=== PATIENT | female | born 1935 | race Caucasian/White ===

== ENCOUNTER → 2016-12-05 | Outpatient (CLI) | payer BC ==
[~2016-12-05] MED LIST: ASPI81TA28 PO; ATOR-26 PO; B-COTAB18 PO; CHOL1CAP57 PO; CHRO500T5 PO; CLOP1TAB15 PO; CLOT1CRE3; COEN10CA4 PO; CTP/1 PO; CYAN100020 PO; CZR50 PO; DILT-113 PO; FERR1TAB23 PO; ISOS60TA25 PO; LBT/100 PO; LEVOPOW36 PO; LSX20 PO; MAGN65TA PO; MULT-223 PO; NRN/100 PO; NTRGSL/4 UT; [UNRECOGNIZED DRUG - CODE] PO
[2016-12-05 12:30] LABS: HEMATOCRIT 34.4 % (37-47); MEAN CELL VOLUME 94.5 fL (80-100); MEAN CORPUSCULAR HEMOGLOBIN 31.3 pg (25-34); MEAN CORPUSCULAR HGB CONC 33.1 g/dl (32-36); MEAN PLATELET VOLUME 9.7 fL (7.4-10.4); PLATELET COUNT 251 K/uL (130-400); RED BLOOD COUNT 3.64 M/uL (4.2-5.4); WHITE BLOOD COUNT 6.06 K/uL (4.8-10.8)
[2016-12-05 12:49] LABS: URINE APPEARANCE CLEAR (CLEAR); URINE BILIRUBIN NEG (NEG); URINE COLOR DK YELLOW; URINE NITRITE NEG (NEG); URINE SPECIFIC GRAVITY 1.012 (1.000-1.030); UROBILINOGEN NEG (NEG)
[2016-12-05 12:59] LABS: MANUAL MICROSCOPIC REQUIRED? NO; REVIEW REQ? NO
[2016-12-05 13:10] LABS: URINE PROTIEN/CREAT RATIO 0.4 (0-0.2); URINE TOTAL PROTEIN 15.7 mg/dl (0-11.9)
[2016-12-05 13:19] LABS: BLOOD UREA NITROGEN 20 mg/dl (7-18); BUN/CREATININE RATIO 19.6 (10-20); CALCIUM 9.2 mg/dl (8.5-10.1); CARBON DIOXIDE 27 mmol/L (21-32); CHLORIDE 102 mmol/L (98-107); GLUCOSE 95 mg/dl (70-99); POTASSIUM 4.4 mmol/L (3.5-5.1); SODIUM 138 mmol/L (136-145)
[2016-12-05 13:20] LABS: PHOSPHORUS 3.2 mg/dl (2.5-4.9)
[2016-12-05 14:43] LABS: THYROID STIMULATING HORMONE 1.19 uIu/ml (0.300-4.500)
== END | disposition home or self-care (01) ==
LOC: C.LABBFT 10:01
PROVIDERS: ATTEND Nurse Practitioner
DX: E03.9 Hypothyroidism, unspecified (principal); D64.9 Anemia, unspecified; I12.9 Hypertensive chronic kidney disease with stage 1 through stage 4 chronic kidney disease, or unspecified chronic kidney disease; N18.3 Chronic kidney disease, stage 3 (moderate); R80.9 Proteinuria, unspecified; I48.92 Unspecified atrial flutter

== ENCOUNTER → 2017-03-01 | Outpatient (CLI) | payer BC ==
[~2017-03-01] MED LIST changes: +ATOR-24 PO; +CALC-20 PO; +CMD6 PO; +LEVO200T6 PO; +LOSA100T65 PO; +VLTG EXT; +WARF5TAB90 PO
== END | disposition home or self-care (01) ==
LOC: C.LABSPEC 12:24
PROVIDERS: ATTEND Physician Assistant Medical
DX: S31.109A Unspecified open wound of abdominal wall, unspecified quadrant without penetration into peritoneal cavity, initial encounter (principal); X58.XXXA Exposure to other specified factors, initial encounter

== ENCOUNTER → 2017-03-01 | Outpatient (CLI) | payer BC ==
[2017-03-01 12:21] LABS: BASO % 0.5 %; BASO ABS # 0.04 K/uL (0-0.2); COMPLETE YES; EOS % 1.6 %; HEMATOCRIT 32.4 % (37-47); IG% 0.2 %; LYMPH % 11.1 %; LYMPH ABS # 0.97 K/uL (1.2-3.4); MEAN CELL VOLUME 92.8 fL (80-100); MEAN CORPUSCULAR HEMOGLOBIN 30.7 pg (25-34); MEAN PLATELET VOLUME 9.5 fL (7.4-10.4); MONO % 14.8 %; NEUT % 71.8 %; PLATELET COUNT 250 K/uL (130-400); RED BLOOD COUNT 3.49 M/uL (4.2-5.4); WHITE BLOOD COUNT 8.73 K/uL (4.8-10.8)
[2017-03-01 12:55] LABS: CALCIUM 9.1 mg/dl (8.5-10.1)
[2017-03-01 13:15] LABS: ESTIMATED AVERAGE GLUCOSE 117 mg/dl; HA1C FLAG Normal (Normal)
[2017-03-01 13:17] LABS: ALT/SGPT 31 U/L (12-78); AST/SGOT 23 U/L (15-37); BLOOD UREA NITROGEN 18 mg/dl (7-18); BUN/CREATININE RATIO 16.5 (10-20); CARBON DIOXIDE 23 mmol/L (21-32); CHLORIDE 99 mmol/L (98-107); CHOLESTEROL 121 mg/dl (0-200); GLUCOSE 106 mg/dl (70-99); POTASSIUM 4.3 mmol/L (3.5-5.1); SODIUM 134 mmol/L (136-145); TRIGLYCERIDES 36 mg/dl (0-150); VERY LOW DENSITY LIPOPROT CALC 7 mg/dl
[2017-03-01 13:27] LABS: ALB/GLOB RATIO 0.8 (0.9-2); ALKALINE PHOSPHATASE 47 U/L (45-117); CHOLESTEROL/HDL RATIO 1.2; HDL CHOLESTEROL 101 mg/dl; LDL CHOLESTEROL CALCULATED 13 mg/dl
== END | disposition home or self-care (01) ==
LOC: C.LABBFT 09:57
PROVIDERS: ATTEND Nurse Practitioner
DX: E78.00 Pure hypercholesterolemia, unspecified (principal); D64.9 Anemia, unspecified; N18.3 Chronic kidney disease, stage 3 (moderate); E03.9 Hypothyroidism, unspecified; R73.01 Impaired fasting glucose; E55.9 Vitamin D deficiency, unspecified; S31.109A Unspecified open wound of abdominal wall, unspecified quadrant without penetration into peritoneal cavity, initial encounter; X58.XXXA Exposure to other specified factors, initial encounter; I48.92 Unspecified atrial flutter

== ENCOUNTER → 2017-04-05 | Outpatient (CLI) | payer BC ==
[~2017-04-05] MED LIST changes: -ATOR-24 PO; -CALC-20 PO; -CMD6 PO; -LEVO200T6 PO; -LOSA100T65 PO; -VLTG EXT; -WARF5TAB90 PO
== END | disposition home or self-care (01) ==
LOC: C.MAMM 09:10
PROVIDERS: ATTEND Internal Medicine
DX: M81.0 Age-related osteoporosis without current pathological fracture (principal); M85.832 Other specified disorders of bone density and structure, left forearm

== ENCOUNTER → 2017-04-05 | Outpatient (CLI) | payer BC ==
[2017-04-05 10:16] LABS: PROTHROMBIN TIME (PATIENT) 22.6 SECONDS (9.0-12.0)
--- NOTE | 2017-04-23 14:22 | CODING QUERY MEDICAL NECESSITY ---
SUPPORTING DIAGNOSIS NEEDED A supporting diagnosis is required for the test/procedure performed on this patient in order for us to be reimbursed by the patient's insurance. Please provide a supporting diagnosis for the following test/procedure listed below next to the test name along with your signature. *If there is no additional diagnosis for this patient that would support the following test/procedure please document that below next to the test/procedure. Test(s)/Procedure(s) that require a supporting diagnosis: * VITAMIN B12 DIAGNOSIS: Provider Signature: Date: Thank you Sondra [facility] [employer] Payment Information Management Once completed, please kindly fax back to [phone] For questions please call [phone]
== END | disposition home or self-care (01) ==
LOC: C.LAB1850 08:58
PROVIDERS: ATTEND Nurse Practitioner
DX: D64.9 Anemia, unspecified (principal); I48.92 Unspecified atrial flutter; M81.0 Age-related osteoporosis without current pathological fracture; M85.832 Other specified disorders of bone density and structure, left forearm

== ENCOUNTER → 2017-05-24 | Outpatient (CLI) | payer BC ==
[2017-05-24 13:15] LABS: ALT/SGPT 30 U/L (12-78); AST/SGOT 26 U/L (15-37); BLOOD UREA NITROGEN 17 mg/dl (7-18); BUN/CREATININE RATIO 17.1 (10-20); CALCIUM 9.5 mg/dl (8.5-10.1); CARBON DIOXIDE 28 mmol/L (21-32); CHLORIDE 103 mmol/L (98-107); GLUCOSE 99 mg/dl (70-99); POTASSIUM 3.9 mmol/L (3.5-5.1); SODIUM 136 mmol/L (136-145)
[2017-05-24 13:18] LABS: ALB/GLOB RATIO 0.9 (0.9-2); ALKALINE PHOSPHATASE 50 U/L (45-117); CHOLESTEROL 128 mg/dl (0-200); CHOLESTEROL/HDL RATIO 1.3; HDL CHOLESTEROL 99 mg/dl; LDL CHOLESTEROL CALCULATED 20 mg/dl; TRIGLYCERIDES 43 mg/dl (0-150); VERY LOW DENSITY LIPOPROT CALC 9 mg/dl
== END | disposition home or self-care (01) ==
LOC: C.LABBFT 10:33
PROVIDERS: ATTEND Internal Medicine Cardiovascular Disease
DX: E78.00 Pure hypercholesterolemia, unspecified (principal); I48.92 Unspecified atrial flutter

== ENCOUNTER → 2017-06-07 | Outpatient (CLI) | payer BC ==
[2017-06-07 17:33] LABS: MEAN CELL VOLUME 97.1 fL (80-100); MEAN CORPUSCULAR HEMOGLOBIN 31.2 pg (25-34); MEAN CORPUSCULAR HGB CONC 32.1 g/dl (32-36); MEAN PLATELET VOLUME 9.7 fL (7.4-10.4); PLATELET COUNT 253 K/uL (130-400); WHITE BLOOD COUNT 6.35 K/uL (4.8-10.8)
[2017-06-07 17:44] LABS: URINE APPEARANCE CLEAR (CLEAR); URINE BILIRUBIN NEG (NEG); URINE COLOR YELLOW; URINE EPITHELIAL CELL AUTO 0-5 /lpf (0-5); URINE NITRITE NEG (NEG); URINE PH 7.5 (4.5-7.5); URINE SPECIFIC GRAVITY 1.013 (1.000-1.030); UROBILINOGEN NEG (NEG)
[2017-06-07 17:46] LABS: BLOOD UREA NITROGEN 15 mg/dl (7-18); BUN/CREATININE RATIO 16.3 (10-20); CALCIUM 9.9 mg/dl (8.5-10.1); CARBON DIOXIDE 26 mmol/L (21-32); CHLORIDE 101 mmol/L (98-107); CREATININE 0.89 mg/dl (0.60-1.20); GLUCOSE 94 mg/dl (70-99); PHOSPHORUS 2.7 mg/dl (2.5-4.9); POTASSIUM 3.9 mmol/L (3.5-5.1); SODIUM 134 mmol/L (136-145)
[2017-06-07 17:47] LABS: MANUAL MICROSCOPIC REQUIRED? NO; REVIEW REQ? NO
[2017-06-07 18:02] LABS: CREATININE, URINE < 13.0 mg/dl; URINE TOTAL PROTEIN 10.2 mg/dl (0-11.9)
== END | disposition home or self-care (01) ==
LOC: C.LABBFT 12:26
PROVIDERS: ATTEND Internal Medicine Nephrology
DX: D64.9 Anemia, unspecified (principal); I12.9 Hypertensive chronic kidney disease with stage 1 through stage 4 chronic kidney disease, or unspecified chronic kidney disease; N18.3 Chronic kidney disease, stage 3 (moderate); R80.9 Proteinuria, unspecified; E55.9 Vitamin D deficiency, unspecified

== ENCOUNTER 2017-07-12 12:12 | Inpatient (IN) | payer BC, OTHER ==
[~2017-07-12] VITALS: Ht 152.4 cm; Wt 95.0 kg
[2017-07-12] MEDS ORDERED: ATOR-24 PO (13:29)
[2017-07-12] MEDS ORDERED: WARF5TAB90 PO (13:29)
[2017-07-12] MEDS ORDERED: CALC-20 PO (13:29)
[2017-07-12] MEDS ORDERED: LOSA100T65 PO (13:29)
[2017-07-12] MEDS ORDERED: LEVO200T6 PO (13:31)
--- NOTE | 2017-07-12 13:40 | EMERGENCY ROOM VISIT NOTE ---
History Report prepared by Albert: Dave Hanson Under the Supervision of: Dr. Maury Aguiar M.D. First contact with patient: 12:57 Chief Complaint: LEG PAIN,LEG INJURY Stated Complaint: LEG PAIN History of Present Illness The patient is an 81 year old female who presents to the Emergency Room with complaints of constant left leg pain starting this morning. The patient states that she was sitting in her chair with a heating pad on, and then she was not able to get up, and she was not able to put weight on her leg. She denies any trauma. The patient states that she has a history of cellulitis and A-fib, and she takes Coumadin and Plavix. She states that she took Advil this morning for her arthritis. The patient denies any fever, chest pain, shortness of breath, abdominal pain, nausea, vomiting, and hip pain. She notes that the pain is worse in the back, and she has a lump in the back of her knee as well. She denies any history of blood clots and gout. The daughter states that the patient was recently in rehab for her mobility, and she was doing a lot of leg exercises. Source of History: patient Onset: this morning Position: leg (left) Timing: constant Associated Symptoms: No fevers, No chest pain, No SOB, No nausea, No vomiting, No abdominal pain Review of Systems See HPI for pertinent positives & negatives. A total of 10 systems reviewed and were otherwise negative. Past Medical & Surgical Medical Problems: (1) Abscess (2) Acute coronary syndrome (3) CAD (coronary artery disease) (4) CAD (coronary artery disease) (5) Diab Adamaris Wo Compl, Type Ii Or Unspec Type, Not Uncntrld (6) Hyperparathyroidism, Unspecified (7) Hypertension (8) Hypertension Nos (9) Kidney disease (10) Leukocytosis (11) Morbid Obesity (12) Osteoporosis Nos Old medical records were reviewed. Nurse's notes were reviewed and I agree with. Family History Diabetes mellitus Heart disease Hypertension Kidney disease Social History Smoking Status: Never Smoker Alcohol Use: none Drug Use: none Marital Status: Housing Status: lives alone Occupation Status: retired Current/Historical Medications Scheduled Aspirin (Aspirin Ec), 81 MG PO DAILY Atorvastatin (Lipitor), 40 MG PO HS Calcium Carbonate-Vitamin D (Calcium 600 + D), 1 TAB PO TIDM Diltiazem Hcl Ext Rel (Tiazac), 180 MG PO NOON Ferrous Sulfate (Iron), 325 MG PO QAM Furosemide (Furosemide), 20 MG PO QAM Gabapentin (Neurontin), 100 MG PO HS Isosorbide Mononitrate Ext Rel (Imdur Ext Rel), 60 MG PO QAM Labetalol Hcl (Normodyne), 100 MG PO BID Levothyroxine Sodium (Levothyroxine Sodium), 1 TAB PO DAILYBB Losartan Potassium (Cozaar), 100 MG PO QAM Warfarin Sodium (Coumadin), 1.5 TAB PO HS Scheduled PRN Clonidine Hcl (Catapres), 0.1 MG PO DAILY PRN for Hypertension Nitroglycerin (Nitrostat), 0.4 MG UT PRN PRN for Chest Pain Allergies Coded Allergies: Doxycycline (Verified Allergy, Intermediate, RASH, 07/12/17) ANA LUISA Inhibitors (Verified Adverse Reaction, Unknown, INTOLERANT, 07/12/17) Lisinopril (Verified Adverse Reaction, Unknown, INTOLERANT, 07/12/17) Physical Exam Vital Signs Date Time Temp Pulse Resp B/P (MAP) Pulse Ox O2 Delivery O2 Flow Rate FiO2 07/12/17 18:26 70 20 176/70 95 Room Air 07/12/17 16:43 85 20 199/98 84 Room Air 07/12/17 15:27 93 20 211/115 97 Room Air 07/12/17 13:20 77 07/12/17 12:34 37.0 98 20 228/107 96 Room Air 07/12/17 12:30 92 Physical Exam General: Non-ill appearing older female in no acute distress. HEENT: Normal cephalic atraumatic. Pupils are equal round and reactive to light. Extraocular movements are intact. Oropharynx is pink with moist mucous membranes. No swelling of the mouth lips or tongue. Neck: Supple with a midline trachea. No meningeal signs or stiffness, no JVD or bruits. No Stridor. Chest: Clear to auscultation bilaterally. No wheezes or rhonchi. No increased work of breathing. Heart: regular rate and rhythm. Abdomen: Soft nontender, nondistended without rebound guarding or rigidity. Extremities: Left knee is not red or swollen. Mild pain with movement. Normal perfusion of the left foot. Normal motor and sensation in the left leg. No cyanosis clubbing or edema. No calf tenderness or assymetry Spine/Back. Non tender to palpation. No CVA tenderness Skin: Good turgor without rashes. Neurologic exam: Cranial nerves two through 12 are intact. Motor and sensation are intact and symmetrical throughout. Medical Decision & Procedures ER Provider Diagnostic Interpretation: Radiology results as stated below per my review and radiologist interpretation: ULTRASOUND LEFT LOWER EXTREMITY VENOUS CLINICAL HISTORY: Left leg pain. COMPARISON STUDY: Left lower extremity venous ultrasound dated 12/15/2015. TECHNIQUE: Real-time, grayscale, and color Doppler sonography of the deep veins of the left lower extremity was performed from the inguinal crease to the calf. Compression and augmentation were utilized. FINDINGS: There is no sonographic evidence of deep venous thrombosis identified in the left lower extremity. The common femoral, superficial femoral, and popliteal veins are patent and normally compressible. The greater saphenous vein and the profunda femoris vein at the junction with the common femoral vein are clear. The visualized calf veins are patent. A complex popliteal cyst measures 7.5 x 2.9 x 4.4 cm. IMPRESSION: 1. There is no sonographic evidence of deep venous thrombosis identified in the left lower extremity. 2. A large complex collection in the popliteal fossa likely represents a popliteal cyst. This has increased in complexity from the 12/15/2015 examination. Electronically signed by: Rai Adam M.D. 07/12/2017 3:06 PM Dictated Date/Time: 07/12/2017 3:05 PM SINGLE VIEW PELVIS; 2 VIEWS LEFT HIP CLINICAL HISTORY: Left leg pain. No reported history of trauma. No history of trauma. FINDINGS: An AP view of the pelvis with AP and frog-leg views of the left hip are compared to study dated 11/06/2015. The skeletal structures are osteopenic. There is no radiographic evidence of fracture identified in the hips or bony pelvis. There is mild to moderate arthritic change present in both hips with associated joint space narrowing, left greater than right. Sclerotic change is seen in the sacroiliac joints and pubic symphysis. Moderate lumbosacral spondylosis is partially imaged. The overlying soft tissues are normal in appearance. There is a nonobstructed abdominal bowel gas pattern. IMPRESSION: 1. There is no radiographic evidence of fracture in the hips or bony pelvis. 2. Osteopenia and degenerative change as above. Electronically signed by: Rai Adam M.D. 07/12/2017 2:45 PM Dictated Date/Time: 07/12/2017 2:44 PM L KNEE 3 VIEWS HISTORY: 81 years-old Female LT KNEE PAIN acute left hip pain status post trauma COMPARISON: None available TECHNIQUE: 3 views of the left knee FINDINGS: Severe medial and patellofemoral compartment with at least moderate lateral compartment osteoarthritis. The bones appear moderately demineralized. Large joint effusion with moderate soft tissue swelling about the knee. No acute fracture or dislocation identified. Chondrocalcinosis without discrete intra-articular foreign body. IMPRESSION: 1. Large joint effusion and moderate soft tissue swelling without acute fracture or dislocation. 2. Moderate bone demineralization with tricompartmental osteoarthritis as above, severe within the medial and patellofemoral compartments. The above report was generated using voice recognition software. It may contain grammatical, syntax or spelling errors. Electronically signed by: Braulio Hernandez M.D. 07/12/2017 2:46 PM Dictated Date/Time: 07/12/2017 2:44 PM Laboratory Results 07/12/17 13:30 Red Blood Count 3.35, Mean Corpuscular Volume 96.1, Mean Corpuscular Hemoglobin 31.9, Mean Corpuscular Hemoglobin Concent 33.2, Mean Platelet Volume 9.5, Neutrophils (%) (Auto) 69.6, Lymphocytes (%) (Auto) 16.4, Monocytes (%) (Auto) 10.2, Eosinophils (%) (Auto) 3.1, Basophils (%) (Auto) 0.5, Neutrophils # (Auto ) 4.43, Lymphocytes # (Auto) 1.04, Monocytes # (Auto) 0.65, Eosinophils # (Auto ) 0.20, Basophils # (Auto) 0.03 07/12/17 13:30 Test 07/12/17 13:30 White Blood Count 6.36 K/uL (4.8-10.8) Red Blood Count 3.35 M/uL (4.2-5.4) Hemoglobin 10.7 g/dL (12.0-16.0) Hematocrit 32.2 % (37-47) Mean Corpuscular Volume 96.1 fL (80-100) Mean Corpuscular Hemoglobin 31.9 pg (25-34) Mean Corpuscular Hemoglobin Concent 33.2 g/dl (32-36) Platelet Count 208 K/uL (130-400) Mean Platelet Volume 9.5 fL (7.4-10.4) Neutrophils (%) (Auto) 69.6 % Lymphocytes (%) (Auto) 16.4 % Monocytes (%) (Auto) 10.2 % Eosinophils (%) (Auto) 3.1 % Basophils (%) (Auto) 0.5 % Neutrophils # (Auto) 4.43 K/uL (1.4-6.5) Lymphocytes # (Auto) 1.04 K/uL (1.2-3.4) Monocytes # (Auto) 0.65 K/uL (0.11-0.59) Eosinophils # (Auto) 0.20 K/uL (0-0.5) Basophils # (Auto) 0.03 K/uL (0-0.2) RDW Standard Deviation 50.7 fL (36.4-46.3) RDW Coefficient of Variation 14.4 % (11.5-14.5) Immature Granulocyte % (Auto) 0.2 % Immature Granulocyte # (Auto) 0.01 K/uL (0.00-0.02) Prothrombin Time 27.1 SECONDS (9.0-12.0) Prothromb Time International Ratio 2.4 (0.9-1.1) Activated Partial Thromboplast Time 38.0 SECONDS (21.0-31.0) Partial Thromboplastin Ratio 1.5 Anion Gap 7.0 mmol/L (3-11) Est Creatinine Clear Calc Drug Dose 52.3 ml/min Estimated GFR () 72.4 Estimated GFR (Non- 62.5 BUN/Creatinine Ratio 20.3 (10-20) Uric Acid 4.8 mg/dl (2.6-7.2) Calcium Level 9.1 mg/dl (8.5-10.1) Total Bilirubin 0.5 mg/dl (0.2-1) Direct Bilirubin 0.2 mg/dl (0-0.2) Aspartate Amino Transf (AST/SGOT) 24 U/L (15-37) Alanine Aminotransferase (ALT/SGPT) 30 U/L (12-78) Alkaline Phosphatase 47 U/L (45-117) Total Protein 7.0 gm/dl (6.4-8.2) Albumin 3.3 gm/dl (3.4-5.0) Lipase 182 U/L (73-393) Laboratory studies as stated above per my review. ECG Indication: other (leg pain) Rate (beats per minute): 87 Rhythm: atrial flutter (with variable blockage) Findings: nonspecific-ST abn, no acute ischemic change Comparison ECG Date: 10/29/15 Change: no significant change ED Course 1257: Past medical records reviewed. The patient was evaluated in room B3, and a complete history and physical examination were performed. 1415: I reevaluated the patient, and she is about to go to ultrasound 1547: I reassessed the patient, and she is doing well. I discussed the treatment plan with her, and she was agreeable. 1720: Discussed the patient's case Dr. [place], [facility] [place] The patient will be evaluated for further management. Medical Decision Differentials include, but are not limited to; DVT, arthritis, infection, cellulitis, arterial compromise, popliteal cyst. This patient comes in as described above. She is placed in room B3. She is here for treatment and evaluation of left leg pain. It seems to be in the knee . she also later complains that the hip hurts a little bit . There is no fall or trauma. She's had no fever or systemic complaints. On exam, she is neurologically and neurovascularly intact. There is no redness or warmth she is on both Coumadin and Plavix. Blood work was obtained x-rays are obtained of the knee and hip as well as an ultrasound of her leg. EKG was obtained. She was reassessed frequently. She has no significant electrolyte or metabolic abnormalities which would explain her symptoms. Her INR is therapeutic in the mid 2 range. Ultrasound shows no evidence of DVT , she does have a complex popliteal cyst. Knee x-ray was unremarkable for fracture. She does has a large joint effusion. She is on 2 blood thinners and is unable ambulate secondary to pain. I do think she needs to have a rehabilitation and is a fall risk at home. I discussed this with her case management team they cannot get her in to rehabilitation tonight and recommended we observe her hospital for further inpatient treatment and evaluation and rehabilitation. Medication Reconcilliation Current Medication List: was personally reviewed by me Blood Pressure Screening Patient's blood pressure: Elevated blood pressure Monitored by the hospitalist Consults Time Called: 1547 Consulting Physician: GRUPO Thompson Returned Call: 1720 Discussed the patient's case GRUPO Thompson. The patient will be evaluated for further management. Impression Primary Impression: Knee effusion Additional Impressions: Popliteal cyst Ambulatory dysfunction Scribe Attestation The scribe's documentation has been prepared under my direction and personally reviewed by me in its entirety. I confirm that the note above accurately reflects all work, treatment, procedures, and medical decision making performed by me. Departure Information Dispostion Being Evaluated By Hospitalist Referrals Nai Sparrow, C.R.N.P. (PCP) Patient Instructions My [facility] Problem Qualifiers
[2017-07-12 13:51] LABS: BASO % 0.5 %; BASO ABS # 0.03 K/uL (0-0.2); COMPLETE YES; EOS % 3.1 %; HEMATOCRIT 32.2 % (37-47); IG% 0.2 %; LYMPH % 16.4 %; LYMPH ABS # 1.04 K/uL (1.2-3.4); MEAN CELL VOLUME 96.1 fL (80-100); MEAN CORPUSCULAR HEMOGLOBIN 31.9 pg (25-34); MEAN CORPUSCULAR HGB CONC 33.2 g/dl (32-36); MEAN PLATELET VOLUME 9.5 fL (7.4-10.4); MONO % 10.2 %; NEUT % 69.6 %; PLATELET COUNT 208 K/uL (130-400); RED BLOOD COUNT 3.35 M/uL (4.2-5.4); WHITE BLOOD COUNT 6.36 K/uL (4.8-10.8)
[2017-07-12 14:02] LABS: INR 2.4 (0.9-1.1); PARTIAL THROMBOPLASTIN RATIO 1.5; PROTHROMBIN TIME (PATIENT) 27.1 SECONDS (9.0-12.0)
[2017-07-12 14:09] LABS: BUN/CREATININE RATIO 20.3 (10-20); CALCIUM 9.1 mg/dl (8.5-10.1); CREATININE 0.86 mg/dl (0.60-1.20); POTASSIUM 3.9 mmol/L (3.5-5.1); URIC ACID 4.8 mg/dl (2.6-7.2)
--- NOTE | 2017-07-12 14:47 | DIAGNOSTIC IMAGING REPORT ---
SINGLE VIEW PELVIS; 2 VIEWS LEFT HIP CLINICAL HISTORY: Left leg pain. No reported history of trauma. No history of trauma. FINDINGS: An AP view of the pelvis with AP and frog-leg views of the left hip are compared to study dated 11/06/2015. The skeletal structures are osteopenic. There is no radiographic evidence of fracture identified in the hips or bony pelvis. There is mild to moderate arthritic change present in both hips with associated joint space narrowing, left greater than right. Sclerotic change is seen in the sacroiliac joints and pubic symphysis. Moderate lumbosacral spondylosis is partially imaged. The overlying soft tissues are normal in appearance. There is a nonobstructed abdominal bowel gas pattern. IMPRESSION: 1. There is no radiographic evidence of fracture in the hips or bony pelvis. 2. Osteopenia and degenerative change as above. Electronically signed by: Rai Adam M.D. 07/12/2017 2:45 PM Dictated Date/Time: 07/12/2017 2:44 PM
--- NOTE | 2017-07-12 14:47 | DIAGNOSTIC IMAGING REPORT ---
L KNEE 3 VIEWS HISTORY: 81 years-old Female LT KNEE PAIN acute left hip pain status post trauma COMPARISON: None available TECHNIQUE: 3 views of the left knee FINDINGS: Severe medial and patellofemoral compartment with at least moderate lateral compartment osteoarthritis. The bones appear moderately demineralized. Large joint effusion with moderate soft tissue swelling about the knee. No acute fracture or dislocation identified. Chondrocalcinosis without discrete intra-articular foreign body. IMPRESSION: 1. Large joint effusion and moderate soft tissue swelling without acute fracture or dislocation. 2. Moderate bone demineralization with tricompartmental osteoarthritis as above, severe within the medial and patellofemoral compartments. The above report was generated using voice recognition software. It may contain grammatical, syntax or spelling errors. Electronically signed by: Braulio Hernandez M.D. 07/12/2017 2:46 PM Dictated Date/Time: 07/12/2017 2:44 PM
--- NOTE | 2017-07-12 15:07 | DIAGNOSTIC IMAGING REPORT ---
ULTRASOUND LEFT LOWER EXTREMITY VENOUS CLINICAL HISTORY: Left leg pain. COMPARISON STUDY: Left lower extremity venous ultrasound dated 12/15/2015. TECHNIQUE: Real-time, grayscale, and color Doppler sonography of the deep veins of the left lower extremity was performed from the inguinal crease to the calf. Compression and augmentation were utilized. FINDINGS: There is no sonographic evidence of deep venous thrombosis identified in the left lower extremity. The common femoral, superficial femoral, and popliteal veins are patent and normally compressible. The greater saphenous vein and the profunda femoris vein at the junction with the common femoral vein are clear. The visualized calf veins are patent. A complex popliteal cyst measures 7.5 x 2.9 x 4.4 cm. IMPRESSION: 1. There is no sonographic evidence of deep venous thrombosis identified in the left lower extremity. 2. A large complex collection in the popliteal fossa likely represents a popliteal cyst. This has increased in complexity from the 12/15/2015 examination. Electronically signed by: Rai Adam M.D. 07/12/2017 3:06 PM Dictated Date/Time: 07/12/2017 3:05 PM
[2017-07-12] MEDS ORDERED: ALUMINUM/MAGNESIUM/SIMETH (MAALOX MAX) 30 ML UDC PO PRN (18:30)
[2017-07-12] MEDS ORDERED: NITROGLYCERIN 0.4 MG SL PER TAB CHARGE UT PRN (18:30)
[2017-07-12] MEDS ORDERED: POLYETHYLENE (MIRALAX) 17 GM PACK PO PRN (18:30)
[2017-07-12] MEDS ORDERED: MAGNESIUM HYDROXIDE SUSP 30 ML UDC PO PRN (18:30)
[2017-07-12] MEDS ORDERED: ONDANSETRON INJ 2 MG/ML 2 ML VIAL IV PRN (18:30)
[2017-07-12] MEDS ORDERED: ACETAMINOPHEN 325 MG TAB PO PRN (18:30)
--- NOTE | 2017-07-12 19:12 | History and Physical ---
History & Physical Date & Time of Service: Jul 12, 2017 at 18:56 Chief Complaint: Leg Pain Primary Care Physician: Nai Sparrow C.R.NGudeliaPGudelia History of Present Illness Source: patient, family (son) Ms. Parkinson is an 81 y/o female with PMHx of CAD S/P Stents, Persistent Atrial Fibrillation, Hypothyroidism, CKD Stage III, Anemia, and Abdominal Wall Abscess S/P I&D (summer 2016), and CECIL who presents for ambulatory dysfunction and L knee pain starting earlier today. Patient has had long standing arthritis but normally is ambulatory with a cane. She had a 10-12 day inpatient stay at [facility] and then did outpatient twice a week throughout May. She just finished their program this past . She states she felt to be improving and participating in the leg exercises that they gave her. This AM, she got up around 0630 and did not have any worsening of her chronic arthritis. She reports a sudden onset of L knee pain and decided to sit down with a heating pad. When she tried to get up she could not put weight on her leg. She attempted to stand about four times and felt like the knee kept giving out on her. She denies any falls or trauma to this knee. She is on Coumadin and ASA. She reports feeling well otherwise. Does not dry eyes and dry pruritic area around R eye but no purulent drainage or visual issues. Past Medical/Surgical History 1. CAD S/P Stents 2. Persistent Atrial Fibrillation 3. Hypothyroidism 4. CKD Stage III 5. Anemia 6. Abdominal Wall Abscess S/P I&D (summer 2016) Family History Diabetes mellitus Heart disease Hypertension Kidney disease Social History Smoking Status: Never Smoker Smokeless Tobacco Use: No Drug Use: none Marital Status: Occupational Status: retired Immunizations History of Influenza Vaccine: No History of Tetanus Vaccine?: No Tetanus Immunization Date: Apr 10, 2006 History of Pneumococcal: No History of Hepatitis B Vaccine: No Allergies Coded Allergies: Doxycycline (Verified Allergy, Intermediate, RASH, 07/12/17) ANA LUISA Inhibitors (Verified Adverse Reaction, Unknown, INTOLERANT, 07/12/17) Lisinopril (Verified Adverse Reaction, Unknown, INTOLERANT, 07/12/17) Home Medications Scheduled Aspirin (Aspirin Ec), 81 MG PO DAILY Atorvastatin (Lipitor), 40 MG PO HS Calcium Carbonate-Vitamin D (Calcium 600 + D), 1 TAB PO TIDM Diltiazem Hcl Ext Rel (Tiazac), 180 MG PO NOON Ferrous Sulfate (Iron), 325 MG PO QAM Furosemide (Furosemide), 20 MG PO QAM Gabapentin (Neurontin), 200 MG PO HS Isosorbide Mononitrate Ext Rel (Imdur Ext Rel), 60 MG PO QAM Labetalol Hcl (Normodyne), 100 MG PO BID Levothyroxine Sodium (Levothyroxine Sodium), 1 TAB PO DAILYBB Losartan Potassium (Cozaar), 100 MG PO QAM Warfarin Sodium (Coumadin), 1.5 TAB PO HS Scheduled PRN Clonidine Hcl (Catapres), 0.1 MG PO DAILY PRN for Hypertension Nitroglycerin (Nitrostat), 0.4 MG UT PRN PRN for Chest Pain Review of Systems Constitutional: No fever, No chills ENT: No nasal symptoms, No sore throat, No trouble swallowing Respiratory: No cough, No shortness of breath Cardiovascular: No chest pain, No palpitations Abdomen: No pain, No nausea, No vomiting, No diarrhea, No constipation Musculoskeletal: + joint pain (L knee), + swelling (chronic lower extremity edema), No calf pain Genitourinary - Female: No dysuria Hematologic / Lymphatic: No abnormal bleeding/bruising, No clotting problems Integumentary: + problem reported (dry, pruritic, erythematous R eye) Physical Exam Vital Signs Date Time Temp Pulse Resp B/P (MAP) Pulse Ox O2 Delivery O2 Flow Rate FiO2 07/12/17 18:26 70 20 176/70 95 Room Air 07/12/17 16:43 85 20 199/98 84 Room Air 07/12/17 15:27 93 20 211/115 97 Room Air 07/12/17 13:20 77 07/12/17 12:34 37.0 98 20 228/107 96 Room Air 07/12/17 12:30 92 General Appearance: WD/WN, no apparent distress, + obese Head: normocephalic, atraumatic Eyes: PERRL, EOMI, sclerae normal, + pertinent finding (dry and mildly erythematous periorbitally; no tenderness or fluctuance ) ENT: hearing grossly normal Neck: supple, no JVD, trachea midline Respiratory/Chest: lungs clear, normal breath sounds, no respiratory distress, no accessory muscle use Cardiovascular: no gallop, no murmur, + irregularly irregular Abdomen/GI: normal bowel sounds, non tender, soft Extremities/Musculoskelatal: no calf tenderness, normal capillary refill, + swelling (1+ to 2+ pitting edema bilateral ankles; mild edema of L knee without erythema, drainage, open wound) Neurologic/Psych: alert, oriented x 3 Skin: normal color, warm/dry Diagnostics Laboratory Results Results Past 24 Hours Test 07/12/17 13:30 Range/Units White Blood Count 6.36 4.8-10.8 K/uL Red Blood Count 3.35 4.2-5.4 M/uL Hemoglobin 10.7 12.0-16.0 g/dL Hematocrit 32.2 37-47 % Mean Corpuscular Volume 96.1 80-100 fL Mean Corpuscular Hemoglobin 31.9 25-34 pg Mean Corpuscular Hemoglobin Concent 33.2 32-36 g/dl Platelet Count 208 130-400 K/uL Mean Platelet Volume 9.5 7.4-10.4 fL Neutrophils (%) (Auto) 69.6 % Lymphocytes (%) (Auto) 16.4 % Monocytes (%) (Auto) 10.2 % Eosinophils (%) (Auto) 3.1 % Basophils (%) (Auto) 0.5 % Neutrophils # (Auto) 4.43 1.4-6.5 K/uL Lymphocytes # (Auto) 1.04 1.2-3.4 K/uL Monocytes # (Auto) 0.65 0.11-0.59 K/uL Eosinophils # (Auto) 0.20 0-0.5 K/uL Basophils # (Auto) 0.03 0-0.2 K/uL RDW Standard Deviation 50.7 36.4-46.3 fL RDW Coefficient of Variation 14.4 11.5-14.5 % Immature Granulocyte % (Auto) 0.2 % Immature Granulocyte # (Auto) 0.01 0.00-0.02 K/uL Prothrombin Time 27.1 9.0-12.0 SECONDS Prothromb Time International Ratio 2.4 0.9-1.1 Activated Partial Thromboplast Time 38.0 21.0-31.0 SECONDS Partial Thromboplastin Ratio 1.5 Sodium Level 137 136-145 mmol/L Potassium Level 3.9 3.5-5.1 mmol/L Chloride Level 104 98-107 mmol/L Carbon Dioxide Level 26 21-32 mmol/L Anion Gap 7.0 3-11 mmol/L Blood Urea Nitrogen 17 7-18 mg/dl Creatinine 0.86 0.60-1.20 mg/dl Est Creatinine Clear Calc Drug Dose 52.3 ml/min Estimated GFR () 72.4 Estimated GFR (Non- 62.5 BUN/Creatinine Ratio 20.3 10-20 Random Glucose 95 70-99 mg/dl Uric Acid 4.8 2.6-7.2 mg/dl Calcium Level 9.1 8.5-10.1 mg/dl Total Bilirubin 0.5 0.2-1 mg/dl Direct Bilirubin 0.2 0-0.2 mg/dl Aspartate Amino Transf (AST/SGOT) 24 15-37 U/L Alanine Aminotransferase (ALT/SGPT) 30 12-78 U/L Alkaline Phosphatase 47 45-117 U/L Total Protein 7.0 6.4-8.2 gm/dl Albumin 3.3 3.4-5.0 gm/dl Lipase 182 73-393 U/L Diagnostic Radiology L KNEE 3 VIEWS FINDINGS: Severe medial and patellofemoral compartment with at least moderate lateral compartment osteoarthritis. The bones appear moderately demineralized. Large joint effusion with moderate soft tissue swelling about the knee. No acute fracture or dislocation identified. Chondrocalcinosis without discrete intra-articular foreign body. IMPRESSION: 1. Large joint effusion and moderate soft tissue swelling without acute fracture or dislocation. 2. Moderate bone demineralization with tricompartmental osteoarthritis as above, severe within the medial and patellofemoral compartments. ULTRASOUND LEFT LOWER EXTREMITY VENOUS FINDINGS: There is no sonographic evidence of deep venous thrombosis identified in the left lower extremity. The common femoral, superficial femoral, and popliteal veins are patent and normally compressible. The greater saphenous vein and the profunda femoris vein at the junction with the common femoral vein are clear. The visualized calf veins are patent. A complex popliteal cyst measures 7.5 x 2.9 x 4.4 cm. IMPRESSION: 1. There is no sonographic evidence of deep venous thrombosis identified in the left lower extremity. 2. A large complex collection in the popliteal fossa likely represents a popliteal cyst. This has increased in complexity from the 12/15/2015 examination. SINGLE VIEW PELVIS; 2 VIEWS LEFT HIP FINDINGS: An AP view of the pelvis with AP and frog-leg views of the left hip are compared to study dated 11/06/2015. The skeletal structures are osteopenic. There is no radiographic evidence of fracture identified in the hips or bony pelvis. There is mild to moderate arthritic change present in both hips with associated joint space narrowing, left greater than right. Sclerotic change is seen in the sacroiliac joints and pubic symphysis. Moderate lumbosacral spondylosis is partially imaged. The overlying soft tissues are normal in appearance. There is a nonobstructed abdominal bowel gas pattern. IMPRESSION: 1. There is no radiographic evidence of fracture in the hips or bony pelvis. 2. Osteopenia and degenerative change as above. EKG Atrial flutter with variable A-V block Nonspecific ST abnormality Abnormal QRS-T angle, consider primary T wave abnormality Abnormal ECG When compared with ECG of 07-NOV-2015 08:46, ST now depressed in Inferior leads ST now depressed in Anterolateral leads Impression Assessment and Plan Ms. Parkinson is an 81 y/o female with PMHx of CAD S/P Stents, Persistent Atrial Fibrillation, Hypothyroidism, CKD Stage III, Anemia, and Abdominal Wall Abscess S/P I&D (summer 2016), and CECIL who presents for ambulatory dysfunction and L knee pain starting earlier today. Large L Knee Effusion: Hemarthrosis? - She is denying trauma but is on Coumadin and ASA therapy. U/S revealing complex Huggins's cyst - Tylenol and Percocet PRN - Compressive ANA LUISA wrap and ice - Consult orthopedics - discussed with Dr. Myers - continue conservative therapy with compression and ice and continue to monitor and can continue anticoagulation Ambulatory Dysfunction: - Recent stay at [facility] with outpatient x two days a week that she just completed last - PT/OT evaluations Persistent Atrial Fibrillation/Flutter: Rate Controlled - Diltiazem 180 mg daily and Labetalol 100 mg BID - Coumadin 7.5 mg daily - INR 2.4 and continue to trend CAD S/P Stents: - ASA 81 mg daily and Atorvastatin 40 mg daily - Imdur 60 mg daily Possible Chronic Diastolic Dysfunction vs Chronic Venous Stasis with Edema: - Furosemide 20 mg daily Anemia of Chronic Disease: - Ferrous Sulfate 325 mg daily 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 Y/N: Yes Risk Level: Moderate Given or contraindicated: Warfarin (Coumadin), SCD's Social Service Consult >80 yr.& Lives Alone Reviewed: Pt Seen/Exam by Me History Physician Radiological Technologist Supervision Note: I interviewed and examined the patient. Discussed with JANETH Drake and agree with findings and plan as documented in the note. Any exceptions or clarifications are listed here: Patient here with sudden onset of acute left knee pain causing ambulatory dysfunction. She has a large effusion and very limited range of motion on exam , as well as a large Huggins's cyst seen on ultrasound of the left lower extremity that is complex now in nature. She may have a hemarthrosis given that she is on chronic anticoagulation and the acute onset without trauma of her knee pain and effusion. I discussed the case with orthopedics over the phone. Vitals reviewed-significantly hypertensive on arrival, improved at the time of admission No acute distress, obese Irregularly irregular with normal rate, no murmurs, rubs rubs Lungs clear to auscultation bilaterally Trace pitting edema in the right lower extremity in the leg to the knee, left leg with 1+ pitting edema from the foot to the knee, left knee with very limited range of motion from 0-20 flexion limited by severe pain, positive large effusion palpable on exam, no ecchymosis or erythema or heat of the knee, positive tenderness to palpation with cystic mass palpable in left posterior knee 2+ dorsalis pedis pulses bilaterally ECG with inferolateral ST changes slightly more prominent than previous ECG 81-year-old female with a history of chronic atrial fibrillation and flutter on Coumadin and aspirin, CAD, arthritis, obesity, CECIL, here with acute onset of left knee pain and effusion without apparent injury -Suspect hemarthrosis-compression wrap to be applied, ice to the area, appreciate orthopedic consult to see about need for arthrocentesis, but okay to continue anticoagulation for now -Pain control -Given ST changes on EKG, she is asymptomatic, but did have significantly elevated blood pressure at the time the EKG was done--> repeat ECG and check troponin -Continue all other treatment as per the physician printer's assistant note -Discharge planning hopefully to acute rehabilitation when stable Documented By: Tasha Zamora
[2017-07-12] MEDS ORDERED: IV FLUIDS COMPLETED PRN (19:15)
[2017-07-12 19:51] VITALS: BP 196/88; PULSE 82; TEMP 36.8; O2SAT 94; Ht 152.4 cm; Wt 95.0 kg
[2017-07-12] MEDS: OXYCODONE/ACETAMINOPHEN 5-325 TAB PO PRN (20:50)
[2017-07-12] MEDS: HydrALAZINE HCL 20 MG/ML VIAL IV. PRN (20:50)
[2017-07-12] MEDS ORDERED: GABAPENTIN 100 MG CAP PO SCH (21:00)
[2017-07-12] MEDS ORDERED: WARFARIN SOD 5 MG TAB PO SCH (21:00)
[2017-07-12] MEDS: ATORVASTATIN 20 MG TAB PO SCH (21:40)
[2017-07-12] MEDS: LABETALOL HCL 100 MG TAB PO SCH (21:41)
[2017-07-12] MEDS: WARFARIN SOD 7.5 MG TAB PO SCH (21:42)
[2017-07-12] MEDS ORDERED: NRN/100 PO (22:34)
[2017-07-12 23:01] VITALS: BP 140/72; PULSE 61; TEMP 36.6; O2SAT 95
[2017-07-13] VITALS (7 sets, daily range): BP systolic 102–189; BP diastolic 66–87; PULSE 67–89; TEMP 36.6–36.7; O2SAT 93–95
[2017-07-13] MEDS: LEVOTHYROXINE 200 MCG TAB PO SCH (05:52)
[2017-07-13] MEDS: OXYCODONE/ACETAMINOPHEN 5-325 TAB PO PRN (06:50)
[2017-07-13] MEDS: HydrALAZINE HCL 20 MG/ML VIAL IV. PRN (07:48)
[2017-07-13 07:59] LABS: HEMATOCRIT 29.3 % (37-47); MEAN CELL VOLUME 95.4 fL (80-100); MEAN CORPUSCULAR HEMOGLOBIN 31.6 pg (25-34); MEAN CORPUSCULAR HGB CONC 33.1 g/dl (32-36); MEAN PLATELET VOLUME 9.4 fL (7.4-10.4); PLATELET COUNT 200 K/uL (130-400); RED BLOOD COUNT 3.07 M/uL (4.2-5.4); WHITE BLOOD COUNT 6.08 K/uL (4.8-10.8)
[2017-07-13 08:11] LABS: INR 2.2 (0.9-1.1); PROTHROMBIN TIME (PATIENT) 24.8 SECONDS (9.0-12.0)
[2017-07-13 08:26] LABS: BUN/CREATININE RATIO 22.2 (10-20); CALCIUM 8.7 mg/dl (8.5-10.1); CREATININE 0.78 mg/dl (0.60-1.20); POTASSIUM 3.7 mmol/L (3.5-5.1)
[2017-07-13] MEDS ORDERED: ASPIRIN 81 MG ECTAB PO SCH (09:00)
[2017-07-13] MEDS: ISOSORBIDE MONONITRATE 60 MG TABCR PO SCH (09:24)
[2017-07-13] MEDS: LABETALOL HCL 100 MG TAB PO SCH ×2 (09:24→20:44)
[2017-07-13] MEDS: LOSARTAN POTASSIUM 50 MG TAB PO SCH (09:24)
[2017-07-13] MEDS: FERROUS SULFATE 325 MG TAB PO SCH (09:25)
[2017-07-13] MEDS: FUROSEMIDE 20 MG TAB PO SCH (09:25)
[2017-07-13] MEDS: ASPIRIN 81 MG ECTAB PO SCH (09:25)
--- NOTE | 2017-07-13 10:09 | Orthopedic Consultation ---
Orthopedic Consultation Date of Consultation: Jul 13, 2017. Attending Physician: Jc Diaz M.D. Reason for Consultation: Left knee pain (effusion) (Manoj Lizarraga PA-C) History of Present Illness Pt states that she was watching her grandson yesterday and after he went home she decided to place a heating pad on her back because it felt "stiff." Pt state that when she went to stand up she was unable to bear wt on her Lt LE due to severe pain and noticed some swelling. Pt denies injury/trauma, CP, SOB, Nausea, vomiting, diarrhea, LOC, syncope but state that her BP was significantly elevated when EMS came to pick her up. Pt states that pain is decreased now but she still had significant discomfort with wt bearing. (Manoj Lizarraga PA-C) Past Medical/Surgical History Medical Problems: (1) Ambulatory dysfunction Status: Acute (2) Epistaxis Status: Acute (3) Knee effusion Status: Acute (4) New onset atrial fibrillation Status: Acute (5) New onset atrial flutter Status: Acute (6) Popliteal cyst Status: Acute (7) Syncope Status: Acute (Manoj Lizarraga PA-C) Family History Diabetes mellitus Heart disease Hypertension Kidney disease (Manoj Lizarraga PA-C) Diabetes mellitus Heart disease Hypertension Kidney disease (Mayo Myers MD) Social History Smoking Status: Never Smoker Smokeless Tobacco Use: No Alcohol Use: none Drug Use: none Marital Status: Housing Status: lives alone Occupation Status: retired (Manoj Lizarraga PA-C) Allergies Coded Allergies: Doxycycline (Verified Allergy, Intermediate, RASH, 07/12/17) ANA LUISA Inhibitors (Verified Adverse Reaction, Unknown, INTOLERANT, 07/12/17) Lisinopril (Verified Adverse Reaction, Unknown, INTOLERANT, 07/12/17) Home Medications Scheduled Aspirin (Aspirin Ec), 81 MG PO DAILY Atorvastatin (Lipitor), 40 MG PO HS Calcium Carbonate-Vitamin D (Calcium 600 + D), 1 TAB PO TIDM Diltiazem Hcl Ext Rel (Tiazac), 180 MG PO NOON Ferrous Sulfate (Iron), 325 MG PO QAM Furosemide (Furosemide), 20 MG PO QAM Gabapentin (Neurontin), 200 MG PO HS Isosorbide Mononitrate Ext Rel (Imdur Ext Rel), 60 MG PO QAM Labetalol Hcl (Normodyne), 100 MG PO BID Levothyroxine Sodium (Levothyroxine Sodium), 1 TAB PO DAILYBB Losartan Potassium (Cozaar), 100 MG PO QAM Warfarin Sodium (Coumadin), 1.5 TAB PO HS Scheduled PRN Clonidine Hcl (Catapres), 0.1 MG PO DAILY PRN for Hypertension Nitroglycerin (Nitrostat), 0.4 MG UT PRN PRN for Chest Pain Current Inpatient Medications Current Inpatient Medications Medications (Trade) Dose Ordered Sig/Marci Route Start Time Stop Time Status Last Admin Dose Admin Acetaminophen (Tylenol Tab) 650 mg Q4H PRN PO 07/12/17 18:30 08/11/17 18:29 Al Hydrox/Mg Hydrox/Simethicone (Maalox Max Susp) 15 ml Q4H PRN PO 07/12/17 18:30 08/11/17 18:29 Magnesium Hydroxide (Milk Of Magnesia Susp) 30 ml Q12H PRN PO 07/12/17 18:30 08/11/17 18:29 Ondansetron HCl (Zofran Inj) 4 mg Q6H PRN IV 07/12/17 18:30 08/11/17 18:29 Polyethylene (Miralax Powder Packet) 17 gm DAILY PRN PO 07/12/17 18:30 08/11/17 18:29 Atorvastatin Calcium (Lipitor Tab) 40 mg HS PO 07/12/17 21:00 08/11/17 20:59 07/12/17 21:40 40 MG Diltiazem HCl (TIAzac CAP) 180 mg QDL PO 07/13/17 12:30 08/12/17 12:29 Furosemide (Lasix Tab) 20 mg QAM PO 07/13/17 09:00 08/12/17 08:59 07/13/17 09:25 20 MG Isosorbide Mononitrate (Imdur Ext Rel Tab) 60 mg QAM PO 07/13/17 09:00 08/12/17 08:59 07/13/17 09:24 60 MG Labetalol HCl (Normodyne Tab) 100 mg BID PO 07/12/17 21:00 08/11/17 20:59 07/13/17 09:24 100 MG Levothyroxine Sodium (Synthroid Tab) 200 mcg DAILYBB PO 07/13/17 06:00 08/12/17 05:59 07/13/17 05:52 200 MCG Losartan Potassium (coZAAR TAB) 100 mg QAM PO 07/13/17 09:00 08/12/17 08:59 07/13/17 09:24 100 MG Nitroglycerin (Nitrostat Tab) 0.4 mg PRN PRN UT 07/12/17 18:30 08/11/17 18:29 Ferrous Sulfate (Feosol Tab) 325 mg QAM PO 07/13/17 09:00 08/12/17 08:59 07/13/17 09:25 325 MG Hydralazine HCl (HydrALAZINE INJ) 10 mg Q6 PRN IV. 07/12/17 18:45 08/11/17 18:44 07/13/17 07:48 10 MG Oxycodone/ Acetaminophen (Percocet 5-325mg Tab) 1 tab Q4H PRN PO 07/12/17 18:45 07/26/17 18:44 07/13/17 06:50 1 TAB Miscellaneous (Iv Fluids Completed) 1 ea PRN PRN N/A 07/12/17 19:15 07/12/18 19:14 Warfarin Sodium (Coumadin Tab) 7.5 mg DAILY@1600 PO 07/12/17 21:00 08/11/17 20:59 07/12/17 21:42 7.5 MG Aspirin (Ecotrin Tab) 81 mg QAM PO 07/13/17 09:00 08/12/17 08:59 07/13/17 09:25 81 MG Gabapentin (Neurontin Cap) 200 mg HS PO 07/13/17 21:00 08/12/17 20:59 (Manoj Lizarraga, PA-C) Review of Systems Constitutional: + weakness, No fever, No chills, No sweats, No weight loss, No fatigue, No problem reported Eyes: + redness (Right eyelid (chronic)) ENT: + hearing loss, No unusual epistaxis, No nasal symptoms, No sore throat, No tinnitus, No dental problems, No trouble swallowing, No problem reported Respiratory: No cough, No sputum, No wheezing, No shortness of breath, No dyspnea on exertion, No dyspnea at rest, No hemoptysis, No problem reported Cardiovascular: + problem reported (Atrial Fib), No chest pain, No orthopnea, No PND, No edema, No claudication, No palpitations Abdomen: No pain, No nausea, No vomiting, No diarrhea, No constipation, No GI bleeding, No problem reported Musculoskeletal: + joint pain, + muscle pain, + swelling Neurologic: + weakness, No memory loss, No paralysis, No numbness/tingling, No vertigo, No balance problems, No problem reported Psychiatric: No depression symptoms, No anhedonism, No anxiety, No insomnia, No substance abuse, No problem reported Integumentary: No rash, No itch, No new/changing skin lesions, No color change , No bleeding, No problem reported (Manoj Lizarraga, PAAlmasC) Physical Exam Date Time Temp Pulse Resp B/P (MAP) Pulse Ox O2 Delivery O2 Flow Rate FiO2 07/13/17 07:19 36.7 67 20 189/87 (121) 95 Room Air 07/12/17 23:30 Room Air 07/12/17 23:01 36.6 61 18 140/72 (94) 95 Room Air 07/12/17 20:00 Room Air 07/12/17 19:52 86 18 186/71 96 07/12/17 19:51 36.8 82 18 196/88 94 Room Air 07/12/17 18:26 70 20 176/70 95 Room Air 07/12/17 16:43 85 20 199/98 84 Room Air 07/12/17 15:27 93 20 211/115 97 Room Air 07/12/17 13:20 77 07/12/17 12:34 37.0 98 20 228/107 96 Room Air 07/12/17 12:30 92 General Appearance: WD/WN, no apparent distress Head: normocephalic, atraumatic Eyes: PERRL, EOMI, + pertinent finding (Right scleral erythema and mild eyelid edema/erythema (pt states is chronic issue)) ENT: pharynx normal Neck: no adenopathy, no JVD, trachea midline Respiratory/Chest: chest non-tender, lungs clear, normal breath sounds, no respiratory distress Cardiovascular: + irregularly irregular Abdomen/GI: normal bowel sounds, non tender, soft Extremities/Musculoskelatal: + pertinent finding (Left knee: mild edema and effusion. Able to extend to 20 degrees and flex to 90. Medial and lateral joint line tenderness when flexed. Popliteal cyst palpable and tender. No erythem, ecchymosis, warmth, open areas or drainage. Non mobile patella. Neg gisela. No varus/valgus laxity but mild varus deformity. 1-2+ pitting edema in both lower legs. Periph pulses faintly palpable. Cap refill slightly> 2 sec. N/V intact in Lt LE. Mod crepitation with ROM. ) Neurologic/Psych: no motor/sensory deficits, alert, oriented x 3 Skin: normal color (Manoj Lizarraga, PA-C) Focusing on the left lower extremity: 2+ PT pulse, sensation light touch intact distally, motor to the gastroc soleus, tibialis anterior, EHL 5/5. Small effusion. + Tenderness to palpation about the medial joint line. Range of motion 0-85 degrees. - Toña's. - erythema. (Mayo Myers MD) Laboratory Results Last 24 Hours Test 07/12/17 13:30 07/12/17 22:48 07/13/17 07:30 White Blood Count 6.36 K/uL 6.08 K/uL Red Blood Count 3.35 M/uL 3.07 M/uL Hemoglobin 10.7 g/dL 9.7 g/dL Hematocrit 32.2 % 29.3 % Mean Corpuscular Volume 96.1 fL 95.4 fL Mean Corpuscular Hemoglobin 31.9 pg 31.6 pg Mean Corpuscular Hemoglobin Concent 33.2 g/dl 33.1 g/dl Platelet Count 208 K/uL 200 K/uL Mean Platelet Volume 9.5 fL 9.4 fL Neutrophils (%) (Auto) 69.6 % Lymphocytes (%) (Auto) 16.4 % Monocytes (%) (Auto) 10.2 % Eosinophils (%) (Auto) 3.1 % Basophils (%) (Auto) 0.5 % Neutrophils # (Auto) 4.43 K/uL Lymphocytes # (Auto) 1.04 K/uL Monocytes # (Auto) 0.65 K/uL Eosinophils # (Auto) 0.20 K/uL Basophils # (Auto) 0.03 K/uL RDW Standard Deviation 50.7 fL 50.9 fL RDW Coefficient of Variation 14.4 % 14.6 % Immature Granulocyte % (Auto) 0.2 % Immature Granulocyte # (Auto) 0.01 K/uL Prothrombin Time 27.1 SECONDS 24.8 SECONDS Prothromb Time International Ratio 2.4 2.2 Activated Partial Thromboplast Time 38.0 SECONDS Partial Thromboplastin Ratio 1.5 Sodium Level 137 mmol/L 137 mmol/L Potassium Level 3.9 mmol/L 3.7 mmol/L Chloride Level 104 mmol/L 105 mmol/L Carbon Dioxide Level 26 mmol/L 25 mmol/L Anion Gap 7.0 mmol/L 7.0 mmol/L Blood Urea Nitrogen 17 mg/dl 17 mg/dl Creatinine 0.86 mg/dl 0.78 mg/dl Est Creatinine Clear Calc Drug Dose 52.3 ml/min 56.3 ml/min Estimated GFR () 72.4 81.5 Estimated GFR (Non- 62.5 70.3 BUN/Creatinine Ratio 20.3 22.2 Random Glucose 95 mg/dl 82 mg/dl Uric Acid 4.8 mg/dl Calcium Level 9.1 mg/dl 8.7 mg/dl Total Bilirubin 0.5 mg/dl Direct Bilirubin 0.2 mg/dl Aspartate Amino Transf (AST/SGOT) 24 U/L Alanine Aminotransferase (ALT/SGPT) 30 U/L Alkaline Phosphatase 47 U/L Total Protein 7.0 gm/dl Albumin 3.3 gm/dl Lipase 182 U/L Troponin I < 0.015 ng/ml (Manoj Lizarraga, PA-C) RADIOGRAPHS: Severe degenerative changes medial and patellofemoral compartment with [id number], sclerosis, osteophytes, subchondral cysts, and subluxation. DOPPLER: A complex popliteal cyst measures 7.5 x 2.9 x 4.4 cm. - DVT. (Mayo Myers MD) Assessment & Plan Assessment: Left knee osteoarthritis with effusion Plan: At this point aspiration is not necessary. Effusion is mild and feel that it can be managed with Ice and compression. Will discuss finding with Dr. Myers Cont to follow medically due to other preexisting health conditions. (Manoj Lizarraga PA-C) IMPRESSION: Left knee pain and effusion, secondarily to severe osteoarthritis with popliteal cyst versus hemarthrosis. PLAN: After a lengthy discussion with the patient today regarding my above clinical findings, as well as reviewing her radiographs, she will continue with conservative treatment compression, ice, PT/OT. She may be followed as an outpatient and would benefit from an panel machine tender brace, possibly assisted device either cane, crutch, walker. In addition, consideration could be made for cortisone injection. If all conservative measures fail, she may become a candidate for total knee replacement; however, she was not interested in any surgical intervention. We will check back with her later this afternoon to see if she would like a cortisone injection. She will follow-up as an outpatient. Please recall if there are any orthopedic issues. She should call [phone] for an appointment. I, Dr. Myers, saw and examined the patient and discussed the management with my PA. I reviewed my PAs note and agree with the documented findings and the plan of care I developed. Thank you for allowing me to participate in Lori's care. (Mayo Myers MD) Additional Copies To Mayo Myers MD
[2017-07-13] MEDS: DILTIAZEM HCL (TIAzac) 180 MG CAPCR PO SCH (11:57)
--- NOTE | 2017-07-13 12:35 | Consultant Recommendations ---
Boat Loader Helper Recommendations Date of Service Jul 13, 2017. Boat Loader Helper Recommendations After discussion with the patient and her family members by nursing staff on 3rd [facility], it was relayed to Sven Lizarraga PA-C that patient would like to receive a steroid injection into her Left Knee while she is inpatient at [facility]. An intraarticular injection consisting of 2 mL of 1% Lidocain, 2 mL of 0.5% Marcaine and 40 mg of Depomedrol solution will be given by orthopedic fellow Dr. Eliazar Stuart this afternoon. Ms. Parkinson will need a f/u in our office in 4-6 wks. She is to contact to set up this appointment with either Dr. Mayo Myers, Dr. Eliazar Stuart or Sven Lizarraga PA-C
--- NOTE | 2017-07-13 13:00 | Progress Note ---
Progress Note Date of Service Jul 13, 2017. Progress Note After reviewing the clinical and radiological findings, a intra-articular steroid injection was recommended for the patient's acute left knee pain. All the risks and benefits of the procedure were explained to the patient which include, infection, bleeding, damage to blood vessels and nerves, pain, and the need for further procedures. The patient agreed to proceed with the injection. The left knee was prepped in the normal sterile fashion with Betadine swabs and alcohol. Then utilizing a superior lateral portal, 2 cc of 1% lidocaine, 2 cc of .25% marcaine, and 1 cc of depromedrol was injected in the patient's left knee without any issue. The patient tolerated the procedure without any apparent complication. The knee was bandaged and wrapped. The patient was instructed to followup with Dr. Myers in 2 - 4 weeks in his office.
--- NOTE | 2017-07-13 15:50 | Hospitalist Progress Note ---
Hospitalist Progress Note Date of Service Jul 13, 2017. (Wilma Bustillo CRNP) Subjective Pt evaluation today including: conversation w/ patient, physical exam, chart review, lab review, review of inpatient medication list Voiding: no voiding problems Ms. Parkinson is having pain in her right knee. It is currently wrapped in ANA LUISA wrap. She has not been able to put weight on it. She has no other complaints. She has not had any chest pain or shortness of breath or palpitations. Constitutional: no chills, aches, sweats or fever Respiratory: no sob,cough, sputum, or wheezing Cardiac: no chest pain, palpitations, edema, orthopnea or lightheadedness GI: no abdominal pain, nausea, vomiting, diarrhea or constipation : See HPI Extremities: no joint pain or weakness Skin: no rash Constitutional: + fever All Other Systems: Reviewed and Negative (Wlima Bustillo .MARY) Medications Medications Administered Medications (Trade) Dose Ordered Sig/Marci Route Start Time Stop Time Status Last Admin Dose Admin Ondansetron HCl (Zofran Inj) 4 mg Q6H PRN IV 07/12/17 18:30 08/11/17 18:29 07/13/17 10:38 4 MG Atorvastatin Calcium (Lipitor Tab) 40 mg HS PO 07/12/17 21:00 08/11/17 20:59 07/12/17 21:40 40 MG Diltiazem HCl (TIAzac CAP) 180 mg QDL PO 07/13/17 12:30 08/12/17 12:29 07/13/17 11:57 180 MG Furosemide (Lasix Tab) 20 mg QAM PO 07/13/17 09:00 08/12/17 08:59 07/13/17 09:25 20 MG Gabapentin (Neurontin Cap) 100 mg HS PO 07/12/17 21:00 07/12/17 22:37 DC 07/12/17 21:41 100 MG Isosorbide Mononitrate (Imdur Ext Rel Tab) 60 mg QAM PO 07/13/17 09:00 08/12/17 08:59 07/13/17 09:24 60 MG Labetalol HCl (Normodyne Tab) 100 mg BID PO 07/12/17 21:00 08/11/17 20:59 07/13/17 09:24 100 MG Levothyroxine Sodium (Synthroid Tab) 200 mcg DAILYBB PO 07/13/17 06:00 08/12/17 05:59 07/13/17 05:52 200 MCG Losartan Potassium (coZAAR TAB) 100 mg QAM PO 07/13/17 09:00 08/12/17 08:59 07/13/17 09:24 100 MG Ferrous Sulfate (Feosol Tab) 325 mg QAM PO 07/13/17 09:00 08/12/17 08:59 07/13/17 09:25 325 MG Hydralazine HCl (HydrALAZINE INJ) 10 mg Q6 PRN IV. 07/12/17 18:45 08/11/17 18:44 07/13/17 07:48 10 MG Oxycodone/ Acetaminophen (Percocet 5-325mg Tab) 1 tab Q4H PRN PO 07/12/17 18:45 07/26/17 18:44 07/13/17 06:50 1 TAB Warfarin Sodium (Coumadin Tab) 7.5 mg DAILY@1600 PO 07/12/17 21:00 08/11/17 20:59 07/12/17 21:42 7.5 MG Aspirin (Ecotrin Tab) 81 mg QAM PO 07/13/17 09:00 08/12/17 08:59 07/13/17 09:25 81 MG (Wilma Bustillo, MARY) Objective Vital Signs Date Time Temp Pulse Resp B/P (MAP) Pulse Ox O2 Delivery O2 Flow Rate FiO2 07/13/17 15:18 36.6 85 18 133/71 (91) 93 Room Air 07/13/17 11:08 87 117/74 (88) 07/13/17 09:24 172/85 (114) 07/13/17 07:40 Room Air 07/13/17 07:19 36.7 67 20 189/87 (121) 95 Room Air 07/12/17 23:30 Room Air 07/12/17 23:01 36.6 61 18 140/72 (94) 95 Room Air 07/12/17 20:00 Room Air 07/12/17 19:52 86 18 186/71 96 07/12/17 19:51 36.8 82 18 196/88 94 Room Air 07/12/17 18:26 70 20 176/70 95 Room Air 07/12/17 16:43 85 20 199/98 84 Room Air (Wilma Bustillo CRNP) Physical Exam Notes: General: no distress Eyes: normal inspection, PERLL Respiratory: chest non tender, clear to auscultation, normal breath sounds, no respiratory distress, no accessory muscle use Cardiac: regular rate and rhythm, no rub or gallop, no murmur, no edema, no jvd GI/: active bowel sounds, no abd pain or tenderness, soft, non distended Extremities: ANA LUISA wrap intact Neuro/Psych: drowsy and oriented x 3, normal mood and affect Skin: normal color, dry (Wilma Bustillo CRNP) Laboratory Results Last 24 Hours Test 07/12/17 22:48 07/13/17 07:30 Troponin I < 0.015 ng/ml White Blood Count 6.08 K/uL Red Blood Count 3.07 M/uL Hemoglobin 9.7 g/dL Hematocrit 29.3 % Mean Corpuscular Volume 95.4 fL Mean Corpuscular Hemoglobin 31.6 pg Mean Corpuscular Hemoglobin Concent 33.1 g/dl RDW Standard Deviation 50.9 fL RDW Coefficient of Variation 14.6 % Platelet Count 200 K/uL Mean Platelet Volume 9.4 fL Prothrombin Time 24.8 SECONDS Prothromb Time International Ratio 2.2 Sodium Level 137 mmol/L Potassium Level 3.7 mmol/L Chloride Level 105 mmol/L Carbon Dioxide Level 25 mmol/L Anion Gap 7.0 mmol/L Blood Urea Nitrogen 17 mg/dl Creatinine 0.78 mg/dl Est Creatinine Clear Calc Drug Dose 56.3 ml/min Estimated GFR () 81.5 Estimated GFR (Non- 70.3 BUN/Creatinine Ratio 22.2 Random Glucose 82 mg/dl Calcium Level 8.7 mg/dl (Wilma Bustillo CRNP) Assessment and Plan Ms. Parkinson is an 81 y/o female with PMHx of CAD S/P Stents, Persistent Atrial Fibrillation, Hypothyroidism, CKD Stage III, Anemia, and Abdominal Wall Abscess S/P I&D (summer 2016), and CECIL who presents for ambulatory dysfunction and L knee pain starting earlier today. Large L Knee Effusion: Hemarthrosis? - She is denying trauma but is on Coumadin and ASA therapy. U/S revealing complex Uhggins's cyst - Tylenol and Percocet PRN - Compressive ANA LUISA wrap and ice - Consult orthopedics - discussed with Dr. Myers - continue conservative therapy with compression and ice and continue to monitor and can continue anticoagulation - I did not take own her wrap as Dr. Myers had just left the room after removing the wrap and replacing and I discussed his findings with him Ambulatory Dysfunction: - Recent stay at [facility] with outpatient x two days a week that she just completed last - PT/OT evaluations recommend further therapy - will check with case management on authorization Persistent Atrial Fibrillation/Flutter: Rate Controlled - Diltiazem 180 mg daily and Labetalol 100 mg BID - Coumadin 7.5 mg daily - INR 2.4 and continue to trend CAD S/P Stents: - ASA 81 mg daily and Atorvastatin 40 mg daily - Imdur 60 mg daily Possible Chronic Diastolic Dysfunction vs Chronic Venous Stasis with Edema: - Furosemide 20 mg daily Anemia of Chronic Disease: - Ferrous Sulfate 325 mg daily Hypothyroidism 2/ Graves S/P Ablation: - Levothyroxine 200 mcg daily DVT Prophylaxis: Coumadin Code Status: DO NOT RESUSCITATE (Wilma Bustillo, MARY) [employer] Physician Supervision Note: I interviewed and examined the patient. Discussed with Wilma Bustillo NP and agree with findings and plan as documented in the note. Any exceptions or clarifications are listed here: None Patient was found to have knee pain and knee effusion and a popliteal cyst orthopedic performed an injection to her knee however she still has marked pain and cannot ambulate she most recently graduated from [facility] outpatient rehabilitation program after completing inpatient rehabilitation there she currently however feels as she cannot return home with the degree of pain we will reevaluate her once the intra-articular injection is some time to work to see if this helps her pain enough to return home if not she'll need to be evaluated for considered rehabilitation Her medical problems are stable as well as her vital signs are heart is regular lungs are clear her knee is tender to touch with some minor lateral puffiness suggesting a joint effusion and posterior popliteal fullness suggesting her known popliteal cyst there is no DVT present next Supportive care for her pain control and reevaluation with PT OT oversight determine need for rehabilitation Documented By: Jc Diaz (Jc Diaz M.D.)
[2017-07-13] MEDS: WARFARIN SOD 7.5 MG TAB PO SCH (16:12)
[2017-07-13] MEDS: GABAPENTIN 100 MG CAP PO SCH (20:45)
[2017-07-13] MEDS: ATORVASTATIN 20 MG TAB PO SCH (20:45)
[2017-07-14] MEDS: LEVOTHYROXINE 200 MCG TAB PO SCH (05:59)
[2017-07-14 07:01] VITALS: BP 184/79; PULSE 91; TEMP 36.8; O2SAT 94
[2017-07-14] MEDS: HydrALAZINE HCL 20 MG/ML VIAL IV. PRN (07:08)
[2017-07-14 07:35] LABS: INR 2.8 (0.9-1.1); PROTHROMBIN TIME (PATIENT) 31.2 SECONDS (9.0-12.0)
[2017-07-14 09:14] VITALS: BP 135/70
[2017-07-14] MEDS: FUROSEMIDE 20 MG TAB PO SCH (09:18)
[2017-07-14] MEDS: ASPIRIN 81 MG ECTAB PO SCH (09:18)
[2017-07-14] MEDS: ISOSORBIDE MONONITRATE 60 MG TABCR PO SCH (09:18)
[2017-07-14] MEDS: LOSARTAN POTASSIUM 50 MG TAB PO SCH (09:19)
[2017-07-14] MEDS: LABETALOL HCL 100 MG TAB PO SCH ×2 (09:19→20:58)
[2017-07-14] MEDS: FERROUS SULFATE 325 MG TAB PO SCH (09:19)
[2017-07-14] MEDS: DILTIAZEM HCL (TIAzac) 180 MG CAPCR PO SCH (12:38)
--- NOTE | 2017-07-14 13:22 | Progress Note ---
Subjective Date of Service: Jul 14, 2017. Subjective pt is walking slightly better, did have self resolved chest pain today, is encouraged that knee feels a slight bit better Problem List Medical Problems: (1) Ambulatory dysfunction Status: Acute (2) Epistaxis Status: Acute (3) Knee effusion Status: Acute (4) New onset atrial fibrillation Status: Acute (5) New onset atrial flutter Status: Acute (6) Popliteal cyst Status: Acute (7) Syncope Status: Acute Review of Systems Constitutional: No fever, No chills Respiratory: No cough, No sputum Cardiac: No chest pain, No orthopnea Abdomen: No pain, No nausea Objective Vital Signs Date Time Temp Pulse Resp B/P (MAP) Pulse Ox O2 Delivery O2 Flow Rate FiO2 07/14/17 07:10 Room Air 07/14/17 07:01 36.8 91 22 184/79 (114) 94 Room Air 07/13/17 23:20 94 Room Air 07/13/17 22:54 36.6 89 18 102/66 (78) 94 Room Air 07/13/17 15:45 93 Room Air 07/13/17 15:18 36.6 85 18 133/71 (91) 93 Room Air Physical Exam General Appearance: WD/WN, + mild distress Eyes: PERRL, EOMI Respiratory/Chest: lungs clear, no respiratory distress Cardiovascular: + systolic murmur, + irregularly irregular Abdomen: normal bowel sounds, non tender, soft Extremities: no pedal edema, no calf tenderness Neurologic/Psychiatric: alert, oriented x 3 Laboratory Results Last 24 Hours Test 07/14/17 07:00 Prothrombin Time 31.2 SECONDS Prothromb Time International Ratio 2.8 Assessment and Plan Ms. Parkinson is an 81 y/o female who presents with knee pain and swelling after bending down at home with grandchildren, she has a PMHx of CAD S/P Stents, Persistent Atrial Fibrillation, Hypothyroidism, CKD Stage III, Anemia, and Abdominal Wall Abscess S/P I&D (summer 2016), and CECIL Large L Knee Effusion: Hemarthrosis, on Coumadin and ASA therapy. U/S revealing complex Huggins's cyst - Tylenol and Percocet PRN Compressive ANA LUISA wrap and ice orthopedics - Dr. Myers pt is s/p intra articular steroids Ambulatory Dysfunction:Recent stay at [facility] with outpatient x two days a week that she just completed the week prior to admission - PT/OT evaluations recommend further therapy - will check with case management on authorization Persistent Atrial Fibrillation/Flutter: Rate Controlled - Diltiazem 180 mg daily and Labetalol 100 mg BID - Coumadin 7.5 mg daily - INR continue to trend CAD S/P Stents:did have episode of chest pain at rest on 07/14, had ECG without acute changes and spontaneously resolved, did not recurr with ambulation - ASA 81 mg daily Atorvastatin 40 mg daily Imdur 60 mg daily Stable chronic diastolic heart failure treated with Furosemide 20 mg daily Hypothyroidism 10/19 Graves S/P Ablation:- Levothyroxine 200 mcg daily DVT Prophylaxis: Coumadin Code Status: DO NOT RESUSCITATE
[2017-07-14 14:53] VITALS: BP 135/52; PULSE 69; TEMP 36.5; O2SAT 97
[2017-07-14] MEDS: WARFARIN SOD 6 MG TAB PO SCH (16:51)
[2017-07-14 20:55] VITALS: BP 124/74; PULSE 61
[2017-07-14] MEDS: ATORVASTATIN 20 MG TAB PO SCH (20:58)
[2017-07-14] MEDS: GABAPENTIN 100 MG CAP PO SCH (20:58)
[2017-07-14 23:12] VITALS: BP 144/78; PULSE 75; TEMP 37; O2SAT 96
[2017-07-15] VITALS (7 sets, daily range): BP systolic 134–164; BP diastolic 54–81; PULSE 62–93; TEMP 36.5–36.8; O2SAT 95–99
[2017-07-15] MEDS: OXYCODONE/ACETAMINOPHEN 5-325 TAB PO PRN ×2 (03:02→18:12)
[2017-07-15] MEDS: LEVOTHYROXINE 200 MCG TAB PO SCH (05:38)
[2017-07-15 07:00] LABS: MEAN CELL VOLUME 94.9 fL (80-100); MEAN CORPUSCULAR HEMOGLOBIN 31.4 pg (25-34); MEAN CORPUSCULAR HGB CONC 33.1 g/dl (32-36); MEAN PLATELET VOLUME 9.5 fL (7.4-10.4); PLATELET COUNT 208 K/uL (130-400); RED BLOOD COUNT 2.74 M/uL (4.2-5.4); WHITE BLOOD COUNT 7.67 K/uL (4.8-10.8)
[2017-07-15 07:16] LABS: PROTHROMBIN TIME (PATIENT) 43.5 SECONDS (9.0-12.0)
[2017-07-15 07:19] LABS: INR 3.8 (0.9-1.1)
[2017-07-15 07:30] LABS: CALCIUM 8.2 mg/dl (8.5-10.1); CREATININE 1.25 mg/dl (0.60-1.20); POTASSIUM 4.5 mmol/L (3.5-5.1)
[2017-07-15] MEDS ORDERED: HydrALAZINE HCL 20 MG/ML VIAL IV PRN (08:30)
[2017-07-15] MEDS: SODIUM CHLORIDE 0.9% 1000ML 1,000 ML IV SCH ×2 (09:17→18:08)
[2017-07-15] MEDS: FERROUS SULFATE 325 MG TAB PO SCH (09:18)
[2017-07-15] MEDS: ASPIRIN 81 MG ECTAB PO SCH (09:18)
[2017-07-15] MEDS: ISOSORBIDE MONONITRATE 60 MG TABCR PO SCH (09:18)
[2017-07-15] MEDS: LABETALOL HCL 100 MG TAB PO SCH ×2 (09:21→20:48)
[2017-07-15] MEDS: PANTOprazole INJ 40 MG in SYRINGE 0 ML IV SCH ×3 (09:24→20:46)
[2017-07-15] MEDS: DILTIAZEM HCL (TIAzac) 180 MG CAPCR PO SCH (12:37)
--- NOTE | 2017-07-15 12:37 | Progress Note ---
Subjective Date of Service: Jul 15, 2017. Subjective pt has had improved ambulation and reduced knee pain, still not sure she can safely be at home, did have drop in hgb and supra therapeutic INR Problem List Medical Problems: (1) Ambulatory dysfunction Status: Acute (2) Epistaxis Status: Acute (3) Knee effusion Status: Acute (4) New onset atrial fibrillation Status: Acute (5) New onset atrial flutter Status: Acute (6) Popliteal cyst Status: Acute (7) Syncope Status: Acute Review of Systems Constitutional: + weakness, + fatigue, No fever, No chills Respiratory: No cough, No shortness of breath, No dyspnea on exertion Cardiac: No chest pain, No PND, No edema Abdomen: + constipation, No pain, No nausea, No vomiting, No diarrhea Musculoskeletal: + joint pain, + muscle pain Psychiatric: No depression symptoms, No anhedonism Objective Vital Signs Date Time Temp Pulse Resp B/P (MAP) Pulse Ox O2 Delivery O2 Flow Rate FiO2 07/15/17 06:41 36.8 65 16 156/74 (101) 96 Room Air 07/14/17 23:40 Room Air 07/14/17 23:12 37.0 75 18 144/78 (100) 96 Room Air 07/14/17 20:55 61 124/74 (91) 07/14/17 16:37 Room Air 07/14/17 14:53 36.5 69 16 135/52 (79) 97 Room Air 07/14/17 09:14 135/70 (91) Physical Exam General Appearance: WD/WN, + mild distress Eyes: PERRL, EOMI Respiratory/Chest: chest non-tender, lungs clear Cardiovascular: regular rate, rhythm, no murmur Abdomen: normal bowel sounds, non tender, soft Extremities: + pertinent finding (less tender, not red, still minor swelling) Neurologic/Psychiatric: alert, oriented x 3 Laboratory Results Last 24 Hours Test 07/15/17 06:20 White Blood Count 7.67 K/uL Red Blood Count 2.74 M/uL Hemoglobin 8.6 g/dL Hematocrit 26.0 % Mean Corpuscular Volume 94.9 fL Mean Corpuscular Hemoglobin 31.4 pg Mean Corpuscular Hemoglobin Concent 33.1 g/dl RDW Standard Deviation 50.6 fL RDW Coefficient of Variation 14.7 % Platelet Count 208 K/uL Mean Platelet Volume 9.5 fL Prothrombin Time 43.5 SECONDS Prothromb Time International Ratio 3.8 Sodium Level 135 mmol/L Potassium Level 4.5 mmol/L Chloride Level 103 mmol/L Carbon Dioxide Level 26 mmol/L Anion Gap 6.0 mmol/L Blood Urea Nitrogen 41 mg/dl Creatinine 1.25 mg/dl Est Creatinine Clear Calc Drug Dose 35.2 ml/min Estimated GFR () 46.1 Estimated GFR (Non- 39.7 BUN/Creatinine Ratio 33.0 Random Glucose 94 mg/dl Calcium Level 8.2 mg/dl Assessment and Plan Ms. Parkinson is an 81 y/o female who presents with knee pain and swelling after bending down at home with grandchildren, she has a PMHx of CAD S/P Stents, Persistent Atrial Fibrillation, Hypothyroidism, CKD Stage III, Anemia, and Abdominal Wall Abscess S/P I&D (summer 2016), and CECIL Large L Knee Effusion: Hemarthrosis, on Coumadin and ASA therapy. U/S revealing complex Huggins's cyst - Tylenol and Percocet PRN Compressive ANA LUISA wrap and ice orthopedics - Dr. Myers pt is s/p intra articular steroids, has improved each day but not yet to point where she feels she can safely be home Ambulatory Dysfunction:Recent stay at [facility] with outpatient x two days a week that she just completed the week prior to admission - PT/OT evaluations recommend further therapy case management working on authorization but may need subacute rehab Persistent Atrial Fibrillation/Flutter: Rate Controlled - Diltiazem 180 mg daily and Labetalol 100 mg BID - Coumadin 7.5 mg daily - INR has become supra therapeutic, will hold at this time anemia, unclear etiology, concern with elevated INR, no GI symptoms, but no stool, starting PPI, no vitamin K at this time will follow CAD S/P Stents:did have episode of chest pain at rest on 07/14, had ECG without acute changes and spontaneously resolved, did not recur with ambulation - ASA 81 mg daily Atorvastatin 40 mg daily Imdur 60 mg daily Stable chronic diastolic heart failure treated with Furosemide 20 mg daily 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
[2017-07-15 12:54] LABS: HEMATOCRIT 29.3 % (37-47)
[2017-07-15] MEDS: MINERAL OIL 473 ML BOTTLE PO SCH (13:15)
[2017-07-15] MEDS: PSYLLIUM 58.6% PWD PACK S\\F PO SCH (13:15)
[2017-07-15] MEDS ORDERED: NURSING VERBAL MED ORDER ONE (16:45)
[2017-07-15] MEDS ORDERED: SOD PHOSPHATE/SOD BIPHOSPHATE ENEMA 132 ML BTL PR ONE (17:00)
[2017-07-15] MEDS: ATORVASTATIN 20 MG TAB PO SCH (20:47)
[2017-07-15] MEDS: GABAPENTIN 100 MG CAP PO SCH (20:48)
[2017-07-16] MEDS: SODIUM CHLORIDE 0.9% 1000ML 1,000 ML IV SCH ×2 (04:05→14:28)
[2017-07-16] MEDS: LEVOTHYROXINE 200 MCG TAB PO SCH (05:42)
[2017-07-16 06:02] LABS: INR 3.2 (0.9-1.1); PROTHROMBIN TIME (PATIENT) 36.1 SECONDS (9.0-12.0)
[2017-07-16 07:11] VITALS: BP 120/70; PULSE 59; TEMP 36.7; O2SAT 98
[2017-07-16 07:12] VITALS: BP 124/59; PULSE 63; TEMP 36.6; O2SAT 96
[2017-07-16] MEDS: MINERAL OIL 473 ML BOTTLE PO SCH ×2 (09:09→21:18)
[2017-07-16] MEDS: FERROUS SULFATE 325 MG TAB PO SCH (09:09)
[2017-07-16] MEDS: ISOSORBIDE MONONITRATE 60 MG TABCR PO SCH (09:09)
[2017-07-16] MEDS: PANTOprazole INJ 40 MG in SYRINGE 0 ML IV SCH ×2 (09:09→21:20)
[2017-07-16] MEDS: LABETALOL HCL 100 MG TAB PO SCH ×2 (09:10→21:19)
[2017-07-16] MEDS: PSYLLIUM 58.6% PWD PACK S\\F PO SCH ×2 (09:10→21:18)
[2017-07-16] MEDS: ASPIRIN 81 MG ECTAB PO SCH (09:10)
[2017-07-16 09:15] LABS: HEMATOCRIT 24.3 % (37-47); MEAN CORPUSCULAR HEMOGLOBIN 32.8 pg (25-34); MEAN CORPUSCULAR HGB CONC 34.2 g/dl (32-36); MEAN PLATELET VOLUME 9.8 fL (7.4-10.4); PLATELET COUNT 226 K/uL (130-400); RED BLOOD COUNT 2.53 M/uL (4.2-5.4); WHITE BLOOD COUNT 6.16 K/uL (4.8-10.8)
[2017-07-16 09:18] LABS: BUN/CREATININE RATIO 29.1 (10-20); CALCIUM 8.2 mg/dl (8.5-10.1); CREATININE 1.16 mg/dl (0.60-1.20); POTASSIUM 4.4 mmol/L (3.5-5.1)
[2017-07-16] MEDS ORDERED: NURSING DECISION MEDICATION ORDER SCH (09:30)
--- NOTE | 2017-07-16 11:58 | Hospitalist Progress Note ---
Hospitalist Progress Note Date of Service Jul 16, 2017. (Wilma Bustillo ., MARY) Subjective Pt evaluation today including: conversation w/ patient, physical exam, chart review, lab review, review of inpatient medication list Voiding: no voiding problems Ms. Parkinson feels that she is improving but still has pain in her left knee. She is able to bare some weight on her left leg to walk with a walker. Constitutional: no chills, aches, sweats or fever Respiratory: no sob,cough, sputum, or wheezing Cardiac: no chest pain, palpitations, edema, orthopnea or lightheadedness GI: no abdominal pain, nausea, vomiting, diarrhea or constipation : no dysuria or hesitancy Extremities:see HPI Skin: no rash (Wilma Bustillo CRNP) Medications Medications Administered Medications (Trade) Dose Ordered Sig/Marci Route Start Time Stop Time Status Last Admin Dose Admin Ondansetron HCl (Zofran Inj) 4 mg Q6H PRN IV 07/12/17 18:30 08/11/17 18:29 07/13/17 10:38 4 MG Atorvastatin Calcium (Lipitor Tab) 40 mg HS PO 07/12/17 21:00 08/11/17 20:59 07/15/17 20:47 40 MG Diltiazem HCl (TIAzac CAP) 180 mg QDL PO 07/13/17 12:30 08/12/17 12:29 07/15/17 12:37 180 MG Furosemide (Lasix Tab) 20 mg QAM PO 07/13/17 09:00 08/12/17 08:59 Future Hold 07/14/17 09:18 20 MG Gabapentin (Neurontin Cap) 100 mg HS PO 07/12/17 21:00 07/12/17 22:37 DC 07/12/17 21:41 100 MG Isosorbide Mononitrate (Imdur Ext Rel Tab) 60 mg QAM PO 07/13/17 09:00 08/12/17 08:59 07/16/17 09:09 60 MG Labetalol HCl (Normodyne Tab) 100 mg BID PO 07/12/17 21:00 08/11/17 20:59 07/16/17 09:10 100 MG Levothyroxine Sodium (Synthroid Tab) 200 mcg DAILYBB PO 07/13/17 06:00 08/12/17 05:59 07/16/17 05:42 200 MCG Losartan Potassium (coZAAR TAB) 100 mg QAM PO 07/13/17 09:00 08/12/17 08:59 Future Hold 07/14/17 09:19 100 MG Ferrous Sulfate (Feosol Tab) 325 mg QAM PO 07/13/17 09:00 08/12/17 08:59 07/16/17 09:09 325 MG Hydralazine HCl (HydrALAZINE INJ) 10 mg Q6 PRN IV. 07/12/17 18:45 08/11/17 18:44 07/14/17 07:08 10 MG Oxycodone/ Acetaminophen (Percocet 5-325mg Tab) 1 tab Q4H PRN PO 07/12/17 18:45 07/26/17 18:44 07/15/17 18:12 1 TAB Warfarin Sodium (Coumadin Tab) 7.5 mg DAILY@1600 PO 07/12/17 21:00 07/14/17 09:15 DC 07/13/17 16:12 7.5 MG Aspirin (Ecotrin Tab) 81 mg QAM PO 07/13/17 09:00 08/12/17 08:59 07/16/17 09:10 81 MG Gabapentin (Neurontin Cap) 200 mg HS PO 07/13/17 21:00 08/12/17 20:59 07/15/17 20:48 200 MG Warfarin Sodium (Coumadin Tab) 6 mg DAILY@1600 PO 07/14/17 16:00 08/11/17 20:59 Future Hold 07/14/17 16:51 6 MG Sodium Chloride 1,000 ml @ 100 mls/hr Q10H IV 07/15/17 08:30 08/14/17 08:29 07/16/17 04:05 100 MLS/HR Pantoprazole Sodium 40 mg/ Syringe 10 ml @ 5 mls/min Q12@0900,2100 IV 07/15/17 09:00 08/14/17 08:59 07/16/17 09:09 5 MLS/MIN Mineral Oil (Mineral Oil) 5 ml DAILY PO 07/15/17 13:00 07/16/17 09:33 DC 07/15/17 13:15 5 ML Psyllium Hydrophilic Mucilloid (Metamucil Powder) 1 pkt QAM PO 07/15/17 13:00 07/16/17 09:33 DC 07/15/17 13:15 1 PKT Sodium Biphosphate/ Sodium Phosphate (Fleet Enema) 132 ml NOW ONCE HI 07/15/17 17:00 07/15/17 17:01 DC 07/15/17 17:04 132 ML (Wilma Bustillo CRNP) Objective Vital Signs Date Time Temp Pulse Resp B/P (MAP) Pulse Ox O2 Delivery O2 Flow Rate FiO2 07/16/17 08:00 Room Air 07/16/17 07:12 36.6 63 20 124/59 (80) 96 Room Air 07/16/17 07:11 36.7 59 16 120/70 (87) 98 Room Air 07/15/17 23:54 Room Air 07/15/17 22:54 36.7 62 16 139/67 (91) 95 Room Air 07/15/17 20:45 65 157/60 (92) 07/15/17 15:25 Room Air 07/15/17 15:03 36.5 65 18 134/81 (98) 99 Room Air 07/15/17 12:36 164/81 (108) (Wilma Bustillo CRNP) Physical Exam Notes: General: no distress Eyes: normal inspection, PERLL Respiratory: chest non tender, clear to auscultation, normal breath sounds, no respiratory distress, no accessory muscle use Cardiac: regular rate and rhythm, no rub or gallop, no murmur, no edema, no jvd GI/: active bowel sounds, no abd pain or tenderness, soft, non distended Extremities: normal range of motion, normal strength, non tender, no obvious knee effusion left leg Neuro/Psych: drowsy and oriented x 3, normal mood and affect Skin: normal color, dry (Wilma Bustillo CRNP) Laboratory Results Last 24 Hours Test 07/15/17 12:45 07/16/17 05:32 Hemoglobin 9.8 g/dL 8.3 g/dL Hematocrit 29.3 % 24.3 % White Blood Count 6.16 K/uL Red Blood Count 2.53 M/uL Mean Corpuscular Volume 96.0 fL Mean Corpuscular Hemoglobin 32.8 pg Mean Corpuscular Hemoglobin Concent 34.2 g/dl RDW Standard Deviation 51.2 fL RDW Coefficient of Variation 14.5 % Platelet Count 226 K/uL Mean Platelet Volume 9.8 fL Prothrombin Time 36.1 SECONDS Prothromb Time International Ratio 3.2 Sodium Level 136 mmol/L Potassium Level 4.4 mmol/L Chloride Level 105 mmol/L Carbon Dioxide Level 25 mmol/L Anion Gap 6.0 mmol/L Blood Urea Nitrogen 34 mg/dl Creatinine 1.16 mg/dl Est Creatinine Clear Calc Drug Dose 37.9 ml/min Estimated GFR () 50.4 Estimated GFR (Non- 43.5 BUN/Creatinine Ratio 29.1 Random Glucose 86 mg/dl Calcium Level 8.2 mg/dl (Wilma Bustillo CRNP) Assessment and Plan Ms. Parkinson is an 81 y/o female with PMHx of CAD S/P Stents, Persistent Atrial Fibrillation, Hypothyroidism, CKD Stage III, Anemia, and Abdominal Wall Abscess S/P I&D (summer 2016), and CECIL who presents for ambulatory dysfunction and L knee pain. Large L Knee Effusion secondary to osteoarthritis - No hx of trauma. U/S revealing complex Huggins's cyst - Tylenol and Percocet PRN - Compressive ANA LUISA wrap and ice - Consult orthopedics - conservative management - steroid injection 07/15 Ambulatory Dysfunction: - Recent stay at [facility] with outpatient x two days a week that she just completed 07/05 - PT/OT evaluations recommend further therapy - [facility] auth denied, considering SNF for rehab Persistent Atrial Fibrillation/Flutter: Rate Controlled - Diltiazem 180 mg daily and Labetalol 100 mg BID - Coumadin 7.5 mg daily - INR 3.8 07/15 - back in therapeutic range CAD S/P Stents: - ASA 81 mg daily and Atorvastatin 40 mg daily - Imdur 60 mg daily Possible Chronic Diastolic Dysfunction vs Chronic Venous Stasis with Edema: - Furosemide 20 mg daily Anemia of Chronic Disease: - Ferrous Sulfate 325 mg daily - Hgb trending down 8.3, no apparent sign of bleeding though INR was supratherapeutic 07/15 at 3.8 - cbc am 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 Discussed with Wilma Bustillo NP and agree with findings and plan as documented in the note. Any exceptions or clarifications are listed here: None Patient has improved ambulation every day however she has a supratherapeutic INR and a trending down hemoglobin no overt sign of blood loss although the supratherapeutic INR may bring a GI blood loss into question. The patient is not symptomatic with her anemia Afebrile stable vital signs blood pressure and pulse Cardiac exam distant regular with a murmur lungs are clear abdomen is normoactive bowel sounds soft she did have constipation on 07/15 which is resolved her knee is without erythema there are still some posterior popliteal fullness Ambulatory dysfunction due to left knee effusion from trauma status post in particular injection improving Coagulopathy from Coumadin holding and readjusting Anemia of undetermined origin we'll continue to follow concern for GI blood loss instituted proton pump inhibitor Documented By: Jc Diaz (Jc Diaz M.D.)
[2017-07-16] MEDS: DILTIAZEM HCL (TIAzac) 180 MG CAPCR PO SCH (13:08)
[2017-07-16] MEDS: OXYCODONE/ACETAMINOPHEN 5-325 TAB PO PRN (15:18)
[2017-07-16 15:58] VITALS: BP 124/69; PULSE 71; TEMP 36.5; O2SAT 95
[2017-07-16 21:00] VITALS: BP 153/66; PULSE 60
[2017-07-16] MEDS: GABAPENTIN 100 MG CAP PO SCH (21:19)
[2017-07-16] MEDS: ATORVASTATIN 20 MG TAB PO SCH (21:20)
[2017-07-16 22:55] VITALS: BP 135/72; PULSE 59; TEMP 36.5; O2SAT 97
[2017-07-17] VITALS (7 sets, daily range): BP systolic 138–155; BP diastolic 66–76; PULSE 58–76; TEMP 36.5–36.9; O2SAT 96–97
[2017-07-17] MEDS: SODIUM CHLORIDE 0.9% 1000ML 1,000 ML IV SCH ×2 (00:04→10:01)
[2017-07-17] MEDS: LEVOTHYROXINE 200 MCG TAB PO SCH (05:45)
[2017-07-17 06:03] LABS: HEMATOCRIT 24.6 % (37-47); MEAN CELL VOLUME 96.5 fL (80-100); MEAN CORPUSCULAR HGB CONC 32.1 g/dl (32-36); MEAN PLATELET VOLUME 9.2 fL (7.4-10.4); PLATELET COUNT 233 K/uL (130-400); RED BLOOD COUNT 2.55 M/uL (4.2-5.4); WHITE BLOOD COUNT 5.92 K/uL (4.8-10.8)
[2017-07-17 06:11] LABS: INR 2.3 (0.9-1.1); PROTHROMBIN TIME (PATIENT) 25.3 SECONDS (9.0-12.0)
[2017-07-17 06:40] LABS: CALCIUM 8.1 mg/dl (8.5-10.1); CREATININE 0.95 mg/dl (0.60-1.20); POTASSIUM 4.2 mmol/L (3.5-5.1)
[2017-07-17] MEDS ORDERED: BISACODYL 10 MG SUPP PR STA ×2 (08:28→08:46)
[2017-07-17] MEDS: FERROUS SULFATE 325 MG TAB PO SCH (09:55)
[2017-07-17] MEDS: LABETALOL HCL 100 MG TAB PO SCH ×2 (09:57→21:38)
[2017-07-17] MEDS: ISOSORBIDE MONONITRATE 60 MG TABCR PO SCH (09:57)
[2017-07-17] MEDS: ASPIRIN 81 MG ECTAB PO SCH (09:58)
[2017-07-17] MEDS: PANTOprazole INJ 40 MG in SYRINGE 0 ML IV SCH ×3 (10:01→22:13)
[2017-07-17] MEDS: DILTIAZEM HCL (TIAzac) 180 MG CAPCR PO SCH (11:30)
--- NOTE | 2017-07-17 12:06 | Hospitalist Progress Note ---
Hospitalist Progress Note Date of Service Jul 17, 2017. (Wilma Bustillo CRNP) Subjective Pt evaluation today including: conversation w/ patient, physical exam, chart review, lab review, review of inpatient medication list Voiding: no voiding problems Ms. Parkinson feels better this morning though she is concerned about her constipation. Able to ambulate with walker, knee still somewhat painful. ROS Constitutional: no chills, aches, sweats or fever Respiratory: no sob,cough, sputum, or wheezing Cardiac: no chest pain, palpitations, edema, orthopnea or lightheadedness GI: no abdominal pain, nausea, vomiting, diarrhea or constipation : no dysuria or hesitancy Extremities: no joint pain or weakness Skin: no rash (Wilma Bustillo CRNP) Objective Vital Signs Date Time Temp Pulse Resp B/P (MAP) Pulse Ox O2 Delivery O2 Flow Rate FiO2 07/17/17 11:24 36.5 76 18 97 Room Air 07/17/17 10:23 96 Room Air 07/17/17 10:13 61 07/17/17 08:25 Room Air 07/17/17 07:30 36.9 60 16 138/76 (96) 96 Room Air 07/17/17 00:00 Room Air 07/16/17 22:55 36.5 59 16 135/72 (93) 97 Room Air 07/16/17 21:00 60 153/66 (95) 07/16/17 15:58 36.5 71 18 124/69 (87) 95 Room Air 07/16/17 15:10 Room Air (Wilma Bustillo CRNP) Physical Exam Notes: General: no distress Eyes: normal inspection, PERLL Respiratory: chest non tender, clear to auscultation, normal breath sounds, no respiratory distress, no accessory muscle use Cardiac: regular rate and rhythm, no rub or gallop, no murmur, no edema, no jvd GI/: active bowel sounds, no abd pain or tenderness, soft, non distended Extremities: normal range of motion, normal strength, non tender - swelling in left knee is considerably better today, not hot or erythematous Neuro/Psych: alert and oriented x 3, normal mood and affect Skin: normal color, dry (Wilma Bustillo CRNP) Laboratory Results Last 24 Hours Test 07/17/17 05:22 07/17/17 10:50 White Blood Count 5.92 K/uL Red Blood Count 2.55 M/uL Hemoglobin 7.9 g/dL Hematocrit 24.6 % Mean Corpuscular Volume 96.5 fL Mean Corpuscular Hemoglobin 31.0 pg Mean Corpuscular Hemoglobin Concent 32.1 g/dl RDW Standard Deviation 51.6 fL RDW Coefficient of Variation 14.6 % Platelet Count 233 K/uL Mean Platelet Volume 9.2 fL Prothrombin Time 25.3 SECONDS Prothromb Time International Ratio 2.3 Sodium Level 137 mmol/L Potassium Level 4.2 mmol/L Chloride Level 109 mmol/L Carbon Dioxide Level 20 mmol/L Anion Gap 8.0 mmol/L Blood Urea Nitrogen 26 mg/dl Creatinine 0.95 mg/dl Est Creatinine Clear Calc Drug Dose 46.3 ml/min Estimated GFR () 64.2 Estimated GFR (Non- 55.4 BUN/Creatinine Ratio 27.0 Random Glucose 90 mg/dl Calcium Level 8.1 mg/dl Iron Level 47 mcg/dl Total Iron Binding Capacity 218 mcg/dl Transferrin 169 mg/dl Transferrin % Saturation 20 % Ferritin 79.0 ng/ml Stool Occult Blood NEGATIVE (Wilma Bustillo ., MARY) Assessment and Plan Ms. Parkinson is an 81 y/o female with PMHx of CAD S/P Stents, Persistent Atrial Fibrillation, Hypothyroidism, CKD Stage III, Anemia, and Abdominal Wall Abscess S/P I&D (summer 2016), and CECIL who presents for ambulatory dysfunction and L knee pain. Large L Knee Effusion secondary to osteoarthritis - No hx of trauma. U/S revealing complex Huggins's cyst - Tylenol and Percocet PRN - Compressive ANA LUISA wrap and ice - Consult orthopedics - conservative management - steroid injection 07/15 Ambulatory Dysfunction: - Recent stay at [facility] with outpatient x two days a week that she just completed 07/05 - PT/OT evaluations recommend further therapy - [facility] auth denied, considering SNF for rehab Persistent Atrial Fibrillation/Flutter: Rate Controlled - Diltiazem 180 mg daily and Labetalol 100 mg BID - Coumadin 7.5 mg daily - INR 3.8 07/15 - back in therapeutic range CAD S/P Stents: - ASA 81 mg daily and Atorvastatin 40 mg daily - Imdur 60 mg daily Possible Chronic Diastolic Dysfunction vs Chronic Venous Stasis with Edema: - Furosemide 20 mg daily Anemia of Chronic Disease: - Ferrous Sulfate 325 mg daily - Hgb trending down, no apparent sign of bleeding though INR was supratherapeutic 07/15 at 3.8 - cbc am - fecal occult negative Hypothyroidism 2/ Graves S/P Ablation: - Levothyroxine 200 mcg daily Constipation Bisacodyl suppository, miralax DVT Prophylaxis: Coumadin Code Status: DO NOT RESUSCITATE (Wilma Bustillo ., MARY) Attending Note & Attestation: Pt seen/examined, chart reviewed, care plan d/w [employer] Wilma Bustillo. I agree w/ the alarcon components of her documentation. Pt c/o left knee pain but states "it's better." Denies melena but had such "a few weeks ago." No dyspnea. VSS no fever gen - obese, NAD neck - no JVD heart - RRR, s1, s2 lungs - CTA b/l abd - soft ext - left knee effusion w/o warmth; +crepitus and pain with passive ROM Hb 7.9 repeat later in the day 8 baseline Hb about 10.7 per records A/P: 1. left knee pain 2nd to severe OA - add voltaren gel 4 gms qid 2. d/c fluids 3. anemia - iron studies wnl; most recent b12/folate wnl; H/H, however, have trended down this admission; will repeat CBC again in am note that her hemoccult today was negative 4. constipation - bowel regimen 5. ambulatory dysfunction - Pt, Ot - in need of rehab dispo - [facility] Ivana AMARAL MD (Tay Amaral MD)
[2017-07-17] MEDS: DICLOFENAC SOD 1% GEL 100 GM TUBE EXT SCH ×2 (18:00→21:37)
[2017-07-17] MEDS: MINERAL OIL 473 ML BOTTLE PO SCH (21:00)
[2017-07-17] MEDS: GABAPENTIN 100 MG CAP PO SCH (21:39)
[2017-07-17] MEDS: PSYLLIUM 58.6% PWD PACK S\\F PO SCH (21:39)
[2017-07-17] MEDS: ATORVASTATIN 20 MG TAB PO SCH (21:39)
[2017-07-18] MEDS: LEVOTHYROXINE 200 MCG TAB PO SCH (06:06)
[2017-07-18 07:00] VITALS: BP 185/73; PULSE 79; TEMP 36.7; O2SAT 97
[2017-07-18 07:16] LABS: HEMATOCRIT 24.3 % (37-47); MEAN CELL VOLUME 96.4 fL (80-100); MEAN CORPUSCULAR HEMOGLOBIN 31.3 pg (25-34); MEAN CORPUSCULAR HGB CONC 32.5 g/dl (32-36); MEAN PLATELET VOLUME 9.1 fL (7.4-10.4); PLATELET COUNT 248 K/uL (130-400); RED BLOOD COUNT 2.52 M/uL (4.2-5.4)
[2017-07-18 07:24] LABS: INR 1.6 (0.9-1.1); PROTHROMBIN TIME (PATIENT) 17.7 SECONDS (9.0-12.0)
[2017-07-18 07:51] LABS: BUN/CREATININE RATIO 25.4 (10-20); CALCIUM 8.3 mg/dl (8.5-10.1); CREATININE 0.77 mg/dl (0.60-1.20); POTASSIUM 4.2 mmol/L (3.5-5.1)
[2017-07-18] MEDS: FERROUS SULFATE 325 MG TAB PO SCH (08:09)
[2017-07-18] MEDS: ISOSORBIDE MONONITRATE 60 MG TABCR PO SCH (08:09)
[2017-07-18] MEDS: ASPIRIN 81 MG ECTAB PO SCH (08:10)
[2017-07-18] MEDS: LABETALOL HCL 100 MG TAB PO SCH (08:10)
[2017-07-18] MEDS: PANTOprazole INJ 40 MG in SYRINGE 0 ML IV SCH (08:11)
[2017-07-18] MEDS ORDERED: POLYETHYLENE (MIRALAX) 17 GM PACK PO SCH (09:00)
[2017-07-18] MEDS: DICLOFENAC SOD 1% GEL 100 GM TUBE EXT SCH ×2 (09:27→12:19)
[2017-07-18] MEDS: DILTIAZEM HCL (TIAzac) 180 MG CAPCR PO SCH (12:18)
[2017-07-18 13:11] VITALS: BP 184/94
[2017-07-18] MEDS: HydrALAZINE HCL 20 MG/ML VIAL IV. PRN (13:13)
[2017-07-18 14:00] VITALS: BP 147/68
[2017-07-18] MEDS ORDERED: CMD6 PO (15:06)
[2017-07-18] MEDS ORDERED: VLTG EXT (15:06)
--- NOTE | 2017-07-18 15:09 | Discharge Instructions ---
Discharge Instructions Date of Service Jul 18, 2017. Admission Reason for Admission: Ambulatory Dysfunction, Hypertension,Knee Effusion Discharge Discharge Diagnosis / Problem: Ambulatory dysfunction Discharge Goals Goal(s): Decrease discomfort Activity Recommendations Activity Limitations: resume your previous activity . Instructions / Follow-Up Instructions / Follow-Up Please have INR drawn 07/20 Current Hospital Diet Patient's current hospital diet: AHA Diet (Heart Healthy) Discharge Diet Recommended Diet: AHA Diet (Heart Healthy) Procedures Procedures Performed: Knee xray LE US Hip pelvis Xray Pending Studies Studies pending at discharge: no Laboratory Results Lipid Panel Test 05/24/17 10:51 Range/Units Triglycerides Level 43 0-150 mg/dl Cholesterol Level 128 0-200 mg/dl HDL Cholesterol 99 mg/dl Cholesterol/HDL Ratio 1.3 LDL Cholesterol, Calculated 20 mg/dl Medical Emergencies . Who to Call and When: Medical Emergencies: If at any time you feel your situation is an emergency, please call 911 immediately. . Non-Emergent Contact Non-Emergency issues call your: Primary Care Provider Call Non-Emergent contact if: you have any medication questions . Past History Medical & Surgical History: (1) Flutter-fibrillation (2) Popliteal cyst (3) Knee effusion . "Provider Documentation" section prepared by Wilma Bustillo. . Credit Analysis Manager Recommendations Credit Analysis Manager Recommendations: After discussion with the patient and her family members by nursing staff on [facility], it was relayed to Sven Lizarraga PA-C that patient would like to receive a steroid injection into her Left Knee while she is inpatient at [facility]. An intraarticular injection consisting of 2 mL of 1% Lidocain, 2 mL of 0.5% Marcaine and 40 mg of Depomedrol solution will be given by orthopedic fellow Dr. Eliazar Stuart this afternoon. Ms. Parkinson will need a f/u in our office in 4-6 wks. She is to contact to set up this appointment with either Dr. Mayo Myers, Dr. Eliazar Stuart or Sven Lizarraga PA-C VTE Core Measure Inpt VTE Proph given/why not?: Warfarin (Coumadin), SCD's
--- NOTE | 2017-07-18 15:35 | Discharge Summary ---
Discharge Summary Date of Service Jul 18, 2017. (Wilma Bustillo CRNP) Discharge Summary Admission Date: Jul 16, 2017 at 11:31 Discharge Date: Jul 18, 2017 Discharge Disposition: Home Principal Diagnosis: Knee effusion Problems/Secondary Diagnoses: A.fib CAD with stents Anemia CKD III Hypothyroid Immunizations: Have You Had Influenza Vaccine: No History of Tetanus Vaccine?: No Tetanus Immunization Date: Apr 10, 2006 History of Pneumococcal: No History of Hepatitis B Vaccine: No Procedures: Knee xray IMPRESSION: 1. Large joint effusion and moderate soft tissue swelling without acute fracture or dislocation. 2. Moderate bone demineralization with tricompartmental osteoarthritis as above, severe within the medial and patellofemoral compartments. Hip/pelvis Xray IMPRESSION: 1. There is no radiographic evidence of fracture in the hips or bony pelvis. 2. Osteopenia and degenerative change as above. LE US IMPRESSION: 1. There is no sonographic evidence of deep venous thrombosis identified in the left lower extremity. 2. A large complex collection in the popliteal fossa likely represents a popliteal cyst. This has increased in complexity from the 12/15/2015 examination. Consultations: Dr. Myers from orthopedics (Wilma Bustillo CRNP) Problems/Secondary Diagnoses: acute kidney injury - resolved severe OA of left knee huggins's cyst left leg ambulatory dysfunction 2nd to severe b/l OA of knees morbid obesity with BMI of 40.9 supratherapeutic INR - resolved; discharge INR of 1.6 (Tay Amaral MD) Medication Reconciliation New Medications: Diclofenac Sod (Voltaren) 100 Appln/100 Gm Gel 1 APPLN EXT QID for 30 Days, #1 TUBE Warfarin Sod (Coumadin) 6 Mg Tab 6 MG PO DAILY@1600 for 30 Days, #30 TAB Continued Medications: Aspirin (Aspirin Ec) 81 Mg Tab 81 MG PO DAILY Atorvastatin (Lipitor) 40 Mg Tab 40 MG PO HS, TAB Calcium Carbonate-Vitamin D (Calcium 600 + D) 1 Tab Tab 1 TAB PO TIDM Clonidine Hcl (Catapres) 0.1 Mg Tab 0.1 MG PO DAILY PRN for Hypertension, TAB IF BP IS ABOVE 180 Diltiazem Hcl Ext Rel (Tiazac) 180 Mg Capcr 180 MG PO NOON, CAP Ferrous Sulfate (Iron) 325 Mg Tab 325 MG PO QAM Furosemide (Furosemide) 20 Mg Tab 20 MG PO QAM Gabapentin (Neurontin) 100 Mg Cap 200 MG PO HS for 30 Days, CAP Isosorbide Mononitrate Ext Rel (Imdur Ext Rel) 60 Mg Ertab 60 MG PO QAM, TAB Labetalol Hcl (Normodyne) 100 Mg Tab 100 MG PO BID, TAB Levothyroxine Sodium (Levothyroxine Sodium) 200 Mcg Tab 1 TAB PO DAILYBB Losartan Potassium (Cozaar) 100 Mg Tab 100 MG PO QAM, TAB Nitroglycerin (Nitrostat) 0.4 Mg Tab 0.4 MG UT PRN PRN for Chest Pain, BTL Discontinued Medications: Warfarin Sodium (Coumadin) 5 Mg Tab 1.5 TAB PO HS, TAB Discharge Exam ROS Constitutional: no chills, aches, sweats or fever Respiratory: no sob,cough, sputum, or wheezing Cardiac: no chest pain, palpitations, edema, orthopnea or lightheadedness GI: no abdominal pain, nausea, vomiting, diarrhea or constipation : no dysuria or hesitancy Extremities: bilateral knee pain Skin: no rash Exam General: no distress Eyes: normal inspection, PERLL Respiratory: chest non tender, clear to auscultation, normal breath sounds, no respiratory distress, no accessory muscle use Cardiac: irregular rate and rhythm, no rub or gallop, no murmur, no edema, no jvd GI/: active bowel sounds, no abd pain or tenderness, soft, non distended Extremities: normal range of motion, normal strength, non tender, no effusion in right knee Neuro/Psych: alert and oriented x 3, normal mood and affect Skin: normal color, dry (Wilma Bustillo CRNP) Hospital Course Ms. Parkinson is an 81 y/o female with PMHx of CAD S/P Stents, Persistent Atrial Fibrillation, Hypothyroidism, CKD Stage III, Anemia, and Abdominal Wall Abscess S/P I&D (summer 2016), and CECIL who presented for ambulatory dysfunction and L knee pain. Large L Knee Effusion secondary to osteoarthritis - No hx of trauma. U/S revealed complex Huggins's cyst - Tylenol and Percocet to control pain - Compressive ANA LUISA wrap and ice x 6 days - off today as knee effusion appears resolved - Consulted orthopedics who administered steroid injection 07/15 Ambulatory Dysfunction: - Recent stay at [facility] with outpatient PT x two days a week that she just completed 07/05 - PT/OT evaluations recommend further therapy - [facility] auth denied, she is accepted at [facility] Persistent Atrial Fibrillation/Flutter: Rate Controlled - Diltiazem 180 mg daily and Labetalol 100 mg BID - Coumadin 7.5 mg daily - INR 3.8 07/15 - , CAD S/P Stents: - ASA 81 mg daily and Atorvastatin 40 mg daily - Imdur 60 mg daily Possible Chronic Diastolic Dysfunction vs Chronic Venous Stasis with Edema: - Furosemide 20 mg daily Anemia of Chronic Disease: - Ferrous Sulfate 325 mg daily - Hgb trending down, no apparent sign of bleeding though INR was supratherapeutic 07/15 at 3.8 - coumadin was held for three days while anemia was investigated. As there is no s/s of bleeding and INR is 1.6, coumadin was resumed 07/18 - fecal occult negative - will follow with heme onc outpatient to further evaluate anemia Hypothyroidism 2/2 Graves S/P Ablation: - Levothyroxine 200 mcg daily Constipation Bisacodyl suppository, miralax DVT Prophylaxis: Coumadin Code Status: DO NOT RESUSCITATE Total Time Spent: Less than 30 minutes This includes examination of the patient, discharge planning, medication reconciliation, and communication with other providers. (Wilma Bustillo ., MARY) Attending Discharge Note & Attestation: Pt seen/examined, chart reviewed, care plan d/w MARY Bustillo. I agree w/ the alarcon components of her discharge summary except - time spent on discharge > 30 minutes. 81yo female who presented with left knee pain and ambulatory dysfunction 2nd to such. Left knee pain was due to severe OA. Orthopedics evaluated and gave intra-articular steroid injection with relief of symptoms. Stay was complicated by supratherapeutic INR, acute/chronic anemia, and acute kidney injury. Hemoccult was negative. Exact cause of acute drop in H/H was uncertain - possibly related to hydration (ie dilutional), and possibly related to acute blood loss from phlebotomy. H/H remained stable for 48 hours prior to discharge with discharge hemoglobin of 7.9. We recommended hematological follow-up with [facility] at the [facility] - first available appointment. Exact cause of her chronic anemia (baseline Hb is about 10.5) is unknown. B12, folate, TSH, and iron studies are all wnl. Repeat CBC in 3-4 days is recommended post-discharge to ensure stability of H/ H. Discharge exam: gen - nad, obese neck - no JVD mouth - MMM skin - pallor heart - irregular, regular rate, s1, s2 lungs - CTA b/l abd - soft, NT, ND, BS+ musculo - left knee effusion - mild; crepitus with passive flexion/extension; not warm to touch, not red Tay Amaral MD Total Time Spent: Greater than 30 minutes (Tay Amaral MD) Discharge Instructions Please refer to the electronic Patient Visit Report (Discharge Instructions) for additional information. (Wilma Bustillo CRNP) Follow-Up [facility] Office hematology. The office nurse will call to schedule the appointment. [phone]. (Wilma Bustillo CRNP) Additional Copies To Yan Merchant D.O.; Ivana Whatley; Nai Sparrow, C.R.N.P.; [facility]
[2017-07-18 16:28] VITALS: BP 147/68; PULSE 79; TEMP 36.7; O2SAT 97
[2017-07-18] MEDS: WARFARIN SOD 6 MG TAB PO SCH (16:37)
== END 2017-07-18 16:50 | DRG 565 ==
LOC: EDBD 12:12 → C.EDB 12:13 → C.MSN 18:38 → EDBEDREQSVC 19:02 → ENRESERV 19:26 → OBSVTOIN 07-16 11:31
PROVIDERS: ADMIT Family Medicine; ATTEND Internal Medicine
PROC: 3E0U33Z Introduction of Anti-inflammatory into Joints, Percutaneous Approach (ICD-10-PCS; principal; 2017-07-13)
DX: M25.462 Effusion, left knee (principal); I48.1 Persistent atrial fibrillation; I48.92 Unspecified atrial flutter; M71.22 Synovial cyst of popliteal space [Baker], left knee; Z83.3 Family history of diabetes mellitus; Z82.49 Family history of ischemic heart disease and other diseases of the circulatory system; Z79.82 Long term (current) use of aspirin; Z79.01 Long term (current) use of anticoagulants; I25.10 Atherosclerotic heart disease of native coronary artery without angina pectoris; E03.9 Hypothyroidism, unspecified; N18.3 Chronic kidney disease, stage 3 (moderate); D64.9 Anemia, unspecified; R26.9 Unspecified abnormalities of gait and mobility; I87.8 Other specified disorders of veins; D63.8 Anemia in other chronic diseases classified elsewhere; E05.00 Thyrotoxicosis with diffuse goiter without thyrotoxic crisis or storm; Z66 Do not resuscitate; M17.12 Unilateral primary osteoarthritis, left knee

== ENCOUNTER → 2017-08-28 | Outpatient (CLI) | payer BC, OTHER ==
[~2017-08-28] MED LIST changes: +ATOR-24 PO; -ATOR-26 PO; -B-COTAB18 PO; +CALC-20 PO; -CHOL1CAP57 PO; -CHRO500T5 PO; -CLOP1TAB15 PO; -CLOT1CRE3; +CMD6 PO; -COEN10CA4 PO; -CYAN100020 PO; -CZR50 PO; +LEVO200T6 PO; -LEVOPOW36 PO; +LOSA100T65 PO; -MAGN65TA PO; -MULT-223 PO; +VLTG EXT; -[UNRECOGNIZED DRUG - CODE] PO
[2017-08-28 12:39] LABS: PROTHROMBIN TIME (PATIENT) 46.2 SECONDS (9.0-12.0)
[2017-08-28 12:40] LABS: INR 4.5 (0.9-1.1)
== END | disposition home or self-care (01) ==
LOC: C.LAB 10:04
PROVIDERS: ATTEND Nurse Practitioner
DX: I48.91 Unspecified atrial fibrillation (principal)

== ENCOUNTER → 2018-01-08 | Outpatient (CLI) | payer BC ==
[2018-01-08 12:12] LABS: HEMATOCRIT 34.4 % (37-47); HEMOGLOBIN 11.2 g/dL (12.0-16.0); MEAN CELL VOLUME 97.7 fL (80-100); MEAN CORPUSCULAR HEMOGLOBIN 31.8 pg (25-34); MEAN CORPUSCULAR HGB CONC 32.6 g/dl (32-36); MEAN PLATELET VOLUME 9.7 fL (7.4-10.4); PLATELET COUNT 245 K/uL (130-400); RED CELL DISTRIBUTION WIDTH CV 14.7 % (11.5-14.5); RED CELL DISTRIBUTION WIDTH SD 52.1 fL (36.4-46.3); WHITE BLOOD COUNT 5.22 K/uL (4.8-10.8)
[2018-01-08 13:06] LABS: ALBUMIN 3.7 gm/dl (3.4-5.0); BLOOD UREA NITROGEN 17 mg/dl (7-18); CALCIUM 9.4 mg/dl (8.5-10.1); CARBON DIOXIDE 26 mmol/L (21-32); GLUCOSE 97 mg/dl (70-99); SODIUM 136 mmol/L (136-145)
[2018-01-08 13:16] LABS: ALKALINE PHOSPHATASE 47 U/L (45-117); ALT/SGPT 28 U/L (12-78); AST/SGOT 24 U/L (15-37); CHOLESTEROL 143 mg/dl (0-200); LDL CHOLESTEROL CALCULATED 24 mg/dl; PHOSPHORUS 2.9 mg/dl (2.5-4.9); TOTAL PROTEIN 7.5 gm/dl (6.4-8.2)
== END | disposition home or self-care (01) ==
LOC: C.LAB1850 10:52
PROVIDERS: ATTEND Internal Medicine Nephrology
DX: D64.9 Anemia, unspecified (principal); I12.9 Hypertensive chronic kidney disease with stage 1 through stage 4 chronic kidney disease, or unspecified chronic kidney disease; N18.3 Chronic kidney disease, stage 3 (moderate); N25.81 Secondary hyperparathyroidism of renal origin; R80.9 Proteinuria, unspecified; E55.9 Vitamin D deficiency, unspecified; E03.9 Hypothyroidism, unspecified

== ENCOUNTER → 2018-04-09 | Outpatient (CLI) | payer BC ==
[~2018-04-09] MED LIST changes: -CMD6 PO; +CYAN100073 PO; +MAGN250T8 PO; +MULT-506 PO; +POTA75TA2 PEG; +VITACAP36 PO; +WARF-246 PO; +WARF7.5T PO
[2018-04-09 10:41] LABS: BLOOD UREA NITROGEN 17 mg/dl (7-18); CARBON DIOXIDE 24 mmol/L (21-32); CREATININE 0.99 mg/dl (0.60-1.20); GLUCOSE 98 mg/dl (70-99); POTASSIUM 4.2 mmol/L (3.5-5.1); SODIUM 135 mmol/L (136-145)
== END | disposition home or self-care (01) ==
LOC: C.LAB1850 09:07
PROVIDERS: ATTEND Internal Medicine Nephrology
DX: E55.9 Vitamin D deficiency, unspecified (principal)

== ENCOUNTER 2018-10-28 11:10 | Inpatient (IN) ==
[2018-10-28] MEDS ORDERED: fentaNYL citrate 100 MCG/2 ML VIAL IV PRN (11:46)
[2018-10-28 11:53] LABS: Basophils # (auto) 0.04 K/uL (0-0.2); Basophils % (auto) 0.6 %; Eosinophils # (auto) 0.17 K/uL (0-0.5); Eosinophils % (auto) 2.5 %; Hematocrit (blood only) 33.4 % (37-47); Hemoglobin 11.1 g/dL (12.0-16.0); Immature Granulocytes # (auto) 0.01 K/uL (0.00-0.02); Immature Granulocytes % (auto) 0.1 %; Lymphocytes # (auto) 1.16 K/uL (1.2-3.4); Lymphocytes % (auto) 17.3 %; Mean Corpuscular Hgb Conc 33.2 g/dL (32-36); Mean Corpuscular Volume 94.9 fL (80-100); Mean Platelet Volume 9.7 fL (7.4-10.4); Monocytes # (auto) 0.97 K/uL (0.11-0.59); Monocytes % (auto) 14.5 %; Neutrophils # (auto) 4.34 K/uL (1.4-6.5); Platelet Count 301 K/uL (130-400); RDW Coefficient of Variation 14.7 % (11.5-14.5); RDW Standard Deviation 51.2 fL (36.4-46.3); Red Blood Count 3.52 M/uL (4.2-5.4); White Blood Count 6.69 K/uL (4.8-10.8)
[2018-10-28 12:00] LABS: Alanine Aminotransferase 35 U/L (12-78); Albumin Level 3.3 gm/dl (3.4-5.0); Aspartate Aminotransferase 29 U/L (15-37); BUN Creatinine Ratio 16.1 (10-20); Blood Urea Nitrogen 17 mg/dl (7-18); Carbon Dioxide 27 mmol/L (21-32); Chloride 97 mmol/L (98-107); Creatinine Clr Calc Pharmacy 41.2 ml/min; Est GFR (African American) 56.7; Glucose 102 mg/dl (70-99); Magnesium 2.1 mg/dl (1.8-2.4); Potassium 4.3 mmol/L (3.5-5.1); Sodium 129 mmol/L (136-145)
[2018-10-28 12:02] LABS: INR 2.7 (0.9-1.1); Partial Thromboplastin Ratio 1.4; Partial Thromboplastin Time 36.5 Seconds (21.0-31.0); Prothrombin Time 25.6 Seconds (9.0-12.0)
[2018-10-28 12:11] LABS: Albumin Globulin Ratio 0.9 (0.9-2); Alkaline Phosphatase 49 U/L (45-117); Bilirubin,Total 0.6 mg/dl (0.2-1); Globulin 3.7 gm/dl (2.5-4.0); Troponin I < 0.015 ng/ml (0-0.045)
--- NOTE | 2018-10-28 12:19 | CT Scan Report ---
CT head/brain wo con CLINICAL HISTORY: Head pain status post trauma COMPARISON STUDY: 02/07/2014 TECHNIQUE: Axial CT of the brain is performed from the vertex to the skull base. IV contrast was not administered for this examination. A dose lowering technique was utilized adhering to the principles of ALARA. CT DOSE: 1678.85 mGy.cm FINDINGS: No intra or extra-axial mass lesions are visualized. There is no CT evidence of acute cortical infarc tion. There is no evidence of midline shift. There is no acute hemorrhage. No calvarial fractures ar e visualized. There are patchy white matter hypodensities likely on a small vessel basis. There is no evidence of pathologic ventricular dilatation. There is a small left maxilla sinus air-fluid level. There is calvarial hyperostosis. IMPRESSION: No acute intracranial findings Electronically signed by: Eliecer Juarez M.D. 10/28/2018 12:18 PM
--- NOTE | 2018-10-28 12:26 | CT Scan Report ---
CT lumbar spine wo con CT DOSE: HISTORY: Trauma. Pain. fall TECHNIQUE: Multiaxial CT images of the lumbar spine were performed and reformatted in the sagittal an d coronal plane without the use of contrast. A dose lowering technique was utilized adhering to the principles of ALARA. COMPARISON: None. FINDINGS: Severe degenerative disc change throughout the entire lumbar region. This is most prominent at T11-T12, L1-L2, and L2-L3. As a partially calcified posterior disc herniation at T11-T12 level. No evidence for an acute compression deformity. Erosive changes several vertebral endplates considere d to be degenerative. IMPRESSION: 1. 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 2. No evidence for an acute compression deformity. 3. Calcified posterior disc herniation T11-T12 creating considerable narrowing of the right neurofora . The transverse elements are intact throughout. This appears to be chronic. The above report was generated using voice recognition software. It may contain grammatical, syntax or spelling errors. Electronically signed by: Michael Cummings M.D. 10/28/2018 12:24 PM
--- NOTE | 2018-10-28 12:27 | CT Scan Report ---
CT OF THE CERVICAL SPINE CLINICAL HISTORY: Neck pain status post trauma COMPARISON STUDY: Commensurate radiographic study dated 02/07/2014 CT DOSE: TECHNIQUE: CT scan of the cervical spine was performed from the skull base to the thoracic inlet. Michaela ges are reviewed in the axial, sagittal, and coronal planes. IV contrast was not administered for thi s examination. A dose lowering technique was utilized adhering to the principles of ALARA. FINDINGS: The visualized portions of the lung apices reveal no evidence of pneumothorax. The prevertebral soft tissues are normal. No acute fractures or traumatic subluxations are visualize d. There are multilevel degenerative changes. 3 mm of retrolisthesis of C3 on C4 is felt to be degenerat mervat. IMPRESSION: No evidence of acute fracture or traumatic subluxation. Electronically signed by: Eliecer Juarez M.D. 10/28/2018 12:25 PM
--- NOTE | 2018-10-28 12:37 | XRay Report ---
AP PELVIS ONE VIEW HISTORY: Bilateral hip pain. fall COMPARISON: Pelvis 07/12/2017. FINDINGS: There is no fracture or dislocation. Soft tissues are unremarkable. No radiopaque foreign b odies. Osteopenia. Degenerative changes within the sacroiliac joints and lumbar spine. IMPRESSION: No fracture or dislocation within the pelvis or hips. Electronically signed by: Mark Lozada M.D. 10/28/2018 12:36 PM
--- NOTE | 2018-10-28 12:37 | XRay Report ---
XR chest 1V not portable CLINICAL HISTORY: weakness mental status change COMPARISON STUDY: 11/06/2015 FINDINGS: Mild stable cardiomegaly. Lungs are clear. Severe degenerative change right shoulder. Old h ealed fracture left shoulder with superimposed degenerative change. IMPRESSION: Chronic change as described. No acute process. The above report was generated using voice recognition software. It may contain grammatical, syntax or spelling errors. Electronically signed by: Michael Cummings M.D. 10/28/2018 12:36 PM
[2018-10-28 12:59] LABS: Appearance Urine Clear (Clear); Bilirubin Urine Negative (Negative); Color Urine Yellow; Glucose Urine UA Negative (Negative); Ketones Urine Negative (Negative); Leukocyte Esterase Urine Negative (Negative); Nitrite Urine Negative (Negative); Protein Urine Negative (Negative); Specific Gravity Urine 1.011 (1.000-1.030); Urobilinogen Urine Negative (Negative)
--- NOTE | 2018-10-28 13:14 | Emergency Department Note ---
Entered by Lloyd Wood acting as a scribe for Sundeep Valdes DO History of Present Illness General Chief complaint: Hip Pain Time Seen by Provider: 10/28/18 11:38 Source: patient Limitations: no limitations History of Present Illness Provider complaint: Hip Pain/Fall Onset (ago): hour(s) Location: hip, left and right Maximum Pain Intensity: 8 Quality: + other (hip pain from fall ) Exacerbated By: + other (walking) Associated symptoms: + weakness; no chest pain and no shortness of breath The patient is aN 83-year-old female who presented to the emergency department by ambulance with family members. The patient had a fall earlier today where she landed on her buttocks but then fell backward striking her head. The patient has a history of anticoagulation for atrial fibrillation. She denies having any chest pain or trouble breathing but does describe weakness in both legs which has been ongoing for quite some time. She states that her right knee buckled which is why she fell to the floor. She did not lose consciousness. She did strike her head. She denies having any neck pain but has severe hip and back pain. She has difficulty ambulating secondary to this pain but was able to ambulate with a walker prior to arrival. She denies having any recent illnesses. She denies having any diarrhea nausea or vomiting. The patient's pain is very severe at this time but she received IV pain medication by the prehospital personnel prior to arrival. Home Medications Home Medications Medication Instructions Recorded Confirmed Type aspirin [Aspirin Low Dose] 81 mg PO DAILY 10/28/18 10/28/18 History atorvastatin 80 mg PO DAILY 10/28/18 10/28/18 History calcium carbonate-vitamin D3 1 tab PO BID 10/28/18 10/28/18 History [Calcium 600 + D(3)] clonidine HCl 0.1 mg PO UD 10/28/18 10/28/18 History cyanocobalamin (vitamin B-12) 1,000 mcg PO DAILY 10/28/18 10/28/18 History diclofenac sodium 1 applic TOPICAL UD 10/28/18 10/28/18 History diltiazem HCl [DILT-XR] 180 mg PO DAILY 10/28/18 10/28/18 History ferrous sulfate 325 mg PO DAILY 10/28/18 10/28/18 History furosemide 20 mg PO DAILY 10/28/18 10/28/18 History gabapentin 100 mg PO TID 10/28/18 10/28/18 History isosorbide mononitrate 60 mg PO DAILY 10/28/18 10/28/18 History labetalol 100 mg PO BID 10/28/18 10/28/18 History levothyroxine 200 mcg PO DAILY 10/28/18 10/28/18 History losartan 100 mg PO DAILY 10/28/18 10/28/18 History magnesium oxide 400 mg PO DAILY 10/28/18 10/28/18 History multivitamin 1 tab PO DAILY 10/28/18 10/28/18 History nitroglycerin [Nitrostat] 0.4 mg SUBLINGUAL UD PRN 10/28/18 10/28/18 History potassium 0 mg PO DAILY 10/28/18 10/28/18 History vitamin E 200 unit PO DAILY 10/28/18 10/28/18 History warfarin 5 mg PO 3XWK 10/28/18 10/28/18 History warfarin 5 mg PO 4XWK 10/28/18 10/28/18 History Allergies Allergy/AdvReac Type Severity Reaction Status Date / Time doxycycline Allergy Intermediate RASH Verified 03/12/18 10:43 ANA LUISA Inhibitors AdvReac Unknown INTOLERANT Verified 03/12/18 10:43 lisinopril AdvReac Unknown INTOLERANT Verified 03/12/18 10:43 Past Med/Surg History Medical History Hypertension (Chronic) Kidney disease (Chronic) Acute coronary syndrome (Chronic) Atrial flutter (Acute) Leukocytosis Social History Feels Safe at Home: Yes Smoking Status: Never smoker Hx Alcohol Use: No Hx Substance Use: No Review of Systems See HPI for pertinent positives & negatives. and A total of 10 systems reviewed and were otherwise negative Physical Exam Vital Signs Vital Signs - 24 hr 10/28/18 11:18 10/28/18 11:20 10/28/18 11:22 Temperature Temperature Source Sepsis Recent Fever Within 48 Hours Sepsis New/Unexplained Change in Mental Status Sepsis Action Taken by Nursing Pulse Rate 75 76 75 Pulse Rate [Finger] Respiratory Rate 20 22 20 Blood Pressure - Lying Blood Pressure 219/88 H 187/82 H Blood Pressure [Right Arm] Blood Pressure Mean 131 117 Blood Pressure Mean [Right Arm] Pulse Oximetry 96 97 96 Oxygen Delivery Method 10/28/18 11:24 10/28/18 11:31 10/28/18 11:40 Temperature 36.6 C Temperature Source Oral Sepsis Recent Fever Within 48 Hours No Sepsis New/Unexplained Change in Mental Status No Sepsis Action Taken by Nursing No Action Required Pulse Rate 77 66 75 Pulse Rate [Finger] 77 Respiratory Rate 17 15 12 Blood Pressure - Lying Blood Pressure 187/82 H 175/84 H Blood Pressure [Right Arm] 187/82 H Blood Pressure Mean 117 114 Blood Pressure Mean [Right Arm] 117 Pulse Oximetry 97 97 95 Oxygen Delivery Method Room Air 10/28/18 11:50 10/28/18 12:48 10/28/18 12:50 Temperature Temperature Source Sepsis Recent Fever Within 48 Hours Sepsis New/Unexplained Change in Mental Status Sepsis Action Taken by Nursing Pulse Rate 74 78 78 Pulse Rate [Finger] Respiratory Rate 17 18 20 Blood Pressure - Lying Blood Pressure 205/105 H Blood Pressure [Right Arm] Blood Pressure Mean 138 Blood Pressure Mean [Right Arm] Pulse Oximetry 92 98 96 Oxygen Delivery Method 10/28/18 13:00 10/28/18 13:02 10/28/18 13:11 Temperature Temperature Source Sepsis Recent Fever Within 48 Hours Sepsis New/Unexplained Change in Mental Status Sepsis Action Taken by Nursing Pulse Rate 80 68 57 L Pulse Rate [Finger] Respiratory Rate 20 19 10 L Blood Pressure - Lying Blood Pressure 196/111 H Blood Pressure [Right Arm] Blood Pressure Mean 139 Blood Pressure Mean [Right Arm] Pulse Oximetry 95 95 97 Oxygen Delivery Method 10/28/18 13:20 10/28/18 13:30 10/28/18 13:31 Temperature Temperature Source Sepsis Recent Fever Within 48 Hours Sepsis New/Unexplained Change in Mental Status Sepsis Action Taken by Nursing Pulse Rate 57 L 57 L 56 L Pulse Rate [Finger] Respiratory Rate 22 17 17 Blood Pressure - Lying Blood Pressure 215/90 H Blood Pressure [Right Arm] Blood Pressure Mean 131 Blood Pressure Mean [Right Arm] Pulse Oximetry 99 95 96 Oxygen Delivery Method 10/28/18 13:41 10/28/18 13:50 10/28/18 14:00 Temperature Temperature Source Sepsis Recent Fever Within 48 Hours Sepsis New/Unexplained Change in Mental Status Sepsis Action Taken by Nursing Pulse Rate 57 L 57 L 57 L Pulse Rate [Finger] Respiratory Rate 15 13 15 Blood Pressure - Lying Blood Pressure Blood Pressure [Right Arm] Blood Pressure Mean Blood Pressure Mean [Right Arm] Pulse Oximetry 99 98 96 Oxygen Delivery Method 10/28/18 14:02 10/28/18 14:11 10/28/18 14:20 Temperature Temperature Source Sepsis Recent Fever Within 48 Hours Sepsis New/Unexplained Change in Mental Status Sepsis Action Taken by Nursing Pulse Rate 88 73 Pulse Rate [Finger] Respiratory Rate 13 16 Blood Pressure - Lying Blood Pressure 251/132 H Blood Pressure [Right Arm] Blood Pressure Mean 171 Blood Pressure Mean [Right Arm] Pulse Oximetry 96 95 97 Oxygen Delivery Method 10/28/18 14:30 10/28/18 14:31 10/28/18 14:41 Temperature Temperature Source Sepsis Recent Fever Within 48 Hours Sepsis New/Unexplained Change in Mental Status Sepsis Action Taken by Nursing Pulse Rate 57 L 57 L 56 L Pulse Rate [Finger] Respiratory Rate 17 14 20 Blood Pressure - Lying Blood Pressure 211/95 H Blood Pressure [Right Arm] Blood Pressure Mean 133 Blood Pressure Mean [Right Arm] Pulse Oximetry 96 98 98 Oxygen Delivery Method 10/28/18 14:44 10/28/18 15:00 10/28/18 15:01 Temperature Temperature Source Sepsis Recent Fever Within 48 Hours Sepsis New/Unexplained Change in Mental Status Sepsis Action Taken by Nursing Pulse Rate 57 L 75 82 Pulse Rate [Finger] Respiratory Rate 17 14 16 Blood Pressure - Lying Blood Pressure 200/90 H 198/95 H Blood Pressure [Right Arm] Blood Pressure Mean 126 129 Blood Pressure Mean [Right Arm] Pulse Oximetry 97 93 97 Oxygen Delivery Method 10/28/18 15:10 10/28/18 15:11 10/28/18 15:12 Temperature Temperature Source Sepsis Recent Fever Within 48 Hours Sepsis New/Unexplained Change in Mental Status Sepsis Action Taken by Nursing Pulse Rate 60 Pulse Rate [Finger] Respiratory Rate 12 Blood Pressure - Lying 200/90 H 200/90 H Blood Pressure Blood Pressure [Right Arm] Blood Pressure Mean Blood Pressure Mean [Right Arm] Pulse Oximetry 97 Oxygen Delivery Method 10/28/18 15:21 10/28/18 15:30 10/28/18 15:31 Temperature Temperature Source Sepsis Recent Fever Within 48 Hours Sepsis New/Unexplained Change in Mental Status Sepsis Action Taken by Nursing Pulse Rate 77 77 59 L Pulse Rate [Finger] Respiratory Rate 16 19 18 Blood Pressure - Lying Blood Pressure 202/81 H Blood Pressure [Right Arm] Blood Pressure Mean 121 Blood Pressure Mean [Right Arm] Pulse Oximetry 97 97 97 Oxygen Delivery Method 10/28/18 15:33 10/28/18 15:40 10/28/18 15:51 Temperature Temperature Source Sepsis Recent Fever Within 48 Hours Sepsis New/Unexplained Change in Mental Status Sepsis Action Taken by Nursing Pulse Rate 63 76 Pulse Rate [Finger] 60 Respiratory Rate 12 15 12 Blood Pressure - Lying Blood Pressure Blood Pressure [Right Arm] 202/81 H Blood Pressure Mean Blood Pressure Mean [Right Arm] 121 Pulse Oximetry 96 97 92 Oxygen Delivery Method Room Air 10/28/18 16:00 10/28/18 16:01 10/28/18 16:10 Temperature Temperature Source Sepsis Recent Fever Within 48 Hours Sepsis New/Unexplained Change in Mental Status Sepsis Action Taken by Nursing Pulse Rate 62 60 63 Pulse Rate [Finger] Respiratory Rate 14 14 17 Blood Pressure - Lying Blood Pressure 170/70 H Blood Pressure [Right Arm] Blood Pressure Mean 103 Blood Pressure Mean [Right Arm] Pulse Oximetry 90 93 92 Oxygen Delivery Method 10/28/18 16:21 10/28/18 16:30 10/28/18 16:31 Temperature Temperature Source Sepsis Recent Fever Within 48 Hours Sepsis New/Unexplained Change in Mental Status Sepsis Action Taken by Nursing Pulse Rate 71 68 72 Pulse Rate [Finger] Respiratory Rate 16 18 14 Blood Pressure - Lying Blood Pressure 186/83 H Blood Pressure [Right Arm] Blood Pressure Mean 117 Blood Pressure Mean [Right Arm] Pulse Oximetry 93 96 93 Oxygen Delivery Method 10/28/18 16:40 10/28/18 16:51 10/28/18 17:00 Temperature Temperature Source Sepsis Recent Fever Within 48 Hours Sepsis New/Unexplained Change in Mental Status Sepsis Action Taken by Nursing Pulse Rate 70 72 74 Pulse Rate [Finger] 78 Respiratory Rate 13 17 16 Blood Pressure - Lying Blood Pressure Blood Pressure [Right Arm] 201/99 H Blood Pressure Mean Blood Pressure Mean [Right Arm] 133 Pulse Oximetry 96 96 94 Oxygen Delivery Method Room Air 10/28/18 17:01 10/28/18 17:10 10/28/18 17:12 Temperature Temperature Source Sepsis Recent Fever Within 48 Hours Sepsis New/Unexplained Change in Mental Status Sepsis Action Taken by Nursing Pulse Rate 75 Pulse Rate [Finger] Respiratory Rate 18 8 L 25 H Blood Pressure - Lying Blood Pressure 201/99 H 198/147 H Blood Pressure [Right Arm] Blood Pressure Mean 133 164 Blood Pressure Mean [Right Arm] Pulse Oximetry 94 98 98 Oxygen Delivery Method 10/28/18 17:20 10/28/18 17:31 10/28/18 17:40 Temperature Temperature Source Sepsis Recent Fever Within 48 Hours Sepsis New/Unexplained Change in Mental Status Sepsis Action Taken by Nursing Pulse Rate 74 55 L 56 L Pulse Rate [Finger] Respiratory Rate 25 H 16 28 H Blood Pressure - Lying Blood Pressure 203/79 H Blood Pressure [Right Arm] Blood Pressure Mean 120 Blood Pressure Mean [Right Arm] Pulse Oximetry 95 94 95 Oxygen Delivery Method 10/28/18 18:16 Temperature Temperature Source Sepsis Recent Fever Within 48 Hours Sepsis New/Unexplained Change in Mental Status Sepsis Action Taken by Nursing Pulse Rate Pulse Rate [Finger] 80 Respiratory Rate 17 Blood Pressure - Lying Blood Pressure Blood Pressure [Right Arm] 204/98 H Blood Pressure Mean Blood Pressure Mean [Right Arm] 133 Pulse Oximetry 96 Oxygen Delivery Method Room Air GENERAL: Patient is awake alert in no acute distress patient is resting comfortably and showing no signs of anxiety EYES: The conjunctivae are clear. The pupils are round and reactive. EARS, NOSE, MOUTH AND THROAT: The nose is without any evidence of any deformity. Mucous membranes are moist tongue is midline NECK: The neck is nontender and supple. RESPIRATORY: Normal respiratory effort is noted there is no evidence of wheezing rhonchi or rales CARDIOVASCULAR: Regular rate and rhythm noted there no murmurs rubs or gallops normal S1 normal S2 GASTROINTESTINAL: The abdomen is soft. Bowel sounds are present in all quadrants. Abdomen is nontender BACK: There is low lumbar tenderness to palpation. Tenderness is in the midline. Range of motion testing elicits pain. Straight leg raising elicits pain as well. MUSCULOSKELETAL/EXTREMITIES: There is no evidence of gross deformity full range of motion is noted in the hips and shoulders SKIN: There is no obvious evidence of any rash. There are no petechiae, pallor or cyanosis noted. NEUROLOGIC: Patient is awake alert and oriented x3 strength is symmetric patellar reflexes are 2+ bilaterally Course Past medical records reviewed. The patient was evaluated in room C6, and a complete history and physical examination were performed. 1359: I updated the patient at this time. She is resting in bed. 1719: I reviewed the patient's case with Dr. Bernardo LOMBARDO Hospitalist. She will evaluate the patient for further management. Consultations Consultation #1: 1719: I reviewed the patient's case with Dr. Bernardo LOMBARDO Hospitalist. She will evaluate the patient for further management. Administered Medications Fentanyl Citrate (Fentanyl Citrate) 50 mcg IV Q15M PRN PRN Reason: Pain Stop: 11/11/18 11:45 Last Admin: 10/28/18 15:31 Dose: 50 mcg Discontinued Medications Diltiazem HCl (Tiazac) 180 mg PO NOW STA Stop: 10/28/18 17:50 Last Admin: 10/28/18 18:15 Dose: 180 mg Labetalol HCl (Normodyne) 100 mg PO NOW ONE Stop: 10/28/18 14:26 Last Admin: 10/28/18 15:31 Dose: 100 mg Medical Decision Making Differential Diagnosis Differential diagnosis: Etiologies such as fracture, cervical/vertebral injury, dislocation, intra- abdominal process, pneumothorax, intrathoracic trauma, intracranial injury, soft tissue injury, neurologic process, as well as other traumatic pathologies were entertained. Medical Records Attestation: I reviewed the patient's medical records. Home Medications Current Medication List: was personally reviewed by me Laboratory Data Attestation: I reviewed the patient's lab results. Result diagrams: 10/28/18 10:52 10/28/18 10:52 Lab Results 10/28/18 10/28/18 10/28/18 Range/Units 10:52 10:52 10:52 WBC 6.69 (4.8-10.8) K/uL RBC 3.52 L (4.2-5.4) M/uL Hgb 11.1 L (12.0-16.0) g/dL Hct 33.4 L (37-47) % MCV 94.9 (80-100) fL MCH 31.5 (25-34) pg MCHC 33.2 (32-36) g/dL RDW Std Deviation 51.2 H (36.4-46.3) fL RDW Coeff of Taylor 14.7 H (11.5-14.5) % Plt Count 301 (130-400) K/uL MPV 9.7 (7.4-10.4) fL Immature Gran % (Auto) 0.1 % Neut % (Auto) 65.0 % Lymph % (Auto) 17.3 % [place] % (Auto) 14.5 % Eos % (Auto) 2.5 % Baso % (Auto) 0.6 % Immature Gran # (Auto) 0.01 (0.00-0.02) K/uL Neut # (Auto) 4.34 (1.4-6.5) K/uL Lymph # (Auto) 1.16 L (1.2-3.4) K/uL [place] # (Auto) 0.97 H (0.11-0.59) K/uL Eos # (Auto) 0.17 (0-0.5) K/uL Baso # (Auto) 0.04 (0-0.2) K/uL PT 25.6 H (9.0-12.0) Seconds INR 2.7 H (0.9-1.1) APTT 36.5 H (21.0-31.0) Seconds PTT Ratio 1.4 Sodium 129 L (136-145) mmol/L Potassium 4.3 (3.5-5.1) mmol/L Chloride 97 L (98-107) mmol/L Carbon Dioxide 27 (21-32) mmol/L Anion Gap 5.0 (3-11) BUN 17 (7-18) mg/dl Creatinine 1.04 (0.6-1.2) mg/dl Est Cr Clr Drug Dosing 41.2 ml/min Est GFR ( Amer) 56.7 Est GFR (Non-Af Amer) 49.0 BUN/Creatinine Ratio 16.1 (10-20) Glucose 102 H (70-99) mg/dl Calcium 9.0 (8.5-10.1) mg/dl Magnesium 2.1 (1.8-2.4) mg/dl Total Bilirubin 0.6 (0.2-1) mg/dl AST 29 (15-37) U/L ALT 35 (12-78) U/L Alkaline Phosphatase 49 (45-117) U/L Troponin I < 0.015 (0-0.045) ng/ml Total Protein 7.0 (6.4-8.2) gm/dl Albumin 3.3 L (3.4-5.0) gm/dl Globulin 3.7 (2.5-4.0) gm/dl Albumin/Globulin Ratio 0.9 (0.9-2) TSH 3.100 (0.300-4.500) uIu/ml Urine Color Urine Appearance (Clear) Urine pH (4.5-7.5) Ur Specific [place] (1.000-1.030) Urine Protein (Negative) Urine Glucose (UA) (Negative) Urine Ketones (Negative) Urine Blood (Negative) Urine Nitrite (Negative) Urine Bilirubin (Negative) Urine Urobilinogen (Negative) Ur Leukocyte Esterase (Negative) 10/28/18 Range/Units 12:50 WBC (4.8-10.8) K/uL RBC (4.2-5.4) M/uL Hgb (12.0-16.0) g/dL Hct (37-47) % MCV (80-100) fL MCH (25-34) pg MCHC (32-36) g/dL RDW Std Deviation (36.4-46.3) fL RDW Coeff of Taylor (11.5-14.5) % Plt Count (130-400) K/uL MPV (7.4-10.4) fL Immature Gran % (Auto) % Neut % (Auto) % Lymph % (Auto) % [place] % (Auto) % Eos % (Auto) % Baso % (Auto) % Immature Gran # (Auto) (0.00-0.02) K/uL Neut # (Auto) (1.4-6.5) K/uL Lymph # (Auto) (1.2-3.4) K/uL [place] # (Auto) (0.11-0.59) K/uL Eos # (Auto) (0-0.5) K/uL Baso # (Auto) (0-0.2) K/uL PT (9.0-12.0) Seconds INR (0.9-1.1) APTT (21.0-31.0) Seconds PTT Ratio Sodium (136-145) mmol/L Potassium (3.5-5.1) mmol/L Chloride (98-107) mmol/L Carbon Dioxide (21-32) mmol/L Anion Gap (3-11) BUN (7-18) mg/dl Creatinine (0.6-1.2) mg/dl Est Cr Clr Drug Dosing ml/min Est GFR ( Amer) Est GFR (Non-Af Amer) BUN/Creatinine Ratio (10-20) Glucose (70-99) mg/dl Calcium (8.5-10.1) mg/dl Magnesium (1.8-2.4) mg/dl Total Bilirubin (0.2-1) mg/dl AST (15-37) U/L ALT (12-78) U/L Alkaline Phosphatase (45-117) U/L Troponin I (0-0.045) ng/ml Total Protein (6.4-8.2) gm/dl Albumin (3.4-5.0) gm/dl Globulin (2.5-4.0) gm/dl Albumin/Globulin Ratio (0.9-2) TSH (0.300-4.500) uIu/ml Urine Color Yellow Urine Appearance Clear (Clear) Urine pH 7.0 (4.5-7.5) Ur Specific [place] 1.011 (1.000-1.030) Urine Protein Negative (Negative) Urine Glucose (UA) Negative (Negative) Urine Ketones Negative (Negative) Urine Blood Negative (Negative) Urine Nitrite Negative (Negative) Urine Bilirubin Negative (Negative) Urine Urobilinogen Negative (Negative) Ur Leukocyte Esterase Negative (Negative) Imaging Data Attestation: I personally reviewed and interpreted this imaging study as follows : Radiologist's Impression: AP PELVIS ONE VIEW HISTORY: Bilateral hip pain. fall COMPARISON: Pelvis 07/12/2017. FINDINGS: There is no fracture or dislocation. Soft tissues are unremarkable. No radiopaque foreign bodies. Osteopenia. Degenerative changes within the sacroiliac joints and lumbar spine. IMPRESSION: No fracture or dislocation within the pelvis or hips. Electronically signed by: Mark Lozada M.D. 10/28/2018 12:[address] lumbar spine wo con CT DOSE: HISTORY: Trauma. Pain. fall TECHNIQUE: Multiaxial CT images of the lumbar spine were performed and reformatted in the sagittal and coronal plane without the use of contrast. A dose lowering technique was utilized adhering to the principles of ALARA. COMPARISON: None. FINDINGS: Severe degenerative disc change throughout the entire lumbar region. This is most prominent at T11-T12, L1-L2, and L2-L3. As a partially calcified posterior disc herniation at T11-T12 level. No evidence for an acute compression deformity. Erosive changes several vertebral endplates considered to be degenerative. IMPRESSION: 1. 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 2. No evidence for an acute compression deformity. 3. Calcified posterior disc herniation T11-T12 creating considerable narrowing of the right neuroforamina. The transverse elements are intact throughout. This appears to be chronic. The above report was generated using voice recognition software. It may contain grammatical, syntax or spelling errors. Electronically signed by: Michael Cummings M.D. 10/28/2018 12:[address] head/brain wo con CLINICAL HISTORY: Head pain status post trauma COMPARISON STUDY: 02/07/2014 TECHNIQUE: Axial CT of the brain is performed from the vertex to the skull base. IV contrast was not administered for this examination. A dose lowering technique was utilized adhering to the principles of ALARA. CT DOSE: 1678.85 mGy.cm FINDINGS: No intra or extra-axial mass lesions are visualized. There is no CT evidence of acute cortical infarction. There is no evidence of midline shift. There is no acute hemorrhage. No calvarial fractures are visualized. There are patchy white matter hypodensities likely on a small vessel basis. There is no evidence of pathologic ventricular dilatation. There is a small left maxilla sinus air-fluid level. There is calvarial hyperostosis. IMPRESSION: No acute intracranial findings Electronically signed by: Eliecer Juarez M.D. 10/28/2018 12:18 PM XR chest 1V not portable CLINICAL HISTORY: weakness mental status change COMPARISON STUDY: 11/06/2015 FINDINGS: Mild stable cardiomegaly. Lungs are clear. Severe degenerative change right shoulder. Old healed fracture left shoulder with superimposed degenerative change. IMPRESSION: Chronic change as described. No acute process. The above report was generated using voice recognition software. It may contain grammatical, syntax or spelling errors. Electronically signed by: Michael Cummings M.D. 10/28/2018 12:[address] OF THE CERVICAL SPINE CLINICAL HISTORY: Neck pain status post trauma COMPARISON STUDY: Commensurate radiographic study dated 02/07/2014 CT DOSE: TECHNIQUE: CT scan of the cervical spine was performed from the skull base to the thoracic inlet. Images are reviewed in the axial, sagittal, and coronal planes. IV contrast was not administered for this examination. A dose lowering technique was utilized adhering to the principles of ALARA. FINDINGS: The visualized portions of the lung apices reveal no evidence of pneumothorax. The prevertebral soft tissues are normal. No acute fractures or traumatic subluxations are visualized. There are multilevel degenerative changes. 3 mm of retrolisthesis of C3 on C4 is felt to be degenerative. IMPRESSION: No evidence of acute fracture or traumatic subluxation. Electronically signed by: Eliecer Juarez M.D. 10/28/2018 12:25 PM ECG Data Attestation: I personally reviewed and interpreted this ECG as follows: Indication: other (Trauma) Rate (beats per minute): 74 Rhythm: atrial fibrillation Findings: no PVC, no ST depression and no ST elevation Comparison ECG Date: from (07/14/2017) Blood Pressure Blood Pressure Findings: Elevated blood pressure Blood Pressure Disposition: further management by hospitalist MDM Narrative The patient is an 83-year-old female who presented to the emergency department after a fall. The patient fell backwards striking her buttocks as well as her low back. She also had very significant hip pain. The patient had very reproducible pain over the lumbar spine. She does take blood thinners. For this reason further radiographic studies including a CT the head and neck were obtained. The patient was found to have mostly chronic problems there were no acute fractures or dislocations noted. She did not appear to have any acute intracranial hemorrhage. I discussed the patient's laboratory and radiographic studies with her. She was reevaluated multiple times. Her pain was significantly improved. The patient's weakness in her legs may be secondary to this disc herniation noted on the CT but this does not appear to be acute. I would wonder if she would benefit from rehab. We tried to make a referral for inpatient rehab but we were unable to have the patient accepted at rehab today. For this reason I discussed her case with the on-call [facility] hospitalist. They have agreed to evaluate the patient in the emergency department for further management and disposition. Impression & Plan Fall, Lumbar contusion, Hyponatremia, Weakness, Head injury Discharge Plan Visit Data Chief Complaint: Hip Pain ED Provider: Sundeep Valdes Discharge Problem: Fall, Lumbar contusion, Hyponatremia, Weakness, Head injury Patient Disposition: Being Evaluated by Hospitalist Forms Stand Alone Forms: My [facility] [employer] Prescriptions Prescriptions: No Action multivitamin Tablet 1 tab PO DAILY RF: 0 atorvastatin 80 mg tablet 80 mg PO DAILY RF: 0 clonidine HCl 0.1 mg Tablet 0.1 mg PO UD RF: 0 vitamin E 200 unit Capsule 200 unit PO DAILY RF: 0 cyanocobalamin (vitamin B-12) 1,000 mcg Tablet 1,000 mcg PO DAILY RF: 0 calcium carbonate-vitamin D3 [Calcium 600 + D(3)] 600 mg(1,500mg) -200 unit Tablet 1 tab PO BID RF: 0 aspirin [Aspirin Low Dose] 81 mg Tablet,Delayed Release (Dr/Ec) 81 mg PO DAILY RF: 0 isosorbide mononitrate 60 mg tablet extended release 24 hr 60 mg PO DAILY RF: 0 potassium 99 mg Tablet PO DAILY RF: 0 ferrous sulfate 325 mg (65 mg iron) tablet 325 mg PO DAILY RF: 0 warfarin 5 mg Tablet 5 mg PO 4XWK RF: 0 warfarin 5 mg tablet 5 mg PO 3XWK RF: 0 nitroglycerin [Nitrostat] 0.4 mg Tablet, Sublingual 0.4 mg Sublingual UD PRN (Reason: Chest Pain) RF: 0 levothyroxine 200 mcg tablet 200 mcg PO DAILY RF: 0 furosemide 20 mg tablet 20 mg PO DAILY RF: 0 gabapentin 100 mg capsule 100 mg PO TID RF: 0 labetalol 100 mg tablet 100 mg PO BID RF: 0 losartan 100 mg tablet 100 mg PO DAILY RF: 0 diltiazem HCl [DILT-XR] 180 mg capsule,ext.rel 24h degradable 180 mg PO DAILY RF: 0 diclofenac sodium 1 % gel 1 applic topical UD RF: 0 magnesium oxide 400 mg magnesium Tablet 400 mg PO DAILY RF: 0 Referrals Referrals: Nai Sparrow CRNP [Primary Care Provider] - The scribe's documentation has been prepared under my direction and personally reviewed by me in its entirety. I confirm that the note above accurately reflects all work, treatment, procedures, and medical decision making performed by me.
[2018-10-28] MEDS ORDERED: LABETALOL HCL 100 MG TAB PO ONE (14:25)
[2018-10-28] MEDS ORDERED: dilTIAZem ER 180 MG CAPCR PO STA (17:49)
--- NOTE | 2018-10-28 18:21 | History & Physical Report ---
Date of Service October 28, 2018 Assessment & Plan (1) Fall: Mechanical PT/OT pending Small bruise on elbow, no major bruising, will not hold coumadin (2) Lumbar contusion: Pain is too intense for d/c to home Awaiting auth for [facility] PT/OT (3) Afib: Stable INR 2.7 States coumadin 7.5mg on // and 5mg other days (4) Hyponatremia: Monitor (5) Hypertension: continue home meds Elevated in the ED Pt did get AM meds PRN metoprolol Likely related to pain but will need to monitor States no recent elevated readings at home (6) Hypothyroid: continue home meds (7) Anxiety: Takes gabapentin for this Listed as TID, however pt and daughter who organizes meds feels this is only HS Will check bottles at home and report which frequency Advised that there can be withdrawal issues with missing doses and to alert physician tomorrow if this is HS or TID (8) Iron deficiency: continue home meds (9) DVT prophylaxis: SCDs History of Present Illness Primary Care Provider: MARY Carolina 83 y/o F who was brought to the ED s/p fall. Pt states she was having a usual day for herself and having no issues with ADLs. She suddenly became weak in her R knee and fell to the ground. She landed initially on her buttocks. She did tip backward after the initial strike to the buttocks and did hit her head "softly". She was feeling very weak after this and having trouble standing due to pain in her hips and back. Pt does have some hip and back pain at baseline, but it is much worse now s/p fall. Pt does not feel comfortable returning home at this time and is requesting rehab. Pt denies fever, SOB, chest pain, abd pain, n/v/c/d, LE swelling. She has had no issues with PO intake. She is hungry now. Pt did get her AM meds prior to this fall. She states she takes her BP frequently, although not daily. She states it is usually well controlled with a "bad" reading being 130s. She denies elevated BP to this level. Allergies Allergy/AdvReac Type Severity Reaction Status Date / Time doxycycline Allergy Intermediate RASH Verified 03/12/18 10:43 ANA LUISA Inhibitors AdvReac Unknown INTOLERANT Verified 03/12/18 10:43 lisinopril AdvReac Unknown INTOLERANT Verified 03/12/18 10:43 Home Medications Home Medications Medication Instructions Recorded Confirmed Type aspirin [Aspirin Low Dose] 81 mg PO DAILY 10/28/18 10/28/18 History atorvastatin 80 mg PO DAILY 10/28/18 10/28/18 History calcium carbonate-vitamin D3 1 tab PO BID 10/28/18 10/28/18 History [Calcium 600 + D(3)] clonidine HCl 0.1 mg PO UD 10/28/18 10/28/18 History cyanocobalamin (vitamin B-12) 1,000 mcg PO DAILY 10/28/18 10/28/18 History diclofenac sodium 1 applic TOPICAL UD 10/28/18 10/28/18 History diltiazem HCl [DILT-XR] 180 mg PO DAILY 10/28/18 10/28/18 History ferrous sulfate 325 mg PO DAILY 10/28/18 10/28/18 History furosemide 20 mg PO DAILY 10/28/18 10/28/18 History gabapentin 100 mg PO TID 10/28/18 10/28/18 History isosorbide mononitrate 60 mg PO DAILY 10/28/18 10/28/18 History labetalol 100 mg PO BID 10/28/18 10/28/18 History levothyroxine 200 mcg PO DAILY 10/28/18 10/28/18 History losartan 100 mg PO DAILY 10/28/18 10/28/18 History magnesium oxide 400 mg PO DAILY 10/28/18 10/28/18 History multivitamin 1 tab PO DAILY 10/28/18 10/28/18 History nitroglycerin [Nitrostat] 0.4 mg SUBLINGUAL UD PRN 10/28/18 10/28/18 History potassium 0 mg PO DAILY 10/28/18 10/28/18 History vitamin E 200 unit PO DAILY 10/28/18 10/28/18 History warfarin 5 mg PO 3XWK 10/28/18 10/28/18 History warfarin 5 mg PO 4XWK 10/28/18 10/28/18 History Past Med/Surg History Medical History Hypertension (Chronic) Kidney disease (Chronic) Acute coronary syndrome (Chronic) Atrial flutter (Acute) Leukocytosis Family History Father CVA (cerebral vascular accident) Social History Feels Safe at Home: Yes Smoking Status: Never smoker Hx Alcohol Use: No Hx Substance Use: No Review of Systems Pertinent positives and negatives reviewed in HPI--all others negative Physical Exam 2 Vital Signs (Past 24 Hours): Last Vital Signs Temp 36.6 C 10/28/18 11:24 Pulse 56 L 10/28/18 17:40 Resp 28 H 10/28/18 17:40 BP 203/79 H 10/28/18 17:31 Pulse Ox 95 10/28/18 17:40 Constitutional: WD/WN, vitals as above Eyes: normal visual perez by confrontation and + anicteric sclerae Neck: normal visual inspection and trachea midline Respiratory: normal respiratory effort, lungs clear to auscultation Cardiovascular: Rate/Rhythm: regular rate and regular rhythm Gastrointestinal (Abdomen): Inspection/Auscultation: abdomen not distended Percussion/Palpation: abdomen soft; abdomen nontender Musculoskeletal: Head/Neck/Chest: normocephalic and head atraumatic negative for edema, peripheral pulses intact Skin: no rashes, warm and dry Neurologic: awake; not confused Speech / Cognition: normal speech Psychiatric: A+Ox3, euthymic affect Results & Data Diagnostic Findings CXR: neg for acute Pelvic XR: neg for acute CT head: neg for acute CT c-spine, L-spine: neg for acute Code Status & VTE Plan Code Status DNR/DNI--family is present and agrees VTE Prophylaxis Plan VTE Prophylaxis will be ordered: Yes _ (1) Fall Encounter type: initial encounter Qualified Code(s): W19.XXXA - Unspecified fall, initial encounter (2) Lumbar contusion Encounter type: initial encounter Qualified Code(s): S30.0XXA - Contusion of lower back and pelvis, initial encounter
[2018-10-28] MEDS ORDERED: ONDANSETRON INJ 2 MG/ML 2 ML VIAL IV PRN (21:05)
[2018-10-28] MEDS ORDERED: MAGNESIUM HYDROXIDE SUSP 30 ML UDC PO PRN (21:05)
[2018-10-28] MEDS ORDERED: NITROGLYCERIN SL 0.4 MG/TAB TAB SL PRN (21:05)
[2018-10-28] MEDS ORDERED: METOPROLOL TARTRATE 1 MG/ML VIAL IV STA (21:29)
[2018-10-28] MEDS: ACETAMINOPHEN 325 MG TAB PO PRN (21:33)
[2018-10-28] MEDS ORDERED: WARFARIN SOD 5 MG TAB PO SCH (22:00)
[2018-10-28] MEDS: GABAPENTIN 100 MG CAP PO SCH (22:10)
[2018-10-28] MEDS: CALCIUM 600MG + VIT D 400 IU TAB PO SCH (22:11)
[2018-10-28] MEDS: LABETALOL HCL 100 MG TAB PO SCH (22:11)
[2018-10-28] MEDS: DICLOFENAC SOD 1% GEL 100 GM TUBE EXT SCH (22:19)
[2018-10-29] MEDS: LEVOTHYROXINE SODIUM 200 MCG TABLET PO SCH (05:58)
[2018-10-29 06:05] LABS: INR 2.6 (0.9-1.1)
[2018-10-29] MEDS: ACETAMINOPHEN 325 MG TAB PO PRN ×2 (06:05→16:58)
[2018-10-29 06:30] LABS: BUN Creatinine Ratio 15.9 (10-20); Calcium 8.8 mg/dl (8.5-10.1); Creatinine Clr Calc Pharmacy 44.5 ml/min
[2018-10-29] MEDS: LOSARTAN POTASSIUM 50 MG TAB PO SCH (08:33)
[2018-10-29] MEDS: LABETALOL HCL 100 MG TAB PO SCH (08:33)
[2018-10-29] MEDS: CALCIUM 600MG + VIT D 400 IU TAB PO SCH ×2 (08:33→20:35)
[2018-10-29] MEDS: ASPIRIN 81 MG ECTAB PO SCH (08:34)
[2018-10-29] MEDS: FUROSEMIDE 20 MG TAB PO SCH (08:34)
[2018-10-29] MEDS: MULTIVITAMIN TAB PO SCH (08:34)
[2018-10-29] MEDS: ISOSORBIDE MONO EXTENDED REL 60 MG TABCR PO SCH (08:34)
[2018-10-29] MEDS: TOCOPHERYL, DL-ALPHA 100 UNITS CAP PO SCH (08:34)
[2018-10-29] MEDS: MAGNESIUM OXIDE 400 MG TAB PO SCH (08:34)
[2018-10-29] MEDS: ATORVASTATIN 40 MG TAB PO SCH (08:34)
[2018-10-29] MEDS: FERROUS SULFATE 325 MG TAB PO SCH (08:34)
[2018-10-29] MEDS: DICLOFENAC SOD 1% GEL 100 GM TUBE EXT SCH ×4 (08:35→20:37)
[2018-10-29] MEDS: CYANOCOBALAMIN 500 MCG TABLET (VITAMIN B-12) PO SCH (08:35)
[2018-10-29] MEDS ORDERED: POTASSIUM PO SCH (09:00)
[2018-10-29] MEDS ORDERED: WARFARIN SOD 7.5 MG TAB PO SCH (16:00)
--- NOTE | 2018-10-29 20:27 | Hospitalist Progress Note ---
Date of Service October 29, 2018 Assessment & Plan (1) Fall: no syncope or presyncope by history. we have seen significant bradycardia on the monitor since admission but again she denies any cardiopulmonary symptoms, dizziness, etc. she attributes the fall to the right knee locking and buckling. this seems plausible. I cannot rule out that the bradycardia identified contributed in some fashion to the fall. cont PT, OT. needs rehab. Present on Admission?: Yes (2) Bradycardia: a. flutter with slow ventricular response. most recent 3 TSH levels all within range. she is on beta maria eugenia and calcium channel maria eugenia. with activity today her HR only went into the mid 40s. HOLD BB. HOLD CCB. follow HRs on telemetry. Present on Admission?: Yes (3) Hyponatremia: likely 2nd to chronic diuretic therapy. improved today. BMP in am. Present on Admission?: Yes (4) Atrial flutter: with slow ventricular response. see above. INR in am. cont coumadin. I spoke with her primary herb digger today, Dr. Cortez, about the bradycardia. Present on Admission?: Yes (5) Weakness: possibly due to bradycardia. holding AV julia agents. no evidence of any infectious process at this time. Present on Admission?: Yes (6) Hypothyroid: last 3 TSH levels wnl. cont synthroid previous dose. (7) Osteoarthritis of knees, bilateral: severe. voltaren gel qid prn. (8) CAD (coronary artery disease): cont asa, statin. resume beta maria eugenia if heart rate will allow. (9) Lumbar back pain: in setting of fall. she did not have significant complaints about back today. follow. imaging of lumbar spine noted. (10) Chronic kidney disease, stage 3a: creatinine stable, BMP in am. (11) Essential (primary) hypertension: acceptable control at this time. holding CCB and BB due to bradycardia. follow BPs carefully. (12) DVT prophylaxis: coumadin daily INR PT, OT evals appreciated Due to significant bradycardia and concern it played a role in her presentation will change to full admission status. I certify that the inpatient services were ordered in accordance with Medicare regulations governing the order. This includes certification that hospital inpatient services are reasonable and necessary and in the case of services not specified as inpatient-only under 42 CFR 419.22(n), that they are appropriately provided as inpatient services in accordance to with the 2-midnight benchmark under 43 CFR 412.3(e) Subjective patient again confirms that her fall at home was due to her right knee locking up and giving way she reports longstanding OA of her knees, shoulders, etc. uses voltaren gel prn for these locations denies any dizziness/lightheadedness but does admit to feeling sluggish at home at times she also mentions that her "thyroid was off" recently and that her dose of synthroid was changed but she hadn't gotten the new prescription filled tele with a flutter, slow ventricular response, with persistent rates in the 30s with activity she maxes at about 45 BPM Constitutional: no fever and no weakness Respiratory: no cough and no dyspnea Cardiovascular: no chest pain Gastrointestinal: no abdominal pain Physical Exam 2 Vital Signs (Past 24 Hours): Last Vital Signs Temp 36.7 C 10/29/18 19:19 Pulse 50 L 10/29/18 19:19 Resp 20 10/29/18 19:19 BP 143/54 H 10/29/18 19:19 Pulse Ox 94 10/29/18 19:19 Constitutional: well developed, well nourished and + obese; no acute distress and not ill appearing ENMT: external ear and nose normal, oropharynx normal Respiratory: normal respiratory effort, lungs clear to auscultation Cardiovascular: Rate/Rhythm: + bradycardic; + abnormal rhythm (irregular) Heart Sounds: normal S1 and normal S2; no murmur Vessels: posterior tibial pulses present and dorsalis pedis pulses present; no JVD Gastrointestinal (Abdomen): normal bowel sounds, soft, nontender, no hepatosplenomegaly Musculoskeletal: no cyanosis or clubbing, extremities motor strength 5/5 severe OA changes of b/l knees Neurologic: moves all extremities; no focal motor deficits Psychiatric: A+Ox3, euthymic affect Results & Data Laboratory Results Laboratory Results - last 24 hr 10/29/18 10/29/18 05:42 05:42 PT 25.0 H INR 2.6 H Sodium 133 L Potassium 4.0 Chloride 101 Carbon Dioxide 27 Anion Gap 5.0 BUN 15 Creatinine 0.93 Est Cr Clr Drug Dosing 44.5 Est GFR ( Amer) 65.0 Est GFR (Non-Af Amer) 56.0 BUN/Creatinine Ratio 15.9 Glucose 82 Calcium 8.8 _ (1) Fall Encounter type: initial encounter Qualified Code(s): W19.XXXA - Unspecified fall, initial encounter (2) Hypothyroid Hypothyroidism type: acquired Qualified Code(s): E03.9 - Hypothyroidism, unspecified (3) Atrial flutter Atrial flutter type: unspecified Qualified Code(s): I48.92 - Unspecified atrial flutter (4) CAD (coronary artery disease) Coronary Disease-Associated Artery/Lesion type: [place] artery [place] vs. transplanted heart: [place] heart Associated angina: without angina Qualified Code(s): I25.10 - Atherosclerotic heart disease of [place] coronary artery without angina pectoris (5) Osteoarthritis of knees, bilateral Osteoarthritis type: primary Qualified Code(s): M17.0 - Bilateral primary osteoarthritis of knee
[2018-10-29] MEDS: GABAPENTIN 100 MG CAP PO SCH (20:35)
[2018-10-30] MEDS: LEVOTHYROXINE SODIUM 200 MCG TABLET PO SCH (05:51)
[2018-10-30] MEDS: CALCIUM 600MG + VIT D 400 IU TAB PO SCH ×2 (07:39→21:08)
[2018-10-30] MEDS: ISOSORBIDE MONO EXTENDED REL 60 MG TABCR PO SCH (07:39)
[2018-10-30] MEDS: ASPIRIN 81 MG ECTAB PO SCH (07:39)
[2018-10-30] MEDS: CYANOCOBALAMIN 500 MCG TABLET (VITAMIN B-12) PO SCH (07:39)
[2018-10-30] MEDS: MAGNESIUM OXIDE 400 MG TAB PO SCH (07:40)
[2018-10-30] MEDS: LOSARTAN POTASSIUM 50 MG TAB PO SCH (07:40)
[2018-10-30] MEDS: FERROUS SULFATE 325 MG TAB PO SCH (07:40)
[2018-10-30] MEDS: DICLOFENAC SOD 1% GEL 100 GM TUBE EXT SCH ×4 (07:40→21:12)
[2018-10-30] MEDS: FUROSEMIDE 20 MG TAB PO SCH (07:40)
[2018-10-30] MEDS: MULTIVITAMIN TAB PO SCH (07:40)
[2018-10-30] MEDS: LIDOCAINE 5% 1 PATCH TD SCH (07:40)
[2018-10-30] MEDS: ATORVASTATIN 40 MG TAB PO SCH (07:40)
[2018-10-30] MEDS: TOCOPHERYL, DL-ALPHA 100 UNITS CAP PO SCH (07:40)
[2018-10-30 08:07] LABS: INR 3.4 (0.9-1.1); Prothrombin Time 31.7 Seconds (9.0-12.0)
[2018-10-30 08:33] LABS: BUN Creatinine Ratio 19.2 (10-20); Calcium 9.3 mg/dl (8.5-10.1); Creatinine Clr Calc Pharmacy 30.6 ml/min; Est GFR (African American) 41.4; Est GFR (Non-African American) 35.7; Potassium 4.2 mmol/L (3.5-5.1)
[2018-10-30] MEDS: cloNIDine HCl 0.1 MG TAB PO PRN (11:37)
[2018-10-30] MEDS ORDERED: ISOSORBIDE MONO EXTENDED REL 30 MG TABCR PO ONE (19:10)
--- NOTE | 2018-10-30 19:16 | Hospitalist Progress Note ---
Date of Service October 30, 2018 Assessment & Plan (1) Fall: no syncope or presyncope by history. She had significant bradycardia on the monitor after admission but again she denies any cardiopulmonary symptoms, dizziness, etc. HRs in the 20s-30s She attributes the fall to the right knee locking and buckling; this seems plausible. I cannot rule out that the bradycardia identified contributed in some fashion to the fall. cont PT, OT. needs rehab. (2) Bradycardia: Atrial flutter with slow ventricular response. her 3 most recent TSH levels all within range. She is on beta maria eugenia and calcium channel maria eugenia at same doses for a long time as an outpt, usual HRs as outpt are 59-60. Here with rates in the 20s and 30s Rates now improved to 50s-60s with holding her diltiazem and labetalol x 1 day -continue to hold AV julia blocking agents -continue telemetry monitoring -consider restarting labetalol tomorrow as she does have known CAD and beta maria eugenia would be best (3) Hyponatremia: Na+ 132 and improved from admission, likely 2nd to chronic diuretic therapy. BMP in am. -ok to continue lasix 20mg daily (4) Atrial flutter: with slow ventricular response. see above. On coumadin for AC--> INR high today at 3.4 -hold coumadin -follow INR in AM -holding dilt and labetalol but may restart labetalol tomorrow -follows with Dr. Pinon if needed for Cardio (5) Weakness: possibly due to bradycardia. Improved today with improved HR holding AV julia agents. no evidence of any infectious process at this time. (6) Hypothyroid: last 3 TSH levels wnl. cont synthroid previous dose. (7) Osteoarthritis of knees, bilateral: severe. voltaren gel qid prn. (8) CAD (coronary artery disease): With h/o 3 [place] placed in 2016 cont asa, statin. resume beta maria eugenia if heart rate will allow. (9) Lumbar back pain: in setting of fall. Improved pain with voltaren gell and lidocaine -imaging of lumbar spine with: 1. 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 2. No evidence for an acute compression deformity. 3. Calcified posterior disc herniation T11-T12 creating considerable narrowing of the right neuroforamina. The transverse elements are intact throughout. This appears to be chronic. (10) Chronic kidney disease, stage 3a: creatinine slightly increased from previous at 1.35 today, baseline around 1.0 -follow BMP in AM -ok to continue po lasix for now Follows with Nephrology as outpt (11) Essential (primary) hypertension: BPs elevated today with holding beta maria eugenia and dilt, had to take prn clonidine today -continue holding CCB and BB due to bradycardia. -increase isosorbide to 120mg daily as this was actually her home regomen after an increase by her Title Investigator one month ago anyway -may restart labetalol tomorrow -continue losartan and lasix also (12) DVT prophylaxis: coumadin-held today daily INR PT, OT evals appreciated Dispo-improved, continue tele monitoring and may be medically stable for discharge tomorrow Acute rehab denied by insurance after I did a peer to peer review on phone today Family appeal made and is pending If denied family appeal, plan for [facility] Subjective Pt feeling better than yesterdsay. No CP or SOB, pain in back and hips much improved with topical voltaren gel and lidocaine patches. No lightheadedness. Outpt Cardio notes reviewed and isosorbide was actually increased to 120mg 1 month ago. Daughter confirms this as she fillls the pill box each week. Tele with Aflutter with rates improved into the 50s-60s today Review of Systems All systems reviewed & are unremarkable except as noted in HPI & below Physical Exam 2 Vital Signs (Past 24 Hours): Last Vital Signs Temp 36.2 C L 10/30/18 15:14 Pulse 70 10/30/18 15:14 Resp 20 10/30/18 15:14 BP 137/75 10/30/18 15:14 Pulse Ox 96 10/30/18 15:14 Constitutional: WD/WN, vitals as above Eyes: PERRL, conjunctivae normal, anicteric sclerae Neck: trachea midline, no thyromegaly Respiratory: normal respiratory effort, lungs clear to auscultation Cardiovascular: Rate/Rhythm: regular rate and regular rhythm Heart Sounds: no murmur Extremities: + edema (1+ pitting edema legs to the knees bilat) Gastrointestinal (Abdomen): normal bowel sounds, soft, nontender, no hepatosplenomegaly Musculoskeletal: Extremities: extremities normal to inspection; no cyanosis and no clubbing Skin: no rashes, warm and dry Neurologic: moves all extremities and awake; no focal motor deficits Psychiatric: A+Ox3, euthymic affect Results & Data Laboratory Results 10/30/18 10/30/18 Range/Units 07:26 07:26 PT 31.7 H (9.0-12.0) Seconds INR 3.4 H (0.9-1.1) Sodium 132 L (136-145) mmol/L Potassium 4.2 (3.5-5.1) mmol/L Chloride 98 (98-107) mmol/L Carbon Dioxide 26 (21-32) mmol/L Anion Gap 8.0 (3-11) BUN 26 H D (7-18) mg/dl Creatinine 1.35 H D (0.6-1.2) mg/dl Est Cr Clr Drug Dosing 30.6 ml/min Est GFR ( Amer) 41.4 Est GFR (Non-Af Amer) 35.7 BUN/Creatinine Ratio 19.2 (10-20) Glucose 92 (70-99) mg/dl Calcium 9.3 (8.5-10.1) mg/dl _ (1) Fall Encounter type: initial encounter Qualified Code(s): W19.XXXA - Unspecified fall, initial encounter (2) Atrial flutter Atrial flutter type: unspecified Qualified Code(s): I48.92 - Unspecified atrial flutter (3) Hypothyroid Hypothyroidism type: acquired Qualified Code(s): E03.9 - Hypothyroidism, unspecified (4) Osteoarthritis of knees, bilateral Osteoarthritis type: primary Qualified Code(s): M17.0 - Bilateral primary osteoarthritis of knee (5) CAD (coronary artery disease) Coronary Disease-Associated Artery/Lesion type: [place] artery [place] vs. transplanted heart: [place] heart Associated angina: without angina Qualified Code(s): I25.10 - Atherosclerotic heart disease of [place] coronary artery without angina pectoris
[2018-10-30] MEDS ORDERED: ISOSORBIDE MONONITRATE 20 MG TAB PO SCH (21:00)
[2018-10-30] MEDS: ACETAMINOPHEN 325 MG TAB PO PRN (21:07)
[2018-10-30] MEDS ORDERED: ISOSORBIDE MONONITRATE 20 MG TAB PO ONE (21:30)
[2018-10-30] MEDS: GABAPENTIN 100 MG CAP PO SCH (22:06)
[2018-10-31] MEDS: LEVOTHYROXINE SODIUM 200 MCG TABLET PO SCH (05:50)
[2018-10-31 07:14] LABS: Prothrombin Time 36.7 Seconds (9.0-12.0)
[2018-10-31 07:21] LABS: INR 3.9 (0.9-1.1)
[2018-10-31 07:40] LABS: BUN Creatinine Ratio 23.5 (10-20); Creatinine Clr Calc Pharmacy 32.5 ml/min; Est GFR (African American) 43.7; Est GFR (Non-African American) 37.7; Potassium 4.4 mmol/L (3.5-5.1)
[2018-10-31] MEDS: CALCIUM 600MG + VIT D 400 IU TAB PO SCH ×2 (07:47→20:21)
[2018-10-31] MEDS: cloNIDine HCl 0.1 MG TAB PO PRN (07:47)
[2018-10-31] MEDS: FERROUS SULFATE 325 MG TAB PO SCH (07:47)
[2018-10-31] MEDS: ATORVASTATIN 40 MG TAB PO SCH (07:47)
[2018-10-31] MEDS: ASPIRIN 81 MG ECTAB PO SCH (07:47)
[2018-10-31] MEDS: FUROSEMIDE 20 MG TAB PO SCH (07:47)
[2018-10-31] MEDS: TOCOPHERYL, DL-ALPHA 100 UNITS CAP PO SCH (07:47)
[2018-10-31] MEDS: MULTIVITAMIN TAB PO SCH (07:48)
[2018-10-31] MEDS: CYANOCOBALAMIN 500 MCG TABLET (VITAMIN B-12) PO SCH (07:48)
[2018-10-31] MEDS: ISOSORBIDE MONO EXTENDED REL 60 MG TABCR PO SCH (07:48)
[2018-10-31] MEDS: LOSARTAN POTASSIUM 50 MG TAB PO SCH (07:48)
[2018-10-31] MEDS: MAGNESIUM OXIDE 400 MG TAB PO SCH (07:48)
[2018-10-31] MEDS: LIDOCAINE 5% 1 PATCH TD SCH (07:48)
[2018-10-31] MEDS: DICLOFENAC SOD 1% GEL 100 GM TUBE EXT SCH ×4 (07:49→20:27)
[2018-10-31] MEDS: ACETAMINOPHEN 325 MG TAB PO PRN (07:52)
[2018-10-31] MEDS: LABETALOL HCL 100 MG TAB PO SCH ×2 (10:09→20:22)
--- NOTE | 2018-10-31 19:31 | Hospitalist Progress Note ---
Date of Service October 31, 2018 Assessment & Plan (1) Fall: no syncope or presyncope by history. She had significant bradycardia on the monitor after admission but again she denies any cardiopulmonary symptoms, dizziness, etc. HRs in the 20s-30s She attributes the fall to the right knee locking and buckling; this seems plausible. I cannot rule out that the bradycardia identified contributed in some fashion to the fall. cont PT, OT. needs rehab-awaiting placement. (2) Bradycardia: Atrial flutter with slow ventricular response. her 3 most recent TSH levels all within range. She is on beta maria eugenia and calcium channel maria eugenia at same doses for a long time as an outpt, usual HRs as outpt are 59-60. Here with rates in the 20s and 30s Rates now improved to 80s with holding her diltiazem and labetalol x 1 day, restarted labetalol today and rates still ok -continue to hold diltiazem and may not need to restart -continue telemetry monitoring -restarted labetalol today for elevatd BP and she does have known CAD and beta maria eugenia would be best (3) Hyponatremia: Na+ [place] at 132 and improved from admission, likely 2nd to chronic diuretic therapy. BMP in am. -ok to continue lasix 20mg daily (4) Atrial flutter: with slow ventricular response. see above. On coumadin for AC--> INR again high today at 3.9 -continue to hold coumadin -follow INR in AM -holding dilt restarted labetalol as above -follows with Dr. Pinon if needed for Cardio (5) Weakness: possibly due to bradycardia. Improved today with improved HR no evidence of any infectious process at this time. (6) Hypothyroid: last 3 TSH levels wnl. cont synthroid previous dose. (7) Osteoarthritis of knees, bilateral: severe. voltaren gel qid prn. (8) CAD (coronary artery disease): With h/o 3 [place] placed in 2016 cont asa, statin, beta maria eugenia (9) Lumbar back pain: in setting of fall. Improved pain with voltaren gel and lidocaine -imaging of lumbar spine with: 1. 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 2. No evidence for an acute compression deformity. 3. Calcified posterior disc herniation T11-T12 creating considerable narrowing of the right neuroforamina. The transverse elements are intact throughout. This appears to be chronic. -continue tylenol prn (10) Chronic kidney disease, stage 3a: creatinine improved at 1.29 today, baseline around 1.0 -follow BMP in AM -ok to continue po lasix Follows with Nephrology as outpt (11) Essential (primary) hypertension: BPscontinue to be significantly elevated today with holding beta maria eugenia and dilt -continue holding CCB -restarted labetalol and now BP improved -increased isosorbide to 120mg daily as this was actually her home regimen after an increase by her Account Services Associate one month ago -continue losartan and lasix also -continue prn clonidine (12) DVT prophylaxis: coumadin-held today daily INR PT, OT evals appreciated Dispo-medically stable for discharge at this point, needs rehab Acute rehab denied by insurance after I did a peer to peer review on phone Family appeal made and is pending If denied family appeal, plan for [facility] Subjective Still having pain in the lower back, but overall feeling better, not lightheaded , no SOB, no CP. Tele with much improved Aflutter with rates in the 60s-80s. Review of Systems All systems reviewed & are unremarkable except as noted in HPI & below Physical Exam 2 Vital Signs (Past 24 Hours): Last Vital Signs Temp 36.6 C 10/31/18 15:31 Pulse 66 10/31/18 16:21 Resp 20 10/31/18 15:31 BP 115/60 10/31/18 15:31 Pulse Ox 95 10/31/18 15:31 Constitutional: WD/WN, vitals as above Eyes: PERRL, conjunctivae normal, anicteric sclerae Neck: trachea midline, no thyromegaly Respiratory: normal respiratory effort, lungs clear to auscultation Cardiovascular: Rate/Rhythm: regular rate; + abnormal rhythm (irreg irreg) Heart Sounds: no murmur Extremities: + edema (1+ pitting edema legs to the knees bilat) Gastrointestinal (Abdomen): normal bowel sounds, soft, nontender, no hepatosplenomegaly Musculoskeletal: Extremities: extremities normal to inspection; no cyanosis and no clubbing Skin: no rashes, warm and dry + ecchymosis (with large ecchymosis over right elbow and biceps) Neurologic: moves all extremities and awake; no focal motor deficits Psychiatric: A+Ox3, euthymic affect Results & Data Laboratory Results 10/31/18 10/31/18 Range/Units 06:34 06:34 PT 36.7 H (9.0-12.0) Seconds INR 3.9 H (0.9-1.1) Sodium 132 L (136-145) mmol/L Potassium 4.4 (3.5-5.1) mmol/L Chloride 102 (98-107) mmol/L Carbon Dioxide 26 (21-32) mmol/L Anion Gap 4.0 (3-11) BUN 30 H (7-18) mg/dl Creatinine 1.29 H (0.6-1.2) mg/dl Est Cr Clr Drug Dosing 32.5 ml/min Est GFR ( Amer) 43.7 Est GFR (Non-Af Amer) 37.7 BUN/Creatinine Ratio 23.5 H (10-20) Glucose 111 H (70-99) mg/dl Calcium 9.0 (8.5-10.1) mg/dl Specimen Hemolysis _ (1) Fall Encounter type: initial encounter Qualified Code(s): W19.XXXA - Unspecified fall, initial encounter (2) Atrial flutter Atrial flutter type: unspecified Qualified Code(s): I48.92 - Unspecified atrial flutter (3) Hypothyroid Hypothyroidism type: acquired Qualified Code(s): E03.9 - Hypothyroidism, unspecified (4) Osteoarthritis of knees, bilateral Osteoarthritis type: primary Qualified Code(s): M17.0 - Bilateral primary osteoarthritis of knee (5) CAD (coronary artery disease) Coronary Disease-Associated Artery/Lesion type: [place] artery [place] vs. transplanted heart: [place] heart Associated angina: without angina Qualified Code(s): I25.10 - Atherosclerotic heart disease of [place] coronary artery without angina pectoris
[2018-10-31] MEDS: GABAPENTIN 100 MG CAP PO SCH (20:21)
[2018-11-01] MEDS: LEVOTHYROXINE SODIUM 200 MCG TABLET PO SCH (05:41)
[2018-11-01 06:34] LABS: INR 3.1 (0.9-1.1); Prothrombin Time 29.1 Seconds (9.0-12.0)
[2018-11-01 06:57] LABS: Calcium 8.8 mg/dl (8.5-10.1); Creatinine Clr Calc Pharmacy 31.1 ml/min; Est GFR (African American) 41.4; Est GFR (Non-African American) 35.7; Magnesium 2.2 mg/dl (1.8-2.4); Potassium 4.4 mmol/L (3.5-5.1)
[2018-11-01] MEDS: cloNIDine HCl 0.1 MG TAB PO PRN (07:06)
[2018-11-01] MEDS: ATORVASTATIN 40 MG TAB PO SCH (08:20)
[2018-11-01] MEDS: FERROUS SULFATE 325 MG TAB PO SCH (08:21)
[2018-11-01] MEDS: ASPIRIN 81 MG ECTAB PO SCH (08:21)
[2018-11-01] MEDS: LOSARTAN POTASSIUM 50 MG TAB PO SCH (08:21)
[2018-11-01] MEDS: MAGNESIUM OXIDE 400 MG TAB PO SCH (08:21)
[2018-11-01] MEDS: CYANOCOBALAMIN 500 MCG TABLET (VITAMIN B-12) PO SCH (08:21)
[2018-11-01] MEDS: TOCOPHERYL, DL-ALPHA 100 UNITS CAP PO SCH (08:22)
[2018-11-01] MEDS: ISOSORBIDE MONO EXTENDED REL 60 MG TABCR PO SCH (08:22)
[2018-11-01] MEDS: FUROSEMIDE 20 MG TAB PO SCH (08:22)
[2018-11-01] MEDS: CALCIUM 600MG + VIT D 400 IU TAB PO SCH ×2 (08:23→20:37)
[2018-11-01] MEDS: MULTIVITAMIN TAB PO SCH (08:23)
[2018-11-01] MEDS: LIDOCAINE 5% 1 PATCH TD SCH (08:24)
[2018-11-01] MEDS: DICLOFENAC SOD 1% GEL 100 GM TUBE EXT SCH ×4 (08:24→20:41)
[2018-11-01] MEDS: LABETALOL HCL 100 MG TAB PO SCH ×2 (09:00→20:39)
[2018-11-01] MEDS: ACETAMINOPHEN 325 MG TAB PO PRN (20:36)
[2018-11-01] MEDS: GABAPENTIN 100 MG CAP PO SCH (20:37)
--- NOTE | 2018-11-01 22:18 | Hospitalist Progress Note ---
Date of Service November 01, 2018 Assessment & Plan (1) Fall: no syncope or presyncope by history. She had significant bradycardia on the monitor after admission but again she denies any cardiopulmonary symptoms, dizziness, etc. HRs in the 20s-30s She attributes the fall to the right knee locking and buckling; this seems plausible. I cannot rule out that the bradycardia identified contributed in some fashion to the fall. cont PT, OT. needs rehab-awaiting placement. (2) Bradycardia: Atrial flutter with slow ventricular response. her 3 most recent TSH levels all within range. She is on beta maria eugenia and calcium channel maria eugenia at same doses for a long time as an outpt, usual HRs as outpt are 59-60. Here with rates in the 20s and 30s Rates now improved to 80s-90s with holding her diltiazem and held the labetalol x 1 day, restarted labetalol on 10/31 and rates still ok -continue to hold diltiazem and may not need to restart -continue telemetry monitoring -Continue labetalol (3) Hyponatremia: Sodium finally improved to 136 and may have been secondary to SIADH from pain versus mild volume overload BMP in am. -ok to continue lasix 20mg daily (4) Atrial flutter: with slow ventricular response. see above. On coumadin for AC--> INR decreased today to 3.1 -continue to hold coumadin -follow INR in AM and will likely restart Coumadin tomorrow -holding dilt and restarted labetalol as above -follows with Dr. Pinon if needed for Cardio (5) Weakness: possibly due to bradycardia. Improved today with improved HR no evidence of any infectious process at this time. (6) Hypothyroid: last 3 TSH levels wnl. cont synthroid previous dose. (7) Osteoarthritis of knees, bilateral: severe. voltaren gel qid prn. (8) CAD (coronary artery disease): With h/o 3 [place] placed in 2016 cont asa, statin, beta maria eugenia (9) Lumbar back pain: in setting of fall. Improved pain with voltaren gel and lidocaine, but still having a lot of pain -imaging of lumbar spine with: 1. 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 2. No evidence for an acute compression deformity. 3. Calcified posterior disc herniation T11-T12 creating considerable narrowing of the right neuroforamina. The transverse elements are intact throughout. This appears to be chronic. -continue tylenol prn -Add tramadol as needed -Continue Voltaren gel and lidocaine patches (10) Chronic kidney disease, stage 3a: creatinine mild increase at 1.35 today, baseline around 1.0 -follow BMP in AM -ok to continue po lasix Follows with Nephrology as outpt (11) Essential (primary) hypertension: BPs were significantly elevated now mildly improved today with restarting labetalol -continue holding CCB -Continue labetalol -Continue isosorbide 120mg daily as this was recently increasedby her Table Lever Operator one month ago -continue losartan and lasix also -continue prn clonidine (12) DVT prophylaxis: coumadin-held today daily INR PT, OT evals appreciated Dispo-medically stable for discharge at this point, needs rehab Acute rehab denied by insurance after I did a peer to peer review on phone Family appeal made and is pending If denied family appeal, plan for [facility] Subjective Patient had a lot of back pain today in the lower back. Otherwise denies chest pain shortness of breath. Doing well otherwise. Telemetry with atrial fibrillation in the 80s-90s Review of Systems All systems reviewed & are unremarkable except as noted in HPI & below Physical Exam 2 Vital Signs (Past 24 Hours): Last Vital Signs Temp 36.3 C L 11/01/18 18:58 Pulse 60 11/01/18 18:58 Resp 18 11/01/18 18:58 BP 135/68 11/01/18 18:58 Pulse Ox 96 11/01/18 18:58 Constitutional: WD/WN, vitals as above Eyes: PERRL, conjunctivae normal, anicteric sclerae Neck: trachea midline, no thyromegaly Respiratory: normal respiratory effort, lungs clear to auscultation Cardiovascular: Rate/Rhythm: regular rate; + abnormal rhythm (irreg irreg) Heart Sounds: no murmur Extremities: + edema (1+ pitting edema legs to the knees bilat) Gastrointestinal (Abdomen): normal bowel sounds, soft, nontender, no hepatosplenomegaly Musculoskeletal: Extremities: extremities normal to inspection; no cyanosis and no clubbing Skin: no rashes, warm and dry + ecchymosis (with large ecchymosis over right elbow and biceps) Neurologic: moves all extremities and awake; no focal motor deficits Psychiatric: A+Ox3, euthymic affect Results & Data Laboratory Results 11/01/18 11/01/18 Range/Units 05:53 05:53 PT 29.1 H (9.0-12.0) Seconds INR 3.1 H (0.9-1.1) Sodium 136 (136-145) mmol/L Potassium 4.4 (3.5-5.1) mmol/L Chloride 103 (98-107) mmol/L Carbon Dioxide 27 (21-32) mmol/L Anion Gap 6.0 (3-11) BUN 39 H (7-18) mg/dl Creatinine 1.35 H (0.6-1.2) mg/dl Est Cr Clr Drug Dosing 31.1 ml/min Est GFR ( Amer) 41.4 Est GFR (Non-Af Amer) 35.7 BUN/Creatinine Ratio 29.0 H (10-20) Glucose 82 (70-99) mg/dl Calcium 8.8 (8.5-10.1) mg/dl Magnesium 2.2 (1.8-2.4) mg/dl _ (1) Osteoarthritis of knees, bilateral Osteoarthritis type: primary Qualified Code(s): M17.0 - Bilateral primary osteoarthritis of knee (2) CAD (coronary artery disease) Associated angina: without angina Coronary Disease-Associated Artery/Lesion type: [place] artery [place] vs. transplanted heart: [place] heart Qualified Code (s): I25.10 - Atherosclerotic heart disease of [place] coronary artery without angina pectoris (3) Atrial flutter Atrial flutter type: unspecified Qualified Code(s): I48.92 - Unspecified atrial flutter (4) Hypothyroid Hypothyroidism type: acquired Qualified Code(s): E03.9 - Hypothyroidism, unspecified (5) Fall Encounter type: initial encounter Qualified Code(s): W19.XXXA - Unspecified fall, initial encounter
[2018-11-01] MEDS: TRAMADOL HCL 50 MG TABLET PO PRN (23:51)
[2018-11-02] MEDS: TRAMADOL HCL 50 MG TABLET PO PRN ×3 (04:09→19:51)
[2018-11-02] MEDS: LEVOTHYROXINE SODIUM 200 MCG TABLET PO SCH (05:51)
[2018-11-02] MEDS ORDERED: cloNIDine HCl 0.1 MG TAB PO PRN (06:15)
[2018-11-02 06:25] LABS: Basophils # (auto) 0.08 K/uL (0-0.2); Basophils % (auto) 1.1 %; Eosinophils # (auto) 0.27 K/uL (0-0.5); Eosinophils % (auto) 3.8 %; Hematocrit (blood only) 31.7 % (37-47); Hemoglobin 10.4 g/dL (12.0-16.0); Immature Granulocytes # (auto) 0.01 K/uL (0.00-0.02); Immature Granulocytes % (auto) 0.1 %; Lymphocytes # (auto) 1.52 K/uL (1.2-3.4); Lymphocytes % (auto) 21.2 %; Mean Corpuscular Hgb Conc 32.8 g/dL (32-36); Mean Corpuscular Volume 95.5 fL (80-100); Mean Platelet Volume 8.9 fL (7.4-10.4); Monocytes # (auto) 0.88 K/uL (0.11-0.59); Monocytes % (auto) 12.3 %; Neutrophils % (auto) 61.5 %; Platelet Count 309 K/uL (130-400); RDW Coefficient of Variation 14.5 % (11.5-14.5); RDW Standard Deviation 50.4 fL (36.4-46.3); Red Blood Count 3.32 M/uL (4.2-5.4); White Blood Count 7.16 K/uL (4.8-10.8)
[2018-11-02 06:55] LABS: BUN Creatinine Ratio 31.9 (10-20); Calcium 8.7 mg/dl (8.5-10.1); Creatinine Clr Calc Pharmacy 36.5 ml/min; Est GFR (African American) 50.2; Est GFR (Non-African American) 43.4; Potassium 4.3 mmol/L (3.5-5.1)
[2018-11-02 06:57] LABS: INR 1.9 (0.9-1.1); Prothrombin Time 18.4 Seconds (9.0-12.0)
[2018-11-02] MEDS: LOSARTAN POTASSIUM 50 MG TAB PO SCH (08:23)
[2018-11-02] MEDS: MULTIVITAMIN TAB PO SCH (08:23)
[2018-11-02] MEDS: ISOSORBIDE MONO EXTENDED REL 60 MG TABCR PO SCH (08:23)
[2018-11-02] MEDS: TOCOPHERYL, DL-ALPHA 100 UNITS CAP PO SCH (08:24)
[2018-11-02] MEDS: FERROUS SULFATE 325 MG TAB PO SCH (08:24)
[2018-11-02] MEDS: LABETALOL HCL 100 MG TAB PO SCH ×2 (08:24→20:42)
[2018-11-02] MEDS: ASPIRIN 81 MG ECTAB PO SCH (08:24)
[2018-11-02] MEDS: DICLOFENAC SOD 1% GEL 100 GM TUBE EXT SCH ×4 (08:25→20:38)
[2018-11-02] MEDS: LIDOCAINE 5% 1 PATCH TD SCH (08:25)
[2018-11-02] MEDS: ATORVASTATIN 40 MG TAB PO SCH (08:25)
[2018-11-02] MEDS: FUROSEMIDE 20 MG TAB PO SCH (08:25)
[2018-11-02] MEDS: CALCIUM 600MG + VIT D 400 IU TAB PO SCH ×2 (08:26→20:48)
[2018-11-02] MEDS: CYANOCOBALAMIN 500 MCG TABLET (VITAMIN B-12) PO SCH (08:26)
[2018-11-02] MEDS ORDERED: ENOXAPARIN 1 MG/KG SQ SCH (08:30)
[2018-11-02] MEDS: ENOXAPARIN 100 MG/1ML SYR SQ SCH ×2 (09:41→20:38)
[2018-11-02] MEDS: MAGNESIUM OXIDE 400 MG TAB PO SCH (11:17)
[2018-11-02] MEDS ORDERED: HydrALAZINE HCL 20 MG/ML VIAL IV STA (12:04)
[2018-11-02] MEDS ORDERED: WARFARIN SOD 5 MG TAB PO SCH (16:00)
--- NOTE | 2018-11-02 17:25 | Hospitalist Progress Note ---
Date of Service November 02, 2018 Assessment & Plan (1) Fall: no syncope or presyncope by history. She had significant bradycardia on the monitor after admission but again she denies any cardiopulmonary symptoms, dizziness, etc. HRs in the 20s-30s She attributes the fall to the right knee locking and buckling; this seems plausible. I cannot rule out that the bradycardia identified contributed in some fashion to the fall. cont PT, OT. needs rehab-still awaiting placement. (2) Bradycardia: Atrial flutter with slow ventricular response. her 3 most recent TSH levels all within range. She is on beta maria eugenia and calcium channel maria eugenia at same doses for a long time as an outpt, usual HRs as outpt are 59-60. Here with rates in the 20s and 30s-held her labetalol and diltiazem for 2 days but then blood pressures became significantly elevated Rates now in the 60s-70s with holding her diltiazem -Continue labetalol 100 mg twice daily -Restart lower dose of diltiazem at diltiazem SR 60 mg p.o. twice daily for hypertension -continue telemetry monitoring (3) Hyponatremia: Sodium improved and stable at 133 and may have been secondary to SIADH from pain versus mild volume overload -ok to continue lasix 20mg daily (4) Atrial flutter: with slow ventricular response. see above. On coumadin for AC--> INR now subtherapeutic at 1.9 -Restarted Coumadin at 5 mg daily -follow INR in AM -Will bridge with Lovenox 1 mg/kg SQ every 12 given ongoing atrial fib/flutter -Continue labetalol and restarting diltiazem at a lower dose as above -follows with Dr. Pinon if needed for Cardio (5) Weakness: possibly due to bradycardia. Improved today with improved HR no evidence of any infectious process at this time. (6) Hypothyroid: last 3 TSH levels wnl. cont synthroid previous dose. (7) Osteoarthritis of knees, bilateral: severe. voltaren gel qid prn. (8) CAD (coronary artery disease): With h/o 3 [place] placed in 2016 cont asa, statin, beta maria eugenia (9) Lumbar back pain: in setting of fall. Improved pain with voltaren gel and lidocaine, but still having a lot of pain -imaging of lumbar spine with: 1. 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 2. No evidence for an acute compression deformity. 3. Calcified posterior disc herniation T11-T12 creating considerable narrowing of the right neuroforamina. The transverse elements are intact throughout. This appears to be chronic. -continue tylenol prn -Increase tramadol to 100 mg p.o. every 6 hours for improved pain control -Continue Voltaren gel and lidocaine patches (10) Chronic kidney disease, stage 3a: creatinine improved to 1.1 today, baseline around 1.0 -follow BMP in AM -ok to continue po lasix Follows with Nephrology as outpt (11) Essential (primary) hypertension: BPs continue to be labile and elevated today -Restarting diltiazem at lower dose as above 60 mg SR p.o. twice daily -Continue labetalol 100 mg p.o. twice daily -Continue isosorbide 120mg daily as this was recently increased by her Manager Trade Marketing one month ago -continue losartan and lasix also -continue prn clonidine (12) DVT prophylaxis: coumadin daily INR PT, OT evals appreciated Dispo-medically stable for discharge at this point, needs rehab Acute rehab denied by insurance after I did a peer to peer review on phone Family appeal made and is pending If denied family appeal, plan for [facility] Subjective Patient still having a lot of pain in the lower back which she feels is exacerbated by the hospital bed. She has been ambulating with a walker around the room. Denies chest pain or shortness of breath. Telemetry with atrial fibrillation and flutter with rates in the 60s-70s. Blood pressures have been severely elevated and she has required her as needed clonidine and a as needed IV hydralazine dose today. She denies headache Review of Systems All systems reviewed & are unremarkable except as noted in HPI & below Physical Exam 2 Vital Signs (Past 24 Hours): Last Vital Signs Temp 36.7 C 11/02/18 15:16 Pulse 61 11/02/18 15:16 Resp 16 11/02/18 15:16 BP 142/54 H 11/02/18 15:16 Pulse Ox 95 11/02/18 15:16 Constitutional: WD/WN, vitals as above Eyes: PERRL, conjunctivae normal, anicteric sclerae Neck: trachea midline, no thyromegaly Respiratory: normal respiratory effort, lungs clear to auscultation Cardiovascular: Rate/Rhythm: regular rate; + abnormal rhythm (irreg irreg) Heart Sounds: no murmur Extremities: + edema (1+ pitting edema legs to the knees bilat) Gastrointestinal (Abdomen): normal bowel sounds, soft, nontender, no hepatosplenomegaly Musculoskeletal: Extremities: extremities normal to inspection; no cyanosis and no clubbing Skin: no rashes, warm and dry + ecchymosis (with large ecchymosis over right elbow and biceps) Neurologic: moves all extremities and awake; no focal motor deficits Psychiatric: A+Ox3, euthymic affect Results & Data Laboratory Results 11/02/18 11/02/18 11/02/18 Range/Units 05:53 05:53 05:53 WBC 7.16 (4.8-10.8) K/uL RBC 3.32 L (4.2-5.4) M/uL Hgb 10.4 L (12.0-16.0) g/dL Hct 31.7 L (37-47) % MCV 95.5 (80-100) fL MCH 31.3 (25-34) pg MCHC 32.8 (32-36) g/dL RDW Std Deviation 50.4 H (36.4-46.3) fL RDW Coeff of Taylor 14.5 (11.5-14.5) % Plt Count 309 (130-400) K/uL MPV 8.9 (7.4-10.4) fL Immature Gran % (Auto) 0.1 % Neut % (Auto) 61.5 % Lymph % (Auto) 21.2 % [place] % (Auto) 12.3 % Eos % (Auto) 3.8 % Baso % (Auto) 1.1 % Immature Gran # (Auto) 0.01 (0.00-0.02) K/uL Neut # (Auto) 4.40 (1.4-6.5) K/uL Lymph # (Auto) 1.52 (1.2-3.4) K/uL [place] # (Auto) 0.88 H (0.11-0.59) K/uL Eos # (Auto) 0.27 (0-0.5) K/uL Baso # (Auto) 0.08 (0-0.2) K/uL PT 18.4 H (9.0-12.0) Seconds INR 1.9 H (0.9-1.1) Sodium 133 L (136-145) mmol/L Potassium 4.3 (3.5-5.1) mmol/L Chloride 102 (98-107) mmol/L Carbon Dioxide 25 (21-32) mmol/L Anion Gap 6.0 (3-11) BUN 37 H (7-18) mg/dl Creatinine 1.15 (0.6-1.2) mg/dl Est Cr Clr Drug Dosing 36.5 ml/min Est GFR ( Amer) 50.2 Est GFR (Non-Af Amer) 43.4 BUN/Creatinine Ratio 31.9 H (10-20) Glucose 83 (70-99) mg/dl Calcium 8.7 (8.5-10.1) mg/dl Magnesium 2.0 (1.8-2.4) mg/dl _ (1) Fall Encounter type: initial encounter Qualified Code(s): W19.XXXA - Unspecified fall, initial encounter (2) Atrial flutter Atrial flutter type: unspecified Qualified Code(s): I48.92 - Unspecified atrial flutter (3) Hypothyroid Hypothyroidism type: acquired Qualified Code(s): E03.9 - Hypothyroidism, unspecified (4) Osteoarthritis of knees, bilateral Osteoarthritis type: primary Qualified Code(s): M17.0 - Bilateral primary osteoarthritis of knee (5) CAD (coronary artery disease) Coronary Disease-Associated Artery/Lesion type: [place] artery [place] vs. transplanted heart: [place] heart Associated angina: without angina Qualified Code(s): I25.10 - Atherosclerotic heart disease of [place] coronary artery without angina pectoris
[2018-11-02] MEDS: GABAPENTIN 100 MG CAP PO SCH (20:42)
[2018-11-03] MEDS: TRAMADOL HCL 50 MG TABLET PO PRN (03:12)
[2018-11-03] MEDS: LEVOTHYROXINE SODIUM 200 MCG TABLET PO SCH (05:58)
[2018-11-03 06:33] LABS: INR 1.5 (0.9-1.1); Prothrombin Time 14.9 Seconds (9.0-12.0)
[2018-11-03] MEDS: LOSARTAN POTASSIUM 50 MG TAB PO SCH (07:49)
[2018-11-03] MEDS: FUROSEMIDE 20 MG TAB PO SCH (07:50)
[2018-11-03] MEDS: ISOSORBIDE MONO EXTENDED REL 60 MG TABCR PO SCH (07:50)
[2018-11-03] MEDS: LABETALOL HCL 100 MG TAB PO SCH (07:51)
[2018-11-03] MEDS ORDERED: cloNIDine HCl 0.1 MG TAB PO SCH (09:00)
[2018-11-03] MEDS: CALCIUM 600MG + VIT D 400 IU TAB PO SCH (09:29)
[2018-11-03] MEDS: CYANOCOBALAMIN 500 MCG TABLET (VITAMIN B-12) PO SCH (09:29)
[2018-11-03] MEDS: MULTIVITAMIN TAB PO SCH (09:29)
[2018-11-03] MEDS: FERROUS SULFATE 325 MG TAB PO SCH (09:29)
[2018-11-03] MEDS: MAGNESIUM OXIDE 400 MG TAB PO SCH (09:30)
[2018-11-03] MEDS: ATORVASTATIN 40 MG TAB PO SCH (09:30)
[2018-11-03] MEDS: ASPIRIN 81 MG ECTAB PO SCH (09:31)
[2018-11-03] MEDS: LIDOCAINE 5% 1 PATCH TD SCH (09:34)
[2018-11-03] MEDS: TOCOPHERYL, DL-ALPHA 100 UNITS CAP PO SCH (09:35)
[2018-11-03] MEDS: ENOXAPARIN 100 MG/1ML SYR SQ SCH (09:35)
[2018-11-03] MEDS: DICLOFENAC SOD 1% GEL 100 GM TUBE EXT SCH ×2 (09:36→13:07)
[2018-11-03] MEDS ORDERED: cloNIDine HCl 0.1 MG TAB PO PRN (11:59)
--- NOTE | 2018-11-03 12:11 | Discharge Summary ---
Date of Service November 03, 2018 Admission HPI Per Admitting Provider 83 y/o F who was brought to the ED s/p fall. Pt states she was having a usual day for herself and having no issues with ADLs. She suddenly became weak in her R knee and fell to the ground. She landed initially on her buttocks. She did tip backward after the initial strike to the buttocks and did hit her head "softly". She was feeling very weak after this and having trouble standing due to pain in her hips and back. Pt does have some hip and back pain at baseline, but it is much worse now s/p fall. Pt does not feel comfortable returning home at this time and is requesting rehab. Pt denies fever, SOB, chest pain, abd pain, n/v/c/d, LE swelling. She has had no issues with PO intake. She is hungry now. Pt did get her AM meds prior to this fall. She states she takes her BP frequently, although not daily. She states it is usually well controlled with a "bad" reading being 130s. She denies elevated BP to this level. Principal Diagnosis Fall, lower back pain, Atrial flutter with slow ventricular response Discharge Exam Constitutional WD/WN, vitals as above Eyes PERRL, conjunctivae normal, anicteric sclerae Neck trachea midline, no thyromegaly Respiratory normal respiratory effort, lungs clear to auscultation Cardiovascular Rate/Rhythm: regular rate; + abnormal rhythm (irreg irreg) Heart Sounds: no murmur Extremities: + edema (1+ pitting edema legs to the knees bilat) Gastrointestinal (Abdomen) normal bowel sounds, soft, nontender, no hepatosplenomegaly Musculoskeletal Extremities: extremities normal to inspection; no cyanosis and no clubbing Skin no rashes, warm and dry + ecchymosis (with large ecchymosis over right elbow and biceps) Neurologic moves all extremities and awake; no focal motor deficits Psychiatric A+Ox3, euthymic affect Discharge Data Allergies Allergy/AdvReac Type Severity Reaction Status Date / Time doxycycline Allergy Intermediate RASH Verified 11/05/18 18:05 ANA LUISA Inhibitors Allergy Unknown INTOLERANT Verified 11/05/18 18:05 lisinopril Allergy Unknown INTOLERANT Verified 11/05/18 18:05 Consultations 10/28/18 17:22 ED Decision to Admit Stat 10/28/18 21:05 Consult Case Management - Discharge Planning Routine Ordered Studies 10/28/18 11:45 CT cervical spine wo con Stat CT head/brain wo con Stat CT lumbar spine wo con Stat Pelvis xray CXR Hospital Course (1) Fall: no syncope or presyncope by history. She had significant bradycardia on the monitor after admission but again she denies any cardiopulmonary symptoms, dizziness, etc. HRs in the 20s-30s She attributes the fall to the right knee locking and buckling; this seems plausible. I cannot rule out that the bradycardia identified contributed in some fashion to the fall. cont PT, OT. needs rehab-plan for placement today (2) Bradycardia: Atrial flutter with slow ventricular response on admission. her 3 most recent TSH levels all within range. She is on beta maria eugenia and calcium channel maria eugenia at same doses for a long time as an outpt, usual HRs as outpt are 59-60 in the office. Here with rates in the 20s and 30s-held her labetalol and diltiazem for 2 days but then blood pressures became significantly elevated Rates now in the 60s-70s with holding her diltiazem -Continue labetalol 100 mg twice daily -Attempted to restart lower dose of diltiazem at diltiazem SR 60 mg p.o. twice daily for hypertension, however, she again had HR in the 30s at times and thereofre the diltiazem was discontinued (3) Hyponatremia: Sodium improved and stable at 133 and may have been secondary to SIADH from pain versus mild volume overload -ok to continue lasix 20mg daily (4) Atrial flutter: with slow ventricular response. see above. 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 Pinon if needed for Cardio (5) Weakness: possibly due to bradycardia. Improved today with improved HR. She is ambulating 100 feet with PT today no evidence of any infectious process at this time. (6) Hypothyroid: last 3 TSH levels wnl. cont synthroid previous dose. (7) Osteoarthritis of knees, bilateral: severe. voltaren gel qid prn. (8) CAD (coronary artery disease): With h/o 3 [place] placed in 2016 cont asa, statin, beta maria eugenia (9) Lumbar back pain: in setting of fall. Improved pain with voltaren gel and lidocaine, but was still having a lot of pain--> improved now with increased dose of tramadol-really helping -imaging of lumbar spine with: 1. 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 2. No evidence for an acute compression deformity. 3. Calcified posterior disc herniation T11-T12 creating considerable narrowing of the right neuroforamina. The transverse elements are intact throughout. This appears to be chronic. -continue tylenol prn -continue tramadol to 100 mg p.o. every 6 hours for improved pain control -Continue Voltaren gel and lidocaine patches (10) Chronic kidney disease, stage 3a: creatinine improved to 1.1, baseline around 1.0 -ok to continue po lasix Follows with Nephrology as outpt (11) Essential (primary) hypertension: BPs continue to be labile and elevated today earlier, then significant drop -Continue labetalol 100 mg p.o. twice daily -Continue isosorbide 120mg daily as this was recently increased by her Trap Operator one month ago -continue losartan and lasix also -continue prn clonidine (12) DVT prophylaxis: coumadin, Lovenox daily INR PT, OT evals appreciated Dispo-medically stable for discharge to [facility] for rehab today Total Time Total Time Spent Total Time Spent (In Minutes): >30 min Total Time Includes: Examination of the Patient, Discharge Planning and Medication Reconciliation Discharge Plan Discharge Items Patient Disposition: Transfer Long-Term Fac Reason For Visit: FALL Discharge Diagnosis: Fall with lower back pain Condition: Fair Discharge Goals: Decrease discomfort, Diagnostic testing, Improve disease control, Learn about illness and Therapeutic intervention Activity: Per 'Additional Instructions' section Lifting: None Bathing: No limitations Exercise/Sports: As tolerated Non-emergency contact: Primary Care Provider and Trap Operator Call non-emergency contact if: you have any medication questions, your symptoms worsen, your pain is not controlled, your pain is worsening, your pain is unusual for you and your pain is concerning for you Follow-up/Referrals: Nai Sparrow CRNP [Primary Care Provider] - (Please follow-up with primary care provider after discharge from shelter) Diet: Heart Healthy Add Provider Instructions: You were admitted after a fall with lower back pain. This was treated with various pain medications and you had some improvement. You also had a very low heart rate with your atrial flutter and fibrillation. Your blood pressures were labile at times. Her medications were adjusted to improve both the low heart rate in the labile blood pressures. Prescriptions: New lidocaine 5 % Adhesive Patch,Medicated 1 patch Transdermal QAM Qty: 1 RF: 0 Continue atorvastatin 80 mg tablet 80 mg PO QPM RF: 0 cyanocobalamin (vitamin B-12) 1,000 mcg Tablet 1,000 mcg PO QAM RF: 0 calcium carbonate-vitamin D3 [Calcium 600 + D(3)] 600 mg(1,500mg) -200 unit Tablet 1 tab PO AMHS RF: 0 aspirin [Aspirin Low Dose] 81 mg Tablet,Delayed Release (Dr/Ec) 81 mg PO QAM RF: 0 isosorbide mononitrate 60 mg tablet extended release 24 hr 120 mg PO QAM RF: 0 ferrous sulfate 325 mg (65 mg iron) tablet 325 mg PO QAM RF: 0 nitroglycerin [Nitrostat] 0.4 mg Tablet, Sublingual 0.4 mg Sublingual UD PRN (Reason: Chest Pain) RF: 0 levothyroxine 200 mcg tablet 200 mcg PO QAM RF: 0 furosemide 20 mg tablet 20 mg PO QAM RF: 0 gabapentin 100 mg capsule 100 mg PO TID RF: 0 labetalol 100 mg tablet 100 mg PO BID RF: 0 losartan 100 mg tablet 100 mg PO QAM RF: 0 diclofenac sodium 1 % gel 1 applic topical BID RF: 0 magnesium oxide 400 mg magnesium Tablet 400 mg PO QAM RF: 0 Discontinued clonidine HCl 0.1 mg Tablet 0.1 mg PO UD RF: 0 potassium 99 mg Tablet PO DAILY RF: 0 warfarin 5 mg Tablet 5 mg PO 4XWK RF: 0 warfarin 5 mg tablet 5 mg PO 3XWK RF: 0 diltiazem HCl [DILT-XR] 180 mg capsule,ext.rel 24h degradable 180 mg PO DAILY RF: 0 No Action multivitamin with minerals [Multiple Vitamin-Minerals] Tablet 1 tab PO QAM RF: 0 clonidine HCl 0.1 mg tablet 0.1 mg PO Q12H PRN (Reason: Hypertension) RF: 0 acetaminophen [Mapap (acetaminophen)] 325 mg tablet 650 mg PO Q4H PRN (Reason: Fever Or Pain) RF: 0 tramadol 50 mg tablet 100 mg PO Q6H PRN (Reason: Moderate/Severe Pain) RF: 0 warfarin 5 mg tablet 5 mg PO DIRECTED RF: 0 Stand-Alone Forms: [facility] Discharge Orders: Discharge Order (Routine); Ordered 11/03/18 Ordered By: Tasha Zamora Skilled Items Patient informed of condition?: Yes DNR: Yes Discharge Level of Care: Skilled Communicable Disease: No Discharge Prognosis: Improving Admission Data Admit Date/Time: 10/29/18 19:01 Attending Provider: Tasha Zamora Admit Provider: Sondra Chang Primary Care Provider: Nai Sparrow Other Providers: Sondra Chang Service: Telemetry Other Interventions: Discharge Summary Assessment (RN) Last Done: 11/03/18 13:10 Pending Studies at Discharge: No DC Date/Time DO NOT enter until pt leaves facility: 11/03/18 15:00
== END 2018-11-03 15:00 ==
LOC: ED 11:10 → 2N 11:10 → SUATTDRO 18:22 → 2N 19:58 → SUATTDRO 10-29 19:01

== ENCOUNTER 2018-11-05 17:29 | Inpatient (IN) ==
[2018-11-05] MEDS ORDERED: ONDANSETRON INJ 2 MG/ML 2 ML VIAL IV STA (17:51)
[2018-11-05] MEDS ORDERED: SODIUM CHLORIDE 0.9% 1000ML 1,000 ML IV SCH (18:00)
[2018-11-05 18:29] LABS: Basophils # (auto) 0.03 K/uL (0-0.2); Basophils % (auto) 0.4 %; Eosinophils # (auto) 0.05 K/uL (0-0.5); Eosinophils % (auto) 0.6 %; Hematocrit (blood only) 29.8 % (37-47); Hemoglobin 10.1 g/dL (12.0-16.0); Immature Granulocytes # (auto) 0.02 K/uL (0.00-0.02); Immature Granulocytes % (auto) 0.2 %; Lymphocytes # (auto) 1.09 K/uL (1.2-3.4); Lymphocytes % (auto) 13.1 %; Mean Corpuscular Hgb Conc 33.9 g/dL (32-36); Mean Platelet Volume 9.5 fL (7.4-10.4); Monocytes # (auto) 1.17 K/uL (0.11-0.59); Neutrophils # (auto) 5.98 K/uL (1.4-6.5); Neutrophils % (auto) 71.7 %; Platelet Count 311 K/uL (130-400); RDW Coefficient of Variation 14.4 % (11.5-14.5); RDW Standard Deviation 49.3 fL (36.4-46.3); Red Blood Count 3.17 M/uL (4.2-5.4); White Blood Count 8.34 K/uL (4.8-10.8)
[2018-11-05 18:38] LABS: Albumin Level 2.9 gm/dl (3.4-5.0); BUN Creatinine Ratio 24.5 (10-20); Calcium 8.3 mg/dl (8.5-10.1); Creatinine Clr Calc Pharmacy 34.5 ml/min; Est GFR (African American) 49.2; Est GFR (Non-African American) 42.5
[2018-11-05] MEDS: HYDROmorphone INJ 0.5 MG/0.5 ML SYR IV PRN (18:40)
[2018-11-05 18:48] LABS: Albumin Globulin Ratio 0.8 (0.9-2); Bilirubin,Total 0.7 mg/dl (0.2-1); Globulin 3.6 gm/dl (2.5-4.0); Total Protein 6.5 gm/dl (6.4-8.2)
--- NOTE | 2018-11-05 19:45 | Magnetic Resonance Report ---
LUMBAR SPINE MRI HISTORY: Lumbar and thoracic pain, incontinence, LE numb TECHNIQUE: Multiplanar multisequence MRI of the lumbar spine was performed without the use of contras t. COMPARISON: Lumbar spine CT 10/28/2018. FINDINGS: For the purpose of the report the L5-S1 disc space will be located on axial image 39 of 41. Mild discharge scoliosis of the lumbar spine. 4 mm of retrolisthesis of L1 on L2. There is fluid at t he T12-L1 disc space. Severe disc space narrowing at L1-L2 and L2-L3. Moderate to space narrowing at L3-L4. Mild disc space narrowing at L4-L5 and L5-S1. Severe facet degenerative changes throughout the majority of the lumbar spine. The contrast to its at the L1 level. Marrow edema at the T12 and L1 ve rtebral bodies. No fractures identified within the lumbar spine. Mild subcutaneous trace edema within the lumbar region. Minimal paraspinal edema at the T12-L1 level. There is abnormal T1 and T2 heterog eneous signal abnormality within the epidural space from the T12 through the L3 level. At the T12 loc ation the epidural abnormality is seen posterior to the T12 vertebral body and measures 9 mm. This re sults in displacement and compression of the conus. The remaining epidural component is seen along th e posterior epidural space and results in multilevel severe central canal narrowing at the L2 and L3 vertebral body levels. The total extent of this abnormal epidural collection measures approximately 9 centers in length and up to 1 cm in thickness. The signal characteristics favor an epidural hematoma . An epidural abscess could also a similar appearance but is considered less likely. T12-L1: Large calcified disc extrusion with inferior subligamentous migration. This was also identifi ed on the prior CT examination. This measures 2.5 x 1.1 x 0.8 cm. This is primarily located posterior to the L1 vertebral body. This results in severe central canal narrowing at this level. L1-L2: Broad-based posterior disc bulge with the abnormal posterior upper dural abnormality resulting in severe central canal narrowing. This appears to compress the cauda equina. Severe bilateral neura l foraminal narrowing. L2-L3: Broad-based posterior disc bulge with the posterior dura abnormality resulting in severe centr al canal narrowing with compression of the cauda equina. Moderate to severe bilateral neural foramina l narrowing. L3-L4: Small broad-based posterior disc bulge with the posterior epidural abnormality resulting in se marcelo central canal narrowing. Moderate to severe bilateral neural foraminal narrowing. L4-L5: Small broad-based posterior disc bulge resulting in mild central canal narrowing. There is mod erate to severe bilateral neural foraminal narrowing. L5-S1: Small broad-based posterior disc bulge with a right paracentral focal disc protrusion. This re sults in moderate to severe bilateral neural foraminal narrowing. IMPRESSION: 1. Large heterogeneous epidural abnormality extending from the T12-L3 levels as described above. This results in multilevel severe central canal narrowing with compression of the conus and cauda equina. The signal characteristics favor a large epidural hematoma. An epidural abscess could also have a si milar appearance but is considered less likely. 2. Fluid within the T12-L1 disc space with marrow edema at these vertebral body levels. This is likel y due to long-standing degenerative change. A developing discitis/osteomyelitis at this level could a lso have a similar appearance but is considered less likely. Clinical correlation recommended. 3. Redemonstration of the large calcified disc extrusion extending from the T12-L1 level as described above. 4. No fractures identified. 5. These findings were discussed with Dr. Herbert at 7:43 PM on 11/05/2018. Electronically signed by: Mark Lozada M.D. 11/05/2018 7:43 PM
[2018-11-05 20:11] LABS: INR 1.3 (0.9-1.1); Partial Thromboplastin Ratio 1.3; Partial Thromboplastin Time 35.2 Seconds (21.0-31.0)
[2018-11-05] MEDS ORDERED: SODIUM CHLORIDE 0.9% 250 ML IV PRN (20:15)
[2018-11-05] MEDS ORDERED: VANCOMYCIN HCL 1000MG/20ML VIAL ONE (20:16)
[2018-11-05] MEDS ORDERED: GELATIN SPONGE SZ 100 ONE ×2 (20:16→23:18)
[2018-11-05] MEDS ORDERED: THROMBIN FOR SOLN 20000 UNIT KIT ONE (20:17)
[2018-11-05] MEDS ORDERED: BACITRACIN INJ 50,000 UNIT VIAL ONE (20:17)
[2018-11-05] MEDS ORDERED: BUPIVACAINE/EPINEPHRINE 0.5% MPF 1:200,000 30 ML VIAL ONE (20:18)
--- NOTE | 2018-11-05 20:47 | History & Physical Report ---
Date of Service November 05, 2018 Assessment & Plan (1) Cauda equina compression: Cauda equina compression/lower extremity weakness/epidural hematoma -Patient taken to OR for emergency decompression, please see ass'd notes and recommendations for management -Currently in ICU Anemia -Chronic, stable, continue to monitor in setting of hematoma and surgery Hyponatremia -Chronic, stable, continue to monitor HTN -Continue home meds when PO intake resumes CKD IIIa -Stable, continue to monitor -Renal dosing of meds Afib -Rate controlled, continue home meds when PO intake resumes CAD -H/O 3 [place] n 2015 -on statin, BBlocker -Hold ASA, resume home meds when appropriate in ICU Hypothyroid -Cont home meds when PO intake resumes DVTP: SCDs for now Code: DNR per discussion with family Dispo: ICU for post-op management (2) Lower extremity weakness: (3) Anemia: (4) Hyponatremia: (5) Epidural hematoma: (6) Essential (primary) hypertension: (7) Chronic kidney disease, stage 3a: (8) Afib: (9) Hypothyroid: History of Present Illness Chief Complaint: Back pain and leg weakness Primary Care Provider: MARY Carolina Patient is a pleasant 83 yoF PMH CAD, HTN, CKDIII, DJD, Anemia, Chronic AFib, hypothyroid, hyponatremia who presents with acute leg weakness and acute worsening of her low back pain. Patient was recently admitted after a fall onto her backside, and was discharged to [facility] on 11/03. She had been participating with PT in the last few days, but during today's session, the therapist noted a sharp decline in her function and an inability to even lift her legs off the ground. She was also incontinent of bladder, but per patient this is not completely abnormal for her. On discharge from the hospital, she was converted from warfarin to lovenox for her afib as INR was unstable. INR on admission of 1.3. Labs otherwise unremarkable (chronic hyponatremia, albumin 2.9 , chronic anemia Hb 10.1.) In the ER, concern for cauda equina syndrome was suspected, and MRI of her back confirmed an epidural hematoma from T12-L3. Due to her INR issues of late and treatment with lovenox and ASA, she was given platelets in the ER and a dose of vitamin K. Dr. Brown was called and took her to the operating room for emergent decompression of the spinal canal. Allergies Allergy/AdvReac Type Severity Reaction Status Date / Time doxycycline Allergy Intermediate RASH Verified 11/05/18 18:05 ANA LUISA Inhibitors Allergy Unknown INTOLERANT Verified 11/05/18 18:05 lisinopril Allergy Unknown INTOLERANT Verified 11/05/18 18:05 Home Medications Home Medications Medication Instructions Recorded Confirmed Type aspirin [Aspirin Low Dose] 81 mg PO QAM 10/28/18 11/05/18 History atorvastatin 80 mg PO QPM 10/28/18 11/05/18 History calcium carbonate-vitamin D3 1 tab PO AMHS 10/28/18 11/05/18 History [Calcium 600 + D(3)] cyanocobalamin (vitamin B-12) 1,000 mcg PO QAM 10/28/18 11/05/18 History diclofenac sodium 1 applic TOPICAL BID 10/28/18 11/05/18 History ferrous sulfate 325 mg PO QAM 10/28/18 11/05/18 History furosemide 20 mg PO QAM 10/28/18 11/05/18 History gabapentin 100 mg PO TID 10/28/18 11/05/18 History isosorbide mononitrate 120 mg PO QAM 10/28/18 11/05/18 History labetalol 100 mg PO BID 10/28/18 11/05/18 History levothyroxine 200 mcg PO QAM 10/28/18 11/05/18 History losartan 100 mg PO QAM 10/28/18 11/05/18 History magnesium oxide 400 mg PO QAM 10/28/18 11/05/18 History nitroglycerin [Nitrostat] 0.4 mg SUBLINGUAL UD PRN 10/28/18 11/05/18 History lidocaine 1 patch TRANSDERMAL QAM #1 ea 11/03/18 11/05/18 Rx acetaminophen [Mapap 650 mg PO Q4H PRN 11/05/18 11/05/18 History (acetaminophen)] clonidine HCl 0.1 mg PO Q12H PRN 11/05/18 11/05/18 History multivitamin with minerals 1 tab PO QAM 11/05/18 11/05/18 History [Multiple Vitamin-Minerals] tramadol 100 mg PO Q6H PRN 11/05/18 11/05/18 History warfarin 5 mg PO DIRECTED 11/05/18 11/05/18 History Past Med/Surg History Medical History Hypertension (Chronic) Kidney disease (Chronic) Acute coronary syndrome (Chronic) Atrial flutter (Chronic) Leukocytosis Family History Father CVA (cerebral vascular accident) Social History Current Living Situation: Alone Feels Safe at Home: Yes Safety Concerns: Feels Safe At This Time Smoking Status: Never smoker Do You Dip or Chew Tobacco: No Tobacco Cessation Education Requested by Patient: No Hx Alcohol Use: No Hx Substance Use: No Beliefs That Will Affect Care: None Preferred Language: Divehi Communication Ability: Effective Security Systems Manager Required: No Review of Systems All systems reviewed & are unremarkable except as noted in HPI & below Musculoskeletal: + back pain and + limited range of motion Neurologic: as per Subjective / HPI, + gait abnormality, + unsteadiness, + falls , + localized weakness, + paralysis, + loss of sensation, + numbness and + paresthesia Physical Exam 2 Vital Signs (Past 24 Hours): Last Vital Signs Temp 36.6 C 11/05/18 17:41 Pulse 82 11/05/18 19:25 Resp 20 11/05/18 19:25 BP 159/66 H 11/05/18 19:25 Pulse Ox 95 11/05/18 19:25 Constitutional: WD/WN, vitals as above Eyes: PERRL, conjunctivae normal, anicteric sclerae ENMT: external ear and nose normal, oropharynx normal Neck: normal visual inspection Respiratory: normal respiratory effort, lungs clear to auscultation Cardiovascular: RRR, no murmur, no edema Gastrointestinal (Abdomen): Inspection/Auscultation: abdomen normal to inspection and normal bowel sounds Percussion/Palpation: + abdomen tender ( suprapubic tenderness) Musculoskeletal: Extremities: + limited ROM of extremities, + abnormal strength and + abnormal muscle tone Skin: no rashes, warm and dry Neurologic: + focal motor deficit; + abnormal touch/pain/proprioception and + does not move all extremities (able to minimally rock her L leg) diminished sensation in L2-5 dermatomal distribution. 0 strength in R lower extremity,1 in LLE no dorsi/plantar flexion bilaterally. She does have intact sensation in her feet. Psychiatric: A+Ox3, euthymic affect Results & Data Laboratory Results 11/05/18 11/05/18 11/05/18 Range/Units 22:40 21:57 20:28 WBC (4.8-10.8) K/uL RBC (4.2-5.4) M/uL Hgb 8.9 L (12.0-16.0) g/dL Hct 25.9 L (37-47) % MCV (80-100) fL MCH (25-34) pg MCHC (32-36) g/dL RDW Std Deviation (36.4-46.3) fL RDW Coeff of Taylor (11.5-14.5) % Plt Count (130-400) K/uL MPV (7.4-10.4) fL Immature Gran % (Auto) % Neut % (Auto) % Lymph % (Auto) % Borden % (Auto) % Eos % (Auto) % Baso % (Auto) % Immature Gran # (Auto) (0.00-0.02) K/uL Neut # (Auto) (1.4-6.5) K/uL Lymph # (Auto) (1.2-3.4) K/uL Borden # (Auto) (0.11-0.59) K/uL Eos # (Auto) (0-0.5) K/uL Baso # (Auto) (0-0.2) K/uL PT (9.0-12.0) Seconds INR (0.9-1.1) APTT (21.0-31.0) Seconds PTT Ratio Sodium (136-145) mmol/L Potassium (3.5-5.1) mmol/L Chloride (98-107) mmol/L Carbon Dioxide (21-32) mmol/L Anion Gap (3-11) BUN (7-18) mg/dl Creatinine (0.6-1.2) mg/dl Est Cr Clr Drug Dosing ml/min Est GFR ( Amer) Est GFR (Non-Af Amer) BUN/Creatinine Ratio (10-20) Glucose (70-99) mg/dl Calcium (8.5-10.1) mg/dl Total Bilirubin (0.2-1) mg/dl AST (15-37) U/L ALT (12-78) U/L Alkaline Phosphatase (45-117) U/L Total Protein (6.4-8.2) gm/dl Albumin (3.4-5.0) gm/dl Globulin (2.5-4.0) gm/dl Albumin/Globulin Ratio (0.9-2) Lipase (73-393) U/L Blood Type A Negative Blood Type Recheck A Negative Antibody Screen NEGATIVE Crossmatch See Detail 11/05/18 11/05/18 11/05/18 Range/Units 20:28 18:10 18:10 WBC (4.8-10.8) K/uL RBC (4.2-5.4) M/uL Hgb (12.0-16.0) g/dL Hct (37-47) % MCV (80-100) fL MCH (25-34) pg MCHC (32-36) g/dL RDW Std Deviation (36.4-46.3) fL RDW Coeff of Taylor (11.5-14.5) % Plt Count (130-400) K/uL MPV (7.4-10.4) fL Immature Gran % (Auto) % Neut % (Auto) % Lymph % (Auto) % Borden % (Auto) % Eos % (Auto) % Baso % (Auto) % Immature Gran # (Auto) (0.00-0.02) K/uL Neut # (Auto) (1.4-6.5) K/uL Lymph # (Auto) (1.2-3.4) K/uL Borden # (Auto) (0.11-0.59) K/uL Eos # (Auto) (0-0.5) K/uL Baso # (Auto) (0-0.2) K/uL PT 13.0 H (9.0-12.0) Seconds INR 1.3 H (0.9-1.1) APTT 35.2 H (21.0-31.0) Seconds PTT Ratio 1.3 Sodium 127 L (136-145) mmol/L Potassium 4.0 (3.5-5.1) mmol/L Chloride 97 L (98-107) mmol/L Carbon Dioxide 25 (21-32) mmol/L Anion Gap 5.0 (3-11) BUN 29 H (7-18) mg/dl Creatinine 1.17 (0.6-1.2) mg/dl Est Cr Clr Drug Dosing 34.5 ml/min Est GFR ( Amer) 49.2 Est GFR (Non-Af Amer) 42.5 BUN/Creatinine Ratio 24.5 H (10-20) Glucose 114 H (70-99) mg/dl Calcium 8.3 L (8.5-10.1) mg/dl Total Bilirubin 0.7 (0.2-1) mg/dl AST 29 (15-37) U/L ALT 28 (12-78) U/L Alkaline Phosphatase 48 (45-117) U/L Total Protein 6.5 (6.4-8.2) gm/dl Albumin 2.9 L (3.4-5.0) gm/dl Globulin 3.6 (2.5-4.0) gm/dl Albumin/Globulin Ratio 0.8 L (0.9-2) Lipase 92 (73-393) U/L Blood Type Cancelled Blood Type Recheck Antibody Screen Cancelled Crossmatch See Detail 11/05/18 Range/Units 18:10 WBC 8.34 (4.8-10.8) K/uL RBC 3.17 L (4.2-5.4) M/uL Hgb 10.1 L (12.0-16.0) g/dL Hct 29.8 L (37-47) % MCV 94.0 (80-100) fL MCH 31.9 (25-34) pg MCHC 33.9 (32-36) g/dL RDW Std Deviation 49.3 H (36.4-46.3) fL RDW Coeff of Taylor 14.4 (11.5-14.5) % Plt Count 311 (130-400) K/uL MPV 9.5 (7.4-10.4) fL Immature Gran % (Auto) 0.2 % Neut % (Auto) 71.7 % Lymph % (Auto) 13.1 % Borden % (Auto) 14.0 % Eos % (Auto) 0.6 % Baso % (Auto) 0.4 % Immature Gran # (Auto) 0.02 (0.00-0.02) K/uL Neut # (Auto) 5.98 (1.4-6.5) K/uL Lymph # (Auto) 1.09 L (1.2-3.4) K/uL Borden # (Auto) 1.17 H (0.11-0.59) K/uL Eos # (Auto) 0.05 (0-0.5) K/uL Baso # (Auto) 0.03 (0-0.2) K/uL PT (9.0-12.0) Seconds INR (0.9-1.1) APTT (21.0-31.0) Seconds PTT Ratio Sodium (136-145) mmol/L Potassium (3.5-5.1) mmol/L Chloride (98-107) mmol/L Carbon Dioxide (21-32) mmol/L Anion Gap (3-11) BUN (7-18) mg/dl Creatinine (0.6-1.2) mg/dl Est Cr Clr Drug Dosing ml/min Est GFR ( Amer) Est GFR (Non-Af Amer) BUN/Creatinine Ratio (10-20) Glucose (70-99) mg/dl Calcium (8.5-10.1) mg/dl Total Bilirubin (0.2-1) mg/dl AST (15-37) U/L ALT (12-78) U/L Alkaline Phosphatase (45-117) U/L Total Protein (6.4-8.2) gm/dl Albumin (3.4-5.0) gm/dl Globulin (2.5-4.0) gm/dl Albumin/Globulin Ratio (0.9-2) Lipase (73-393) U/L Blood Type Blood Type Recheck Antibody Screen Crossmatch Medications Administered Current Inpatient Medications Atropine Sulfate (Atropine Sulfate) 0.5 mg IV Q1M PRN PRN Reason: PACU Use-HR<40 &/or Bradycardi Stop: 11/06/18 05:08 Ephedrine Sulfate (Ephedrine Sulfate) 5 mg IV Q5M PRN PRN Reason: PACU Use Only-SBP<90 mmHg Stop: 11/06/18 05:08 Fentanyl Citrate (Fentanyl Citrate) 50 mcg IV Q5M PRN PRN Reason: PACU Use Only-Pain Stop: 11/06/18 05:08 Hydromorphone HCl (Dilaudid) 0.5 mg IV Q15M PRN PRN Reason: Pain Stop: 11/19/18 17:50 Last Admin: 11/06/18 00:29 Dose: 0.5 mg Sodium Chloride (Nss 1000ml) 1,000 mls @ 100 mls/hr IV .Q10H MOOK Stop: 11/06/18 03:59 Last Admin: 11/05/18 20:25 Dose: 100 mls/hr Sodium Chloride (Nss 250ml) 250 mls @ 15 mls/hr IV .[id number] PRN PRN Reason: For Transfusion Stop: 12/05/18 20:14 Cefazolin Sodium (Ancef 2000mg) 2,000 mg in 15 mls @ 3.75 mls/min IV ONCE MOOK; Protocol Stop: 11/06/18 22:14 Last Admin: 11/05/18 22:09 Dose: 3.75 mls/min Labetalol HCl (Normodyne) 5 mg IV Q5M PRN PRN Reason: PACU Use-SBP>160 or DBP>100 Stop: 11/06/18 05:08 Last Admin: 11/06/18 00:49 Dose: 5 mg Ondansetron HCl (Zofran) 4 mg IV ONCE PRN PRN Reason: PACU Use Only-Nausea/Vomiting Stop: 11/06/18 05:08 Code Status & VTE Plan Code Status DNR/DNI per family and patient Supervising Physician Co-Signing Physician Notes Attending addendum: I have physically seen this patient, have supervised the medical residents activities, and agree with the H&P unless as otherwise noted. Assessment and Plan: Cauda equina compression/epidural hematoma from T12 through L3/lower extremity weakness-- Patient initially seen in the ED, and then in the ICU after emergency decompressive surgery. Status post reversal meds in the ED in conjunction with Dr. Escobar. Postop orders per Dr. Brown. CAD/hypertension/H fibrillation/coronary artery stents x3-- For now hold aspirin perioperatively. Hold warfarin and aspirin in the immediate postop interval, and will resume at earliest time possible. Continue labetalol, losartan, isosorbide mononitrate with hold parameters. Hold furosemide. Remainder of orders notations as noted. Resident Activity Tracking Resident Involvement: Resident Care Provided Care Provided: [facility] Medicine _ (1) Anemia Anemia type: unspecified type Bone marrow failure anemia type: Chronic kidney disease stage: Folate deficiency anemia type: Hemolytic anemia type: Iron deficiency anemia type: Other causes of anemia: Vitamin B12 deficiency anemia type: Qualified Code(s): D64.9 - Anemia, unspecified (2) Hypothyroid Hypothyroidism type: acquired Qualified Code(s): E03.9 - Hypothyroidism, unspecified (3) Lower extremity weakness Laterality: bilateral Qualified Code(s): R29.898 - Other symptoms and signs involving the musculoskeletal system
--- NOTE | 2018-11-05 21:13 | History & Physical Report ---
Date of Service November 05, 2018 Assessment & Plan (1) Cauda equina compression: Emergency decompression of the spinal canal at T12-L3 Present on Admission?: Yes History of Present Illness Primary Care Provider: MARY Carolina Patient was ambulatory up to a few days ago for a fall injury. In the emergency room this evening with profound neurological deficit bladder incontinence. She was worked up in the emergency room very well diagnosis of a cauda equina syndrome arrived at expeditiously. I was called schedule her for emergency surgery for the decompression of the cauda equina. On examination she is profound deficits essentially absent dorsiflexion plantar flexion quadricep strength iliopsoas strength essentially symmetric. Image images demonstrate profound hematoma on the spine T12 down to L3 Allergies Allergy/AdvReac Type Severity Reaction Status Date / Time doxycycline Allergy Intermediate RASH Verified 11/05/18 18:05 ANA LUISA Inhibitors Allergy Unknown INTOLERANT Verified 11/05/18 18:05 lisinopril Allergy Unknown INTOLERANT Verified 11/05/18 18:05 Home Medications Home Medications Medication Instructions Recorded Confirmed Type aspirin [Aspirin Low Dose] 81 mg PO QAM 10/28/18 11/05/18 History atorvastatin 80 mg PO QPM 10/28/18 11/05/18 History calcium carbonate-vitamin D3 1 tab PO AMHS 10/28/18 11/05/18 History [Calcium 600 + D(3)] cyanocobalamin (vitamin B-12) 1,000 mcg PO QAM 10/28/18 11/05/18 History diclofenac sodium 1 applic TOPICAL BID 10/28/18 11/05/18 History ferrous sulfate 325 mg PO QAM 10/28/18 11/05/18 History furosemide 20 mg PO QAM 10/28/18 11/05/18 History gabapentin 100 mg PO TID 10/28/18 11/05/18 History isosorbide mononitrate 120 mg PO QAM 10/28/18 11/05/18 History labetalol 100 mg PO BID 10/28/18 11/05/18 History levothyroxine 200 mcg PO QAM 10/28/18 11/05/18 History losartan 100 mg PO QAM 10/28/18 11/05/18 History magnesium oxide 400 mg PO QAM 10/28/18 11/05/18 History nitroglycerin [Nitrostat] 0.4 mg SUBLINGUAL UD PRN 10/28/18 11/05/18 History lidocaine 1 patch TRANSDERMAL QAM #1 ea 11/03/18 11/05/18 Rx acetaminophen [Mapap 650 mg PO Q4H PRN 11/05/18 11/05/18 History (acetaminophen)] clonidine HCl 0.1 mg PO Q12H PRN 11/05/18 11/05/18 History multivitamin with minerals 1 tab PO QAM 11/05/18 11/05/18 History [Multiple Vitamin-Minerals] tramadol 100 mg PO Q6H PRN 11/05/18 11/05/18 History warfarin 5 mg PO DIRECTED 11/05/18 11/05/18 History Past Med/Surg History Social History Current Living Situation: Alone Feels Safe at Home: Yes Smoking Status: Never smoker Second Hand Exposure: No Hx Alcohol Use: No Hx Substance Use: No Preferred Language: Welsh Physical Exam 2 Vital Signs (Past 24 Hours): Last Vital Signs Temp 36.6 C 11/05/18 17:41 Pulse 58 L 11/05/18 20:55 Resp 18 11/05/18 20:55 BP 165/73 H 11/05/18 21:00 Pulse Ox 99 11/05/18 20:55 Eyes: PERRL, conjunctivae normal, anicteric sclerae Respiratory: normal respiratory effort Cardiovascular: RRR, no murmur, no edema Gastrointestinal (Abdomen): normal bowel sounds, soft, nontender, no hepatosplenomegaly Rectal Exam: + abnormal sphincter tone Neurologic: Profound deficits to all lower extremities and dorsiflexion plantar flexion and quadriceps strength. Results & Data Diagnostic Findings Severe lumbar hematoma from T12-L3
--- NOTE | 2018-11-05 21:24 | Anesthesiology Consultation ---
Date of Service November 05, 2018 Assessment & Plan (1) Encounter for pre-operative examination: Chart Review Chart Review: Acceptable Risk for Surgery and Patient NOT seen in Pre Admission Testing Consults Requested none ASA [id number] Proposed Anesthesia Anesthesia Type: General Anesthesia Line Insertion: Arterial line Risk / Benefits Reviewed With: PT / POA / Parent / Guardian, Accepts Plan and Informed Consent Obtained NPO Date Last Intake of Fluids: 11/05/18 Time Last Intake of Fluids: 16:00 Date Last Intake of Solids: 11/05/18 Time Last Intake of Solids: 12:00 History Surgery Operation Date: 11/05/18 20:40 Proposed Procedures p Laminectomy/Foraminotomy - eSbas Brown, Height/Weight Height: 5 ft 1 in Weight: 83.6 kg Allergies Allergy/AdvReac Type Severity Reaction Status Date / Time doxycycline Allergy Intermediate RASH Verified 11/05/18 18:05 ANA LUISA Inhibitors Allergy Unknown INTOLERANT Verified 11/05/18 18:05 lisinopril Allergy Unknown INTOLERANT Verified 11/05/18 18:05 Medications Home Medications Medication Instructions Recorded Confirmed Last Taken aspirin [Aspirin Low Dose] 81 mg PO QAM 10/28/18 11/05/18 11/05/18 08:00 atorvastatin 80 mg PO QPM 10/28/18 11/05/18 11/04/18 20:00 calcium carbonate-vitamin D3 1 tab PO AMHS 10/28/18 11/05/18 11/05/18 08:00 [Calcium 600 + D(3)] cyanocobalamin (vitamin B-12) 1,000 mcg PO QAM 10/28/18 11/05/18 11/05/18 09:00 diclofenac sodium 1 applic TOPICAL BID 10/28/18 11/05/18 11/05/18 09:00 ferrous sulfate 325 mg PO QAM 10/28/18 11/05/18 11/05/18 08:00 furosemide 20 mg PO QAM 10/28/18 11/05/18 11/05/18 09:00 gabapentin 100 mg PO TID 10/28/18 11/05/18 11/05/18 14:00 isosorbide mononitrate 120 mg PO QAM 10/28/18 11/05/18 11/05/18 09:00 labetalol 100 mg PO BID 10/28/18 11/05/18 11/05/18 17:00 levothyroxine 200 mcg PO QAM 10/28/18 11/05/18 11/05/18 06:00 losartan 100 mg PO QAM 10/28/18 11/05/18 11/05/18 09:00 magnesium oxide 400 mg PO QAM 10/28/18 11/05/18 11/05/18 08:00 nitroglycerin [Nitrostat] 0.4 mg SUBLINGUAL UD PRN 10/28/18 11/05/18 Unknown lidocaine 1 patch TRANSDERMAL QAM #1 ea 11/03/18 11/05/18 11/05/18 08:00 acetaminophen [Mapap 650 mg PO Q4H PRN 11/05/18 11/05/18 11/05/18 09:33 (acetaminophen)] clonidine HCl 0.1 mg PO Q12H PRN 11/05/18 11/05/18 Unknown multivitamin with minerals 1 tab PO QAM 11/05/18 11/05/18 11/05/18 08:00 [Multiple Vitamin-Minerals] tramadol 100 mg PO Q6H PRN 11/05/18 11/05/18 11/05/18 16:16 warfarin 5 mg PO DIRECTED 11/05/18 11/05/18 11/04/18 16:00 10 MG Active Medications Generic Name Dose Route Start Last Admin Trade Name Freq PRN Reason Stop Dose Admin Hydromorphone HCl 0.5 mg 11/05/18 17:51 11/05/18 18:40 Dilaudid IV 11/19/18 17:50 0.5 mg Q15M PRN Administration Pain Sodium Chloride 1,000 mls @ 100 mls/hr 11/05/18 18:00 11/05/18 20:25 Nss 1000ml IV 11/06/18 03:59 100 mls/hr .Q10H MOOK Administration Past Medical History Medical History Hypertension (Chronic) Kidney disease (Chronic) Acute coronary syndrome (Chronic) Atrial flutter (Chronic) Leukocytosis Past Family History Family History Father CVA (cerebral vascular accident) Social History Smoking Status: Never smoker Hx Alcohol Use: No Hx Substance Use: No Physical Exam Vital Signs Last Vital Signs Temp 36.6 C 11/05/18 17:41 Pulse 58 L 11/05/18 20:55 Resp 18 11/05/18 20:55 BP 165/73 H 11/05/18 21:00 Pulse Ox 99 11/05/18 20:55 Constitutional + obese ENMT Mouth: + edentulous; no TMJ abnormality Thyromental Distance: > or= 3.5 Finger Breadths Mallampati Class: III Neck normal visual inspection and + thick neck Respiratory normal respiratory effort Cardiovascular Rate/Rhythm: regular rate; + abnormal rhythm (irregular) Neurologic moves all extremities (minimal movement of bilateral lower extremities) Psychiatric Orientation: alert Testing Electrocardiogram Date: 10/28/18 Findings: + AFIB @ (Aflutter at 54) Chest X-Ray Findings: + NAD Echocardiogram Date: 08/28/15 EF: 55% Cardiac Catheterization Date: 10/19/15 Intervention: + BMS placed (LAD, RCA stents patent) Laboratory Results 11/05/18 18:10 11/05/18 18:10 Blood Type Cancelled 11/05/18 20:28 Antibody Screen Cancelled 11/05/18 20:28 PT 13.0 Seconds (9.0-12.0) H 11/05/18 18:10 INR 1.3 (0.9-1.1) H 11/05/18 18:10 APTT 35.2 Seconds (21.0-31.0) H 11/05/18 18:10
[2018-11-05] MEDS ORDERED: fentaNYL citrate 100 MCG/2 ML VIAL ONE ×2 (21:38→23:24)
[2018-11-05] MEDS ORDERED: CEFAZOLIN 2000MG 2,000 MG/15 ML SYR IV SCH (22:15)
[2018-11-05] MEDS ORDERED: FLOSEAL HEMOSTATIC MATRIX 10ML TOP ONE (22:28)
[2018-11-05 22:48] LABS: Hematocrit (blood only) 25.9 % (37-47); Hemoglobin 8.9 g/dL (12.0-16.0)
[2018-11-05] MEDS ORDERED: PROPOFOL IV EMULSION 10 MG/ML 20 ML VIAL IV ONE (23:23)
[2018-11-05] MEDS ORDERED: ROCURONIUM BROMIDE 10 MG/ML 5 ML VIAL ONE (23:23)
[2018-11-05] MEDS ORDERED: ONDANSETRON INJ 2 MG/ML 2 ML VIAL ONE (23:24)
[2018-11-05] MEDS ORDERED: LIDOCAINE HCL 2% 2 ML VIAL/AMP(20MG/ML) INFIL ONE (23:24)
[2018-11-05] MEDS ORDERED: CEFAZOLIN 250 MG/ML 1 GM VIAL ONE (23:24)
[2018-11-05] MEDS ORDERED: HYDROCORTISONE SOD SUCCINATE 100 MG/2 ML VIAL ONE (23:24)
[2018-11-05] MEDS ORDERED: ePHEDrine sulfate 50 MG/ML SYR ONE (23:24)
[2018-11-05] MEDS ORDERED: PHENYLEPHRINE HCL 10 MG/ML VIAL ONE (23:24)
[2018-11-05] MEDS ORDERED: SUCCINYLCHOLINE CHLORIDE 20 MG/ML 10 ML VIAL ONE (23:24)
--- NOTE | 2018-11-05 23:55 | Post Operative Brief Note ---
Immediate Post Op Note v1 Date of Surgery November 05, 2018 Pre & Post Diagnosis Operation Date: 11/05/18 20:40 Pre-Op Diagnosis: cauda equina Post-Op Diagnosis: cauda equina Procedure Operation Date: 11/05/18 20:40 Actual Procedures p [id number] Laminectomy(Not Applicable) - Sebas Brown DO Surgeon Sebas Brown DO [address] Estimated Blood Loss 250 Findings Consistent with Post-Op Diagnosis Drains Rebolledo Catheter and Hemovac Drain
[2018-11-06] MEDS ORDERED: ATROPINE SULFATE 0.1 MG/ML 10ML SYR IV PRN (00:08)
[2018-11-06] MEDS ORDERED: ePHEDrine sulfate 50 MG/ML AMP IV PRN (00:08)
[2018-11-06] MEDS ORDERED: ONDANSETRON INJ 2 MG/ML 2 ML VIAL IV PRN ×2 (00:08→01:34)
[2018-11-06] MEDS ORDERED: fentaNYL citrate 100 MCG/2 ML VIAL IV PRN (00:08)
[2018-11-06] MEDS ORDERED: LABETALOL HCL IV 5 MG/ML 20ML IV PRN (00:08)
[2018-11-06] MEDS ORDERED: LABETALOL HCL IV 5 MG/ML 20ML IV ONE (00:15)
[2018-11-06] MEDS: HYDROmorphone INJ 0.5 MG/0.5 ML SYR IV PRN (00:29)
--- NOTE | 2018-11-06 01:22 | Emergency Department Note ---
Entered by Jennifer Campos acting as a scribe for ED Provider Note CHIEF COMPLAINT: Bilateral leg numbness HISTORY OF PRESENT ILLNESS: The patient is an 83 year old female that presents to the ER with complaints of a worsening bilateral lower extremity numbness that began about 1.5 weeks ago. The patient reports that she fell 1.5 weeks ago. The patient states that she has also had pain in her legs which she rates an 8/10. She denies having pacemaker in place. Pt denies LOC, headache, fevers, chills, diaphoresis, visual changes, neck pain , chest pain, breathing difficulties, nausea, vomiting, abdominal pain, melena , hematochezia, urinary symptoms, lymphadenopathy, rash, or other complaints. EMR notes from [facility] show that the patient presents from [facility] where she was at for short-term rehab after being hospitalized for a fall that occurred 1.5 weeks ago. Per EMS, the patient suffered a contusion to her back but recent imaging showed no new fracture. EMR shows that the patient reported to her daughter yesterday that her feet and legs were numb and that she reported the same today during therapy and noted that she felt as if she could not move her right leg at all. Per EMR, the patient did have 2 episodes of urinary incontinence which is acute today, but is on chronic Coumadin for a- fib. EMR notes that during her recent hospitalization the patient had a supratherapeutic INR and this trended downward. she was found to be subtherapeutic and placed of Lovenox and Coumadin restarted. She is also taking aspirin. The patients INR yesterday was 1.31. She had some dysuria yesterday and got urinalysis but culture is not back yet. REVIEW OF SYSTEMS: See HPI for pertinent positives and negatives. A total of ten systems were reviewed and were otherwise negative. PMHx/PSHx: Stented coronary artery, CAD, appendectomy, hysterectomy, hypertension, type 2 diabetes, a-fib. SOCIAL HISTORY: Patient lives at home. PHYSICAL EXAM: GENERAL: Awake, alert, well-appearing, in no distress HENT: Normocephalic, atraumatic. Oropharynx unremarkable. EYES: Normal conjunctiva. Sclera non-icteric. NECK: Inspection normal. Non-tender. Supple. No nuchal rigidity. FROM. No masses. RESPIRATORY: Clear to auscultation. No wheezes. No rales. Normal respiratory effort. CARDIAC: Normal rate. Normal rhythm. No murmurs. No rubs. Extremities warm and well perfused. Pulses equal. No JVD. GI: Soft, non-distended. No tenderness to palpation. No rebound or guarding. No masses. RECTAL: Deferred. MUSCULOSKELETAL: Atraumatic. Chest examination reveals no tenderness. The back is symmetrical on inspection without obvious abnormality. There is no CVA tenderness to palpation. No joint edema. LOWER EXTREMITIES: Calves are equal size bilaterally and non-tender. No edema. No discoloration. NEURO: Normal sensorium. No sensory or motor deficits noted. Dorsiflexion is 2.5 /5 bilaterally. Plantar flexion 4/5 on the Right and 3/5. Hip flexion is 2.5/ 5. Decreased sensation in lower extremities. SKIN: No rash or jaundice noted. EMERGENCY DEPARTMENT COURSE: 1734: Past medical records reviewed. The patient was evaluated in room B4B, and a complete history and physical examination were performed. 1756: I discussed the patients imaging with Dr. Lozada - Radiology. 1954: I reviewed the patient's case with Dr. Brown - Ortho- Spine Surgery. He will evaluate the patient for further management. 2004: I reviewed the patient's case with Dr. Falk - [facility] Hospitalist. He will evaluate the patient for further management. 2013: I discussed the patient's case with Dr. Escobar. She recommends we do not administer Kcentra secondary to INR levels. She also recommends we do not administer protamine since it has been 12 hours since the patient last took Lovanex. Because the patient is on asprin and bleeding, she recommends 2 units of platelets. 2018: I updated Dr. Falk and obtained consent from patient for platelet transfusion. 2024: Dr. Brown is at bedside. I updated the patients family. MEDICAL DECISION MAKING: Prior records/ancillary studies reviewed. Triage Nursing notes reviewed and agree them. Additional history obtained from the family. The patient's history was concerning for back pain. Differential diagnosis: Etiologies such as fracture, aortic disease, metastatic disease, cord compression, discitis, infection, renal colic, gastrointestinal, lumbago, sciatica, cauda equina, as well as others were entertained. Physical findings: As above. Concerning for weakness in both lower extremities. ER treatment provided: IV Zofran IV Dilaudid Supplemental oxygen Platelet transfusion On reassessment the patient felt better. Diagnostics interpreted by me: ECG: No acute ischemia. The labs revealed a mild anemia on CBC. No leukocytosis. The patient's chemistry panel was unremarkable except for hyponatremia which appears to be chronic. INR was low at 1.3. Imaging studies: MRI of the lumbosacral spine was performed and was concerning for an epidural hematoma causing cauda equina syndrome. Consultation: I did discuss the case with radiology. I placed an emergent consult with orthopedic spine. After discussion with orthopedic spine the patient was in need of medical consultation and medical admission. Patient was evaluated by orthopedics and internal medicine in the emergency department. She was taken to the operative suite for emergent decompression of her cauda equina. IMPRESSION: Epidural hematoma and cauda equina syndrome, lower extremity weakness, hyponatremia, anemia, PLAN: Admit Impression & Plan Lower extremity weakness, Anemia, Hyponatremia, Epidural hematoma, Cauda equina syndrome Past Med/Surg History Medical History Hypertension (Chronic) Kidney disease (Chronic) Acute coronary syndrome (Chronic) Atrial flutter (Chronic) Leukocytosis Family History Father CVA (cerebral vascular accident) Social History Current Living Situation: Alone Feels Safe at Home: Yes Smoking Status: Never smoker Second Hand Exposure: No Hx Alcohol Use: No Hx Substance Use: No Preferred Language: Persian Results & Data Vital Signs Vital Signs - 24 hr 11/05/18 17:41 11/05/18 17:51 11/05/18 19:25 Temperature 36.6 C Temperature Source Oral Sepsis Recent Fever Within 48 Hours No Sepsis New/Unexplained Change in Mental Status No Sepsis Action Taken by Nursing No Action Required Pulse Rate 57 L Pulse Rate [Apical] 82 Pulse Rhythm [Apical] Regular Pulse Strength [Apical] Normal Respiratory Rate 20 20 Respiratory Effort / Characteristics Non-Labored Respiratory Depth Normal Respiratory Pattern Regular Blood Pressure 179/70 H Blood Pressure [Right Arm] 159/66 H Blood Pressure Mean 106 Blood Pressure Mean [Right Arm] 97 Blood Pressure Position [Right Arm] Sitting Pulse Oximetry 95 95 Oxygen Delivery Method Room Air Room Air Room Air Oxygen Flow Rate 11/05/18 20:55 11/05/18 21:00 11/06/18 00:01 Temperature 36.4 C L Temperature Source Temporal Artery Scan Sepsis Recent Fever Within 48 Hours Sepsis New/Unexplained Change in Mental Status Sepsis Action Taken by Nursing Pulse Rate Pulse Rate [Apical] 58 L 104 H Pulse Rhythm [Apical] Regular Pulse Strength [Apical] Normal Respiratory Rate 18 20 Respiratory Effort / Characteristics Non-Labored Spontaneous Normal for Patient Respiratory Depth Normal Respiratory Pattern Regular Blood Pressure Blood Pressure [Right Arm] 165/73 H 236/168 H Blood Pressure Mean Blood Pressure Mean [Right Arm] 103 190 Blood Pressure Position [Right Arm] Lying Pulse Oximetry 99 100 Oxygen Delivery Method Nasal Cannula Oxymask Oxygen Flow Rate 2 15 11/06/18 00:11 11/06/18 00:15 11/06/18 00:21 Temperature 36.4 C L 36.4 C L 35.7 C L Temperature Source Temporal Artery Scan Oral Temporal Artery Scan Sepsis Recent Fever Within 48 Hours Sepsis New/Unexplained Change in Mental Status Sepsis Action Taken by Nursing Pulse Rate Pulse Rate [Apical] 91 H 90 92 H Pulse Rhythm [Apical] Regular Regular Regular Pulse Strength [Apical] Normal Normal Normal Respiratory Rate 16 18 29 H Respiratory Effort / Characteristics Normal for Patient Non-Labored Spontaneous Normal for Patient Non-Labored Spontaneous Normal for Patient Respiratory Depth Normal Normal Normal Respiratory Pattern Regular Regular Regular Blood Pressure Blood Pressure [Right Arm] 245/125 H 230/155 H 231/125 H Blood Pressure Mean Blood Pressure Mean [Right Arm] 165 180 160 Blood Pressure Position [Right Arm] Lying Lying Lying Pulse Oximetry 100 100 100 Oxygen Delivery Method Oxymask Oxymask Oxymask Oxygen Flow Rate 2 2 2 11/06/18 00:25 11/06/18 00:35 11/06/18 00:37 Temperature 35.8 C L 35.6 C L Temperature Source Temporal Artery Scan Temporal Artery Scan Sepsis Recent Fever Within 48 Hours Sepsis New/Unexplained Change in Mental Status Sepsis Action Taken by Nursing Pulse Rate Pulse Rate [Apical] 84 79 Pulse Rhythm [Apical] Regular Regular Pulse Strength [Apical] Normal Normal Respiratory Rate 24 12 Respiratory Effort / Characteristics Non-Labored Spontaneous Normal for Patient Non-Labored Spontaneous Respiratory Depth Normal Normal Respiratory Pattern Regular Regular Blood Pressure Blood Pressure [Right Arm] 251/181 H 233/83 H Blood Pressure Mean Blood Pressure Mean [Right Arm] 204 133 Blood Pressure Position [Right Arm] Lying Lying Pulse Oximetry 99 79 L 93 Oxygen Delivery Method Room Air Room Air Nasal Cannula Oxygen Flow Rate 4 11/06/18 00:42 11/06/18 00:50 11/06/18 00:51 Temperature 35.7 C L Temperature Source Temporal Artery Scan Sepsis Recent Fever Within 48 Hours Sepsis New/Unexplained Change in Mental Status Sepsis Action Taken by Nursing Pulse Rate Pulse Rate [Apical] 87 97 H Pulse Rhythm [Apical] Regular Regular Pulse Strength [Apical] Normal Respiratory Rate 17 19 Respiratory Effort / Characteristics Non-Labored Spontaneous Normal for Patient Non-Labored Spontaneous Normal for Patient Respiratory Depth Normal Normal Respiratory Pattern Regular Regular Blood Pressure Blood Pressure [Right Arm] 215/125 H 204/104 H 223/89 H Blood Pressure Mean Blood Pressure Mean [Right Arm] 155 137 133 Blood Pressure Position [Right Arm] Lying Lying Lying Pulse Oximetry 100 100 Oxygen Delivery Method Nasal Cannula Nasal Cannula Oxygen Flow Rate 4 4 11/06/18 00:56 Temperature 35.6 C L Temperature Source Oral Sepsis Recent Fever Within 48 Hours Sepsis New/Unexplained Change in Mental Status Sepsis Action Taken by Nursing Pulse Rate Pulse Rate [Apical] 78 Pulse Rhythm [Apical] Regular Pulse Strength [Apical] Normal Respiratory Rate 18 Respiratory Effort / Characteristics Non-Labored Spontaneous Normal for Patient Respiratory Depth Normal Respiratory Pattern Regular Blood Pressure Blood Pressure [Right Arm] 209/86 H Blood Pressure Mean Blood Pressure Mean [Right Arm] 127 Blood Pressure Position [Right Arm] Lying Pulse Oximetry 100 Oxygen Delivery Method Nasal Cannula Oxygen Flow Rate 4 Home Medications Current Medication List: was personally reviewed by me Laboratory Data Attestation: I reviewed the patient's lab results. Result diagrams: 11/05/18 22:40 11/05/18 18:10 Lab Results 11/05/18 11/05/18 11/05/18 Range/Units 18:10 18:10 18:10 WBC 8.34 (4.8-10.8) K/uL RBC 3.17 L (4.2-5.4) M/uL Hgb 10.1 L (12.0-16.0) g/dL Hct 29.8 L (37-47) % MCV 94.0 (80-100) fL MCH 31.9 (25-34) pg MCHC 33.9 (32-36) g/dL RDW Std Deviation 49.3 H (36.4-46.3) fL RDW Coeff of Taylor 14.4 (11.5-14.5) % Plt Count 311 (130-400) K/uL MPV 9.5 (7.4-10.4) fL Immature Gran % (Auto) 0.2 % Neut % (Auto) 71.7 % Lymph % (Auto) 13.1 % Brantley % (Auto) 14.0 % Eos % (Auto) 0.6 % Baso % (Auto) 0.4 % Immature Gran # (Auto) 0.02 (0.00-0.02) K/uL Neut # (Auto) 5.98 (1.4-6.5) K/uL Lymph # (Auto) 1.09 L (1.2-3.4) K/uL Brantley # (Auto) 1.17 H (0.11-0.59) K/uL Eos # (Auto) 0.05 (0-0.5) K/uL Baso # (Auto) 0.03 (0-0.2) K/uL PT 13.0 H (9.0-12.0) Seconds INR 1.3 H (0.9-1.1) APTT 35.2 H (21.0-31.0) Seconds PTT Ratio 1.3 Sodium 127 L (136-145) mmol/L Potassium 4.0 (3.5-5.1) mmol/L Chloride 97 L (98-107) mmol/L Carbon Dioxide 25 (21-32) mmol/L Anion Gap 5.0 (3-11) BUN 29 H (7-18) mg/dl Creatinine 1.17 (0.6-1.2) mg/dl Est Cr Clr Drug Dosing 34.5 ml/min Est GFR ( Amer) 49.2 Est GFR (Non-Af Amer) 42.5 BUN/Creatinine Ratio 24.5 H (10-20) Glucose 114 H (70-99) mg/dl Calcium 8.3 L (8.5-10.1) mg/dl Total Bilirubin 0.7 (0.2-1) mg/dl AST 29 (15-37) U/L ALT 28 (12-78) U/L Alkaline Phosphatase 48 (45-117) U/L Total Protein 6.5 (6.4-8.2) gm/dl Albumin 2.9 L (3.4-5.0) gm/dl Globulin 3.6 (2.5-4.0) gm/dl Albumin/Globulin Ratio 0.8 L (0.9-2) Lipase 92 (73-393) U/L Blood Type Blood Type Recheck Antibody Screen Crossmatch 11/05/18 11/05/18 11/05/18 Range/Units 20:28 20:28 21:57 WBC (4.8-10.8) K/uL RBC (4.2-5.4) M/uL Hgb (12.0-16.0) g/dL Hct (37-47) % MCV (80-100) fL MCH (25-34) pg MCHC (32-36) g/dL RDW Std Deviation (36.4-46.3) fL RDW Coeff of Taylor (11.5-14.5) % Plt Count (130-400) K/uL MPV (7.4-10.4) fL Immature Gran % (Auto) % Neut % (Auto) % Lymph % (Auto) % Brantley % (Auto) % Eos % (Auto) % Baso % (Auto) % Immature Gran # (Auto) (0.00-0.02) K/uL Neut # (Auto) (1.4-6.5) K/uL Lymph # (Auto) (1.2-3.4) K/uL Brantley # (Auto) (0.11-0.59) K/uL Eos # (Auto) (0-0.5) K/uL Baso # (Auto) (0-0.2) K/uL PT (9.0-12.0) Seconds INR (0.9-1.1) APTT (21.0-31.0) Seconds PTT Ratio Sodium (136-145) mmol/L Potassium (3.5-5.1) mmol/L Chloride (98-107) mmol/L Carbon Dioxide (21-32) mmol/L Anion Gap (3-11) BUN (7-18) mg/dl Creatinine (0.6-1.2) mg/dl Est Cr Clr Drug Dosing ml/min Est GFR ( Amer) Est GFR (Non-Af Amer) BUN/Creatinine Ratio (10-20) Glucose (70-99) mg/dl Calcium (8.5-10.1) mg/dl Total Bilirubin (0.2-1) mg/dl AST (15-37) U/L ALT (12-78) U/L Alkaline Phosphatase (45-117) U/L Total Protein (6.4-8.2) gm/dl Albumin (3.4-5.0) gm/dl Globulin (2.5-4.0) gm/dl Albumin/Globulin Ratio (0.9-2) Lipase (73-393) U/L Blood Type Cancelled A Negative Blood Type Recheck A Negative Antibody Screen Cancelled NEGATIVE Crossmatch See Detail See Detail 11/05/18 Range/Units 22:40 WBC (4.8-10.8) K/uL RBC (4.2-5.4) M/uL Hgb 8.9 L (12.0-16.0) g/dL Hct 25.9 L (37-47) % MCV (80-100) fL MCH (25-34) pg MCHC (32-36) g/dL RDW Std Deviation (36.4-46.3) fL RDW Coeff of Taylor (11.5-14.5) % Plt Count (130-400) K/uL MPV (7.4-10.4) fL Immature Gran % (Auto) % Neut % (Auto) % Lymph % (Auto) % Brantley % (Auto) % Eos % (Auto) % Baso % (Auto) % Immature Gran # (Auto) (0.00-0.02) K/uL Neut # (Auto) (1.4-6.5) K/uL Lymph # (Auto) (1.2-3.4) K/uL Brantley # (Auto) (0.11-0.59) K/uL Eos # (Auto) (0-0.5) K/uL Baso # (Auto) (0-0.2) K/uL PT (9.0-12.0) Seconds INR (0.9-1.1) APTT (21.0-31.0) Seconds PTT Ratio Sodium (136-145) mmol/L Potassium (3.5-5.1) mmol/L Chloride (98-107) mmol/L Carbon Dioxide (21-32) mmol/L Anion Gap (3-11) BUN (7-18) mg/dl Creatinine (0.6-1.2) mg/dl Est Cr Clr Drug Dosing ml/min Est GFR ( Amer) Est GFR (Non-Af Amer) BUN/Creatinine Ratio (10-20) Glucose (70-99) mg/dl Calcium (8.5-10.1) mg/dl Total Bilirubin (0.2-1) mg/dl AST (15-37) U/L ALT (12-78) U/L Alkaline Phosphatase (45-117) U/L Total Protein (6.4-8.2) gm/dl Albumin (3.4-5.0) gm/dl Globulin (2.5-4.0) gm/dl Albumin/Globulin Ratio (0.9-2) Lipase (73-393) U/L Blood Type Blood Type Recheck Antibody Screen Crossmatch Administered Medications Hydromorphone HCl (Dilaudid) 0.5 mg IV Q15M PRN PRN Reason: Pain Stop: 11/19/18 17:50 Last Admin: 11/06/18 00:29 Dose: 0.5 mg Admin: 11/05/18 18:40 Dose: 0.5 mg Sodium Chloride (Nss 1000ml) 1,000 mls @ 100 mls/hr IV .Q10H MOOK Stop: 11/06/18 03:59 Last Admin: 11/05/18 20:25 Dose: 100 mls/hr Cefazolin Sodium (Ancef 2000mg) 2,000 mg in 15 mls @ 3.75 mls/min IV ONCE MOOK; Protocol Stop: 11/06/18 22:14 Last Admin: 11/05/18 22:09 Dose: 3.75 mls/min Labetalol HCl (Normodyne) 5 mg IV Q5M PRN PRN Reason: PACU Use-SBP>160 or DBP>100 Stop: 11/06/18 05:08 Last Admin: 11/06/18 00:49 Dose: 5 mg Discontinued Medications Bacitracin (Bacitracin) Confirm Administered Dose 50,000 units .ROUTE .STK-MED ONE Stop: 11/05/18 20:18 Last Admin: 11/05/18 23:46 Dose: 50,000 units Bupivacaine HCl/Epinephrine Bitart (Sensorcaine/Epinephrine 0.5% Mpf 1:200,000) Confirm Administered Dose 60 ml .ROUTE .STK-MED ONE Stop: 11/05/18 20:19 Last Admin: 11/05/18 23:47 Dose: Not Given Gelatin (Surgifoam Sponge 100 (Large)) Confirm Administered Dose 1 ea .ROUTE .STK-MED ONE Stop: 11/05/18 20:17 Last Admin: 11/05/18 23:45 Dose: 1 ea Gelatin (Surgifoam Sponge 100 (Large)) Confirm Administered Dose 1 ea .ROUTE .STK-MED ONE Stop: 11/05/18 23:19 Last Admin: 11/05/18 23:47 Dose: 1 ea Labetalol HCl (Normodyne) Confirm Administered Dose 5 mg IV .STK-MED ONE Stop: 11/06/18 00:16 Last Admin: 11/06/18 00:17 Dose: 5 mg Miscellaneous (Floseal Hemostatic Matrix 10ml) 10 ml TOP ONCE ONE Stop: 11/05/18 22:29 Last Admin: 11/05/18 23:47 Dose: 15 ml Ondansetron HCl (Zofran) 4 mg IV NOW STA Stop: 11/05/18 17:52 Last Admin: 11/05/18 18:40 Dose: 4 mg Thrombin (Recothrom Kit) Confirm Administered Dose 20,000 units .ROUTE .STK-MED ONE Stop: 11/05/18 20:18 Last Admin: 11/05/18 23:47 Dose: 20,000 units Vancomycin HCl (Vancomycin Hcl) Confirm Administered Dose 100 mg .ROUTE .STK- MED ONE Stop: 11/05/18 20:17 Last Admin: 11/05/18 23:46 Dose: 100 mg Imaging Data Radiologist's Impression: Radiology results as stated below per my review and the radiologist's interpretation: LUMBAR SPINE MRI HISTORY: Lumbar and thoracic pain, incontinence, LE numb TECHNIQUE: Multiplanar multisequence MRI of the lumbar spine was performed without the use of contrast. COMPARISON: Lumbar spine CT 10/28/2018. FINDINGS: For the purpose of the report the L5-S1 disc space will be located on axial image 39 of 41. Mild discharge scoliosis of the lumbar spine. 4 mm of retrolisthesis of L1 on L2. There is fluid at the T12-L1 disc space. Severe disc space narrowing at L1- L2 and L2-L3. Moderate to space narrowing at L3-L4. Mild disc space narrowing at L4-L5 and L5-S1. Severe facet degenerative changes throughout the majority of the lumbar spine. The contrast to its at the L1 level. Marrow edema at the T12 and L1 vertebral bodies. No fractures identified within the lumbar spine. Mild subcutaneous trace edema within the lumbar region. Minimal paraspinal edema at the T12-L1 level. There is abnormal T1 and T2 heterogeneous signal abnormality within the epidural space from the T12 through the L3 level. At the T12 location the epidural abnormality is seen posterior to the T12 vertebral body and measures 9 mm. This results in displacement and compression of the conus. The remaining epidural component is seen along the posterior epidural space and results in multilevel severe central canal narrowing at the L2 and L3 vertebral body levels. The total extent of this abnormal epidural collection measures approximately 9 centers in length and up to 1 cm in thickness. The signal characteristics favor an epidural hematoma. An epidural abscess could also a similar appearance but is considered less likely. T12-L1: Large calcified disc extrusion with inferior subligamentous migration. This was also identified on the prior CT examination. This measures 2.5 x 1.1 x 0.8 cm. This is primarily located posterior to the L1 vertebral body. This results in severe central canal narrowing at this level. L1-L2: Broad-based posterior disc bulge with the abnormal posterior upper dural abnormality resulting in severe central canal narrowing. This appears to compress the cauda equina. Severe bilateral neural foraminal narrowing. L2-L3: Broad-based posterior disc bulge with the posterior dura abnormality resulting in severe central canal narrowing with compression of the cauda equina. Moderate to severe bilateral neural foraminal narrowing. L3-L4: Small broad-based posterior disc bulge with the posterior epidural abnormality resulting in severe central canal narrowing. Moderate to severe bilateral neural foraminal narrowing. L4-L5: Small broad-based posterior disc bulge resulting in mild central canal narrowing. There is moderate to severe bilateral neural foraminal narrowing. L5-S1: Small broad-based posterior disc bulge with a right paracentral focal disc protrusion. This results in moderate to severe bilateral neural foraminal narrowing. IMPRESSION: 1. Large heterogeneous epidural abnormality extending from the T12-L3 levels as described above. This results in multilevel severe central canal narrowing with compression of the conus and cauda equina. The signal characteristics favor a large epidural hematoma. An epidural abscess could also have a similar appearance but is considered less likely. 2. Fluid within the T12-L1 disc space with marrow edema at these vertebral body levels. This is likely due to long-standing degenerative change. A developing discitis/osteomyelitis at this level could also have a similar appearance but is considered less likely. Clinical correlation recommended. 3. Redemonstration of the large calcified disc extrusion extending from the T12- L1 level as described above. 4. No fractures identified. 5. These findings were discussed with Dr. Herbert at 7:43 PM on 11/05/2018. Electronically signed by: Mark Lozada M.D. 11/05/2018 7:43 PM Blood Pressure Blood Pressure Findings: Elevated blood pressure Blood Pressure Disposition: further management by hospitalist Discharge Plan Visit Data *Final* Discharge Date/Time: 11/05/18 20:57 Chief Complaint: Weakness Stated Complaint: LEG WEAKNESS ED Provider: Sebas Herbert Discharge Problem: Lower extremity weakness, Anemia, Hyponatremia, Epidural hematoma, Cauda equina syndrome Patient Disposition: Being Evaluated by Surgeon Discharge Instructions Interventions: ED Discharge Assessment Last Done: 11/05/18 20:57 Critical Care Time Critical Care Time: Yes Total Critical Care Time: 60 Attestation: I have personally spent 60 minutes of critical care time in the direct management of this patient. This includes bedside care, interpretation of diagnostic studies and testing, discussion with consultants, patient, and family members, and other required patient management activities. These 60 minutes is in excess of all separately billable procedures. The scribe's documentation has been prepared under my direction and personally reviewed by me in its entirety. I confirm that the note above accurately reflects all work, treatment, procedures, and medical decision making performed by me.
[2018-11-06] MEDS ORDERED: NITROGLYCERIN SL 0.4 MG/TAB TAB SL PRN (01:34)
[2018-11-06] MEDS ORDERED: SODIUM CHLORIDE 0.9% 1000ML 1,000 ML IV SCH (01:34)
[2018-11-06] MEDS ORDERED: MAGNESIUM HYDROXIDE SUSP 30 ML UDC PO PRN (01:34)
[2018-11-06] MEDS ORDERED: cloNIDine HCl 0.1 MG TAB PO PRN (01:34)
[2018-11-06] MEDS ORDERED: dexAMETHasone 6 MG in SYRINGE 0 ML IV SCH (01:34)
--- NOTE | 2018-11-06 02:02 | Anesthesiology Progress Note ---
Date of Service November 06, 2018 Anesthesia Post Procedure Vital Signs Vital Signs: Temp Pulse Pulse Resp BP BP Pulse Ox 11/06/18 00:56 35.6 C L 78 18 209/86 H 100 11/06/18 00:51 223/89 H 11/06/18 00:50 97 H 19 204/104 H 100 11/06/18 00:42 35.7 C L 87 17 215/125 H 100 11/06/18 00:37 233/83 H 93 11/06/18 00:35 35.6 C L 79 12 79 L 11/06/18 00:25 35.8 C L 84 24 251/181 H 99 11/06/18 00:21 35.7 C L 92 H 29 H 231/125 H 100 11/06/18 00:15 36.4 C L 90 18 230/155 H 100 11/06/18 00:11 36.4 C L 91 H 16 245/125 H 100 11/06/18 00:01 36.4 C L 104 H 20 236/168 H 100 11/05/18 21:00 165/73 H 11/05/18 20:55 58 L 18 99 11/05/18 19:25 82 20 159/66 H 95 11/05/18 17:41 36.6 C 57 L 20 179/70 H 95 Pain Intensity Bilateral Leg: Pain Intensity: 4 Notes Mental Status: alert / awake / arousable Patient Amnestic to Procedure: Yes Nausea / Vomiting: adequately controlled Pain: adequately controlled Airway Patency, RR, SpO2: stable & adequate BP & HR: stable & adequate Hydration State: stable & adequate Anesthetic Complications: no major complications apparent
[2018-11-06] MEDS: DEXAMETHASONE SOD PHOSPHATE 6 MG in SYRINGE 0 ML IV SCH ×3 (02:39→16:50)
[2018-11-06] MEDS ORDERED: HydrALAZINE HCL 20 MG/ML VIAL IV STA (02:53)
[2018-11-06] MEDS: OXYCODONE HCL IR 5 MG TAB (IMMEDIATE RELEASE) PO PRN ×2 (04:17→08:02)
[2018-11-06 05:03] LABS: Basophils # (auto) 0.02 K/uL (0-0.2); Basophils % (auto) 0.1 %; Eosinophils # (auto) 0.01 K/uL (0-0.5); Eosinophils % (auto) 0.1 %; Hematocrit (blood only) 28.9 % (37-47); Hemoglobin 9.8 g/dL (12.0-16.0); Immature Granulocytes # (auto) 0.04 K/uL (0.00-0.02); Immature Granulocytes % (auto) 0.3 %; Lymphocytes # (auto) 0.53 K/uL (1.2-3.4); Lymphocytes % (auto) 3.6 %; Mean Corpuscular Hgb Conc 33.9 g/dL (32-36); Mean Corpuscular Volume 92.6 fL (80-100); Mean Platelet Volume 9.6 fL (7.4-10.4); Monocytes # (auto) 1.01 K/uL (0.11-0.59); Monocytes % (auto) 6.8 %; Neutrophils # (auto) 13.15 K/uL (1.4-6.5); Neutrophils % (auto) 89.1 %; Platelet Count 259 K/uL (130-400); RDW Coefficient of Variation 15.3 % (11.5-14.5); RDW Standard Deviation 52.3 fL (36.4-46.3); Red Blood Count 3.12 M/uL (4.2-5.4); White Blood Count 14.76 K/uL (4.8-10.8)
[2018-11-06 05:20] LABS: Appearance Urine Clear (Clear); Bacteria Urine Automated Negative (Negative); Bilirubin Urine Negative (Negative); Blood Urine Negative (Negative); Color Urine Yellow; Glucose Urine UA Negative (Negative); Ketones Urine Negative (Negative); Leukocyte Esterase Urine Negative (Negative); Nitrite Urine Negative (Negative); Protein Urine Trace (Negative); RBC Urine Automated 0-4 /hpf (0-4); Specific Gravity Urine 1.018 (1.000-1.030); Urobilinogen Urine Negative (Negative)
[2018-11-06] MEDS: LEVOTHYROXINE SODIUM 200 MCG TABLET PO SCH (05:50)
--- NOTE | 2018-11-06 06:46 | Fluoroscopy Report ---
FL spine 1V any level CLINICAL HISTORY: 83 years-old Female presenting with LAMI. TECHNIQUE: 2 fluoroscopic image(s) recorded as part of an intraoperative procedure. COMPARISON: MR from 11/05/2018. FINDINGS/IMPRESSION: Surgical and she mentation projects over the posterior lumbar spine. Please see surgical report for further details. Fluoroscopy dosage (mGy): 9.98. Fluoroscopy time: 16.3 seconds. Number or time of fluoroscopic spot images: 0. Electronically signed by: Steve Resendiz M.D. 11/06/2018 6:45 AM
[2018-11-06] MEDS: LABETALOL HCL 100 MG TAB PO SCH ×2 (07:44→20:47)
[2018-11-06] MEDS: LOSARTAN POTASSIUM 50 MG TAB PO SCH (07:44)
[2018-11-06] MEDS: DOCUSATE SODIUM 100 MG CAP PO SCH ×2 (07:44→20:48)
[2018-11-06] MEDS: FUROSEMIDE 20 MG TAB PO SCH (07:44)
[2018-11-06] MEDS: CYANOCOBALAMIN 500 MCG TABLET (VITAMIN B-12) PO SCH (07:45)
[2018-11-06] MEDS: ISOSORBIDE MONO EXTENDED REL 60 MG TABCR PO SCH (07:45)
[2018-11-06] MEDS: FERROUS SULFATE 325 MG TAB PO SCH (07:45)
[2018-11-06] MEDS: GABAPENTIN 100 MG CAP PO SCH ×3 (07:45→20:46)
[2018-11-06] MEDS: MAGNESIUM OXIDE 400 MG TAB PO SCH (07:45)
[2018-11-06] MEDS: CALCIUM 600MG + VIT D 400 IU TAB PO SCH ×2 (07:46→20:48)
[2018-11-06] MEDS: CEFAZOLIN 2000MG 2,000 MG/15 ML SYR IV SCH ×3 (07:47→23:05)
--- NOTE | 2018-11-06 08:41 | Progress Note ---
DATE: 11/06/2018 SUBJECTIVE: She is alert and oriented, starting to get some strength back to her lower extremities. No chest pain, shortness of breath. OBJECTIVE: Vital signs stable, afebrile. LABORATORY DATA: White cell count 14.7, hemoglobin is up to 9.8, hematocrit 28.9. ASSESSMENT: Status post urgent decompression for cauda equina syndrome last evening. Doing well and seems to be improving in the short run. Medically stable. PLAN: Will get involved with some physical therapy. She will need rehab placement. I think she is safe to go up to a regular floor within 12-24 hours.
--- NOTE | 2018-11-06 09:07 | Operative Report ---
DATE OF OPERATION: 11/06/2018 PREOPERATIVE DIAGNOSIS: Severe cauda equina syndrome, lumbar spine with multilevel hematoma in the lumbar area. POSTOPERATIVE DIAGNOSIS: Severe cauda equina syndrome, lumbar spine with multilevel hematoma in the lumbar area. PROCEDURE: Included an urgent decompression of spinal canal from thoracic 12 down to lumbar 4, irrigation and debridement, and washout and decompression of spinal canal and hematoma. SURGEON: Sebas Brown DO CLINICAL TRANSPLANT COORDINATOR: Rd Hines PA-C. COMPLICATIONS: No apparent complications. BLOOD LOSS: 250. ANESTHETIC: General. TRANSFUSIONS: The patient did receive 2 units of packed RBCs during the course of the procedure. DESCRIPTION OF PROCEDURE: The patient was taken the operating room after an Emergency Room consultation. She had an urgent issue with a profound cauda equina syndrome with bladder retention versus incontinence and profound weakness to lower extremities. We had her to the operating room within 2 hours. She was intubated, placed prone, scrubbed, prepped and draped sterile. I made a skin incision, fascial incision. We put in some deep self-retaining retractors spanning from thoracic 12 down to the L3-4 interspace. We carefully and meticulously decompressed the lamina of 4, 3, 2, 1, 12, and 11 of the thoracic spine. It was multilevel decompression. The bulk of the hematoma was located roughly around L1, L2, L3 of the spine. We were able to decompress the hematoma readily. I felt the dura came back to inflation. Nerve roots were probed. There was no obvious obstruction or pressure. We irrigated thoroughly. We closed over 2 Hemovac drains with 1 Vicryl suture, 2-0 and staple gun. She was returned supine. She was extubated. She was returned to recovery room, which in this case was the ICU in improved stable condition. No apparent intraoperative complications. EBL to 250 mL and sponge and needle count correct at the close. I attest to the content of the Intraoperative Record and any orders documented therein. Any exception s are noted below.
[2018-11-06 09:40] LABS: BUN Creatinine Ratio 24.7 (10-20); Calcium 7.4 mg/dl (8.5-10.1); Creatinine Clr Calc Pharmacy 47.9 ml/min; Est GFR (African American) 69.4; Est GFR (Non-African American) 59.9; Potassium 4.1 mmol/L (3.5-5.1)
[2018-11-06] MEDS ORDERED: COUGH DROP (SUGAR FREE) LOZ 24 LOZ/1 BOX BUCCAL ONE (10:57)
--- NOTE | 2018-11-06 17:05 | Critical Care Consultation ---
Date of Consultation November 06, 2018 Assessment & Plan (1) Cauda equina compression: Impression: 1. Cauda equina syndrome secondary to epidural hematoma after fall. 2. Coagulopathy, reversed. 3. History of A. fib, rate controlled. 4. Right lower extremity weakness secondary to radiculopathy and nerve compression from epidural hematoma. Improving 5. History of coronary artery disease in the past. Plan: 1. Agree with reversal of coagulopathy. 2. Appreciate Dr. pan input. 3. Continue cefazolin. 4. Continue with dexamethasone. 5. Glucose control. 6. Discontinue IV fluid as the patient is developing hyponatremia. 7. Discontinue A-line. 8. Pain control. 9. Hopefully disposition to regular floor in the morning. Thank you, discussed with the staff on rounds and details, critical care time spent with the patient was 45 minutes. History of Present Illness Reason for Consultation: Cauda equina syndrome. Requesting Physician: Dr. Pan Attending Physician: Sebas Pan, DO History of Present Illness Dear Dr. Pan: Thank you for your kind referral of Mrs. Parkinson to critical care service. This is 83-year-old female with multiple medical problems history including A. fib on Coumadin, coronary artery disease, chronic kidney disease, hypothyroidism, chronic anemia, sustained a fall at home as she could not get up, the patient pushed her life button and brought to the emergency room where she was unable to move her lower extremities. She called also her family members who stated to them that she cannot even stand up. The patient was admitted to the ICU after a workup in the ED showing epidural hematoma extending from T11-L4. The patient underwent T11-L4 evacuation of epidural hematoma by Dr. Pan with good results. The patient now is able to move her left lower extremity, she still have weakness in her right lower extremity. She denies any numbness whatsoever. She did not have any loss of her urination or defecation. The patient denies any headache or pain, she does have multiple bruises after she fell, she did not have any chest pain no nausea or vomiting. No headache no loss of consciousness either. The rest of her review of system otherwise was unremarkable. According to the patient she has not been having falls recently, it was only one incident. Allergies Allergy/AdvReac Type Severity Reaction Status Date / Time doxycycline Allergy Intermediate RASH Verified 11/05/18 18:05 ANA LUISA Inhibitors Allergy Unknown INTOLERANT Verified 11/05/18 18:05 lisinopril Allergy Unknown INTOLERANT Verified 11/05/18 18:05 Home Medications Home Medications Medication Instructions Recorded Confirmed Type aspirin [Aspirin Low Dose] 81 mg PO QAM 10/28/18 11/05/18 History atorvastatin 80 mg PO QPM 10/28/18 11/05/18 History calcium carbonate-vitamin D3 1 tab PO AMHS 10/28/18 11/05/18 History [Calcium 600 + D(3)] cyanocobalamin (vitamin B-12) 1,000 mcg PO QAM 10/28/18 11/05/18 History diclofenac sodium 1 applic TOPICAL BID 10/28/18 11/05/18 History ferrous sulfate 325 mg PO QAM 10/28/18 11/05/18 History furosemide 20 mg PO QAM 10/28/18 11/05/18 History gabapentin 100 mg PO TID 10/28/18 11/05/18 History isosorbide mononitrate 120 mg PO QAM 10/28/18 11/05/18 History labetalol 100 mg PO BID 10/28/18 11/05/18 History levothyroxine 200 mcg PO QAM 10/28/18 11/05/18 History losartan 100 mg PO QAM 10/28/18 11/05/18 History magnesium oxide 400 mg PO QAM 10/28/18 11/05/18 History nitroglycerin [Nitrostat] 0.4 mg SUBLINGUAL UD PRN 10/28/18 11/05/18 History lidocaine 1 patch TRANSDERMAL QAM #1 ea 11/03/18 11/05/18 Rx acetaminophen [Mapap 650 mg PO Q4H PRN 11/05/18 11/05/18 History (acetaminophen)] clonidine HCl 0.1 mg PO Q12H PRN 11/05/18 11/05/18 History multivitamin with minerals 1 tab PO QAM 11/05/18 11/05/18 History [Multiple Vitamin-Minerals] tramadol 100 mg PO Q6H PRN 11/05/18 11/05/18 History warfarin 5 mg PO DIRECTED 11/05/18 11/05/18 History Patient History Medical History Hypertension (Chronic) Kidney disease (Chronic) Acute coronary syndrome (Chronic) Atrial flutter (Chronic) Leukocytosis Family History Father CVA (cerebral vascular accident) Social History Current Living Situation: Alone Feels Safe at Home: Yes Safety Concerns: Feels Safe At This Time Smoking Status: Never smoker Do You Dip or Chew Tobacco: No Tobacco Cessation Education Requested by Patient: No Hx Alcohol Use: No Hx Substance Use: No Beliefs That Will Affect Care: None Preferred Language: Kyrgyz Communication Ability: Effective Coal Trammer Required: No Review of Systems Review of system apart from the above was unremarkable including 14 systems. Physical Exam 2 Vital Signs (Past 24 Hours): Last Vital Signs Temp 36.6 C 11/06/18 12:00 Pulse 62 11/06/18 13:00 Resp 26 H 11/06/18 13:00 BP 120/47 L 11/06/18 13:00 Pulse Ox 94 11/06/18 13:00 Physical Exam: Vital signs remained stable, no fever, 94% on room air, no JVP , A. fib rate controlled, S1-S2, distant breath sounds bilaterally, minimal tenderness mainly in the back, abdomen is benign but obese, edema in the periphery, able to move her left lower extremity freely but unable to lift her right lower extremity. No loss of sensation. Neurologically otherwise was unremarkable. Results & Data Laboratory Results Labs were reviewed which showed stable hematocrit, reverse Coumadin. Diagnostic Findings Imaging also were reviewed which showed epidural hematoma extending from T11- L4. Disc extrusion was noted from T12-L1 also on the report.
[2018-11-06] MEDS: ATORVASTATIN 40 MG TAB PO SCH (20:47)
[2018-11-07] MEDS: OXYCODONE HCL IR 5 MG TAB (IMMEDIATE RELEASE) PO PRN ×4 (03:57→21:54)
[2018-11-07 05:22] LABS: Basophils # (auto) 0.01 K/uL (0-0.2); Basophils % (auto) 0.1 %; Hematocrit (blood only) 24.8 % (37-47); Hemoglobin 8.2 g/dL (12.0-16.0); Immature Granulocytes # (auto) 0.03 K/uL (0.00-0.02); Immature Granulocytes % (auto) 0.2 %; Lymphocytes # (auto) 0.78 K/uL (1.2-3.4); Lymphocytes % (auto) 5.9 %; Mean Corpuscular Hgb Conc 33.1 g/dL (32-36); Mean Corpuscular Volume 93.2 fL (80-100); Mean Platelet Volume 9.2 fL (7.4-10.4); Monocytes # (auto) 2.44 K/uL (0.11-0.59); Monocytes % (auto) 18.6 %; Neutrophils # (auto) 9.86 K/uL (1.4-6.5); Neutrophils % (auto) 75.2 %; Platelet Count 234 K/uL (130-400); RDW Coefficient of Variation 15.4 % (11.5-14.5); RDW Standard Deviation 52.8 fL (36.4-46.3); Red Blood Count 2.66 M/uL (4.2-5.4); White Blood Count 13.12 K/uL (4.8-10.8)
[2018-11-07 05:44] LABS: Echinocytes 1+
[2018-11-07] MEDS: LEVOTHYROXINE SODIUM 200 MCG TABLET PO SCH (05:46)
[2018-11-07 05:53] LABS: Calcium 7.8 mg/dl (8.5-10.1); Creatinine Clr Calc Pharmacy 46.8 ml/min; Est GFR (African American) 67.6; Est GFR (Non-African American) 58.3; Potassium 4.8 mmol/L (3.5-5.1)
[2018-11-07] MEDS: ISOSORBIDE MONO EXTENDED REL 60 MG TABCR PO SCH (07:57)
[2018-11-07] MEDS: DOCUSATE SODIUM 100 MG CAP PO SCH ×2 (07:57→20:40)
[2018-11-07] MEDS: LOSARTAN POTASSIUM 50 MG TAB PO SCH (07:57)
[2018-11-07] MEDS: LABETALOL HCL 100 MG TAB PO SCH ×2 (07:58→20:40)
[2018-11-07] MEDS: FERROUS SULFATE 325 MG TAB PO SCH (07:58)
[2018-11-07] MEDS: MAGNESIUM OXIDE 400 MG TAB PO SCH (07:58)
[2018-11-07] MEDS: CALCIUM 600MG + VIT D 400 IU TAB PO SCH ×2 (07:58→20:39)
[2018-11-07] MEDS: CYANOCOBALAMIN 500 MCG TABLET (VITAMIN B-12) PO SCH (07:58)
[2018-11-07] MEDS: FUROSEMIDE 20 MG TAB PO SCH (07:59)
[2018-11-07] MEDS: GABAPENTIN 100 MG CAP PO SCH ×3 (07:59→20:39)
[2018-11-07] MEDS: ACETAMINOPHEN 500 MG TAB PO PRN ×2 (10:33→20:42)
--- NOTE | 2018-11-07 11:14 | Critical Care Progress Note ---
Date of Service November 07, 2018 Assessment & Plan (1) Cauda equina compression: Impression: 1. Cauda equina syndrome secondary to epidural hematoma after fall. 2. Coagulopathy, reversed. 3. History of A. fib, rate controlled. 4. Right lower extremity weakness secondary to radiculopathy and nerve compression from epidural hematoma. Improving 5. History of coronary artery disease in the past. Plan: 1. Agree with reversal of coagulopathy. 2. Appreciate Dr. pan input. 3. Antibiotic and steroids treatment per neurosurgery. 4. Physical therapy. 5. Glucose control. 6. Minimize fluid intake. 7. Transfer to regular floor. 8. Pain control. 9. Discussed with the staff on rounds and details. CCM time is 35 min, will follow as needed. Subjective The patient has no events overnight, she continued to have weakness mainly in her right lower extremity, otherwise she is moving better. No sensation of loss. Tolerating oral intake. Minimal sore throat from recent intubation however no dysphagia. Physical Exam 2 Vital Signs (Past 24 Hours): Last Vital Signs Temp 36.4 C L 11/07/18 08:01 Pulse 77 11/07/18 08:01 Resp 18 11/07/18 08:01 BP 153/86 H 11/07/18 08:01 Pulse Ox 99 11/07/18 08:01 Physical Exam: Vital signs remained stable, S1-S2 regular rate and rhythm, no JVD, oral mucosa is normal, lungs with bibasilar crackles, abdomen is obese but benign, edema in the periphery. Neurologically she had weakness in the proximal girdle of the right lower extremity unable to lift up her knee. She is able to move her feet. Urinary retention was noted, no bowel movement yet. No skin rash. Surgical wound is well maintained. Results & Data Laboratory Results Slight elevation in white count, hematocrit has been stable. The rest of her labs are within acceptable limit. Sodium has been at 128. Diagnostic Findings No new imaging
--- NOTE | 2018-11-07 20:37 | Progress Note ---
DATE: 11/07/2018 SUBJECTIVE: She is alert, oriented, pleasant, as always. OBJECTIVE: VITAL SIGNS: Stable. Blood pressure 135/52, pulse regular at 80. EXTREMITIES: She has weakness to both lower extremities with slight amount of dorsiflexion. She has sensation, but poor muscle ability. IMPRESSION: Cauda equina syndrome with profound neuromuscular deficits. She is now 48 hours post-evacuation of hematoma with still present deficits. PLAN: At this point in time, we will try to mobilize her with an orthotic. I ordered a custom made orthosis that can be placed for her. I do not feel she is going to need more surgery. I am worried about stability of the spine but that is what we have to deal with. Hopefully, there is going to be some physical therapy and extensive rehabilitation. I think she is safe to go out to regular floor at least tomorrow, 11/08/2018, fitted for a brace, may be [facility] early next week. This can be a long process.
[2018-11-07] MEDS: ATORVASTATIN 40 MG TAB PO SCH (20:39)
[2018-11-08] MEDS ORDERED: POLYETHYLENE (MIRALAX) 17 GM PACK PO SCH (00:09)
[2018-11-08] MEDS: HYDROmorphone INJ 0.5 MG/0.5 ML SYR IV PRN (04:26)
[2018-11-08] MEDS: OXYCODONE HCL IR 5 MG TAB (IMMEDIATE RELEASE) PO PRN ×3 (04:27→23:10)
[2018-11-08] MEDS ORDERED: BISACODYL 5 MG TABEC PO PRN (06:00)
[2018-11-08] MEDS: LEVOTHYROXINE SODIUM 200 MCG TABLET PO SCH (06:07)
[2018-11-08 07:35] LABS: Basophils # (auto) 0.02 K/uL (0-0.2); Basophils % (auto) 0.2 %; Eosinophils # (auto) 0.13 K/uL (0-0.5); Eosinophils % (auto) 1.4 %; Hematocrit (blood only) 22.9 % (37-47); Hemoglobin 7.7 g/dL (12.0-16.0); Immature Granulocytes # (auto) 0.02 K/uL (0.00-0.02); Immature Granulocytes % (auto) 0.2 %; Lymphocytes # (auto) 1.06 K/uL (1.2-3.4); Lymphocytes % (auto) 11.6 %; Mean Corpuscular Hgb Conc 33.6 g/dL (32-36); Mean Corpuscular Volume 93.1 fL (80-100); Mean Platelet Volume 9.1 fL (7.4-10.4); Monocytes # (auto) 1.78 K/uL (0.11-0.59); Monocytes % (auto) 19.5 %; Neutrophils # (auto) 6.11 K/uL (1.4-6.5); Neutrophils % (auto) 67.1 %; Platelet Count 214 K/uL (130-400); RDW Coefficient of Variation 15.1 % (11.5-14.5); RDW Standard Deviation 51.7 fL (36.4-46.3); Red Blood Count 2.46 M/uL (4.2-5.4); White Blood Count 9.12 K/uL (4.8-10.8)
[2018-11-08 08:12] LABS: Acanthocytes 1+
--- NOTE | 2018-11-08 08:19 | Progress Note ---
DATE: 11/08/2018 SUBJECTIVE: She is alert, oriented. Pain is much more controlled today than yesterday. She feels she is getting some improvement of her lower extremities. OBJECTIVE: She remains afebrile, temperature 36.7. Blood pressure, pulse controlled. ASSESSMENT: Status post lumbar spine and thoracic spine hematoma evacuation done urgently few nights ago. PLAN: We will get him fitted for a brace. I would like to get her going with physical therapy out of bed to a chair at the least. It should be a long extended rehab. She will need eventually a rehab [facility] type placement. This will be a long recovery.
[2018-11-08] MEDS: CALCIUM 600MG + VIT D 400 IU TAB PO SCH ×2 (08:49→20:48)
[2018-11-08] MEDS: DOCUSATE SODIUM 100 MG CAP PO SCH ×2 (08:50→22:07)
[2018-11-08] MEDS: LOSARTAN POTASSIUM 50 MG TAB PO SCH (08:50)
[2018-11-08] MEDS: FERROUS SULFATE 325 MG TAB PO SCH (08:50)
[2018-11-08] MEDS: MAGNESIUM OXIDE 400 MG TAB PO SCH (08:51)
[2018-11-08] MEDS: GABAPENTIN 100 MG CAP PO SCH ×3 (08:51→20:48)
[2018-11-08] MEDS: FUROSEMIDE 20 MG TAB PO SCH (08:51)
[2018-11-08] MEDS: ISOSORBIDE MONO EXTENDED REL 60 MG TABCR PO SCH (08:51)
[2018-11-08] MEDS: CYANOCOBALAMIN 500 MCG TABLET (VITAMIN B-12) PO SCH (08:52)
[2018-11-08] MEDS: LABETALOL HCL 100 MG TAB PO SCH ×2 (08:52→20:48)
--- NOTE | 2018-11-08 10:19 | Hospitalist Progress Note ---
Date of Service November 08, 2018 Assessment & Plan (1) Cauda equina compression: Patient taken to OR for emergency decompression of darrick lumbar spine by Dr. Brown on 11/06. - Per notes, getting brace ordered for lower back - Once braced, will work with PT/OT and start rehab placement. (2) Lower extremity weakness: Due to spinal cord compression. - See above (3) Epidural hematoma: As above (4) Hyponatremia: Labile Na with some as low as 125 in prior months and up to 135. - On 11/08, Na was 128; stable from last few days. - Monitor Na; currently asymptomatic (5) Essential (primary) hypertension: BP currently 165/70, but as low as 110/50 in last 24 hours. - Continue furosemide 20mg daily, labetalol 100mg BID, losartan 100mg daily, and Imdur 120 daily. - Monitor BP (6) Afib: EKG on 10/28 showed atrial flutter with 4:1 conduction. Was on anticoagulation at home, but being held given her hematoma. - Continue labetalol for HR control - Hold anticoagulation (7) CAD (coronary artery disease): H/O 3 [place] in 2016. No current chest pain. - On statin & beta-maria [place] - Hold ASA, resume when approved by Dr. Brown (8) Chronic kidney disease, stage 3a: Baseline Cr is around 0.9, with eGFR of 60 and CrCl ~45. - Monitor Cr - Renally-dose meds (9) Anemia: Likely due to dilutional and blood draws, along with blood loss from surgery on 11/06. - Monitor hgb - Transfuse for hgb < 7 (10) Hypothyroid: TSH stable on 3 prior checks. No concerns for hypo-/hyperthyroidism. - Cont home Synthroid 200mcg. (11) DVT prophylaxis: SCDs - Until cleared by Dr. Brown for heparin Subjective 83yo F w/ hx of afib who presented with a epidural hematoma s/p evacuation with Dr. Brown on 11/06. This morning, she continues to be weak in the legs, but otherwise is in good spirits. Reports no fevers/chills, chest pain, shortness of breath, abdominal pain, nausea, or vomiting. Physical Exam 2 Vital Signs (Past 24 Hours): Last Vital Signs Temp 36.7 C 11/08/18 07:02 Pulse 80 11/08/18 07:02 Resp 18 11/08/18 07:02 BP 166/72 H 11/08/18 07:02 Pulse Ox 92 11/08/18 07:02 Constitutional: WD/WN, vitals as above Eyes: PERRL, conjunctivae normal, anicteric sclerae ENMT: external ear and nose normal, oropharynx normal Neck: normal visual inspection Respiratory: normal respiratory effort, lungs clear to auscultation Cardiovascular: RRR, no murmur, no edema Gastrointestinal (Abdomen): Inspection/Auscultation: abdomen normal to inspection and normal bowel sounds Percussion/Palpation: + abdomen tender ( suprapubic tenderness) Musculoskeletal: Extremities: + limited ROM of extremities, + abnormal strength and + abnormal muscle tone Skin: no rashes, warm and dry Neurologic: + focal motor deficit; + abnormal touch/pain/proprioception and + does not move all extremities (able to minimally rock her L leg) Psychiatric: A+Ox3, euthymic affect _ (1) Anemia Anemia type: unspecified type Bone marrow failure anemia type: Chronic kidney disease stage: Folate deficiency anemia type: Hemolytic anemia type: Iron deficiency anemia type: Other causes of anemia: Vitamin B12 deficiency anemia type: Qualified Code(s): D64.9 - Anemia, unspecified (2) Hypothyroid Hypothyroidism type: acquired Qualified Code(s): E03.9 - Hypothyroidism, unspecified (3) Lower extremity weakness Laterality: bilateral Qualified Code(s): R29.898 - Other symptoms and signs involving the musculoskeletal system (4) CAD (coronary artery disease) Coronary Disease-Associated Artery/Lesion type: [place] artery [place] vs. transplanted heart: [place] heart Associated angina: without angina Qualified Code(s): I25.10 - Atherosclerotic heart disease of [place] coronary artery without angina pectoris
[2018-11-08] MEDS: POLYETHYLENE (MIRALAX) 17 GM PACK PO SCH (11:57)
[2018-11-08] MEDS: ACETAMINOPHEN 500 MG TAB PO PRN (13:41)
[2018-11-08] MEDS: ATORVASTATIN 40 MG TAB PO SCH (20:48)
[2018-11-09] MEDS: OXYCODONE HCL IR 5 MG TAB (IMMEDIATE RELEASE) PO PRN ×3 (05:15→17:53)
[2018-11-09] MEDS: LEVOTHYROXINE SODIUM 200 MCG TABLET PO SCH (05:16)
[2018-11-09 06:24] LABS: Cdiff Antigen Negative; Cdiff Toxin A+B Negative (Negative)
--- NOTE | 2018-11-09 06:50 | Progress Note ---
Date of Service November 09, 2018 Received page overnight from nurse that patient had a lot of watery diarrhea. C diff testing was sent and is positive. In brief review of the record, this may be her first episode. - Ordered to start PO vancomycin. - Nursing is helping with isolation precautions. Braulio Schulz, PGY2 Overnight call Physical Exam 2 Vital Signs (Past 24 Hours): Last Vital Signs Temp 36.8 C 11/08/18 23:15 Pulse 87 11/08/18 23:15 Resp 18 11/08/18 23:15 BP 168/79 H 11/08/18 23:15 Pulse Ox 97 11/08/18 23:15
[2018-11-09 07:55] LABS: Hemoglobin 8.7 g/dL (12.0-16.0); Mean Corpuscular Hgb Conc 33.5 g/dL (32-36); Mean Corpuscular Volume 94.2 fL (80-100); Mean Platelet Volume 9.6 fL (7.4-10.4); Platelet Count 257 K/uL (130-400); RDW Coefficient of Variation 14.9 % (11.5-14.5); RDW Standard Deviation 50.6 fL (36.4-46.3); Red Blood Count 2.76 M/uL (4.2-5.4); White Blood Count 12.11 K/uL (4.8-10.8)
[2018-11-09 08:28] LABS: BUN Creatinine Ratio 31.3 (10-20); Calcium 8.8 mg/dl (8.5-10.1); Creatinine Clr Calc Pharmacy 59.3 ml/min; Est GFR (Non-African American) 77.7; Magnesium 2.3 mg/dl (1.8-2.4); Potassium 4.5 mmol/L (3.5-5.1)
[2018-11-09] MEDS: HYDROmorphone INJ 0.5 MG/0.5 ML SYR IV PRN ×2 (09:12→12:12)
[2018-11-09] MEDS: CALCIUM 600MG + VIT D 400 IU TAB PO SCH ×2 (09:49→20:20)
[2018-11-09] MEDS: MAGNESIUM OXIDE 400 MG TAB PO SCH (09:49)
[2018-11-09] MEDS: FERROUS SULFATE 325 MG TAB PO SCH (09:49)
[2018-11-09] MEDS: LOSARTAN POTASSIUM 50 MG TAB PO SCH (09:49)
[2018-11-09] MEDS: ISOSORBIDE MONO EXTENDED REL 60 MG TABCR PO SCH (09:50)
[2018-11-09] MEDS: GABAPENTIN 100 MG CAP PO SCH ×3 (09:50→20:20)
[2018-11-09] MEDS: CYANOCOBALAMIN 500 MCG TABLET (VITAMIN B-12) PO SCH (09:50)
[2018-11-09] MEDS: FUROSEMIDE 20 MG TAB PO SCH (09:50)
[2018-11-09] MEDS: DOCUSATE SODIUM 100 MG CAP PO SCH ×2 (09:51→20:27)
--- NOTE | 2018-11-09 09:57 | Progress Note ---
DATE: 11/09/2018 SUBJECTIVE: She is alert, oriented this morning. I thought she was a little confused, but stable. She still has significant back pain. She still has significant profound weakness. She is not making much of her recovery from her evacuation of the hematoma. I am quite concerned. OBJECTIVE: Vital signs are stable. Slight temperature elevated. She does have postop anemia from surgery. ASSESSMENT: Cauda equina syndrome with profound deficits. PLAN: I will x-ray her spine again today to see if there is any instability patterns such as a spondylolisthesis at the higher up levels that is leading to her significant pain. It seems to be pain is limiting factor. We cannot get her mobilized very well. We will try for rehab placement. She has been fitted for a brace for support.
[2018-11-09] MEDS: LABETALOL HCL 100 MG TAB PO SCH ×2 (10:18→20:19)
[2018-11-09] MEDS: POLYETHYLENE (MIRALAX) 17 GM PACK PO SCH (12:14)
[2018-11-09] MEDS: VANCOMYCIN HCL 125 MG/2.5ML SOLN PO SCH ×2 (12:15→17:52)
[2018-11-09] MEDS: RASPBERRY SYRUP 5 ML UDP PO SCH ×2 (12:15→17:52)
--- NOTE | 2018-11-09 12:40 | XRay Report ---
XR lumbar spine 2-3V HISTORY: 83 years-old Female pain acute low back pain without reported trauma COMPARISON: Lumbar spine MRI 11/05/2018 TECHNIQUE: 2 views of the lumbar spine FINDINGS: Study is limited secondary to patient positioning. Midline skin caitlyn are noted. Moderate formed st ool noted throughout the colon. Demineralized appearance of the bones. Multilevel advanced spondylitic spurring, facet arthrosis and intervertebral disc space narrowing. The L1 vertebral body and T12-L1 disc space is not well seen on the lateral projection secondary to positioning. Unchanged grade 1 retrolisthesis of L1 on L2. No def inite acute fracture or subluxation. Calcification of the aorta. IMPRESSION: 1. Limited study as above without acute fracture or subluxation identified. 2. Advanced degenerative changes as above. The above report was generated using voice recognition software. It may contain grammatical, syntax o r spelling errors. Electronically signed by: Braulio Hernandez M.D. 11/09/2018 12:39 PM
--- NOTE | 2018-11-09 15:22 | Hospitalist Progress Note ---
Date of Service November 09, 2018 Assessment & Plan (1) Cauda equina compression: Patient taken to OR for emergency decompression of darrick lumbar spine by Dr. Brown on 11/06. - Per notes, getting brace ordered for lower back - Once braced, will work with PT/OT and start rehab placement. - On 11/09, had worsening pain, so was sent for lumbar spinal x-rays - Per radiology read, stable. (2) C. difficile diarrhea: Watery diarrhea noted on 11/09. C. diff PCR tested positive; however, toxin presence was negative. - PO vancomycin - Monitor diarrhea; consider short-course vs. stopping early given negative toxin assay. (3) Lower extremity weakness: Due to spinal cord compression. - See above (4) Epidural hematoma: As above (5) Hyponatremia: Labile Na with some as low as 125 in prior months and up to 135. - On 11/09, Na was 129; stable from last few days. - Monitor Na; currently asymptomatic - On 11/09, gave 500cc NS bolus (6) Essential (primary) hypertension: BP currently 185/70, but as low as 110/50 in last 24 hours. - Continue furosemide 20mg daily, losartan 100mg daily, and Imdur 120 daily. - On 11/09, increased labetolol from 100mg PO BID to 200mg PO BID - Clonidine PRN per primary team - Monitor BP (7) Afib: EKG on 10/28 showed atrial flutter with 4:1 conduction. Was on anticoagulation at home, but being held given her hematoma. - Continue labetalol for HR control - Hold anticoagulation (8) CAD (coronary artery disease): H/o 3 [place] in 2015. No current chest pain. - On statin & beta-maria [place] - Hold ASA, resume when approved by Dr. Brown (9) Chronic kidney disease, stage 3a: Baseline Cr is around 0.7, with eGFR of 75 and CrCl ~60. - Monitor Cr - Renally-dose meds (10) Anemia: Likely due to dilutional and blood draws, along with blood loss from surgery on 11/06. - Monitor hgb - Transfuse for hgb < 7 (11) Hypothyroid: TSH stable on 3 prior checks. No concerns for hypo-/hyperthyroidism. - Cont home Synthroid 200mcg. (12) DVT prophylaxis: SCDs - Until cleared by Dr. Brown for heparin Subjective 83yo F w/ hx of afib who presented with a epidural hematoma s/p evacuation with Dr. Brown on 11/06. This morning, she is somewhat confused. Per RN, the patient had more pain this morning, and required both IV and PO pain meds. She reponds to yes/no questions , but is also confused about where she is and her overall care plan. Reports no fevers/chills, chest pain, shortness of breath, abdominal pain, nausea, or vomiting. Physical Exam 2 Vital Signs (Past 24 Hours): Last Vital Signs Temp 37.4 C 11/09/18 08:02 Pulse 95 H 11/09/18 08:02 Resp 18 11/09/18 08:02 BP 186/77 H 11/09/18 08:02 Pulse Ox 91 11/09/18 08:02 Constitutional: WD/WN, vitals as above Eyes: PERRL, conjunctivae normal, anicteric sclerae ENMT: external ear and nose normal, oropharynx normal Neck: normal visual inspection Respiratory: normal respiratory effort, lungs clear to auscultation Cardiovascular: RRR, no murmur, no edema Gastrointestinal (Abdomen): Inspection/Auscultation: abdomen normal to inspection and normal bowel sounds Percussion/Palpation: + abdomen tender ( suprapubic tenderness) Musculoskeletal: Extremities: + limited ROM of extremities, + abnormal strength and + abnormal muscle tone Skin: no rashes, warm and dry Neurologic: + focal motor deficit; + abnormal touch/pain/proprioception and + does not move all extremities (able to minimally rock her L leg) Psychiatric: A+Ox3, euthymic affect _ (1) Lower extremity weakness Laterality: bilateral Qualified Code(s): R29.898 - Other symptoms and signs involving the musculoskeletal system (2) CAD (coronary artery disease) Coronary Disease-Associated Artery/Lesion type: [place] artery [place] vs. transplanted heart: [place] heart Associated angina: without angina Qualified Code(s): I25.10 - Atherosclerotic heart disease of [place] coronary artery without angina pectoris (3) Anemia Anemia type: unspecified type Bone marrow failure anemia type: Chronic kidney disease stage: Folate deficiency anemia type: Hemolytic anemia type: Iron deficiency anemia type: Other causes of anemia: Vitamin B12 deficiency anemia type: Qualified Code(s): D64.9 - Anemia, unspecified (4) Hypothyroid Hypothyroidism type: acquired Qualified Code(s): E03.9 - Hypothyroidism, unspecified
[2018-11-09] MEDS: ATORVASTATIN 40 MG TAB PO SCH (20:20)
[2018-11-10] MEDS: OXYCODONE HCL IR 5 MG TAB (IMMEDIATE RELEASE) PO PRN ×3 (00:09→16:24)
[2018-11-10] MEDS: RASPBERRY SYRUP 5 ML UDP PO SCH ×5 (00:10→23:59)
[2018-11-10] MEDS: VANCOMYCIN HCL 125 MG/2.5ML SOLN PO SCH ×4 (00:11→17:49)
[2018-11-10] MEDS: LEVOTHYROXINE SODIUM 200 MCG TABLET PO SCH (05:59)
[2018-11-10 06:17] LABS: Hematocrit (blood only) 25.4 % (37-47); Hemoglobin 8.4 g/dL (12.0-16.0); Mean Corpuscular Hgb Conc 33.1 g/dL (32-36); Mean Corpuscular Volume 94.8 fL (80-100); Mean Platelet Volume 9.4 fL (7.4-10.4); Platelet Count 251 K/uL (130-400); RDW Standard Deviation 51.6 fL (36.4-46.3); Red Blood Count 2.68 M/uL (4.2-5.4)
[2018-11-10 06:49] LABS: BUN Creatinine Ratio 26.5 (10-20); Calcium 8.8 mg/dl (8.5-10.1); Creatinine Clr Calc Pharmacy 50.1 ml/min; Est GFR (African American) 73.5; Est GFR (Non-African American) 63.4; Magnesium 2.3 mg/dl (1.8-2.4); Potassium 4.7 mmol/L (3.5-5.1)
--- NOTE | 2018-11-10 08:21 | Progress Note ---
DATE: 11/10/2018 SUBJECTIVE: Lori is alert, oriented today to person, place, and time. No chest pain, shortness of breath, no abdominal pain. She still has significant low back pain which is hurting her mobilization. OBJECTIVE: She has profound deficits to her legs. She has some dorsiflexion and plantarflexion, but absent quadriceps strength to her extremities. 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 PLAN: We will try to mobilize her today and get her out of bed to chair. She has a back brace. She is going to walk and will need long-term nursing care.
[2018-11-10] MEDS: ISOSORBIDE MONO EXTENDED REL 60 MG TABCR PO SCH (08:32)
[2018-11-10] MEDS: DOCUSATE SODIUM 100 MG CAP PO SCH ×2 (08:32→20:54)
[2018-11-10] MEDS: LOSARTAN POTASSIUM 50 MG TAB PO SCH (08:32)
[2018-11-10] MEDS: MAGNESIUM OXIDE 400 MG TAB PO SCH (08:32)
[2018-11-10] MEDS: CYANOCOBALAMIN 500 MCG TABLET (VITAMIN B-12) PO SCH (08:32)
[2018-11-10] MEDS: POLYETHYLENE (MIRALAX) 17 GM PACK PO SCH (08:33)
[2018-11-10] MEDS: CALCIUM 600MG + VIT D 400 IU TAB PO SCH ×2 (08:33→20:55)
[2018-11-10] MEDS: LABETALOL HCL 100 MG TAB PO SCH ×2 (08:33→20:59)
[2018-11-10] MEDS: FUROSEMIDE 20 MG TAB PO SCH (08:33)
[2018-11-10] MEDS: FERROUS SULFATE 325 MG TAB PO SCH (08:33)
[2018-11-10] MEDS: GABAPENTIN 100 MG CAP PO SCH ×3 (08:33→20:55)
--- NOTE | 2018-11-10 13:47 | Hospitalist Progress Note ---
Date of Service November 10, 2018 Assessment & Plan (1) Cauda equina compression: Patient taken to OR for emergency decompression of darrick lumbar spine by Dr. Brown on 11/06. - Per notes, getting brace ordered for lower back - Once braced, will work with PT/OT and start rehab placement. - On 11/09, had worsening pain, so was sent for lumbar spinal x-rays - Per radiology read, stable. (2) Leukocytosis: WBCs mildly elevated on 11/09 & 11/10. C. diff was positive on 11/09, but then toxin was negative making C. diff infection less likely. No other focal signs/symptoms of infection. No fever. HR & BP stable. - Monitor for other infectious etiologies (3) C. difficile diarrhea: Watery diarrhea noted on 11/09. C. diff PCR tested positive; however, toxin presence was negative. - PO vancomycin - Monitor diarrhea; consider short-course vs. stopping early given negative toxin assay. (4) Lower extremity weakness: Due to spinal cord compression. - See above (5) Epidural hematoma: As above (6) Hyponatremia: Labile Na with some as low as 125 in prior months and up to 135. - On 11/10, Na was 128; stable from last few days. - Monitor Na; currently asymptomatic (7) Essential (primary) hypertension: BP currently 185/70, but as low as 110/50 in last 24 hours. - Continue furosemide 20mg daily, losartan 100mg daily, and Imdur 120 daily. - On 11/09, increased labetolol from 100mg PO BID to 200mg PO BID - Clonidine PRN per primary team - Monitor BP (8) Afib: EKG on 10/28 showed atrial flutter with 4:1 conduction. Was on anticoagulation at home, but being held given her hematoma. - Continue labetalol for HR control - Hold anticoagulation (9) CAD (coronary artery disease): H/o 3 [place] in 2016. No current chest pain. - On statin & beta-maria eugenia - Hold ASA, resume when approved by Dr. Brown (10) Chronic kidney disease, stage 3a: Baseline Cr is around 0.7, with eGFR of 75 and CrCl ~60. - Monitor Cr - Renally-dose meds (11) Anemia: Likely due to dilutional and blood draws, along with blood loss from surgery on 11/06. - Monitor hgb - Transfuse for hgb < 7 (12) Hypothyroid: TSH stable on 3 prior checks. No concerns for hypo-/hyperthyroidism. - Cont home Synthroid 200mcg. (13) DVT prophylaxis: SCDs - Until cleared by Dr. Brown for heparin Subjective 83yo F w/ hx of afib who presented with a epidural hematoma s/p evacuation with Dr. Brown on 11/06. This morning, she is doing better. Up in a chair. Reports no fevers/chills, chest pain, shortness of breath, abdominal pain, nausea, or vomiting. Physical Exam 2 Vital Signs (Past 24 Hours): Last Vital Signs Temp 37 C 11/10/18 08:00 Pulse 81 11/10/18 08:00 Resp 18 11/10/18 08:00 BP 149/85 H 11/10/18 08:00 Pulse Ox 95 11/10/18 08:00 Constitutional: WD/WN, vitals as above Eyes: PERRL, conjunctivae normal, anicteric sclerae ENMT: external ear and nose normal, oropharynx normal Neck: normal visual inspection Respiratory: normal respiratory effort, lungs clear to auscultation Cardiovascular: RRR, no murmur, no edema Gastrointestinal (Abdomen): Inspection/Auscultation: abdomen normal to inspection and normal bowel sounds Percussion/Palpation: + abdomen tender ( suprapubic tenderness) Musculoskeletal: Extremities: + limited ROM of extremities, + abnormal strength and + abnormal muscle tone Skin: no rashes, warm and dry Neurologic: + focal motor deficit; + abnormal touch/pain/proprioception and + does not move all extremities (able to minimally rock her L leg) Psychiatric: A+Ox3, euthymic affect _ (1) Lower extremity weakness Laterality: bilateral Qualified Code(s): R29.898 - Other symptoms and signs involving the musculoskeletal system (2) CAD (coronary artery disease) Coronary Disease-Associated Artery/Lesion type: [place] artery [place] vs. transplanted heart: [place] heart Associated angina: without angina Qualified Code(s): I25.10 - Atherosclerotic heart disease of [place] coronary artery without angina pectoris (3) Anemia Anemia type: unspecified type Bone marrow failure anemia type: Chronic kidney disease stage: Folate deficiency anemia type: Hemolytic anemia type: Iron deficiency anemia type: Other causes of anemia: Vitamin B12 deficiency anemia type: Qualified Code(s): D64.9 - Anemia, unspecified (4) Hypothyroid Hypothyroidism type: acquired Qualified Code(s): E03.9 - Hypothyroidism, unspecified
[2018-11-10] MEDS: HYDROmorphone INJ 0.5 MG/0.5 ML SYR IV PRN (20:51)
[2018-11-10] MEDS: ATORVASTATIN 40 MG TAB PO SCH (20:55)
[2018-11-11] MEDS: VANCOMYCIN HCL 125 MG/2.5ML SOLN PO SCH ×4 (05:19→17:56)
[2018-11-11] MEDS: RASPBERRY SYRUP 5 ML UDP PO SCH ×3 (05:19→17:56)
[2018-11-11] MEDS: LEVOTHYROXINE SODIUM 200 MCG TABLET PO SCH (05:19)
[2018-11-11 07:35] LABS: Hematocrit (blood only) 25.2 % (37-47); Hemoglobin 8.5 g/dL (12.0-16.0); Mean Corpuscular Hgb Conc 33.7 g/dL (32-36); Mean Corpuscular Volume 93.3 fL (80-100); Mean Platelet Volume 9.4 fL (7.4-10.4); Platelet Count 306 K/uL (130-400); RDW Coefficient of Variation 14.7 % (11.5-14.5); RDW Standard Deviation 49.8 fL (36.4-46.3); White Blood Count 12.25 K/uL (4.8-10.8)
[2018-11-11] MEDS: CYANOCOBALAMIN 500 MCG TABLET (VITAMIN B-12) PO SCH (07:56)
[2018-11-11] MEDS: LABETALOL HCL 100 MG TAB PO SCH ×2 (07:56→20:19)
[2018-11-11] MEDS: MAGNESIUM OXIDE 400 MG TAB PO SCH (07:56)
[2018-11-11] MEDS: LOSARTAN POTASSIUM 50 MG TAB PO SCH (07:57)
[2018-11-11] MEDS: FERROUS SULFATE 325 MG TAB PO SCH (07:57)
[2018-11-11] MEDS: FUROSEMIDE 20 MG TAB PO SCH (07:57)
[2018-11-11] MEDS: ISOSORBIDE MONO EXTENDED REL 60 MG TABCR PO SCH (07:57)
[2018-11-11] MEDS: GABAPENTIN 100 MG CAP PO SCH ×3 (07:57→20:20)
[2018-11-11] MEDS: POLYETHYLENE (MIRALAX) 17 GM PACK PO SCH (07:58)
[2018-11-11] MEDS: CALCIUM 600MG + VIT D 400 IU TAB PO SCH ×2 (07:58→20:18)
[2018-11-11] MEDS: DOCUSATE SODIUM 100 MG CAP PO SCH ×2 (07:59→20:21)
[2018-11-11 08:04] LABS: BUN Creatinine Ratio 32.7 (10-20); Calcium 8.5 mg/dl (8.5-10.1); Creatinine Clr Calc Pharmacy 57.6 ml/min; Est GFR (Non-African American) 75.1; Magnesium 2.1 mg/dl (1.8-2.4); Potassium 4.5 mmol/L (3.5-5.1)
[2018-11-11] MEDS: OXYCODONE HCL IR 5 MG TAB (IMMEDIATE RELEASE) PO PRN (08:23)
[2018-11-11] MEDS: HYDROmorphone INJ 0.5 MG/0.5 ML SYR IV PRN ×2 (11:19→22:22)
--- NOTE | 2018-11-11 17:57 | Progress Note ---
DATE: 11/11/2018 SUBJECTIVE: She is alert, oriented today. Slightly confused on her state of health, but she is well aware of her surroundings and identified me as well. PHYSICAL EXAMINATION: Vital signs are stable. She does have a little more strength in her lower extremities, a little bit of dorsiflexion and plantarflexion, which is the first encouraging sign I have seen with her. Her x-rays taken yesterday demonstrate a stable spine. No subluxation breakdown fractures. Wound is clean. ASSESSMENT: Status post evacuation of hematoma for cauda equina. PLAN: This will be a long months and months recovery and I explained that to the family. She will need nursing and rehab disposition. We will hopefully get our bed tomorrow, and maybe get her placed in a step-down type unit in the next 48 hours.
--- NOTE | 2018-11-11 19:16 | Hospitalist Progress Note ---
Date of Service November 11, 2018 Assessment & Plan (1) Cauda equina compression: Patient taken to OR for emergency decompression of the lumbar spine by Dr. Brown on 11/06. - Per notes, getting brace ordered for lower back - Once braced, will work with PT/OT and start rehab placement. - On 11/09, had worsening pain, so was sent for lumbar spinal x-rays - Per radiology read, stable. -continues with significant weakness but is moving a bit today in the lower extremities -continue pain control but dilaudid and oxycodone may be causing delirium--> add tramadol to use instead which helped her last admission and did not cause any confusion (2) Leukocytosis: WBCs persistently elevated since 11/09. Her C. diff PCR was positive on , but then toxin was negative making C. diff infection less likely. Not having diarrhea here. No other focal signs/symptoms of infection. No fever. HR & BP stable. Is confused which may be from opioids -check UA and Ur cx if indicated -follow CBC (3) C. difficile diarrhea: Watery diarrhea noted on 11/09. C. diff PCR tested positive; however, toxin presence was negative. - can dc PO vancomycin (4) Lower extremity weakness: Due to spinal cord compression. - See above (5) Epidural hematoma: As above (6) Hyponatremia: Labile Na with some as low as 125 in prior months and up to 135. - continues with Na+ 128; stable from last few days. - Monitor Na; currently asymptomatic -not volume overloaded (7) Essential (primary) hypertension: BP labile as before n previous admission - Continue furosemide 20mg daily, losartan 100mg daily, and Imdur 120 daily. - On 11/09, increased labetolol from 100mg PO BID to 200mg PO BID - Clonidine PRN per primary team - Monitor BP (8) Afib: EKG on 10/28 showed atrial flutter with 4:1 conduction. Was on anticoagulation at home, but being held given her hematoma. - Continue labetalol for HR control - Hold anticoagulation (9) CAD (coronary artery disease): H/o 3 [place] in 2016. No current chest pain. - On statin & beta-maria e[place] - Hold ASA, resume when approved by Dr. Brown (10) Chronic kidney disease, stage 3a: Baseline Cr is around 0.7, with eGFR of 75 and CrCl ~60. - Monitor Cr - Renally-dose meds (11) Anemia: Likely due to dilutional and blood draws, along with blood loss from surgery on 11/06. - Monitor hgb - Transfuse for hgb < 7 (12) Hypothyroid: TSH stable on 3 prior checks. No concerns for hypo-/hyperthyroidism. - Cont home Synthroid 200mcg. (13) DVT prophylaxis: SCDs - Until cleared by Dr. Brown for heparin Dispo-remain hospitalized until confusion clears, leukocytosis improves Will need a lot of PT/OT over many months to recover her strength Subjective Pt confused today and tells me "I just need to get moving around here and shut some doors and then sit back down again." Denies any back pain. Says she can move her legs but not as well as she wants to. Denies abd pain or diarrhea, denies CP or SOB Review of Systems All systems reviewed & are unremarkable except as noted in HPI & below Physical Exam 2 Vital Signs (Past 24 Hours): Last Vital Signs Temp 36.3 C L 11/11/18 16:18 Pulse 85 11/11/18 17:15 Resp 16 11/11/18 16:18 BP 148/67 H 11/11/18 17:15 Pulse Ox 96 11/11/18 16:18 Constitutional: WD/WN, vitals as above Eyes: PERRL, conjunctivae normal, anicteric sclerae ENMT: external ear and nose normal, oropharynx normal Neck: trachea midline, no thyromegaly Respiratory: normal respiratory effort, lungs clear to auscultation Cardiovascular: Rate/Rhythm: regular rate; + abnormal rhythm (irreg irreg) Extremities: no edema Gastrointestinal (Abdomen): normal bowel sounds, soft, nontender, no hepatosplenomegaly Musculoskeletal: Extremities: extremities normal to inspection; no cyanosis and no clubbing Skin: no rashes, warm and dry Neurologic: + focal motor deficit (2/5 sterngth throughout LEs bilat) and awake Psychiatric: Orientation: alert, oriented to person and cooperative Genitourinary: + abnormal external appearance (Rebolledo in place with clear yellow urine) Results & Data Laboratory Results 11/11/18 11/11/18 11/11/18 Range/Units 17:01 11:46 07:54 WBC (4.8-10.8) K/uL RBC (4.2-5.4) M/uL Hgb (12.0-16.0) g/dL Hct (37-47) % MCV (80-100) fL MCH (25-34) pg MCHC (32-36) g/dL RDW Std Deviation (36.4-46.3) fL RDW Coeff of Taylor (11.5-14.5) % Plt Count (130-400) K/uL MPV (7.4-10.4) fL Sodium (136-145) mmol/L Potassium (3.5-5.1) mmol/L Chloride (98-107) mmol/L Carbon Dioxide (21-32) mmol/L Anion Gap (3-11) BUN (7-18) mg/dl Creatinine (0.6-1.2) mg/dl Est Cr Clr Drug Dosing ml/min Est GFR ( Amer) Est GFR (Non-Af Amer) BUN/Creatinine Ratio (10-20) Glucose (70-99) mg/dl POC Glucose 141 H 119 H 112 H (70-99) Calcium (8.5-10.1) mg/dl Magnesium (1.8-2.4) mg/dl 11/11/18 11/11/18 11/10/18 Range/Units 06:51 06:51 20:29 WBC 12.25 H (4.8-10.8) K/uL RBC 2.70 L (4.2-5.4) M/uL Hgb 8.5 L (12.0-16.0) g/dL Hct 25.2 L (37-47) % MCV 93.3 (80-100) fL MCH 31.5 (25-34) pg MCHC 33.7 (32-36) g/dL RDW Std Deviation 49.8 H (36.4-46.3) fL RDW Coeff of [place] 14.7 H (11.5-14.5) % Plt Count 306 (130-400) K/uL MPV 9.4 (7.4-10.4) fL Sodium 128 L (136-145) mmol/L Potassium 4.5 (3.5-5.1) mmol/L Chloride 95 L (98-107) mmol/L Carbon Dioxide 29 (21-32) mmol/L Anion Gap 4.0 (3-11) BUN 24 H (7-18) mg/dl Creatinine 0.73 (0.6-1.2) mg/dl Est Cr Clr Drug Dosing 57.6 ml/min Est GFR ( Amer) 87.0 Est GFR (Non-Af Amer) 75.1 BUN/Creatinine Ratio 32.7 H (10-20) Glucose 95 (70-99) mg/dl POC Glucose 130 H (70-99) Calcium 8.5 (8.5-10.1) mg/dl Magnesium 2.1 (1.8-2.4) mg/dl _ (1) Lower extremity weakness Laterality: bilateral Qualified Code(s): R29.898 - Other symptoms and signs involving the musculoskeletal system (2) CAD (coronary artery disease) Coronary Disease-Associated Artery/Lesion type: [place] artery [place] vs. transplanted heart: [place] heart Associated angina: without angina Qualified Code(s): I25.10 - Atherosclerotic heart disease of [place] coronary artery without angina pectoris (3) Anemia Anemia type: unspecified type Bone marrow failure anemia type: Chronic kidney disease stage: Folate deficiency anemia type: Hemolytic anemia type: Iron deficiency anemia type: Other causes of anemia: Vitamin B12 deficiency anemia type: Qualified Code(s): D64.9 - Anemia, unspecified (4) Hypothyroid Hypothyroidism type: acquired Qualified Code(s): E03.9 - Hypothyroidism, unspecified
[2018-11-11] MEDS: TRAMADOL HCL 50 MG TABLET PO PRN (20:12)
[2018-11-11] MEDS: ATORVASTATIN 40 MG TAB PO SCH (20:18)
[2018-11-11 22:55] LABS: Appearance Urine Clear (Clear); Bilirubin Urine Negative (Negative); Blood Urine Negative (Negative); Color Urine Yellow; Glucose Urine UA Negative (Negative); Ketones Urine Negative (Negative); Leukocyte Esterase Urine Trace (Negative); Nitrite Urine Negative (Negative); Specific Gravity Urine 1.015 (1.000-1.030); Urobilinogen Urine Negative (Negative); pH Urine 7.5 (4.5-7.5)
[2018-11-11 23:12] LABS: Protein Urine Negative (Negative)
[2018-11-11 23:24] LABS: Bacteria Urine 1+ (Negative); Epithelial Cell Urine 0-5 /lpf (0-5)
[2018-11-11 23:25] LABS: Triple Phosphate Crystal Urine Present (None Prsent)
[2018-11-12] MEDS: ACETAMINOPHEN 500 MG TAB PO PRN (01:14)
[2018-11-12] MEDS: LEVOTHYROXINE SODIUM 200 MCG TABLET PO SCH (05:48)
[2018-11-12] MEDS: LOSARTAN POTASSIUM 50 MG TAB PO SCH (08:33)
[2018-11-12] MEDS: CALCIUM 600MG + VIT D 400 IU TAB PO SCH ×2 (08:33→21:31)
[2018-11-12] MEDS: FERROUS SULFATE 325 MG TAB PO SCH (08:33)
[2018-11-12] MEDS: CYANOCOBALAMIN 500 MCG TABLET (VITAMIN B-12) PO SCH (08:33)
[2018-11-12] MEDS: POLYETHYLENE (MIRALAX) 17 GM PACK PO SCH (08:33)
[2018-11-12] MEDS: MAGNESIUM OXIDE 400 MG TAB PO SCH (08:33)
[2018-11-12] MEDS: ISOSORBIDE MONO EXTENDED REL 60 MG TABCR PO SCH (08:33)
[2018-11-12] MEDS: LABETALOL HCL 100 MG TAB PO SCH ×2 (08:33→21:31)
[2018-11-12] MEDS: GABAPENTIN 100 MG CAP PO SCH ×3 (08:33→21:33)
[2018-11-12] MEDS: FUROSEMIDE 20 MG TAB PO SCH (08:33)
[2018-11-12] MEDS: DOCUSATE SODIUM 100 MG CAP PO SCH ×2 (08:34→21:33)
[2018-11-12 12:07] LABS: Basophils # (auto) 0.02 K/uL (0-0.2); Basophils % (auto) 0.2 %; Eosinophils # (auto) 0.31 K/uL (0-0.5); Hematocrit (blood only) 24.5 % (37-47); Hemoglobin 8.2 g/dL (12.0-16.0); Immature Granulocytes # (auto) 0.03 K/uL (0.00-0.02); Immature Granulocytes % (auto) 0.3 %; Lymphocytes # (auto) 0.78 K/uL (1.2-3.4); Lymphocytes % (auto) 7.6 %; Mean Corpuscular Hgb Conc 33.5 g/dL (32-36); Mean Corpuscular Volume 93.2 fL (80-100); Mean Platelet Volume 8.9 fL (7.4-10.4); Monocytes # (auto) 1.71 K/uL (0.11-0.59); Monocytes % (auto) 16.7 %; Neutrophils # (auto) 7.38 K/uL (1.4-6.5); Neutrophils % (auto) 72.2 %; Platelet Count 318 K/uL (130-400); RDW Coefficient of Variation 14.5 % (11.5-14.5); Red Blood Count 2.63 M/uL (4.2-5.4); White Blood Count 10.23 K/uL (4.8-10.8)
[2018-11-12 12:15] LABS: INR 1.1 (0.9-1.1); Prothrombin Time 11.1 Seconds (9.0-12.0)
[2018-11-12 12:28] LABS: RBC Morphology Unremarkable
[2018-11-12 12:35] LABS: Albumin Level 1.8 gm/dl (3.4-5.0); Bilirubin Direct 0.3 mg/dl (0-0.2); Calcium 8.3 mg/dl (8.5-10.1); Est GFR (African American) 80.3; Est GFR (Non-African American) 69.3; Magnesium 2.1 mg/dl (1.8-2.4); Potassium 4.4 mmol/L (3.5-5.1)
[2018-11-12 12:36] LABS: Bilirubin,Total 0.7 mg/dl (0.2-1); Total Protein 5.4 gm/dl (6.4-8.2)
[2018-11-12] MEDS: TRAMADOL HCL 50 MG TABLET PO PRN (17:07)
--- NOTE | 2018-11-12 18:43 | Hospitalist Progress Note ---
Date of Service November 12, 2018 Assessment & Plan (1) Cauda equina compression: Patient taken to OR for emergency decompression of the lumbar spine by Dr. Brown on 11/06. -has brace for lower back - Once braced, will work with PT/OT and start rehab placement. Said no one got her up today - On 11/09, had worsening pain, so was sent for lumbar spinal x-rays - Per radiology read, stable. -continues with significant weakness but is moving a bit today in the lower extremities -continue pain control but dilaudid and oxycodone caused severe delirium--> discontinued them and now doing well on tramadol (2) Leukocytosis: WBCs persistently elevated since 11/09 and now finally resolved. Her C. diff PCR was positive on 11/09, but then toxin was negative making C. diff infection less likely. Not having diarrhea here. No other focal signs/symptoms of infection. No fever. HR & BP stable. UA without convincing evidence of infection -follow CBC (3) C. difficile diarrhea: Watery diarrhea noted on 11/09. C. diff PCR tested positive; however, toxin presence was negative. - dc PO vancomycin (4) Lower extremity weakness: Due to spinal cord compression. - See above (5) Epidural hematoma: As above (6) Hyponatremia: Labile Na with some as low as 125 in prior months and up to 135. - continues but improved today at Na+ 129;Ur OSM 502 UrNa 12 and Serum Osm 273--> suspect she is actually a bit dry and this is appropriate ADH production, plus pain could cause some component of SIADH -dc lasix, will not give IVFs -follow BMP in AM currently asymptomatic but may have also been contributing to her confusion (7) Essential (primary) hypertension: BP labile as before on previous admission - Continue furosemide 20mg daily, losartan 100mg daily, and Imdur 120 daily. - On 11/09, increased labetolol from 100mg PO BID to 200mg PO BID - Clonidine PRN per primary team - Monitor BP (8) Afib: EKG on 10/28 showed atrial flutter with 4:1 conduction. Was on anticoagulation at home, but being held given her hematoma. - Continue labetalol for HR control - Hold anticoagulation--> will d/w Ortho about when safe to restart but not at this time (9) CAD (coronary artery disease): H/o 3 [place] in 2016. No current chest pain. - On statin & beta-maria eugenia - Hold ASA, resume when approved by Dr. Brown (10) Chronic kidney disease, stage 3a: Baseline Cr is around 0.7, with eGFR of 75 and CrCl ~60. - Monitor Cr - Renally-dose meds (11) Anemia: Likely due to dilutional and blood draws, along with blood loss from surgery on 11/06. - Monitor hgb - Transfuse for hgb < 7 (12) Hypothyroid: TSH stable on 3 prior checks. No concerns for hypo-/hyperthyroidism. - Cont home Synthroid 200mcg. (13) DVT prophylaxis: SCDs - Until cleared by Dr. Brown for heparin Dispo-much improved , delirium resolved, leukocytosis improved Will need a lot of PT/OT over many months to recover her strength Subjective Pt feelin gmuch better today, still with pain in back but feels a little stronger. Is not confused at all today and her son at bedside is very relieved about this. Tramadol helping somewhat Review of Systems All systems reviewed & are unremarkable except as noted in HPI & below Physical Exam Vital Signs (Past 24 Hours): Last Vital Signs Temp 36.3 C L 11/12/18 15:00 Pulse 75 11/12/18 15:00 Resp 20 11/12/18 15:00 BP 153/75 H 11/12/18 15:00 Pulse Ox 98 11/12/18 15:00 Constitutional: WD/WN, vitals as above Eyes: PERRL, conjunctivae normal, anicteric sclerae ENMT: external ear and nose normal, oropharynx normal Neck: trachea midline, no thyromegaly Respiratory: normal respiratory effort, lungs clear to auscultation Cardiovascular: Rate/Rhythm: regular rate; + abnormal rhythm (irreg irreg) Extremities: no edema Gastrointestinal (Abdomen): normal bowel sounds, soft, nontender, no hepatosplenomegaly Musculoskeletal: Extremities: extremities normal to inspection; no cyanosis and no clubbing Skin: no rashes, warm and dry Neurologic: + focal motor deficit (2/5 sterngth throughout LEs bilat) and awake Psychiatric: A+Ox3, euthymic affect Genitourinary: + abnormal external appearance (Rebolledo in place with clear yellow urine) Results & Data Laboratory Results 11/12/18 11/12/18 11/12/18 Range/Units 20:16 17:06 11:54 WBC (4.8-10.8) K/uL RBC (4.2-5.4) M/uL Hgb (12.0-16.0) g/dL Hct (37-47) % MCV (80-100) fL MCH (25-34) pg MCHC (32-36) g/dL RDW Std Deviation (36.4-46.3) fL RDW Coeff of Taylor (11.5-14.5) % Plt Count (130-400) K/uL MPV (7.4-10.4) fL Immature Gran % (Auto) % Neut % (Auto) % Lymph % (Auto) % [place] % (Auto) % Eos % (Auto) % Baso % (Auto) % Immature Gran # (Auto) (0.00-0.02) K/uL Neut # (Auto) (1.4-6.5) K/uL Lymph # (Auto) (1.2-3.4) K/uL [place] # (Auto) (0.11-0.59) K/uL Eos # (Auto) (0-0.5) K/uL Baso # (Auto) (0-0.2) K/uL RBC Morphology PT (9.0-12.0) Seconds INR (0.9-1.1) Sodium (136-145) mmol/L Potassium (3.5-5.1) mmol/L Chloride (98-107) mmol/L Carbon Dioxide (21-32) mmol/L Anion Gap (3-11) BUN (7-18) mg/dl Creatinine (0.6-1.2) mg/dl Est Cr Clr Drug Dosing ml/min Est GFR ( Amer) Est GFR (Non-Af Amer) BUN/Creatinine Ratio (10-20) Glucose (70-99) mg/dl POC Glucose 129 H 157 H 161 H (70-99) Osmolality (280-300) mOsm/kg Calcium (8.5-10.1) mg/dl Magnesium (1.8-2.4) mg/dl Total Bilirubin (0.2-1) mg/dl Direct Bilirubin (0-0.2) mg/dl AST (15-37) U/L ALT (12-78) U/L Alkaline Phosphatase (45-117) U/L Total Protein (6.4-8.2) gm/dl Albumin (3.4-5.0) gm/dl Urine Osmolality (500-800) mOsm/kg Ur Random Sodium mmol/L 11/12/18 11/12/18 11/12/18 Range/Units 11:50 11:50 11:48 WBC (4.8-10.8) K/uL RBC (4.2-5.4) M/uL Hgb (12.0-16.0) g/dL Hct (37-47) % MCV (80-100) fL MCH (25-34) pg MCHC (32-36) g/dL RDW Std Deviation (36.4-46.3) fL RDW Coeff of Taylor (11.5-14.5) % Plt Count (130-400) K/uL MPV (7.4-10.4) fL Immature Gran % (Auto) % Neut % (Auto) % Lymph % (Auto) % [place] % (Auto) % Eos % (Auto) % Baso % (Auto) % Immature Gran # (Auto) (0.00-0.02) K/uL Neut # (Auto) (1.4-6.5) K/uL Lymph # (Auto) (1.2-3.4) K/uL [place] # (Auto) (0.11-0.59) K/uL Eos # (Auto) (0-0.5) K/uL Baso # (Auto) (0-0.2) K/uL RBC Morphology PT 11.1 (9.0-12.0) Seconds INR 1.1 (0.9-1.1) Sodium (136-145) mmol/L Potassium (3.5-5.1) mmol/L Chloride (98-107) mmol/L Carbon Dioxide (21-32) mmol/L Anion Gap (3-11) BUN (7-18) mg/dl Creatinine (0.6-1.2) mg/dl Est Cr Clr Drug Dosing ml/min Est GFR ( Amer) Est GFR (Non-Af Amer) BUN/Creatinine Ratio (10-20) Glucose (70-99) mg/dl POC Glucose (70-99) Osmolality (280-300) mOsm/kg Calcium (8.5-10.1) mg/dl Magnesium (1.8-2.4) mg/dl Total Bilirubin (0.2-1) mg/dl Direct Bilirubin (0-0.2) mg/dl AST (15-37) U/L ALT (12-78) U/L Alkaline Phosphatase (45-117) U/L Total Protein (6.4-8.2) gm/dl Albumin (3.4-5.0) gm/dl Urine Osmolality 502 (500-800) mOsm/kg Ur Random Sodium 12 mmol/L 11/12/18 11/12/18 11/12/18 Range/Units 11:48 11:48 11:48 WBC 10.23 (4.8-10.8) K/uL RBC 2.63 L (4.2-5.4) M/uL Hgb 8.2 L (12.0-16.0) g/dL Hct 24.5 L (37-47) % MCV 93.2 (80-100) fL MCH 31.2 (25-34) pg MCHC 33.5 (32-36) g/dL RDW Std Deviation 50.0 H (36.4-46.3) fL RDW Coeff of [place] 14.5 (11.5-14.5) % Plt Count 318 (130-400) K/uL MPV 8.9 (7.4-10.4) fL Immature Gran % (Auto) 0.3 % Neut % (Auto) 72.2 % Lymph % (Auto) 7.6 % [place] % (Auto) 16.7 % Eos % (Auto) 3.0 % Baso % (Auto) 0.2 % Immature Gran # (Auto) 0.03 H (0.00-0.02) K/uL Neut # (Auto) 7.38 H (1.4-6.5) K/uL Lymph # (Auto) 0.78 L (1.2-3.4) K/uL [place] # (Auto) 1.71 H (0.11-0.59) K/uL Eos # (Auto) 0.31 (0-0.5) K/uL Baso # (Auto) 0.02 (0-0.2) K/uL RBC Morphology Unremarkable PT (9.0-12.0) Seconds INR (0.9-1.1) Sodium 129 L (136-145) mmol/L Potassium 4.4 (3.5-5.1) mmol/L Chloride 96 L (98-107) mmol/L Carbon Dioxide 28 (21-32) mmol/L Anion Gap 5.0 (3-11) BUN 22 H (7-18) mg/dl Creatinine 0.78 (0.6-1.2) mg/dl Est Cr Clr Drug Dosing 52.0 ml/min Est GFR ( Amer) 80.3 Est GFR (Non-Af Amer) 69.3 BUN/Creatinine Ratio 28.0 H (10-20) Glucose 127 H (70-99) mg/dl POC Glucose (70-99) Osmolality 273 L (280-300) mOsm/kg Calcium 8.3 L (8.5-10.1) mg/dl Magnesium 2.1 (1.8-2.4) mg/dl Total Bilirubin 0.7 (0.2-1) mg/dl Direct Bilirubin 0.3 H (0-0.2) mg/dl AST 24 (15-37) U/L ALT 20 (12-78) U/L Alkaline Phosphatase 57 (45-117) U/L Total Protein 5.4 L (6.4-8.2) gm/dl Albumin 1.8 L (3.4-5.0) gm/dl Urine Osmolality (500-800) mOsm/kg Ur Random Sodium mmol/L 11/12/18 Range/Units 07:41 WBC (4.8-10.8) K/uL RBC (4.2-5.4) M/uL Hgb (12.0-16.0) g/dL Hct (37-47) % MCV (80-100) fL MCH (25-34) pg MCHC (32-36) g/dL RDW Std Deviation (36.4-46.3) fL RDW Coeff of Taylor (11.5-14.5) % Plt Count (130-400) K/uL MPV (7.4-10.4) fL Immature Gran % (Auto) % Neut % (Auto) % Lymph % (Auto) % [place] % (Auto) % Eos % (Auto) % Baso % (Auto) % Immature Gran # (Auto) (0.00-0.02) K/uL Neut # (Auto) (1.4-6.5) K/uL Lymph # (Auto) (1.2-3.4) K/uL [place] # (Auto) (0.11-0.59) K/uL Eos # (Auto) (0-0.5) K/uL Baso # (Auto) (0-0.2) K/uL RBC Morphology PT (9.0-12.0) Seconds INR (0.9-1.1) Sodium (136-145) mmol/L Potassium (3.5-5.1) mmol/L Chloride (98-107) mmol/L Carbon Dioxide (21-32) mmol/L Anion Gap (3-11) BUN (7-18) mg/dl Creatinine (0.6-1.2) mg/dl Est Cr Clr Drug Dosing ml/min Est GFR ( Amer) Est GFR (Non-Af Amer) BUN/Creatinine Ratio (10-20) Glucose (70-99) mg/dl POC Glucose 106 H (70-99) Osmolality (280-300) mOsm/kg Calcium (8.5-10.1) mg/dl Magnesium (1.8-2.4) mg/dl Total Bilirubin (0.2-1) mg/dl Direct Bilirubin (0-0.2) mg/dl AST (15-37) U/L ALT (12-78) U/L Alkaline Phosphatase (45-117) U/L Total Protein (6.4-8.2) gm/dl Albumin (3.4-5.0) gm/dl Urine Osmolality (500-800) mOsm/kg Ur Random Sodium mmol/L (1) CAD (coronary artery disease) Associated angina: without angina Coronary Disease-Associated Artery/Lesion type: [place] artery [place] vs. transplanted heart: [place] heart Qualified Code(s): I25.10 - Atherosclerotic heart disease of [place] coronary artery without angina pectoris (2) Anemia Anemia type: unspecified type Qualified Code(s): D64.9 - Anemia, unspecified (3) Hypothyroid Hypothyroidism type: acquired Qualified Code(s): E03.9 - Hypothyroidism, unspecified (4) Lower extremity weakness Laterality: bilateral Qualified Code(s): R29.898 - Other symptoms and signs involving the musculoskeletal system
[2018-11-12] MEDS: ATORVASTATIN 40 MG TAB PO SCH (21:31)
[2018-11-12] MEDS: HYDROmorphone INJ 0.5 MG/0.5 ML SYR IV PRN (21:36)
[2018-11-13] MEDS: LEVOTHYROXINE SODIUM 200 MCG TABLET PO SCH (06:30)
[2018-11-13] MEDS: TRAMADOL HCL 50 MG TABLET PO PRN ×2 (07:04→16:39)
--- NOTE | 2018-11-13 08:01 | Progress Note ---
DATE: 11/13/2018 SUBJECTIVE: She is alert, oriented, taking p.o. No chest pain, shortness of breath. Achiness in her spine, but her legs are moving a little bit better. OBJECTIVE: The rest of her vital signs are stable. Her last hemoglobin is low at 8.2, so she is anemic, but I do not think it is affecting her care. White cell count down to 10.23. ASSESSMENT: Status post lumbar spine surgery, cauda equina, profound deficits. PLAN: I think she is making progress, we will try to get her to a nursing type facility, I have contacted, discharge planning, ordered occupational consultation and PT consultation. We will change her dressings and hopefully there will be a bed available for her.
[2018-11-13] MEDS: CYANOCOBALAMIN 500 MCG TABLET (VITAMIN B-12) PO SCH (08:25)
[2018-11-13] MEDS: POLYETHYLENE (MIRALAX) 17 GM PACK PO SCH (08:25)
[2018-11-13] MEDS: CALCIUM 600MG + VIT D 400 IU TAB PO SCH ×2 (08:25→20:48)
[2018-11-13] MEDS: FERROUS SULFATE 325 MG TAB PO SCH (08:25)
[2018-11-13] MEDS: LABETALOL HCL 100 MG TAB PO SCH ×2 (08:25→20:48)
[2018-11-13] MEDS: GABAPENTIN 100 MG CAP PO SCH ×3 (08:25→20:48)
[2018-11-13] MEDS: ISOSORBIDE MONO EXTENDED REL 60 MG TABCR PO SCH (08:25)
[2018-11-13] MEDS: LOSARTAN POTASSIUM 50 MG TAB PO SCH (08:25)
[2018-11-13] MEDS: DOCUSATE SODIUM 100 MG CAP PO SCH ×2 (08:25→20:48)
[2018-11-13] MEDS: MAGNESIUM OXIDE 400 MG TAB PO SCH (08:25)
[2018-11-13 10:30] LABS: Basophils # (auto) 0.03 K/uL (0-0.2); Basophils % (auto) 0.4 %; Eosinophils # (auto) 0.39 K/uL (0-0.5); Eosinophils % (auto) 4.6 %; Hematocrit (blood only) 25.7 % (37-47); Hemoglobin 8.5 g/dL (12.0-16.0); Immature Granulocytes # (auto) 0.05 K/uL (0.00-0.02); Immature Granulocytes % (auto) 0.6 %; Lymphocytes # (auto) 0.99 K/uL (1.2-3.4); Lymphocytes % (auto) 11.7 %; Mean Corpuscular Hgb Conc 33.1 g/dL (32-36); Mean Corpuscular Volume 94.8 fL (80-100); Mean Platelet Volume 8.5 fL (7.4-10.4); Monocytes # (auto) 1.63 K/uL (0.11-0.59); Monocytes % (auto) 19.2 %; Neutrophils # (auto) 5.39 K/uL (1.4-6.5); Neutrophils % (auto) 63.5 %; Platelet Count 308 K/uL (130-400); RDW Coefficient of Variation 14.5 % (11.5-14.5); RDW Standard Deviation 49.8 fL (36.4-46.3); Red Blood Count 2.71 M/uL (4.2-5.4); White Blood Count 8.48 K/uL (4.8-10.8)
[2018-11-13 10:52] LABS: BUN Creatinine Ratio 22.5 (10-20); Calcium 8.4 mg/dl (8.5-10.1); Creatinine Clr Calc Pharmacy 55.6 ml/min; Est GFR (Non-African American) 75.1; Potassium 4.4 mmol/L (3.5-5.1)
[2018-11-13 11:08] LABS: Echinocytes 1+
[2018-11-13] MEDS: cefTRIAXone SODIUM 1,000 MG in DEXTROSE 5% 50 ML IV SCH (12:28)
[2018-11-13] MEDS: HYDROmorphone INJ 0.5 MG/0.5 ML SYR IV PRN ×2 (12:46→18:32)
--- NOTE | 2018-11-13 19:07 | Hospitalist Progress Note ---
Date of Service November 13, 2018 Assessment & Plan (1) Cauda equina compression: Patient taken to OR for emergency decompression of the lumbar spine by Dr. Brown on 11/06. -has brace for lower back -Now has a back brace and starting to work with PT/OT and needs rehab placement - On 11/09, had worsening pain, so was sent for lumbar spinal x-rays - Per radiology read, stable. -continues with significant weakness but is getting a little stronger in lower extremities -continue pain control but dilaudid and oxycodone caused severe delirium--> discontinued them and now doing well on tramadol (2) Leukocytosis: WBCs persistently elevated since 11/09 and now finally resolved. Her C. diff PCR was positive on 11/09, but then toxin was negative making C. diff infection less likely. Not having diarrhea here. No other focal signs/symptoms of infection except possible UTI. No fever. HR & BP stable. UA is borderline--> will go ahead and treat empirically for UTI given encephalopathy previously, leukocytosis, hardware in back, Rebolledo catheter in jake ce -f/u Ur cx -follow CBC -start Rocephin 1 gram daily and transition to po abx at discharge x 7 days total (3) C. difficile diarrhea: Watery diarrhea noted on 11/09. C. diff PCR tested positive; however, toxin presence was negative. She received several day sof po Vanco but I dc'd it on 11/11 Today with some continued loose stools since yesterday but had been receiving multiple laxatives, bisacodyl suppos etc. for constipation from opioids (4) Lower extremity weakness: Due to spinal cord compression. - See above (5) Epidural hematoma: As above (6) Hyponatremia: Labile Na with some as low as 125 in prior months and up to 135. - continues today at Na+ 128;Ur OSM 502 UrNa 12 and Serum Osm 273--> suspect she is actually a bit dry and this is appropriate ADH production, plus pain could cause some component of SIADH -dc lasix, will not give IVFs at this time -follow BMP in AM currently asymptomatic but may have also been contributing to her confusion (7) Essential (primary) hypertension: BP labile as before on previous admission - holding furosemide 20mg daily, but continue losartan 100mg daily, and Imdur 120 daily. - On 11/09, increased labetolol from 100mg PO BID to 200mg PO BID - Clonidine PRN per primary team - Monitor BP (8) Afib: EKG on 10/28 showed atrial flutter with 4:1 conduction. Was on anticoagulation at home, but being held given her hematoma. - Continue labetalol for HR control - Hold anticoagulation--> will d/w Ortho about when safe to restart but not at this time (9) CAD (coronary artery disease): H/o 3 [place] in 2016. No current chest pain. - On statin & beta-maria eugenia - Hold ASA, resume when approved by Dr. Brown (10) Chronic kidney disease, stage 3a: Baseline Cr is around 0.7, with eGFR of 75 and CrCl ~60. - Monitor Cr - Renally-dose meds (11) Anemia: Likely due to dilutional and blood draws, along with blood loss from surgery on 11/06. - Monitor hgb - Transfuse for hgb < 7 (12) Hypothyroid: TSH stable on 3 prior checks. No concerns for hypo-/hyperthyroidism. - Cont home Synthroid 200mcg. (13) Acute encephalopathy: encephalopathy possibly due to opioids-resolved (14) Acute blood loss anemia: Initial Hgb 8.9/Hct 25.9 which dropped as low as 7.7/22.9 post operatively. 125 cc blood loss between EBL of 90 cc and hemovac drainage of 35 cc -was transfused 1U PRBC, hgb remains stable now at 8.5 for many days -follow CBC (15) DVT prophylaxis: SCDs - Until cleared by Dr. Brown for heparin Dispo-much improved , delirium resolved, leukocytosis improved Will need a lot of PT/OT over many months to recover her strength CM has applied for insurance auth for rehab placement today-await approval Hospitalist service will continue to follow along Subjective With pain in lower back and hips, tramadol helps somewhat. No confusion at all. Was standing up with one person oneach side today for the first time and was happy about that. No nausea, no CP or SOB Review of Systems All systems reviewed & are unremarkable except as noted in HPI & below Physical Exam Vital Signs (Past 24 Hours): Last Vital Signs Temp 36.2 C L 11/13/18 16:53 Pulse 83 11/13/18 16:53 Resp 18 11/13/18 16:53 BP 154/82 H 11/13/18 16:53 Pulse Ox 95 11/13/18 16:53 Constitutional: WD/WN, vitals as above Eyes: PERRL, conjunctivae normal, anicteric sclerae ENMT: external ear and nose normal, oropharynx normal Neck: trachea midline, no thyromegaly Respiratory: normal respiratory effort, lungs clear to auscultation Cardiovascular: Rate/Rhythm: regular rate; + abnormal rhythm (irreg irreg) Extremities: no edema Gastrointestinal (Abdomen): normal bowel sounds, soft, nontender, no hepatosplenomegaly Musculoskeletal: Extremities: extremities normal to inspection; no cyanosis and no clubbing Skin: no rashes, warm and dry Neurologic: + focal motor deficit (2/5 sterngth throughout LEs bilat) and awake Psychiatric: A+Ox3, euthymic affect Orientation: alert, oriented to person and cooperative Genitourinary: + abnormal external appearance (Rebolledo in place with clear yellow urine) Results & Data Laboratory Results 11/14/18 11/13/18 11/13/18 Range/Units 07:40 20:24 16:49 WBC (4.8-10.8) K/uL RBC (4.2-5.4) M/uL Hgb (12.0-16.0) g/dL Hct (37-47) % MCV (80-100) fL MCH (25-34) pg MCHC (32-36) g/dL RDW Std Deviation (36.4-46.3) fL RDW Coeff of Taylor (11.5-14.5) % Plt Count (130-400) K/uL MPV (7.4-10.4) fL Immature Gran % (Auto) % Neut % (Auto) % Lymph % (Auto) % Victoria % (Auto) % Eos % (Auto) % Baso % (Auto) % Immature Gran # (Auto) (0.00-0.02) K/uL Neut # (Auto) (1.4-6.5) K/uL Lymph # (Auto) (1.2-3.4) K/uL Victoria # (Auto) (0.11-0.59) K/uL Eos # (Auto) (0-0.5) K/uL Baso # (Auto) (0-0.2) K/uL Echinocytes Sodium (136-145) mmol/L Potassium (3.5-5.1) mmol/L Chloride (98-107) mmol/L Carbon Dioxide (21-32) mmol/L Anion Gap (3-11) BUN (7-18) mg/dl Creatinine (0.6-1.2) mg/dl Est Cr Clr Drug Dosing ml/min Est GFR ( Amer) Est GFR (Non-Af Amer) BUN/Creatinine Ratio (10-20) Glucose (70-99) mg/dl POC Glucose 96 98 110 H (70-99) Calcium (8.5-10.1) mg/dl 11/13/18 11/13/18 11/13/18 Range/Units 11:54 10:15 10:15 WBC 8.48 (4.8-10.8) K/uL RBC 2.71 L (4.2-5.4) M/uL Hgb 8.5 L (12.0-16.0) g/dL Hct 25.7 L (37-47) % MCV 94.8 (80-100) fL MCH 31.4 (25-34) pg MCHC 33.1 (32-36) g/dL RDW Std Deviation 49.8 H (36.4-46.3) fL RDW Coeff of Taylor 14.5 (11.5-14.5) % Plt Count 308 (130-400) K/uL MPV 8.5 (7.4-10.4) fL Immature Gran % (Auto) 0.6 % Neut % (Auto) 63.5 % Lymph % (Auto) 11.7 % Victoria % (Auto) 19.2 % Eos % (Auto) 4.6 % Baso % (Auto) 0.4 % Immature Gran # (Auto) 0.05 H (0.00-0.02) K/uL Neut # (Auto) 5.39 (1.4-6.5) K/uL Lymph # (Auto) 0.99 L (1.2-3.4) K/uL Victoria # (Auto) 1.63 H (0.11-0.59) K/uL Eos # (Auto) 0.39 (0-0.5) K/uL Baso # (Auto) 0.03 (0-0.2) K/uL Echinocytes 1+ Sodium 128 L (136-145) mmol/L Potassium 4.4 (3.5-5.1) mmol/L Chloride 94 L (98-107) mmol/L Carbon Dioxide 29 (21-32) mmol/L Anion Gap 5.0 (3-11) BUN 16 (7-18) mg/dl Creatinine 0.73 (0.6-1.2) mg/dl Est Cr Clr Drug Dosing 55.6 ml/min Est GFR ( Amer) 87.0 Est GFR (Non-Af Amer) 75.1 BUN/Creatinine Ratio 22.5 H (10-20) Glucose 99 (70-99) mg/dl POC Glucose 112 H (70-99) Calcium 8.4 L (8.5-10.1) mg/dl (1) CAD (coronary artery disease) Associated angina: without angina Coronary Disease-Associated Artery/Lesion type: [place] artery [place] vs. transplanted heart: [place] heart Qualified Cod e(s): I25.10 - Atherosclerotic heart disease of [place] coronary artery without angina pectoris (2) Anemia Anemia type: unspecified type Qualified Code(s): D64.9 - Anemia, unspecified (3) Hypothyroid Hypothyroidism type: acquired Qualified Code(s): E03.9 - Hypothyroidism, unspecified (4) Lower extremity weakness Laterality: bilateral Qualified Code(s): R29.898 - Other symptoms and signs involving the musculoskeletal system
[2018-11-13] MEDS: ATORVASTATIN 40 MG TAB PO SCH (20:48)
[2018-11-14] MEDS: TRAMADOL HCL 50 MG TABLET PO PRN ×2 (04:24→13:20)
[2018-11-14] MEDS: HYDROmorphone INJ 0.5 MG/0.5 ML SYR IV PRN ×4 (05:27→21:16)
[2018-11-14] MEDS: LEVOTHYROXINE SODIUM 200 MCG TABLET PO SCH (05:30)
[2018-11-14] MEDS: POLYETHYLENE (MIRALAX) 17 GM PACK PO SCH (08:12)
[2018-11-14] MEDS: DOCUSATE SODIUM 100 MG CAP PO SCH ×2 (08:12→21:11)
[2018-11-14] MEDS: MAGNESIUM OXIDE 400 MG TAB PO SCH (08:17)
[2018-11-14] MEDS: ISOSORBIDE MONO EXTENDED REL 60 MG TABCR PO SCH (08:17)
[2018-11-14] MEDS: LOSARTAN POTASSIUM 50 MG TAB PO SCH (08:17)
[2018-11-14] MEDS: FERROUS SULFATE 325 MG TAB PO SCH (08:17)
[2018-11-14] MEDS: CALCIUM 600MG + VIT D 400 IU TAB PO SCH ×2 (08:17→21:11)
[2018-11-14] MEDS: GABAPENTIN 100 MG CAP PO SCH ×3 (08:17→21:11)
[2018-11-14] MEDS: CYANOCOBALAMIN 500 MCG TABLET (VITAMIN B-12) PO SCH (08:17)
[2018-11-14] MEDS: LABETALOL HCL 100 MG TAB PO SCH ×2 (08:17→21:12)
--- NOTE | 2018-11-14 09:04 | Hospitalist Progress Note ---
Date of Service November 14, 2018 Assessment & Plan (1) Cauda equina compression: POD #[address] Brown Continue with profound weakness but has sensation to lower extremities Continue lumbar pain radiating into the hips Continue physical therapy and occupational therapy Anticipate transfer to [facility] based on PT evaluation Stable for transfer to rehab per the medicine service Continue gabapentin for neuropathy Currently receiving tramadol as needed as well as hydromorphone as needed for pain (2) Lower extremity weakness: Secondary to cauda equina Arranging for transfer to [facility] for acute rehab Postoperative day #7 Continue to follow neurological status and continue physical therapy (3) Hyponatremia: This is been stable and is currently 129 Been known to dip count as low as 125 in the past several months IV fluids being held as well as diuretics Currently appears to be asymptomatic and at baseline We will continue to follow serial labs on discharge to rehab (4) Anemia: Mixed etiology of blood loss anemia as well as chronic anemia Patient's hemoglobin has been stable and is currently 8.4 Would avoid transfusion of packed red blood cells unless the hemoglobin drops below 7 Continue ferrous sulfate (5) Chronic kidney disease, stage 3a: Anemia stable and has been below 1.0 since 11/06/2018 Continue usual diet Follow outpatient labs per protocol (6) Essential (primary) hypertension: Systolic blood pressures been labile with pressures as high as 190 in the morning Patient has received labetalol and after receiving medication this morning systolic pressure went from 192-113 With a systolic pressure of 113 patient is asymptomatic Would exercise caution at rehab with such a wide shift -watch for orthostasis Continue labetalol as currently ordered We will also continue clonidine, imdur, losartan, and follow (7) Afib: Unable to anticoagulate secondary to cauda equina secondary to hematoma Currently patient is in A. fib with a rate of 100 but decreases down in the 70s and 80s with her labetalol Would resume anticoagulation per orthopedics (8) Hypothyroid: Continue levothyroxine replacement TSH has been stable (9) CAD (coronary artery disease): Continue labetalol Continue atorvastatin Hold aspirin secondary to epidural hematoma Resume aspirin per orthopedics (10) DVT prophylaxis: No anticoagulation secondary to hematoma resulting in cauda equina Continue with AMARJIT jennifer and SCD as tolerated Supervising Physician Co-Signing Physician Notes Attending Attestation - Pt seen/examined, chart reviewed, care plan d/w JANETH Talbot. I agree w/ the alarcon components of his documentation. Pt's main complaint is that of severe back pain. She is requiring a considerable amount of IV dilaudid and oral pain meds as well. VSS w/ BPs labile gen - obese, uncomfortable neck - no JVD heart - RRR, s1, s2 lungs - CTA b/l abd - soft ext - no edema neuro - weakness of b/l legs, especially proximal Na low A/P: 1. back pain - try extended release nucynta 50mg BID; allow ultram prn but lower dose to 50mg prn. dilaudid prn 2. hyponatremia - cont to follow Na; due to recent lasix use? 3. HTN - if BPs cont to remain high then adjust meds Tay Amaral MD Subjective This 83-year old female who came in with leg weakness delirium secondary to hematoma on the spine. She was taken to the operating theater by Dr. Brown and is currently on the medical floor. She has a history of atrial fibrillation which was anticoagulated previously but no anticoagulation has been given secondary surgery. On examination today the patient is in atrial fibrillation with a rate of around 100 bpm. Patient has had hypertension particularly morning and this morning systolic pressures in the 190s. Review of history shows that once labetalol is given in the morning that typically her systolic pressure dropped into the 130s and 140s and her heart rate dropped into the 70s and 80s. I have asked the floor nurse to give me a call once labetalol is given to make sure that she has a systolic pressure and heart rate that is acceptable given her atrial fibrillation and recent surgery. The patient currently is alert and oriented to person place and time. She continues to complain of pain in her low back and bilateral hips. She does have movement in the lower extremities but is extremely weak. She states that physical therapy has been in to see her but they have not been in today. The patient is aware that she will need some rehabilitation and currently is waiting for a bed in a nursing facility. The patient denies any chest pain or tightness. No palpitations or awareness of tachyarrhythmia. She has no shortness of breath. She has no abdominal pain. She has no nausea or vomiting. She did have one episode of watery diarrhea last night. She has not received any cathartic agents this morning and nursing will hold them secondary to her diarrhea last night. The patient is tolerating her diet. The patient has no other acute complaints. Physical Exam Vital Signs (Past 24 Hours): Last Vital Signs Temp 36.9 C 11/14/18 07:29 Pulse 92 H 11/14/18 07:29 Resp 18 11/14/18 07:29 BP 199/92 H 11/14/18 07:29 Pulse Ox 96 11/14/18 07:29 Physical Exam: GENERAL : No acute distress. Patient is in bed eating breakfast. Pleasant. EYES: No icterus, gaze conjugate NOSE: No evidence of epistaxis MOUTH: No lesions or candidiasis. Tongue is midline. NECK: Supple. No carotid bruits or stridor. LUNGS: CTA B/L, no wheezes, rales or rhonchi. Good inspiratory effort. HEART: Irregular/irregular, rate 104 bpm ABDOMEN: Soft, NT, ND, BS Present. No rebound tenderness or guarding EXTREMITIES: No LE edema, pedal pulses intact. Waffle boots are in place. SCDs in place. NEURO: A&OX3. Patellar reflexes are hyperreflexive at 3 out of 4 bilaterally. Patient is able to move her feet and ankles and toes. Feet and ankles as well as legs continue to be weak bilaterally. Patient is unable to lift her legs off of the bed. Upper extremity strength seems to be equal and appropriate bilaterally. Patient demonstrates no slurred speech. Pupils are equal round and reactive to light. Tongue is midline. No facial droop. No other focal deficits appreciated. Results & Data Laboratory Results Abnormal lab results 11/13/18 11/13/18 11/13/18 Range/Units 10:15 10:15 11:54 RBC 2.71 L (4.2-5.4) M/uL Hgb 8.5 L (12.0-16.0) g/dL Hct 25.7 L (37-47) % RDW Std Deviation 49.8 H (36.4-46.3) fL Immature Gran # (Auto) 0.05 H (0.00-0.02) K/uL Lymph # (Auto) 0.99 L (1.2-3.4) K/uL Logan # (Auto) 1.63 H (0.11-0.59) K/uL Sodium 128 L (136-145) mmol/L Chloride 94 L (98-107) mmol/L BUN/Creatinine Ratio 22.5 H (10-20) POC Glucose 112 H (70-99) Calcium 8.4 L (8.5-10.1) mg/dl 11/13/18 Range/Units 16:49 RBC (4.2-5.4) M/uL Hgb (12.0-16.0) g/dL Hct (37-47) % RDW Std Deviation (36.4-46.3) fL Immature Gran # (Auto) (0.00-0.02) K/uL Lymph # (Auto) (1.2-3.4) K/uL Logan # (Auto) (0.11-0.59) K/uL Sodium (136-145) mmol/L Chloride (98-107) mmol/L BUN/Creatinine Ratio (10-20) POC Glucose 110 H (70-99) Calcium (8.5-10.1) mg/dl Diagnostic Findings No new imaging since 11/09/2018 XR lumbar spine 2-3V HISTORY: 83 years-old Female pain acute low back pain without reported trauma COMPARISON: Lumbar spine MRI 11/05/2018 TECHNIQUE: 2 views of the lumbar spine FINDINGS: Study is limited secondary to patient positioning. Midline skin caitlyn are noted. Moderate formed stool noted throughout the colon. Demineralized appearance of the bones. Multilevel advanced spondylitic spurring, facet arthrosis and intervertebral disc space narrowing. The L1 vertebral body and T12-L1 disc space is not well seen on the lateral projection secondary to positioning. Unchanged grade 1 retrolisthesis of L1 on L2. No definite acute fracture or subluxation. Calcification of the aorta. IMPRESSION: 1. Limited study as above without acute fracture or subluxation identified. 2. Advanced degenerative changes as above. Electronically signed by: Braulio Hernandez M.D. 11/09/2018 12:39 PM (1) CAD (coronary artery disease) Associated angina: without angina Coronary Disease-Associated Artery/Lesion type: [place] artery [place] vs. transplanted heart: [place] heart Qualified Code(s): I25.10 - Atherosclerotic heart disease of [place] coronary artery without angina pectoris (2) Anemia Anemia type: unspecified type Qualified Code(s): D64.9 - Anemia, unspecified (3) Hypothyroid Hypothyroidism type: acquired Qualified Code(s): E03.9 - Hypothyroidism, unspecified (4) Lower extremity weakness Laterality: bilateral Qualified Code(s): R29.898 - Other symptoms and signs involving the musculoskeletal system
[2018-11-14 09:42] LABS: Basophils # (auto) 0.04 K/uL (0-0.2); Basophils % (auto) 0.6 %; Eosinophils # (auto) 0.41 K/uL (0-0.5); Eosinophils % (auto) 5.9 %; Hematocrit (blood only) 25.4 % (37-47); Hemoglobin 8.4 g/dL (12.0-16.0); Immature Granulocytes # (auto) 0.08 K/uL (0.00-0.02); Immature Granulocytes % (auto) 1.2 %; Lymphocytes # (auto) 0.98 K/uL (1.2-3.4); Lymphocytes % (auto) 14.1 %; Mean Corpuscular Hgb Conc 33.1 g/dL (32-36); Mean Corpuscular Volume 93.7 fL (80-100); Mean Platelet Volume 8.4 fL (7.4-10.4); Monocytes # (auto) 0.74 K/uL (0.11-0.59); Monocytes % (auto) 10.6 %; Neutrophils % (auto) 67.6 %; Platelet Count 322 K/uL (130-400); RDW Coefficient of Variation 14.6 % (11.5-14.5); RDW Standard Deviation 49.6 fL (36.4-46.3); Red Blood Count 2.71 M/uL (4.2-5.4); White Blood Count 6.95 K/uL (4.8-10.8)
[2018-11-14 10:06] LABS: Calcium 8.5 mg/dl (8.5-10.1); Creatinine Clr Calc Pharmacy 53.4 ml/min; Est GFR (African American) 82.9; Est GFR (Non-African American) 71.5; Potassium 4.4 mmol/L (3.5-5.1)
[2018-11-14 10:14] LABS: Acanthocytes 1+
--- NOTE | 2018-11-14 11:33 | Progress Note ---
DATE: 11/14/2018 SUBJECTIVE: She is alert, oriented. Her pain seems to be controlled. She actually has gained a little strength in extremities. OBJECTIVE: Wound clean, dry. Afebrile. ASSESSMENT: Status post laminectomy for cauda equina syndrome, multiple medical morbidities. PLAN: Hopefully, we can get her out of bed to chair, hopefully get her to a nursing type facility in the next 24-48 hours.
[2018-11-14] MEDS: cefTRIAXone SODIUM 1,000 MG in DEXTROSE 5% 50 ML IV SCH (12:50)
[2018-11-14] MEDS: TAPENTADOL HCL ER 50 MG TABCR PO SCH ×2 (15:28→23:49)
[2018-11-14] MEDS: ATORVASTATIN 40 MG TAB PO SCH (21:11)
[2018-11-15] MEDS: HYDROmorphone INJ 0.5 MG/0.5 ML SYR IV PRN (02:51)
[2018-11-15] MEDS: LEVOTHYROXINE SODIUM 200 MCG TABLET PO SCH (05:43)
[2018-11-15] MEDS: FERROUS SULFATE 325 MG TAB PO SCH (07:53)
[2018-11-15] MEDS: GABAPENTIN 100 MG CAP PO SCH ×3 (07:53→20:15)
[2018-11-15] MEDS: ISOSORBIDE MONO EXTENDED REL 60 MG TABCR PO SCH (07:53)
[2018-11-15] MEDS: LOSARTAN POTASSIUM 50 MG TAB PO SCH (07:53)
[2018-11-15] MEDS: CALCIUM 600MG + VIT D 400 IU TAB PO SCH ×2 (07:53→20:15)
[2018-11-15] MEDS: LABETALOL HCL 100 MG TAB PO SCH ×2 (07:53→20:16)
[2018-11-15] MEDS: POLYETHYLENE (MIRALAX) 17 GM PACK PO SCH (07:53)
[2018-11-15] MEDS: MAGNESIUM OXIDE 400 MG TAB PO SCH (07:53)
[2018-11-15] MEDS: CYANOCOBALAMIN 500 MCG TABLET (VITAMIN B-12) PO SCH (07:53)
[2018-11-15] MEDS: TAPENTADOL HCL ER 50 MG TABCR PO SCH ×2 (07:57→20:19)
[2018-11-15] MEDS: DOCUSATE SODIUM 100 MG CAP PO SCH ×2 (07:57→20:18)
[2018-11-15 10:42] LABS: BUN Creatinine Ratio 23.7 (10-20); Calcium 8.8 mg/dl (8.5-10.1); Creatinine Clr Calc Pharmacy 56.3 ml/min; Est GFR (African American) 88.5; Est GFR (Non-African American) 76.4; Potassium 4.5 mmol/L (3.5-5.1)
--- NOTE | 2018-11-15 10:52 | Hospitalist Progress Note ---
Date of Service November 15, 2018 Assessment & Plan (1) Cauda equina compression: POD #[address] Brown Continues with profound weakness in bilateral lower extremities Persistent lumbar pain especially when rolling in bed or moving her legs passively. Discussed with physical therapy today. They were able to dangle her legs yesterday but she has no functional strength in either lower extremity. Therapy limited by pain and anxiety Not ready for transfer to [facility] for rehab at this time due to change of mental status and still receiving IV medications Continue gabapentin for neuropathy Discontinue IV analgesics Continue trial with Nucynta Continue tramadol I spoke personally with Dr. Brown and advised him of the plan from medicine service. Dr. Amaral will continue to follow over the weekend (2) Lower extremity weakness: Secondary to cauda equina Transfer to [facility] for acute rehab when stable Postoperative day #8 Continue to follow neurological status and continue physical therapy (3) Hyponatremia: Sodium is dropped to 125 This may contribute to her mental status changes although she has been hyponatremic for several weeks with a sodium as low as 125 in the past. Currently patient is -6500 mL's this admission Diuretics being held Check urine osmolality and sodium so we can check fractional excretion of sodium Follow serial lab (4) Anemia: Mixed etiology of blood loss anemia as well as chronic anemia Patient's hemoglobin has been stable and is currently 8.4 Would avoid transfusion of packed red blood cells unless the hemoglobin drops below 7 Continue ferrous sulfate Will check repeat CBC tomorrow No evidence of current blood loss (5) Chronic kidney disease, stage 3a: Anemia stable and has been below 1.0 since 11/06/2018 Continue usual diet Check CBC tomorrow morning with morning labs (6) Essential (primary) hypertension: Systolic blood pressures been labile with pressures as high as 190 in the morning with good response to a.m. antihypertensives Would exercise caution at rehab with such a wide shift -watch for orthostasis Continue labetalol as currently ordered We will also continue clonidine, imdur, losartan, and follow (7) Afib: Unable to anticoagulate secondary to cauda equina secondary to hematoma Resume anticoagulation per orthopedics (8) Hypothyroid: Continue levothyroxine replacement TSH has been stable (9) CAD (coronary artery disease): Continue labetalol Continue atorvastatin Hold aspirin secondary to epidural hematoma Resume aspirin per orthopedics (10) DVT prophylaxis: No anticoagulation secondary to hematoma resulting in cauda equina Continue with AMARJIT par[place]flaquito and SCD as tolerated Supervising Physician Co-Signing Physician Notes Attending Attestation - Pt seen/examined, chart reviewed, care plan d/w JANETH Talbot. I agree w/ the alarcon components of his documentation. Pt very confused during my visit. Unable to give me any meaningful information. Eating has been poor today. BPs cont to be labile VSS otherwise & afebrile gen - obese, NAD, confused mouth - MM slightly dry neck - no JVD heart - irregular, s1, s2 lungs - CTA b/l abd - soft, NT ext - no edema A/P: 1. encephalopathy - toxic (pain meds) vs metabolic (low Na, etc). stop IV dilaudid. fix low Na. follow. if confusion persists may need to stop nucynta ER. 2. hyponatremia - volume status - slightly on dry side? Urine Na suggestive of solute depletion. Gave 500cc of NS and rechecked her Na - it got worse, now 124. Urine osm > serum osm, and uric acid low. SIADH? plan - move to telemetry for closer observation resume lasix NaCL tabs 1gm BID q6h Na checks 3. back pain - ongoing issue despite multiple changes last 24 hours. cont to monitor 4. epidural hematoma s/p evacuation Tay Amaral MD Subjective Patient seen and examined at bedside. She continues to have significant pain and is unable to roll by herself in bed secondary to pain. She is somewhat disoriented. She does know her full name, month of and date of but does not know year of . When asked what today's date is she replied 11/14 but did not know the year. She also can not name any [place] presidents. She is reported to have had some hallucination overnight and thinks that I am Darya Chow. She is very friendly and pleasant as well as cooperative. CC today continues to be back pain. She denies fever, chills, sweats, rigors. She has no chest pain or tightness. She denies SOB. Physical Exam Vital Signs (Past 24 Hours): Last Vital Signs Temp 36.8 C 11/15/18 06:28 Pulse 103 H 11/15/18 06:28 Resp 20 11/15/18 06:28 BP 194/70 H 11/15/18 06:28 Pulse Ox 97 11/15/18 06:28 Physical Exam: GENERAL : No acute distress when still in bed. Moderate distress when attempti ng to move EYES: No icterus, gaze conjugate NOSE: No evidence of epistaxis MOUTH: No lesions or candidiasis. Mucosa dry NECK: Supple LUNGS: CTA B/L, no wheezes, rales or rhonchi. Poor inspirational effort HEART: Regular, rate controlled ABDOMEN: Soft, NT, ND, BS Present. No tenderness to palpation EXTREMITIES: No LE edema, pedal pulses intact NEURO: Can tell me month and date of but not year. Reports that today is November 14 but cannot give me a year. Is unable to recite any [place] presidents. Nursing reports patient is having hallucinations overnight. Deep tendon reflexes 2 out of 4 to the patellar tendons. Patient is able to move feet and toes. Patient has sensation when I squeeze great toe on each foot and reports the sensation is being equal. Unable to lift legs off of the bed. Is able to differentiate left from right and give me thumbs up ipsilaterally when directed. Follows all simple commands. No slurred speech. Results & Data Laboratory Results Abnormal lab results 11/14/18 11/14/18 11/15/18 Range/Units 11:36 19:46 08:01 Sodium (136-145) mmol/L Chloride (98-107) mmol/L BUN/Creatinine Ratio (10-20) POC Glucose 127 H 126 H 108 H (70-99) Osmolality (280-300) mOsm/kg 11/15/18 11/15/18 Range/Units 10:04 10:04 Sodium 125 L (136-145) mmol/L Chloride 92 L (98-107) mmol/L BUN/Creatinine Ratio 23.7 H (10-20) POC Glucose (70-99) Osmolality 261 L (280-300) mOsm/kg Diagnostic Findings No new imaging since 11/09/2018 (1) CAD (coronary artery disease) Associated angina: without angina Coronary Disease-Associated Artery/Lesion type: [place] artery [place] vs. transplanted heart: [place] heart Qualified Code(s): I25.10 - Atherosclerotic heart disease of [place] coronary artery without angina pectoris (2) Anemia Anemia type: unspecified type Qualified Code(s): D64.9 - Anemia, unspecified (3) Hypothyroid Hypothyroidism type: acquired Qualified Code(s): E03.9 - Hypothyroidism, unspecified (4) Lower extremity weakness Laterality: bilateral Qualified Code(s): R29.898 - Other symptoms and signs involving the musculoskeletal system
[2018-11-15] MEDS: cefTRIAXone SODIUM 1,000 MG in DEXTROSE 5% 50 ML IV SCH (11:34)
[2018-11-15] MEDS ORDERED: SODIUM CHLORIDE 0.9% 500 ML IV SCH (15:30)
[2018-11-15] MEDS: TRAMADOL HCL 50 MG TABLET PO PRN (18:32)
[2018-11-15] MEDS: ATORVASTATIN 40 MG TAB PO SCH (20:16)
[2018-11-15] MEDS ORDERED: NIFEdipine EXTENDED REL 30 MG TABCR PO STA (20:20)
[2018-11-15 21:07] LABS: Uric Acid 3.1 mg/dl (2.6-7.2)
[2018-11-15] MEDS ORDERED: FUROSEMIDE 40 MG TAB PO ONE (21:13)
[2018-11-15] MEDS: SODIUM CHLORIDE 1 GM TABLET PO SCH (21:51)
[2018-11-16 06:16] LABS: Basophils # (auto) 0.05 K/uL (0-0.2); Basophils % (auto) 0.5 %; Eosinophils # (auto) 0.21 K/uL (0-0.5); Eosinophils % (auto) 2.2 %; Hematocrit (blood only) 28.1 % (37-47); Hemoglobin 9.5 g/dL (12.0-16.0); Immature Granulocytes # (auto) 0.25 K/uL (0.00-0.02); Immature Granulocytes % (auto) 2.6 %; Lymphocytes % (auto) 12.4 %; Mean Corpuscular Hgb Conc 33.8 g/dL (32-36); Mean Corpuscular Volume 92.7 fL (80-100); Mean Platelet Volume 8.6 fL (7.4-10.4); Monocytes # (auto) 1.59 K/uL (0.11-0.59); Monocytes % (auto) 16.5 %; Neutrophils # (auto) 6.34 K/uL (1.4-6.5); Neutrophils % (auto) 65.8 %; Platelet Count 355 K/uL (130-400); RDW Coefficient of Variation 14.6 % (11.5-14.5); RDW Standard Deviation 48.9 fL (36.4-46.3); Red Blood Count 3.03 M/uL (4.2-5.4); White Blood Count 9.64 K/uL (4.8-10.8)
[2018-11-16] MEDS: LEVOTHYROXINE SODIUM 200 MCG TABLET PO SCH (06:17)
[2018-11-16 06:54] LABS: BUN Creatinine Ratio 21.3 (10-20); Calcium 8.3 mg/dl (8.5-10.1); Creatinine Clr Calc Pharmacy 59.4 ml/min; Est GFR (Non-African American) 79.4
[2018-11-16] MEDS: TAPENTADOL HCL ER 50 MG TABCR PO SCH (07:53)
[2018-11-16] MEDS: FERROUS SULFATE 325 MG TAB PO SCH (07:53)
[2018-11-16] MEDS: LOSARTAN POTASSIUM 50 MG TAB PO SCH (07:53)
[2018-11-16] MEDS: FUROSEMIDE 20 MG TAB PO SCH (07:54)
[2018-11-16] MEDS: LABETALOL HCL 100 MG TAB PO SCH ×2 (07:54→21:07)
[2018-11-16] MEDS: ISOSORBIDE MONO EXTENDED REL 60 MG TABCR PO SCH (07:54)
[2018-11-16] MEDS: SODIUM CHLORIDE 1 GM TABLET PO SCH ×2 (07:54→21:06)
[2018-11-16] MEDS: POLYETHYLENE (MIRALAX) 17 GM PACK PO SCH (07:55)
[2018-11-16] MEDS: CYANOCOBALAMIN 500 MCG TABLET (VITAMIN B-12) PO SCH (07:55)
[2018-11-16] MEDS: CALCIUM 600MG + VIT D 400 IU TAB PO SCH ×2 (07:55→21:08)
[2018-11-16] MEDS: GABAPENTIN 100 MG CAP PO SCH ×2 (07:55→14:26)
[2018-11-16] MEDS: MAGNESIUM OXIDE 400 MG TAB PO SCH (07:56)
[2018-11-16] MEDS: TRAMADOL HCL 50 MG TABLET PO PRN ×2 (07:57→14:29)
[2018-11-16 08:25] LABS: Potassium 3.8 mmol/L (3.5-5.1)
[2018-11-16] MEDS: NIFEdipine EXTENDED REL 30 MG TABCR PO SCH (09:43)
[2018-11-16] MEDS: DOCUSATE SODIUM 100 MG CAP PO SCH ×2 (09:43→21:11)
[2018-11-16] MEDS: ACETAMINOPHEN 1,000 MG/100 ML VIAL IV SCH ×2 (16:06→23:47)
[2018-11-16 16:27] LABS: BUN Creatinine Ratio 24.2 (10-20); Calcium 8.6 mg/dl (8.5-10.1); Creatinine Clr Calc Pharmacy 54.6 ml/min; Est GFR (African American) 84.2; Est GFR (Non-African American) 72.7
[2018-11-16] MEDS: LIDOCAINE 5% 1 PATCH TD SCH (18:11)
[2018-11-16] MEDS ORDERED: TOLVAPTAN 15 MG TABLET PO STA (18:56)
[2018-11-16] MEDS: ATORVASTATIN 40 MG TAB PO SCH (21:06)
--- NOTE | 2018-11-16 22:27 | Hospitalist Progress Note ---
Date of Service November 16, 2018 Assessment & Plan (1) Acute encephalopathy: I believe this is likely BOTH metabolic and toxic. metabolic - from hyponatremia. toxic - narcotics. Her mental status worsened as her Na dropped, and it also worsened about the time we instituted nucynta ER. Thus, likely combination of both issues. STOP all narcotics. STOP gabapentin. Correct sodium. I don't believe there are any infectious causes at this time. Urine cx negative. No symptoms/signs of pneumonia. Checked ammonia level today - normal. Most recent TSH was normal. Certainly, with her a. fib, she is at risk of stroke since she is not on anticoagulation at this time. Could consider MRI brain if mentation does not improve with the above measures. We may need to consider a low-dose of risperdal or seroquel at HS to help promote sleep and to help the psychosis. Present on Admission?: No (2) Hyponatremia: Acute drop in the setting of chronic hyponatremia. Symptomatic from the low sodium. Yesterday I believed she was mildly volume contracted as she was not taking good nutrition. I gave 500cc of NS in total and repeat Na level worsened. 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 Place on NaCL tabs 1 gm BID and lasix continued. Despite such her Na level has not improved much today. Spoke with nephrology -- we discussed her case -- elected to give tolvaptan 15mg po x 1 with repeat Na level in 4 hours following such. Repeat BMP again in am. If not improving then formal nephrology consultation. Of note - recent TSH was normal. Present on Admission?: Yes (3) Lumbar back pain: s/p epidural hematoma evacuation by Dr. Brown earlier this stay. Her post-op course has been complicated by severe back pain requiring copious amounts of IV & PO narcotics. I believe that these have contributed to altered mental status. Her mental status has significantly worsened. Thus, I feel we have no choice but to stop all narcotics and gabapentin. Will place on scheduled tylenol 1 gm q8h, lidoderm patches, and heating pad. Will address pain as we go along. (4) Epidural hematoma: POD #10, s/p evacuation of hematoma and laminectomy by Dr. Brown. management per Dr. Brown. Present on Admission?: Yes (5) Essential (primary) hypertension: uncontrolled. suspect agitation and confusion making BPs worse. she is on a complex regimen of meds. continue those meds and add nifedipine 30mg once daily for additional BP control. I cannot exclude hypertensive encephalopathy but I feel that the low sodium and narcotics explain the altered mentation. (6) Chronic kidney disease, stage 3a: creatinine stable BMP in am (7) Afib: chronic, stable, rate-controlled. anticoagulation on hold due to recent epidural hematoma. (8) Hypothyroid: TSH earlier in October was normal. Cont synthroid. (9) DVT prophylaxis: SCDs. chemical means contraindicated due to recent back surgery (unless orthopedics gives clearance to give chemical DVT proph). 3 daughters updated today during my visit. explained delirium in detail, and went over current issues with Na and her pain. Subjective tele stable overnight with rate controlled a. fib patient very confused during the visit, reaching for objects in the air, talking to herself, and when asked questions giving nonsensical answers she recognizes her daughters in the room she talks about her staff report confusion all day and that she pulled out her chris catheter earlier today; has not voided since unable to elicit any meaningful history or ROS during the visit Review of Systems Unobtainable due to cognitive status Physical Exam Vital Signs (Past 24 Hours): Last Vital Signs Temp 36.6 C 11/16/18 20:00 Pulse 75 11/16/18 20:00 Resp 20 11/16/18 20:00 BP 154/63 H 11/16/18 20:00 Pulse Ox 96 11/16/18 20:00 Constitutional: + obese and + altered mental status; no acute distress ENMT: Mouth: no oral mucosal abnormality (MM moist) Respiratory: normal respiratory effort, lungs clear to auscultation Cardiovascular: Rate/Rhythm: regular rate; + abnormal rhythm (irregular) Heart Sounds: normal S1 and normal S2; no murmur Vessels: posterior tibial pulses present and dorsalis pedis pulses present; no JVD Gastrointestinal (Abdomen): normal bowel sounds, soft, nontender, no hepatosplenomegaly Neurologic: does not follow commands well; appears to move both arms; leg movements seem limited Psychiatric: Orientation: alert; + not oriented x 3 very confused Results & Data Laboratory Results Laboratory Results - last 24 hr 11/16/18 11/16/18 11/16/18 04:15 04:15 05:49 WBC 9.64 RBC 3.03 L Hgb 9.5 L Hct 28.1 L MCV 92.7 MCH 31.4 MCHC 33.8 RDW Std Deviation 48.9 H RDW Coeff of Taylor 14.6 H Plt Count 355 MPV 8.6 Immature Gran % (Auto) 2.6 Neut % (Auto) 65.8 Lymph % (Auto) 12.4 [place] % (Auto) 16.5 Eos % (Auto) 2.2 Baso % (Auto) 0.5 Immature Gran # (Auto) 0.25 H Neut # (Auto) 6.34 Lymph # (Auto) 1.20 [place] # (Auto) 1.59 H Eos # (Auto) 0.21 Baso # (Auto) 0.05 Sodium Potassium Chloride Carbon Dioxide Anion Gap BUN Creatinine Est Cr Clr Drug Dosing Est GFR ( Amer) Est GFR (Non-Af Amer) BUN/Creatinine Ratio Glucose POC Glucose Calcium Ammonia Urine Osmolality 285 L Ur Random Sodium 105 11/16/18 11/16/18 11/16/18 05:49 07:35 11:40 WBC RBC Hgb Hct MCV MCH MCHC RDW Std Deviation RDW Coeff of [place] Plt Count MPV Immature Gran % (Auto) Neut % (Auto) Lymph % (Auto) [place] % (Auto) Eos % (Auto) Baso % (Auto) Immature Gran # (Auto) Neut # (Auto) Lymph # (Auto) [place] # (Auto) Eos # (Auto) Baso # (Auto) Sodium 125 L Potassium 3.8 D Chloride 91 L Carbon Dioxide 25 Anion Gap 9.0 BUN 15 Creatinine 0.69 Est Cr Clr Drug Dosing 59.4 Est GFR ( Amer) 92.0 Est GFR (Non-Af Amer) 79.4 BUN/Creatinine Ratio 21.3 H Glucose 94 POC Glucose 95 104 H Calcium 8.3 L Ammonia Urine Osmolality Ur Random Sodium 11/16/18 11/16/18 11/16/18 15:58 16:03 18:08 WBC RBC Hgb Hct MCV MCH MCHC RDW Std Deviation RDW Coeff of [place] Plt Count MPV Immature Gran % (Auto) Neut % (Auto) Lymph % (Auto) [place] % (Auto) Eos % (Auto) Baso % (Auto) Immature Gran # (Auto) Neut # (Auto) Lymph # (Auto) [place] # (Auto) Eos # (Auto) Baso # (Auto) Sodium 125 L 124 L Potassium 4.0 Chloride 91 L Carbon Dioxide 26 Anion Gap 8.0 BUN 18 Creatinine 0.75 Est Cr Clr Drug Dosing 54.6 Est GFR ( Amer) 84.2 Est GFR (Non-Af Amer) 72.7 BUN/Creatinine Ratio 24.2 H Glucose 90 POC Glucose Calcium 8.6 Ammonia 15.1 Urine Osmolality Ur Random Sodium (1) Afib Atrial fibrillation type: chronic Qualified Code(s): I48.2 - Chronic atrial fibrillation (2) Hypothyroid Hypothyroidism type: acquired Qualified Code(s): E03.9 - Hypothyroidism, unspecified
[2018-11-17 00:04] LABS: BUN Creatinine Ratio 23.2 (10-20); Calcium 8.2 mg/dl (8.5-10.1); Creatinine Clr Calc Pharmacy 55.3 ml/min; Est GFR (African American) 85.6; Est GFR (Non-African American) 73.9; Potassium 3.9 mmol/L (3.5-5.1)
[2018-11-17] MEDS: LEVOTHYROXINE SODIUM 200 MCG TABLET PO SCH (06:10)
[2018-11-17 07:28] LABS: BUN Creatinine Ratio 23.6 (10-20); Calcium 8.5 mg/dl (8.5-10.1); Creatinine Clr Calc Pharmacy 62.1 ml/min; Est GFR (African American) 93.4; Est GFR (Non-African American) 80.6; Potassium 3.7 mmol/L (3.5-5.1)
[2018-11-17] MEDS: FERROUS SULFATE 325 MG TAB PO SCH (08:12)
[2018-11-17] MEDS: FUROSEMIDE 20 MG TAB PO SCH (08:12)
[2018-11-17] MEDS: CYANOCOBALAMIN 500 MCG TABLET (VITAMIN B-12) PO SCH (08:12)
[2018-11-17] MEDS: NIFEdipine EXTENDED REL 30 MG TABCR PO SCH (08:12)
[2018-11-17] MEDS: LABETALOL HCL 100 MG TAB PO SCH ×2 (08:12→20:51)
[2018-11-17] MEDS: LIDOCAINE 5% 1 PATCH TD SCH (08:13)
[2018-11-17] MEDS: MAGNESIUM OXIDE 400 MG TAB PO SCH (08:13)
[2018-11-17] MEDS: LOSARTAN POTASSIUM 50 MG TAB PO SCH (08:13)
[2018-11-17] MEDS: CALCIUM 600MG + VIT D 400 IU TAB PO SCH ×2 (08:13→20:51)
[2018-11-17] MEDS: ISOSORBIDE MONO EXTENDED REL 60 MG TABCR PO SCH (08:13)
[2018-11-17] MEDS: POLYETHYLENE (MIRALAX) 17 GM PACK PO SCH (08:18)
[2018-11-17] MEDS: DOCUSATE SODIUM 100 MG CAP PO SCH ×2 (08:18→20:54)
[2018-11-17] MEDS: ACETAMINOPHEN 1,000 MG/100 ML VIAL IV SCH ×2 (08:20→16:20)
[2018-11-17] MEDS: SODIUM CHLORIDE 1 GM TABLET PO SCH (10:28)
--- NOTE | 2018-11-17 17:02 | Hospitalist Progress Note ---
Date of Service November 17, 2018 Assessment & Plan (1) Acute encephalopathy: Metabolic and toxic etiologies. IMPROVED today with correction of low sodium and stoppage of all narcotics. Cont to hold all narcotics and gabapentin. Cont to monitor low sodium with several Na levels each day until stability is seen. 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 Very nice response to salt supplementation, lasix, and one dose of tolvaptan 15mg po x 1. Na this am was 133; 131 this afternoon. Repeat again tonight and in am. (3) Lumbar back pain: s/p epidural hematoma evacuation by Dr. Brown earlier this stay. Her post-op course has been complicated by severe back pain requiring copious amounts of IV & PO narcotics. I believe that these have contributed to altered mental status. Her mental status has significantly improved with stopping all narcotics and gabapentin. Cont scheduled tylenol 1 gm q8h, lidoderm patches, and heating pad. Once sensorium has cleared completely could re-trial a low-dose narcotic (perhaps hydrocodone?) with caution. (4) Epidural hematoma: POD #11, s/p evacuation of hematoma and laminectomy by Dr. Brown. management per Dr. Brown. appreciate his assistance. (5) Essential (primary) hypertension: improved today. suspect agitation and confusion made BPs worse. she is on a complex regimen of meds; continue all meds for now but low threshold to cut them back if necessary. (6) Chronic kidney disease, stage 3a: creatinine stable BMP in am (7) Afib: chronic, stable, rate-controlled. anticoagulation on hold due to recent epidural hematoma. (8) Hypothyroid: TSH earlier in October was normal. Cont synthroid. (9) DVT prophylaxis: SCDs. chemical means contraindicated due to recent back surgery. Daughter updated at bedside today. I am pleased with her progress overnight. ok to return to med/surg. I spoke with Dr. Brown and since the majority of her current issues are medical will transfer Ms. Parkinson to my service. Subjective patient much more awake, alert, and not as agitated today. knew she was in the hospital and that it was November. her daughter was at bedside. she amazingly had very little c/o pain today. had bowel movement. tele overnight - rate controlled a. fib, minor pause of <3 seconds. Constitutional: + weakness and + anorexia Respiratory: no cough and no dyspnea Cardiovascular: no chest pain Gastrointestinal: no abdominal pain, no nausea and no vomiting Physical Exam Vital Signs (Past 24 Hours): Last Vital Signs Temp 36.4 C L 11/17/18 15:50 Pulse 83 11/17/18 15:50 Resp 16 11/17/18 15:50 BP 156/45 H 11/17/18 15:50 Pulse Ox 95 11/17/18 15:50 Constitutional: + obese and + altered mental status (but markedly improved today; only mild confusion today); no acute distress ENMT: Mouth: no oral mucosal abnormality (MMM) Respiratory: normal respiratory effort, lungs clear to auscultation Cardiovascular: Rate/Rhythm: regular rate; + abnormal rhythm (irregular) Heart Sounds: normal S1 and normal S2; no murmur Vessels: posterior tibial pulses present and dorsalis pedis pulses present; no JVD Gastrointestinal (Abdomen): normal bowel sounds, soft, nontender, no hepatosplenomegaly Psychiatric: Orientation: alert, oriented to person and oriented to place; + not oriented to time (just slight confusion today) not as agitated today Results & Data Laboratory Results Laboratory Results - last 24 hr 11/16/18 11/16/18 11/17/18 18:08 23:34 06:25 Sodium 124 L 129 L 133 L Potassium 3.9 3.7 Chloride 95 L 100 Carbon Dioxide 29 26 Anion Gap 5.0 7.0 BUN 17 16 Creatinine 0.74 0.66 Est Cr Clr Drug Dosing 55.3 62.1 Est GFR ( Amer) 85.6 93.4 Est GFR (Non-Af Amer) 73.9 80.6 BUN/Creatinine Ratio 23.2 H 23.6 H Glucose 92 88 Calcium 8.2 L 8.5 11/17/18 12:28 Sodium 131 L Potassium Chloride Carbon Dioxide Anion Gap BUN Creatinine Est Cr Clr Drug Dosing Est GFR ( Amer) Est GFR (Non-Af Amer) BUN/Creatinine Ratio Glucose Calcium (1) Afib Atrial fibrillation type: chronic Qualified Code(s): I48.2 - Chronic atrial fibrillation (2) Hypothyroid Hypothyroidism type: acquired Qualified Code(s): E03.9 - Hypothyroidism, unspecified
[2018-11-17] MEDS: ATORVASTATIN 40 MG TAB PO SCH (20:51)
[2018-11-18] MEDS: LEVOTHYROXINE SODIUM 200 MCG TABLET PO SCH (05:28)
[2018-11-18] MEDS: ACETAMINOPHEN 500 MG TAB PO PRN ×2 (05:45→14:28)
[2018-11-18 06:53] LABS: BUN Creatinine Ratio 21.1 (10-20); Calcium 8.3 mg/dl (8.5-10.1); Creatinine Clr Calc Pharmacy 51.2 ml/min; Est GFR (African American) 77.9; Est GFR (Non-African American) 67.2; Magnesium 2.2 mg/dl (1.8-2.4); Potassium 3.9 mmol/L (3.5-5.1)
--- NOTE | 2018-11-18 07:49 | Discharge Summary ---
HISTORY AND HOSPITAL COURSE: Lori is a delightful patient. I met her for the first time on 11/05/2018. She presented to the Emergency Room with cauda equina syndrome, profound deficits, profound weakness, bladder retention without incontinence. I took her to surgery emergently, decompressed her spinal canal that evening and she was out to intensive care the next couple days thereafter. She was then transferred to regular floor. She has developed some improvement. Other medical issues included blood loss anemia plus chronic disease, hyponatremia, chronic kidney disease, essential hypertension, AFib, hypothyroidism, coronary artery disease. We were able to get her mobilized slightly. She had improvement of dorsiflexion and plantarflexion. She always remained alert, oriented. She had no chest pain or shortness of breath. ASSESSMENT: Status post cauda equina compression with urgent surgery. PLAN: She is a perfect candidate for rehab therapy. A place like [facility] or [facility] would be ideal I believe. Hopefully, she can gain some improvement. My clinical knowledge and experience is this might take upwards of 4-12 months to improve. I should see her back in the office in approximately 3 weeks post discharge. Her sutures, in this case, caitlyn can be removed at [facility] or [facility] rehab in approximately 6 days from the time of this dictation.
[2018-11-18] MEDS: CALCIUM 600MG + VIT D 400 IU TAB PO SCH ×2 (08:09→20:14)
[2018-11-18] MEDS: DOCUSATE SODIUM 100 MG CAP PO SCH ×2 (08:09→20:28)
[2018-11-18] MEDS: FERROUS SULFATE 325 MG TAB PO SCH (08:09)
[2018-11-18] MEDS: LOSARTAN POTASSIUM 50 MG TAB PO SCH (08:09)
[2018-11-18] MEDS: MAGNESIUM OXIDE 400 MG TAB PO SCH (08:10)
[2018-11-18] MEDS: POLYETHYLENE (MIRALAX) 17 GM PACK PO SCH (08:10)
[2018-11-18] MEDS: ISOSORBIDE MONO EXTENDED REL 60 MG TABCR PO SCH (08:10)
[2018-11-18] MEDS: FUROSEMIDE 20 MG TAB PO SCH (08:10)
[2018-11-18] MEDS: LIDOCAINE 5% 1 PATCH TD SCH (08:10)
[2018-11-18] MEDS: SODIUM CHLORIDE 1 GM TABLET PO SCH (08:11)
[2018-11-18] MEDS: CYANOCOBALAMIN 500 MCG TABLET (VITAMIN B-12) PO SCH (08:11)
[2018-11-18] MEDS: LABETALOL HCL 100 MG TAB PO SCH ×2 (08:11→20:15)
[2018-11-18] MEDS: NIFEdipine EXTENDED REL 30 MG TABCR PO SCH (08:11)
--- NOTE | 2018-11-18 18:08 | Progress Note ---
DATE: 11/18/2018 SUBJECTIVE: She is alert, oriented this morning, thanks to the great work by her medical team. She is actually gaining some more strength slowly to the lower extremity. She actually has a little more strength today than she did on Sunday. Wound is clean. OBJECTIVE: She is afebrile, again alert. ASSESSMENT: Status post cauda equina syndrome, hematoma formation with an urgent laminectomy about a week ago. Also hyponatremia, hypertension, kidney disease and coronary artery disease. PLAN: Our goal as it has been in the last 4-5 days is to get her to [facility]. Instruction precautions provided.
--- NOTE | 2018-11-18 19:54 | Hospitalist Progress Note ---
Date of Service November 18, 2018 Assessment & Plan (1) Acute encephalopathy: Metabolic and toxic etiologies. Nearly 100% resolved. correction of low sodium and stoppage of all narcotics led to marked improvement over 48 hours. Cont to hold all narcotics and gabapentin. Cont to monitor sodium - BMP in am. 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 Very nice response to salt supplementation, lasix, and one dose of tolvaptan 15mg po x 1 over the weekend. Na this am was 132. Cont lasix 20mg daily, salt tab daily, and fluid restriction 1500cc/day. Repeat BMP in am. (3) Lumbar back pain: s/p epidural hematoma evacuation by Dr. Brown earlier this stay. Her post-op course was complicated by severe back pain requiring copious amounts of IV & PO narcotics. I believe that these contributed heavily to her altered mental status. Her mental status significantly improved with stopping all narcotics and gabapentin. Cont scheduled tylenol 1 gm q8h, lidoderm patches, and heating pad. She reports no pain today. Would not reintroduce any pain meds today. (4) Epidural hematoma: POD #12, s/p evacuation of hematoma and laminectomy by Dr. Brown. management per Dr. Brown. appreciate his assistance. (5) Essential (primary) hypertension: labile BPs, especially AM BPs prior to her meds being given. she is on a complex regimen of meds for BP control. no changes today. (6) Chronic kidney disease, stage 3a: creatinine stable BMP in am (7) Afib: chronic, stable, rate-controlled. anticoagulation on hold due to recent epidural hematoma. (8) Hypothyroid: TSH earlier in October was normal. Cont synthroid. (9) DVT prophylaxis: SCDs. chemical means contraindicated due to recent back surgery. Daughter updated at bedside today. spoke with ELE monson for [facility] requested today hopefully d/c to rehab tomorrow Subjective patient denies any significant back pain today she is very awake, calm, not agitated, and mentation is again markedly improved daughter at bedside no new issues eating decently Constitutional: no fever Respiratory: no cough and no dyspnea Cardiovascular: no chest pain Gastrointestinal: no abdominal pain Physical Exam Vital Signs (Past 24 Hours): Last Vital Signs Temp 36.6 C 11/18/18 16:00 Pulse 86 11/18/18 16:00 Resp 22 11/18/18 16:00 BP 159/81 H 11/18/18 16:00 Pulse Ox 97 11/18/18 16:00 Constitutional: + obese; no acute distress and no altered mental status ENMT: Mouth: no oral mucosal abnormality (MMM) Respiratory: normal respiratory effort, lungs clear to auscultation Cardiovascular: Rate/Rhythm: regular rate; + abnormal rhythm (irregular) Heart Sounds: normal S1 and normal S2; no murmur Vessels: posterior tibial pulses present and dorsalis pedis pulses present; no JVD Gastrointestinal (Abdomen): normal bowel sounds, soft, nontender, no hepatosplenomegaly Neurologic: still with weakness of b/l foot dorsiflexion and hip flexors (about 3/5 b/l strength); plantarflexion is about 4/5 strength b/l Psychiatric: Orientation: alert, oriented to person, oriented to place and oriented to time Results & Data Laboratory Results Na 132 this am normal Cr (1) Afib Atrial fibrillation type: chronic Qualified Code(s): I48.2 - Chronic atrial fibrillation (2) Hypothyroid Hypothyroidism type: acquired Qualified Code(s): E03.9 - Hypothyroidism, unspecified
[2018-11-18] MEDS: ATORVASTATIN 40 MG TAB PO SCH (20:14)
[2018-11-19] MEDS: ACETAMINOPHEN 500 MG TAB PO PRN ×2 (01:46→09:39)
[2018-11-19 06:06] LABS: Hematocrit (blood only) 27.9 % (37-47); Hemoglobin 9.1 g/dL (12.0-16.0); Mean Corpuscular Hgb Conc 32.6 g/dL (32-36); Mean Corpuscular Volume 95.9 fL (80-100); Platelet Count 271 K/uL (130-400); RDW Coefficient of Variation 15.5 % (11.5-14.5); RDW Standard Deviation 53.4 fL (36.4-46.3); Red Blood Count 2.91 M/uL (4.2-5.4); White Blood Count 8.33 K/uL (4.8-10.8)
[2018-11-19] MEDS: LEVOTHYROXINE SODIUM 200 MCG TABLET PO SCH (06:06)
[2018-11-19 06:52] LABS: BUN Creatinine Ratio 25.2 (10-20); Calcium 8.3 mg/dl (8.5-10.1); Creatinine Clr Calc Pharmacy 55.3 ml/min; Est GFR (African American) 85.6; Est GFR (Non-African American) 73.9; Potassium 4.1 mmol/L (3.5-5.1)
[2018-11-19] MEDS: NIFEdipine EXTENDED REL 30 MG TABCR PO SCH (07:38)
[2018-11-19] MEDS: LOSARTAN POTASSIUM 50 MG TAB PO SCH (07:39)
[2018-11-19] MEDS: FERROUS SULFATE 325 MG TAB PO SCH (07:39)
[2018-11-19] MEDS: MAGNESIUM OXIDE 400 MG TAB PO SCH (07:39)
[2018-11-19] MEDS: SODIUM CHLORIDE 1 GM TABLET PO SCH (07:39)
[2018-11-19] MEDS: ISOSORBIDE MONO EXTENDED REL 60 MG TABCR PO SCH (07:40)
[2018-11-19] MEDS: LABETALOL HCL 100 MG TAB PO SCH (07:40)
[2018-11-19] MEDS: CYANOCOBALAMIN 500 MCG TABLET (VITAMIN B-12) PO SCH (07:40)
[2018-11-19] MEDS: FUROSEMIDE 20 MG TAB PO SCH (07:41)
[2018-11-19] MEDS: LIDOCAINE 5% 1 PATCH TD SCH (07:41)
[2018-11-19] MEDS: CALCIUM 600MG + VIT D 400 IU TAB PO SCH (07:41)
[2018-11-19] MEDS: POLYETHYLENE (MIRALAX) 17 GM PACK PO SCH (07:48)
[2018-11-19] MEDS: DOCUSATE SODIUM 100 MG CAP PO SCH (07:48)
--- NOTE | 2018-11-19 13:45 | Discharge Summary ---
Date of Service November 19, 2018 Admission HPI Per Admitting Provider Patient is a pleasant 83 yoF PMH CAD, HTN, CKDIII, DJD, Anemia, Chronic AFib, hypothyroid, hyponatremia who presents with acute leg weakness and acute worsening of her low back pain. Patient was recently admitted after a fall onto her backside, and was discharged to [facility] on 11/03. She had been participating with PT in the last few days, but during today's session, the therapist noted a sharp decline in her function and an inability to even lift her legs off the ground. She was also incontinent of bladder, but per patient this is not completely abnormal for her. On discharge from the hospital, she was converted from warfarin to lovenox for her afib as INR was unstable. INR on admission of 1.3. Labs otherwise unremarkable (chronic hyponatremia, albumin 2.9, chronic anemia Hb 10.1.) In the ER, concern for cauda equina syndrome was suspected, and MRI of her back confirmed an epidural hematoma from T12-L3. Due to her INR issues of late and treatment with lovenox and ASA, she was given platelets in the ER and a dose of vitamin K. Dr. Brown was called and took her to the operating room for emergent decompression of the spinal canal. Principal Diagnosis Cauda Equina Syndrome, Epidural hematoma Discharge Exam Constitutional WD/WN, vitals as above Eyes PERRL, conjunctivae normal, anicteric sclerae ENMT external ear and nose normal, oropharynx normal Neck trachea midline, no thyromegaly Respiratory normal respiratory effort, lungs clear to auscultation Cardiovascular Rate/Rhythm: regular rate; + abnormal rhythm (irreg irreg) Extremities: no edema Gastrointestinal (Abdomen) normal bowel sounds, soft, nontender, no hepatosplenomegaly Musculoskeletal Extremities: extremities normal to inspection; no cyanosis and no clubbing Skin no rashes, warm and dry Neurologic + focal motor deficit (2/5 sterngth throughout LEs bilat) and awake Psychiatric A+Ox3, euthymic affect Orientation: alert, oriented to person and cooperative Discharge Data Allergies Allergy/AdvReac Type Severity Reaction Status Date / Time doxycycline Allergy Intermediate RASH Verified 11/05/18 18:05 ANA LUISA Inhibitors Allergy Unknown INTOLERANT Verified 11/05/18 18:05 lisinopril Allergy Unknown INTOLERANT Verified 11/05/18 18:05 Consultations 11/05/18 20:06 ED Decision to Admit Stat 11/06/18 01:34 Consult Case Management - Discharge Planning Routine Consult Alarm Field Technician Routine 11/07/18 11:39 Consult Hospitalist Routine 11/08/18 07:58 Consult Case Management - Discharge Planning Routine 11/10/18 08:11 Consult Case Management - Discharge Planning Routine 11/13/18 07:44 Consult Case Management - Discharge Planning Routine Procedures Performed Operation Date: 11/05/18 20:40 Actual Procedures p T11-L4 Laminectomy(Not Applicable) - Sebas Brown, Ordered Studies 11/05/18 17:59 MR lumbar spine wo con Stat 11/05/18 20:00 FL fluoroscopy <1hr Routine FL spine 1V any level Routine Lumbar spine xray Hospital Course (1) Acute encephalopathy: Metabolic and toxic etiologies. Now resolved. correction of low sodium and stoppage of all narcotics led to marked improvement Cont to hold all narcotics and gabapentin. 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 Very nice response to salt supplementation, lasix, and one dose of tolvaptan 15mg po x 1 over the weekend. Na this am was 133. Cont lasix 20mg daily, salt tab daily, and fluid restriction 1500cc/day. Repeat BMP in am. (3) Lumbar back pain: s/p epidural hematoma evacuation by Dr. Brown earlier this stay. Her post-op course was complicated by severe back pain requiring copious amounts of IV & PO narcotics. I believe that these contributed heavily to her altered mental status. Her mental status significantly improved with stopping all narcotics and gabapentin. Cont scheduled tylenol 1 gm q8h, lidoderm patches, and heating pad. She reports no pain today. Would not reintroduce any pain meds (4) Epidural hematoma: POD #13, s/p evacuation of hematoma and laminectomy by Dr. Brown. management per Dr. Brown. appreciate his assistance. (5) Essential (primary) hypertension: labile BPs, especially AM BPs prior to her meds being given. she is on a complex regimen of meds for BP control. Nifedipine was added this admission and had improvement (6) Chronic kidney disease, stage 3a: creatinine stable (7) Afib: chronic, stable, rate-controlled. anticoagulation on hold due to recent epidural hematoma, but ok to restart coumadin today as per my d/w Dr. Brown of [facility] -follow INR closely (8) Hypothyroid: TSH earlier in October was normal. Cont synthroid. (9) DVT prophylaxis: SCDs. Dispo- to [facility] requested today Total Time Total Time Spent Total Time Spent (In Minutes): >30 min Total Time Includes: Examination of the Patient, Discharge Planning, Medication Reconciliation and Communication With Other Providers (Dr. Brown) Discharge Plan Discharge Items Patient Disposition: Transfer Inpatient Rehab Fac Reason For Visit: CAUDA EQUINA Discharge Diagnosis: Cauda equina syndrome, epidural hematoma Condition: Fair Discharge Goals: Diagnostic testing, Improve function and Therapeutic intervention Activity: Per 'Additional Instructions' section Activity Comment: needs time and therapy Lifting: No more than 5 pounds Exercise/Sports: Gradually increase as tolerated Non-emergency contact: Primary Care Provider and Surgeon Call non-emergency contact if: you have any medication questions, your symptoms worsen, your pain is not controlled, your pain is worsening, your pain is unusual for you and your temperature is above 101 Follow-up/Referrals: Nai Sparrow CRNP [Primary Care Provider] - Sebas Brown DO [Surgeon] - (Within 3 weeks after discharge) Diet: Heart Healthy Fluids: 1500ml (6 cups) Addtl Provider Instructions: Spine surgery: [place] to be removed in 6 days. Follow up with me (Dr. Brown) in 3 weeks Mrs. Parkinson also had complications postoperatively with hyponatremia and acute toxic metabolic encephalopathy secondary to opioid use. She should remain on a fluid restriction, salt tablets, daily Lasix, and follow-up with a BMP in 2-3 days. Blood pressures remain labile and she was also started on nifedipine. She has significant mental status changes with all opioids and her hyponatremia worsened with tramadol use-the should all be avoided. She should use Tylenol only as needed for pain, along with lidocaine patches and a heating pad. Her Coumadin was held her entire stay. This can be restarted upon discharge as per the spinal surgeon. She will need to have her INR closely followed. Her caitlyn and/or sutures can be removed on 11/21/18 as per spine surgeon instructions. Prescriptions: New polyethylene glycol 3350 [Miralax] 17 gram Powder In Packet 17 g PO DAILY@0900 Qty: 30 RF: 0 sodium chloride 1 gram Tablet 1 g PO DAILY Qty: 30 RF: 0 nifedipine [Adalat CC] 30 mg Tablet Extended Release 30 mg PO QAM Qty: 30 RF: 0 acetaminophen [Pain Reliever] 500 mg Tablet 1,000 mg PO Q8H Qty: 90 RF: 0 docusate sodium 100 mg Capsule 100 mg PO BID Qty: 60 RF: 0 Continued atorvastatin 80 mg tablet 80 mg PO QPM RF: 0 cyanocobalamin (vitamin B-12) 1,000 mcg Tablet 1,000 mcg PO QAM RF: 0 calcium carbonate-vitamin D3 [Calcium 600 + D(3)] 600 mg(1,500mg) -200 unit Tablet 1 tab PO AMHS RF: 0 aspirin [Aspirin Low Dose] 81 mg Tablet,Delayed Release (Dr/Ec) 81 mg PO QAM RF: 0 isosorbide mononitrate 60 mg tablet extended release 24 hr 120 mg PO QAM RF: 0 ferrous sulfate 325 mg (65 mg iron) tablet 325 mg PO QAM RF: 0 nitroglycerin [Nitrostat] 0.4 mg Tablet, Sublingual 0.4 mg Sublingual UD PRN (Reason: Chest Pain) RF: 0 levothyroxine 200 mcg tablet 200 mcg PO QAM RF: 0 furosemide 20 mg tablet 20 mg PO QAM RF: 0 losartan 100 mg tablet 100 mg PO QAM RF: 0 diclofenac sodium 1 % gel 1 applic topical BID RF: 0 magnesium oxide 400 mg magnesium Tablet 400 mg PO QAM RF: 0 multivitamin with minerals [Multiple Vitamin-Minerals] Tablet 1 tab PO QAM RF: 0 clonidine HCl 0.1 mg tablet 0.1 mg PO Q12H PRN (Reason: Hypertension) RF: 0 Changed lidocaine 5 % Adhesive Patch,Medicated 3 patch Transdermal QAM Qty: 30 RF: 0 labetalol 100 mg tablet 200 mg PO BID Qty: 0 RF: 0 warfarin 5 mg tablet 5 mg PO QPM Qty: 0 RF: 0 Discontinued gabapentin 100 mg capsule 100 mg PO TID RF: 0 acetaminophen [Mapap (acetaminophen)] 325 mg tablet 650 mg PO Q4H PRN (Reason: Fever Or Pain) RF: 0 tramadol 50 mg tablet 100 mg PO Q6H PRN (Reason: Moderate/Severe Pain) RF: 0 Stand-Alone Forms: [facility] Discharge Orders: Discharge Order (Routine); Ordered 11/19/18 Ordered By: Tasha Zamora Skilled Items Patient informed of condition?: Yes DNR: Yes Discharge Level of Care: Acute rehab Communicable Disease: No Discharge Prognosis: Improving Admission Data Admit Date/Time: 11/06/18 01:33 Attending Provider: Tasha Zamora Admit Provider: Sebas Brown Primary Care Provider: Nai Sparrow Other Providers: Tasha Zamora ; Paul Falk ; Rober Kirk ; Alejandro Pope Service: Medical Other Interventions: Discharge Summary Assessment (RN) Last Done: 11/19/18 15:48 Pending Studies at Discharge: No DC Date/Time DO NOT enter until pt leaves facility: 11/19/18 20:25
[2018-11-19] MEDS ORDERED: cloNIDine HCl 0.1 MG TAB PO ONE (16:00)
[2018-11-19] MEDS ORDERED: WARFARIN SOD 5 MG TAB PO SCH (16:00)
== END 2018-11-19 20:25 | DRG 28 ==
LOC: ED 17:29 → OR 20:57 → 1E 11-06 00:02 → SUATTDRO 11-06 01:33 → 4W 11-07 19:19 → 2E 11-16 00:07 → 4E 11-17 18:13

== ENCOUNTER 2020-10-17 18:00 | Inpatient (IN) ==
[2020-10-17] MEDS ORDERED: SODIUM CHLORIDE 0.9% 500 ML IV SCH (18:15)
[2020-10-17 18:33] LABS: Basophils # (auto) 0.03 K/uL (0-0.2); Basophils % (auto) 0.3 %; Eosinophils # (auto) 0.34 K/uL (0-0.5); Eosinophils % (auto) 3.7 %; Hematocrit (blood only) 29.4 % (37-47); Hemoglobin 9.4 g/dL (12.0-16.0); Immature Granulocytes # (auto) 0.05 K/uL (0.00-0.02); Immature Granulocytes % (auto) 0.5 %; Lymphocytes # (auto) 1.26 K/uL (1.2-3.4); Lymphocytes % (auto) 13.6 %; Mean Corpuscular Hemoglobin 31.9 pg (25-34); Mean Corpuscular Volume 99.7 fL (80-100); Mean Platelet Volume 10.1 fL (7.4-10.4); Monocytes # (auto) 2.17 K/uL (0.11-0.59); Monocytes % (auto) 23.4 %; Neutrophils # (auto) 5.44 K/uL (1.4-6.5); Neutrophils % (auto) 58.5 %; Platelet Count 301 K/uL (130-400); RDW Coefficient of Variation 15.2 % (11.5-14.5); RDW Standard Deviation 55.2 fL (36.4-46.3); Red Blood Count 2.95 M/uL (4.2-5.4); White Blood Count 9.29 K/uL (4.8-10.8)
[2020-10-17 18:49] LABS: Influenza A virus by PCR Negative (Negative); Influenza B virus by PCR Negative (Negative)
[2020-10-17 18:52] LABS: Alanine Aminotransferase 43 U/L (12-78); Albumin Level 2.5 gm/dl (3.4-5.0); Aspartate Aminotransferase 41 U/L (15-37); BUN Creatinine Ratio 24.6 (10-20); Blood Urea Nitrogen 42 mg/dl (7-18); Calcium 9.3 mg/dl (8.5-10.1); Carbon Dioxide 26 mmol/L (21-32); Chloride 105 mmol/L (98-107); Est GFR (African American) 31.1; Est GFR (Non-African American) 26.8; Glucose 102 mg/dl (70-99); Potassium 4.4 mmol/L (3.5-5.1); Sodium 138 mmol/L (136-145)
[2020-10-17] MEDS ORDERED: BENZONATATE 100 MG CAPSULE PO ONE (18:55)
[2020-10-17] MEDS ORDERED: SODIUM CHLORIDE 0.9% 1000ML 500 ML IV ONE (18:55)
--- NOTE | 2020-10-17 18:56 | XRay Report ---
XR chest 1V portable CLINICAL HISTORY: weakness COMPARISON STUDY: Chest radiograph October 28, 2018. FINDINGS: Incidental note is made of severe osteoarthritis of the right glenohumeral joint. 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 No pneumothorax or pleural effusion is noted. Moderate l eft lower lung airspace opacity is noted, including a 3.8 cm nodular opacity. Cardiomegaly is present . There is no evidence for pulmonary edema. A peripherally calcified right paratracheal focus is francisco javier gn and unchanged. IMPRESSION: 1. Moderate left lower lung airspace opacity which favors pneumonia. Radiographic follow-up is recomm ended to exclude the possibility of an underlying pulmonary lesion. 2. Cardiomegaly without evidence for pulmonary edema. ACT 112: Negative or not required by law. Electronically signed by: Nile Crouch M.D. 10/17/2020 6:54 PM
--- NOTE | 2020-10-17 18:57 | Emergency Department Note ---
Impression & Plan Pneumonia, Cough, Acute dehydration, JUNIOR (acute kidney injury) ED Provider Note Wearing glassesNAME: JESSICA JARRETT AGE: 85 SEX: F : 1935 ARRIVES VIA: Ambulance INFORMANT: Patient, ED PROVIDER(S): Bassam Snow MD Chief Complaint: Cough HPI: Patient does present with concern for chronic cough. The patient states it is nonproductive. The patient has had it for many months. The patient denies any chest pains shortness of breath abdominal pain nausea or vomiting. The patient does reside at [facility]. The patient did test positive for coronavirus very early last year. The patient subsequently has had 2 - coronavirus test. Patient is historically a non-smoker. No lower extremity swelling. Appetite is been appropriate. Patient symptoms have been chronic in nature with no exacerbating or alleviating factors. Patient has no prior history of lung disease per patient. ROS: See HPI for pertinent positives and negatives. A total of 10 systems were reviewed and otherwise negative. Past medical history: See below Surgical history: See below Social history: See below Physical Exam: GENERAL: Glasses and a mask. NAD, non-toxic. EYE EXAM: Normal conjunctiva. PERRL, no anisocoria and EOM's grossly intact w/o pain. NECK: Supple, no nuchal rigidity, no adenopathy, non-tender. No signs of meningismus. LUNGS: Clear to auscultation. Normal chest wall mechanics. HEART: NSR, no MRG. ABDOMEN: Abdomen soft, non-tender, normo-active bowel sounds, no masses, no rebound or guarding. BACK: No CVA TTP. SKIN: No rashes and no bruising. UPPER EXTREMITIES: Upper extremities are grossly normal. LOWER EXTREMITIES: Grossly normal, no edema. Negative Homans' sign bilaterally. No erythema. NEURO EXAM: A&O x3, cranial nerves II-XII grossly intact, normal speech, moves all 4 extremities on command w/o issue. Differential diagnoses: Reactive airway disease, pneumonia, pneumothorax, COPD, CHF, infections, GERD, as well as other pathologies. Course: Patient was seen and evaluated the bedside. Full history physical exam was performed. EKG: Indication: Cough Imaging Studies: Radiology results as stated below per my review in the radiologist's interpretation: XR chest 1V portable CLINICAL HISTORY: weakness COMPARISON STUDY: Chest radiograph October 28, 2018. FINDINGS: Incidental note is made of severe osteoarthritis of the right glenohumeral joint. 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 No pneumothorax or pleural effusion is noted. Moderate left lower lung airspace opacity is noted, including a 3.8 cm nodular opacity. Cardiomegaly is present. There is no evidence for pulmonary edema. A peripherally calcified right paratracheal focus is benign and unchanged. IMPRESSION: 1. Moderate left lower lung airspace opacity which favors pneumonia. Radiographic follow-up is recommended to exclude the possibility of an underlying pulmonary lesion. 2. Cardiomegaly without evidence for pulmonary edema. ACT 112: Negative or not required by law. Electronically signed by: Nile Crouch M.D. 10/17/2020 6:54 PM Dictated: 10/17/201851 Transcribed: 10/17/201851 Cardiac monitoring: An order was placed for continuous cardiac monitoring. The monitor shows a rate of 76 with sinus rhythm. MDM: Patient did present with concern for chronic cough. Blood work was obtained along with flu and coronavirus. The patient was given Tessalon Perles and IV fluids. Patient has a normal white count of 9000 with chronic and stable anemia 9.4. Platelet count is unremarkable. The patient does have some prerenal azotemia mild JUNIOR with a BUN and creatinine 42 and 1.6 respectively. Most recent creatinine 0.9. Flu negative. Chest x-ray does show concern for pneumonia. The patient's chronic cough and curb 65 score greater than 2 believe the patient would benefit from inpatient treatment. No recent antibiotic use. Rocephin and azithromycin ordered. I did speak the on-call hospitalist and the patient was admitted to the medicine service. Patient was ordered MRSA swab cefepime and azithromycin for presumptive H CAP w given that she is a retirement patient. Covid negative. Patient did have slight drop in her oxygen saturation to 89% after coughing fit. The patient was placed on supplemental oxygen via nasal cannula. Patient was admitted to the [facility] service under Dr. Lopez. Past Med/Surg History Medical History (Updated 10/17/20 @ 19:11 by Bassam Snow MD) Acquired deviated nasal septum Acute coronary syndrome Anemia of chronic disease Atrial flutter Chronic anticoagulation Chronic kidney disease, stage 3 (moderate) External hemorrhoids Gait disturbance Generalized osteoarthritis Humeral head fracture Hypercholesterolemia Hypergammaglobulinemia Hypertension Hyponatremia Impaired fasting glucose Lichen sclerosus et atrophicus Obstructive sleep apnea Occlusion and stenosis of unspecified carotid artery Polyneuropathy Postmenopausal osteoporosis Proteinuria Secondary hyperparathyroidism Sensorineural hearing loss of both ears Synovial cyst of popliteal space Vitamin D deficiency Surgical History History of cardiac catheterization History of Cath Stent Placement History of incision and drainage history of skin abscess incision and drainage History of placement of ear tubes History of Ear Pressure Equalization Tube, Insertion, Bilaterall Family History Father Stroke Mother Coronary heart disease Unknown Diabetes Coronary heart disease Social History Smoking Status: Never smoker Second Hand Exposure: No; Hx Alcohol Use: No Hx Substance Use: No Preferred Language: Kosovan Communication Ability: Effective Visual Impairment: Limited Hearing Ability: Use of Hearing Aid Mechanic Field Service Required: No Beliefs That Will Affect Care: None Current Living Situation: Alone current occupational status: retired Feels Safe at Home: Yes Assistive Devices: Denture - Upper, Denture - Lower and Glasses Allergies Allergies Allergy/AdvReac Type Severity Reaction Status Date / Time doxycycline Allergy Intermediate RASH Verified 10/17/20 18:13 ANA LUISA Inhibitors Allergy Unknown INTOLERANT Verified 10/17/20 18:13 lisinopril Allergy Unknown INTOLERANT Verified 10/17/20 18:13 sulfamethoxazole AdvReac Unknown Verified 10/17/20 18:13 [From Bactrim] trimethoprim [From Bactrim] AdvReac Unknown Verified 10/17/20 18:13 Sulfa (Sulfonamide AdvReac Verified 10/17/20 18:13 Antibiotics) Home Meds Home Medications Medication Instructions Recorded Confirmed aspirin [Aspirin Low Dose] 81 mg PO QAM 10/28/18 10/17/20 atorvastatin 80 mg PO QPM 10/28/18 10/17/20 cyanocobalamin (vitamin B-12) 1,000 mcg PO QAM 10/28/18 10/17/20 furosemide 20 mg PO QAM 10/28/18 10/17/20 isosorbide mononitrate 120 mg PO QAM 10/28/18 10/17/20 losartan 100 mg PO QAM 10/28/18 10/17/20 nitroglycerin [Nitrostat] 0.4 mg SUBLINGUAL UD PRN 10/28/18 10/17/20 multivitamin with minerals 1 tab PO QAM 11/05/18 10/17/20 [Multiple Vitamin-Minerals] blood sugar diagnostic #10 ea 04/22/19 11/03/19 amlodipine 10 mg tablet 10 mg PO DAILY 11/20/19 10/17/20 bisacodyl 10 mg rectal suppository 10 mg AR DAILY PRN 11/20/19 10/17/20 calcium carbonate 500 mg (1,250 1 tab PO BID 11/20/19 10/17/20 mg)-vitamin D3 200 unit tablet carboxymethylcellulose sodium 2 drops OP TID 11/20/19 10/17/20 clonidine HCl 0.1 mg tablet 0.1 mg PO BID PRN tab 11/20/19 10/17/20 diclofenac sodium 1 % topical gel 4 gm TOPICAL HS gm 11/20/19 10/17/20 melatonin 3 mg tablet 3 mg PO HS 11/20/19 10/17/20 tramadol 50 mg tablet 50 mg PO BID tab 11/20/19 10/17/20 ferrous sulfate 325 mg (65 mg 325 mg PO Q OTHER DAY tab 05/20/20 10/17/20 iron) tablet labetalol 200 mg tablet 300 mg PO BID tab 05/20/20 10/17/20 levothyroxine 175 mcg capsule 175 mcg PO DAILY 05/20/20 10/17/20 magnesium hydroxide 400 mg/5 mL 30 ml PO PRN ml 05/20/20 10/17/20 oral suspension magnesium oxide 400 mg PO DAILY 05/20/20 10/17/20 psyllium husk 3.4 gram/5.4 gram 1 tsp PO 2XWK g 05/20/20 10/17/20 oral powder Previous Rx's Medication Instructions Recorded acetaminophen [Pain Reliever] 1,000 mg PO Q8H #90 tab 11/19/18 docusate sodium 100 mg PO BID #60 cap 11/19/18 sodium chloride 1 g PO DAILY #30 tab 11/19/18 Results & Data (ED) Vital Signs Vital Signs - 24 hr 10/17/20 18:06 10/17/20 18:30 10/17/20 18:33 Temperature 37.3 C Temperature Source Oral Pulse Rate 73 Pulse Rate [Apical] 76 Respiratory Rate 16 20 Blood Pressure 173/66 H Blood Pressure [Right Arm] 178/51 H Blood Pressure Mean 101 Blood Pressure Mean [Right Arm] 93 Blood Pressure Position Semi-fowlers Pulse Oximetry 92 92 93 Oxygen Delivery Method Room Air Room Air Room Air Sepsis Recent Fever Within 48 Hours Yes Sepsis New/Unexplained Change in Mental Status N/A Sepsis Action Taken by Nursing No Action Required Home Medications Current Medication List: was personally reviewed by me Laboratory Data Attestation: I reviewed the patient's lab results. Result diagrams: 10/17/20 18:10 10/17/20 18:10 Lab Results 10/17/20 10/17/20 10/17/20 Range/Units 18:10 18:10 18:20 WBC 9.29 (4.8-10.8) K/uL RBC 2.95 L (4.2-5.4) M/uL Hgb 9.4 L (12.0-16.0) g/dL Hct 29.4 L (37-47) % MCV 99.7 (80-100) fL MCH 31.9 (25-34) pg MCHC 32.0 (32-36) g/dL RDW Std Deviation 55.2 H (36.4-46.3) fL RDW Coeff of Taylor 15.2 H (11.5-14.5) % Plt Count 301 (130-400) K/uL MPV 10.1 (7.4-10.4) fL Immature Gran % (Auto) 0.5 % Neut % (Auto) 58.5 % Lymph % (Auto) 13.6 % Cloud % (Auto) 23.4 % Eos % (Auto) 3.7 % Baso % (Auto) 0.3 % Neut # (Auto) 5.44 (1.4-6.5) K/uL Lymph # (Auto) 1.26 (1.2-3.4) K/uL Cloud # (Auto) 2.17 H (0.11-0.59) K/uL Eos # (Auto) 0.34 (0-0.5) K/uL Baso # (Auto) 0.03 (0-0.2) K/uL Immature Gran # (Auto) 0.05 H (0.00-0.02) K/uL Sodium 138 (136-145) mmol/L Potassium 4.4 (3.5-5.1) mmol/L Chloride 105 (98-107) mmol/L Carbon Dioxide 26 (21-32) mmol/L Anion Gap 6.0 (3-11) BUN 42 H (7-18) mg/dl Creatinine 1.69 H (0.6-1.2) mg/dl Est Cr Clr Drug Dosing Not Reportable Est GFR ( Amer) 31.1 Est GFR (Non-Af Amer) 26.8 BUN/Creatinine Ratio 24.6 H (10-20) Glucose 102 H (70-99) mg/dl Calcium 9.3 (8.5-10.1) mg/dl Total Bilirubin 0.8 (0.2-1) mg/dl AST 41 H (15-37) U/L ALT 43 (12-78) U/L Alkaline Phosphatase 65 (45-117) U/L Troponin I < 0.015 (0-0.045) ng/ml Total Protein 7.0 (6.4-8.2) gm/dl Albumin 2.5 L (3.4-5.0) gm/dl Globulin 4.5 H (2.5-4.0) gm/dl Albumin/Globulin Ratio 0.6 L (0.9-2) TSH 0.675 (0.300-4.500) uIu/ml COVID-19 Eval Order Influ A Molecular Assay Negative (Negative) Influ B Molecular Assay Negative (Negative) SARS-CoV-2, RNA, NAAT (NEGATIVE) 10/17/20 10/17/20 Range/Units 18:29 18:29 WBC (4.8-10.8) K/uL RBC (4.2-5.4) M/uL Hgb (12.0-16.0) g/dL Hct (37-47) % MCV (80-100) fL MCH (25-34) pg MCHC (32-36) g/dL RDW Std Deviation (36.4-46.3) fL RDW Coeff of Taylor (11.5-14.5) % Plt Count (130-400) K/uL MPV (7.4-10.4) fL Immature Gran % (Auto) % Neut % (Auto) % Lymph % (Auto) % Cloud % (Auto) % Eos % (Auto) % Baso % (Auto) % Neut # (Auto) (1.4-6.5) K/uL Lymph # (Auto) (1.2-3.4) K/uL Cloud # (Auto) (0.11-0.59) K/uL Eos # (Auto) (0-0.5) K/uL Baso # (Auto) (0-0.2) K/uL Immature Gran # (Auto) (0.00-0.02) K/uL Sodium (136-145) mmol/L Potassium (3.5-5.1) mmol/L Chloride (98-107) mmol/L Carbon Dioxide (21-32) mmol/L Anion Gap (3-11) BUN (7-18) mg/dl Creatinine (0.6-1.2) mg/dl Est Cr Clr Drug Dosing Est GFR ( Amer) Est GFR (Non-Af Amer) BUN/Creatinine Ratio (10-20) Glucose (70-99) mg/dl Calcium (8.5-10.1) mg/dl Total Bilirubin (0.2-1) mg/dl AST (15-37) U/L ALT (12-78) U/L Alkaline Phosphatase (45-117) U/L Troponin I (0-0.045) ng/ml Total Protein (6.4-8.2) gm/dl Albumin (3.4-5.0) gm/dl Globulin (2.5-4.0) gm/dl Albumin/Globulin Ratio (0.9-2) TSH (0.300-4.500) uIu/ml COVID-19 Eval Order Covid19 [facility] Influ A Molecular Assay (Negative) Influ B Molecular Assay (Negative) SARS-CoV-2, RNA, NAAT NEGATIVE (NEGATIVE) Administered Medications Discontinued Medications Benzonatate (Benzonatate 100 Mg Capsule) 100 mg PO NOW ONE Stop: 10/17/20 18:56 Last Admin: 10/17/20 19:20 Dose: 100 mg Documented by: [id number] Sodium Chloride (Nss) 500 mls @ 999 mls/hr IV .Q31M MOOK Stop: 10/17/20 18:45 Last Infusion: 10/17/20 19:16 Dose: 0 mls/hr Documented by: [id number] Admin: 10/17/20 18:45 Dose: 999 mls/hr Documented by: [id number] Sodium Chloride (Nss 1000ml) 500 mls @ 999 mls/hr IV .Q31M ONE Stop: 10/17/20 19:25 Last Admin: 10/17/20 19:26 Dose: 999 mls/hr Documented by: [id number] Cefepime HCl (Maxipime) 2,000 mg in 20 mls @ 5 mls/min IV NOW STA; Protocol Stop: 10/17/20 19:05 Last Admin: 10/17/20 19:20 Dose: 5 mls/min Documented by: [id number] Discharge Plan Visit Data Chief Complaint: Cough ED Provider: Bassam Snow Discharge Problem: Pneumonia, Cough, Acute dehydration, JUNIOR (acute kidney injury) Patient Disposition: Home - Self-Care Forms Stand Alone Forms: [facility], [facility] Emergency Department, Important Visit Information Prescriptions Prescriptions: No Action (DME) OneTouch Ultra Blue Test Strip strip See Dose Instructions .ROUTE .MEDSUPPLY Qty: 10 RF: 0 amlodipine 10 mg tablet 10 mg PO DAILY RF: 0 calcium carbonate-vitamin D3 500 mg(1,250mg) -200 unit tablet 1 tab PO BID RF: 0 melatonin 3 mg tablet 3 mg PO HS RF: 0 tramadol 50 mg tablet 50 mg PO BID RF: 0 bisacodyl [Dulcolax (bisacodyl)] 10 mg suppository 10 mg AR DAILY PRN (Reason: constipation) RF: 0 carboxymethylcellulose sodium 2 drops OP TID RF: 0 labetalol 200 mg tablet 300 mg PO BID RF: 0 Metamucil 3.4 gram/5.4 gram powder 1 tsp PO 2XWK RF: 0 magnesium hydroxide [Milk of Magnesia] 400 mg/5 mL suspension 30 ml PO PRN RF: 0 levothyroxine 175 mcg capsule 175 mcg PO DAILY RF: 0 magnesium oxide 400 mg magnesium tablet 400 mg PO DAILY RF: 0 atorvastatin 80 mg tablet 80 mg PO QPM RF: 0 cyanocobalamin (vitamin B-12) 1,000 mcg Tablet 1,000 mcg PO QAM RF: 0 aspirin [Aspirin Low Dose] 81 mg Tablet,Delayed Release (Dr/Ec) 81 mg PO QAM RF: 0 isosorbide mononitrate 60 mg tablet extended release 24 hr 120 mg PO QAM RF: 0 nitroglycerin [Nitrostat] 0.4 mg Tablet, Sublingual 0.4 mg Sublingual UD PRN (Reason: Chest Pain) RF: 0 furosemide 20 mg tablet 20 mg PO QAM RF: 0 losartan 100 mg tablet 100 mg PO QAM RF: 0 diclofenac sodium 1 % gel 4 gm topical HS RF: 0 ferrous sulfate 325 mg (65 mg iron) tablet 325 mg PO Q OTHER DAY RF: 0 multivitamin with minerals [Multiple Vitamin-Minerals] Tablet 1 tab PO QAM RF: 0 sodium chloride 1 gram Tablet 1 g PO DAILY Qty: 30 RF: 0 acetaminophen [Pain Reliever (acetaminophen)] 500 mg Tablet 1,000 mg PO Q8H Qty: 90 RF: 0 docusate sodium 100 mg Capsule 100 mg PO BID Qty: 60 RF: 0 clonidine HCl 0.1 mg tablet 0.1 mg PO BID PRN (Reason: Hypertension) RF: 0 Referrals Referrals: [facility] [Primary Care Provider] - Discharge Problem: Pneumonia Qualifiers: Pneumonia type: due to unspecified organism Laterality: left Lung location: lower lobe of lung Qualified Code(s): J18.9 - Pneumonia, unspecified organism
[2020-10-17 19:02] LABS: Albumin Globulin Ratio 0.6 (0.9-2); Alkaline Phosphatase 65 U/L (45-117); Bilirubin,Total 0.8 mg/dl (0.2-1); Globulin 4.5 gm/dl (2.5-4.0); Thyroid Stimulating Hormone 0.675 uIu/ml (0.300-4.500); Troponin I < 0.015 ng/ml (0-0.045)
[2020-10-17] MEDS ORDERED: AZITHROMYCIN 500 MG in DEXTROSE 5% 250 ML IV STA (19:02)
[2020-10-17] MEDS ORDERED: CEFEPIME 2,000 MG/20 ML VIAL IV STA (19:02)
--- NOTE | 2020-10-17 20:11 | History & Physical Report ---
Date of Service October 17, 2020 Assessment & Plan (1) Pneumonia: 85-year-old female past medical history significant for A. fib on chronic anticoagulation, CAD s/p PCI, HTN, CKD, HLD, hypothyroidism, osteoarthritis and knee pain admitted for community-acquired pneumonia and JUNIOR. Community Acquired Pneumonia: - On admission with complaints of chronic worsening cough for several months with associated URI symptoms for about 1 week. - CXR in ER showed moderate left lower lung airspace opacity which favors pneumonia. - BCx collected, influenza and COVID 19 testing negative. - Continue cefepime/azithromycin. - MRSA nares positive, will add vancomycin for MRSA coverage. - Tessalon perles TID for cough. - Prednisone 20mg daily given extreme hoarseness and uncontrollable cough. JUNIOR on CKD: - Patient's baseline creatinine ~0.8; this admission with creatinine 1.69 with elevated BUN suggestive of dehydration. - This is in the setting of poor oral intake for several days due to URI illness. - In ED patient received 1L bolus NSS. - Heart Healthy diet, encourage oral water intake. - Repeat BMP AM. Atrial Fibrillation: - History of, currently in AFib this admission without RVR. - Was previously on several anticoagulants but appears not to be at time of admission per chart. Patient is unclear on which medication she takes at [place]. - While admitted will have patient on Heparin for DVT ppx. - Both ChadsVasc and Hasbled scores are 4, high Hasbled score due to history of epidural hematoma and several falls. CAD s/p PCI: - Underwent PCI in 2016 to RCA and LAD. - Most recent known Echo in chart from 2014, EF normal at that time. - No current chest pain or cardiac complaints, EKG without ST/T wave changes, troponin negative. - Continue home beta maria eugenia, aspirin, statin, ARB. Anemia of chronic disease: - History of, follows with Nephrology for this. - Has had iron studies performed which showed low TIBC, normal to low iron, normal ferritin consistent with anemia of chronic disease. - Hgb stable this admission at 9.4, typically fluctuates between 8.5 and 11. No active bleeding. - Continue iron supplementation. Hyponatremia: - History of, chronic, follows with Nephrology for such. 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 Will order urine and serum lytes/osmolality. - Continue NaCl tablets for now as patient's Na is normal. - Monitor daily BMP. Code Status: DNR/DNI FENGI: Heart Healthy, NSS 1L bolus to complete in ED, then encourage PO hydration DVT ppx: Heparin 5000u q12h Dispo: Med/Tele given Hx AFib, for cardiac and oxygen level monitoring (2) JUNIOR (acute kidney injury): (3) Hypertension: (4) Arthritis of both knees: (5) Chronic kidney disease, stage 3 (moderate): (6) Afib: (7) Anxiety: (8) Hypercholesterolemia: (9) Hypothyroid: History of Present Illness Chief Complaint: cough, SOB on exertion Primary Care Provider: [facility] 85-year-old female past medical history significant for A. fib on chronic anticoagulation, CAD s/p PCI, HTN, CKD, HLD, hypothyroidism, osteoarthritis and knee pain presented to ER for complaints of several months of chronic dry cough that has been worsening over the last week or so, with associated malaise, hoarse voice, SOB with exertion, and decreased appetite. No measured fevers, no diarrhea or constipation, no abdominal pain, nausea, or vomiting. Was diagnosed with COVID 19 at [place] (where she resides) several months ago, and since that time has had two negative COVID 19 tests. Son is also present and provides some history, states that she was previously on Coumadin and was transitioned to Xarelto by her PCP, did subsequently have a fall and developed an epidermal hematoma and Xarelto was held. At some point patient was started on Eliquis, which per son she is still on, though medication not listed in patient's home medications on chart. Patient does not have a smoking history, and does not have asthma or COPD. ED course included CXR which showed focal consolidation consistent with pneumonia, JUNIOR with elevated BUN, no leukocytosis, COVID 19 and influenza negative. At time of my interview patient feels comfortable though has a frequent cough especially with talking and deep breaths on exam. Denies current SOB, chest pain, GI complaints, complaints. Allergies Allergy/AdvReac Type Severity Reaction Status Date / Time doxycycline Allergy Intermediate RASH Verified 10/17/20 18:13 ANA LUISA Inhibitors Allergy Unknown INTOLERANT Verified 10/17/20 18:13 lisinopril Allergy Unknown INTOLERANT Verified 10/17/20 18:13 sulfamethoxazole AdvReac Unknown Verified 10/17/20 18:13 [From Bactrim] trimethoprim [From Bactrim] AdvReac Unknown Verified 10/17/20 18:13 Sulfa (Sulfonamide AdvReac Verified 10/17/20 18:13 Antibiotics) Home Medications Medication Instructions Recorded Confirmed Type aspirin [Aspirin Low Dose] 81 mg PO QAM 10/28/18 10/17/20 History atorvastatin 80 mg PO QPM 10/28/18 10/17/20 History cyanocobalamin (vitamin B-12) 1,000 mcg PO QAM 10/28/18 10/17/20 History furosemide 20 mg PO QAM 10/28/18 10/17/20 History isosorbide mononitrate 120 mg PO QAM 10/28/18 10/17/20 History losartan 100 mg PO QAM 10/28/18 10/17/20 History nitroglycerin [Nitrostat] 0.4 mg SUBLINGUAL UD PRN 10/28/18 10/17/20 History multivitamin with minerals 1 tab PO QAM 11/05/18 10/17/20 History [Multiple Vitamin-Minerals] acetaminophen [Pain Reliever] 1,000 mg PO Q8H #90 tab 11/19/18 10/17/20 Rx docusate sodium 100 mg PO BID #60 cap 11/19/18 10/17/20 Rx sodium chloride 1 g PO DAILY #30 tab 11/19/18 10/17/20 Rx blood sugar diagnostic #10 ea 04/22/19 11/03/19 History amlodipine 10 mg tablet 10 mg PO DAILY 11/20/19 10/17/20 History bisacodyl 10 mg rectal suppository 10 mg FL DAILY PRN 11/20/19 10/17/20 History calcium carbonate 500 mg (1,250 1 tab PO BID 11/20/19 10/17/20 History mg)-vitamin D3 200 unit tablet clonidine HCl 0.1 mg tablet 0.1 mg PO BID PRN tab 11/20/19 10/17/20 History diclofenac sodium 1 % topical gel 4 gm TOPICAL HS gm 11/20/19 10/17/20 History melatonin 3 mg tablet 3 mg PO HS 11/20/19 10/17/20 History tramadol 50 mg tablet 50 mg PO BID tab 11/20/19 10/17/20 History ferrous sulfate 325 mg (65 mg 325 mg PO Q OTHER DAY tab 05/20/20 10/17/20 History iron) tablet labetalol 200 mg tablet 300 mg PO BID tab 05/20/20 10/17/20 History levothyroxine 175 mcg capsule 175 mcg PO DAILY 05/20/20 10/17/20 History magnesium hydroxide 400 mg/5 mL 30 ml PO PRN ml 05/20/20 10/17/20 History oral suspension magnesium oxide 400 mg PO DAILY 05/20/20 10/17/20 History psyllium husk 3.4 gram/5.4 gram 1 tsp PO 2XWK g 05/20/20 10/17/20 History oral powder carboxymethylcellulose sodium 2 drp OPHTHALMIC (EYE) TID 10/17/20 10/17/20 History Past Med/Surg History Medical History Acquired deviated nasal septum Acute coronary syndrome Anemia of chronic disease Atrial flutter Chronic anticoagulation Chronic kidney disease, stage 3 (moderate) External hemorrhoids Gait disturbance Generalized osteoarthritis Humeral head fracture Hypercholesterolemia Hypergammaglobulinemia Hypertension Hyponatremia Impaired fasting glucose Lichen sclerosus et atrophicus Obstructive sleep apnea Occlusion and stenosis of unspecified carotid artery Polyneuropathy Postmenopausal osteoporosis Proteinuria Secondary hyperparathyroidism Sensorineural hearing loss of both ears Synovial cyst of popliteal space Vitamin D deficiency Surgical History History of cardiac catheterization History of Cath Stent Placement History of incision and drainage history of skin abscess incision and drainage History of placement of ear tubes History of Ear Pressure Equalization Tube, Insertion, Bilaterall Family History Father Stroke Mother Coronary heart disease Unknown Diabetes Coronary heart disease Social History Smoking Status: Never smoker Second Hand Exposure: No; Hx Alcohol Use: No Hx Substance Use: No Preferred Language: Romanian Communication Ability: Effective Visual Impairment: Limited Hearing Ability: Use of Hearing Aid Motor Carrier Inspector Required: No Beliefs That Will Affect Care: None marital status: / Current Living Situation: Care Home current occupational status: retired How many Children do You have: 4 Feels Safe at Home: Yes Safety Concerns: Feels Safe At This Time Assistive Devices: Denture - Upper, Denture - Lower, Glasses and Hearing Aid - Bilateral Review of Systems Review of Systems: All systems reviewed & are unremarkable except as noted in HPI & below (noted to be at time of interview) Constitutional: no fever, no chills and no malaise Respiratory: no cough and no dyspnea Cardiovascular: no chest pain, no palpitations and no edema Gastrointestinal: no abdominal pain, no constipation and no diarrhea/loose stools Genitourinary: no dysuria and no hematuria Physical Exam Constitutional: WD/WN, vitals as above Eyes: PERRL, conjunctivae normal, anicteric sclerae ENMT: external ear and nose normal, oropharynx normal notable hoarse voice and frequent cough Neck: normal visual inspection Respiratory: normal respiratory effort and + cough (frequent) decreased breath sounds left lower lobe area. Cough worsens with talking and deep inspiration. intermittent wheezes noted bilaterally. Cardiovascular: Rate/Rhythm: + irregularly irregular Heart Sounds: no murmur Extremities: no edema Gastrointestinal (Abdomen): normal bowel sounds, soft, nontender, no hepatosplenomegaly Musculoskeletal: no cyanosis or clubbing, extremities motor strength 5/5 Skin: no rashes, warm and dry Neurologic: AAOx3, normal speech. PERRL, Normal visual acuity bilaterally, wearing glasses Bilateral UE, LE, and face without sensory or motor deficits. No tremor. Psychiatric: A+Ox3, euthymic affect tangential but redirectable Results & Data Results & Data ([facility]) Vital Signs (Past 12 Hours) Vital Signs Temp Pulse Pulse Resp BP BP Pulse Ox 10/17/20 19:08 77 22 177/78 H 97 10/17/20 19:00 89 L 10/17/20 18:33 93 10/17/20 18:30 76 20 178/51 H 92 10/17/20 18:06 37.3 C 73 16 173/66 H 92 Code Status & VTE Plan VTE Prophylaxis Plan VTE Prophylaxis will be ordered: Yes Supervising Physician Co-Signing Physician Notes Attending addendum: I have physically seen this patient, have supervised the medical residents activities, and agree with the H&P unless as otherwise noted. Assessment and Plan: Pneumonia, left lower consolidation, multifocal- MRSA nares positive Vancomycin IV per pharmacokinetic monitoring. Cefepime 1 g IV every 8 hours. Azithromycin 500mg IV every 24 hours Tessalon Perles 100 mg p.o. 3 times daily as needed Prednisone 20 mg p.o. daily Guaifenesin extended release 600 mg p.o. twice daily JUNIOR on CKD- Creatinine 1.69 upon admission, with baseline around 0.8. Given 1 L bolus normal saline in the ED Hold losartan and furosemide Repeat BMP in a.m. Atrial fibrillation/CAD/status post PCI- Heparin IV while in hospital Continue aspirin, labetalol, and amlodipine. Remaining orders and notations as noted Resident Activity Tracking Resident Involvement: Resident Care Provided Care Provided: Adult [facility] Medicine (1) Chronic kidney disease, stage 3 (moderate) Chronic kidney disease stage 3 subtype: unspecified whether 3a or 3b Qualified Code(s): N18.30 - Chronic kidney disease, stage 3 unspecified (2) Afib Atrial fibrillation type: chronic Qualified Code(s): I48.2 - Chronic atrial fibrillation (3) Hypothyroid Hypothyroidism type: acquired Qualified Code(s): E03.9 - Hypothyroidism, unspecified (4) Hypertension Hypertension type: essential hypertension Qualified Code(s): I10 - Essential (primary) hypertension (5) Pneumonia Laterality: left Lung location: lower lobe of lung Pneumonia type: due to unspecified organism Qualified Code(s): J18.9 - Pneumonia, unspecified organism
[2020-10-17] MEDS ORDERED: VANCOMYCIN CONSULT ACTIVE PRN (21:10)
[2020-10-17] MEDS ORDERED: ALBUTEROL HFA 8 GM INHALER INH PRN (22:26)
[2020-10-17] MEDS ORDERED: MAGNESIUM HYDROXIDE SUSP 30 ML UDC PO PRN (22:26)
[2020-10-17] MEDS ORDERED: NITROGLYCERIN SL 0.4 MG/TAB TAB SL PRN (22:26)
[2020-10-17] MEDS ORDERED: bisacodyL 10 MG SUPP PR PRN (22:26)
[2020-10-17] MEDS ORDERED: cloNIDine HCL 0.1 MG TAB PO PRN (22:26)
[2020-10-17] MEDS ORDERED: VANCOMYCIN HCL 2,000 MG in SODIUM CHLORIDE 0.9% 500 ML IV ONE (23:15)
[2020-10-17] MEDS: HEPARIN SOD 5,000 UNIT/0.5 ML VIAL SQ SCH (23:49)
[2020-10-17] MEDS: BENZONATATE 100 MG CAPSULE PO SCH (23:50)
[2020-10-17] MEDS: predniSONE 20 MG TAB PO SCH (23:50)
[2020-10-17] MEDS: DOCUSATE SODIUM 100 MG CAP PO SCH (23:51)
[2020-10-17] MEDS: ATORVASTATIN 40 MG TAB PO SCH (23:51)
[2020-10-17] MEDS: LABETALOL HCL 300 MG TAB PO SCH (23:53)
[2020-10-17] MEDS: DICLOFENAC SOD 1% GEL 100 GM TUBE EXT SCH (23:53)
[2020-10-17] MEDS: traMADol HCL 50 MG TABLET PO SCH (23:58)
[2020-10-17] MEDS: MELATONIN 3 MG TAB PO SCH (23:58)
[2020-10-18] MEDS: LEVOTHYROXINE SODIUM 175 MCG TABLET PO SCH (06:12)
[2020-10-18 07:30] LABS: Sodium Random Urine < 5 mmol/L
[2020-10-18 07:31] LABS: Hematocrit (blood only) 27.2 % (37-47); Hemoglobin 8.8 g/dL (12.0-16.0); Mean Corpuscular Hemoglobin 31.7 pg (25-34); Mean Corpuscular Hgb Conc 32.4 g/dL (32-36); Mean Corpuscular Volume 97.8 fL (80-100); Mean Platelet Volume 10.1 fL (7.4-10.4); Platelet Count 318 K/uL (130-400); RDW Coefficient of Variation 15.3 % (11.5-14.5); RDW Standard Deviation 55.2 fL (36.4-46.3); Red Blood Count 2.78 M/uL (4.2-5.4)
[2020-10-18] MEDS: SODIUM CHLORIDE 1 GM TABLET PO SCH (07:55)
[2020-10-18] MEDS: amLODIPine BESYLATE 5 MG TAB PO SCH (07:55)
[2020-10-18] MEDS: MAGNESIUM OXIDE 400 MG TAB PO SCH (07:55)
[2020-10-18] MEDS: FUROSEMIDE 20 MG TAB PO SCH (07:55)
[2020-10-18] MEDS: DOCUSATE SODIUM 100 MG CAP PO SCH ×2 (07:56→21:19)
[2020-10-18] MEDS: ASPIRIN 81 MG ECTAB PO SCH (07:56)
[2020-10-18] MEDS: LOSARTAN POTASSIUM 50 MG TAB PO SCH (07:56)
[2020-10-18] MEDS: ISOSORBIDE MONO EXTENDED REL 60 MG TABCR PO SCH (07:56)
[2020-10-18] MEDS: HEPARIN SOD 5,000 UNIT/0.5 ML VIAL SQ SCH ×3 (07:56→23:10)
[2020-10-18] MEDS: BENZONATATE 100 MG CAPSULE PO SCH ×3 (07:57→21:19)
[2020-10-18] MEDS: traMADol HCL 50 MG TABLET PO SCH ×2 (07:58→21:19)
[2020-10-18] MEDS: AZITHROMYCIN 250 MG in DEXTROSE 5% 250 ML IV SCH (07:58)
[2020-10-18] MEDS: CEFEPIME 2,000 MG in SYRINGE 0 ML IV SCH ×2 (07:58→20:34)
[2020-10-18 08:01] LABS: BUN Creatinine Ratio 29.9 (10-20); Calcium 9.2 mg/dl (8.5-10.1); Est GFR (African American) 36.8; Est GFR (Non-African American) 31.8; Potassium 4.6 mmol/L (3.5-5.1)
[2020-10-18] MEDS: LABETALOL HCL 300 MG TAB PO SCH ×2 (08:02→21:27)
[2020-10-18] MEDS: predniSONE 20 MG TAB PO SCH (08:05)
--- NOTE | 2020-10-18 13:07 | Pharmacy Report ---
Pharmacy Abx Initial Consult - Date of Service October 18, 2020 - Pharmacy Dosing Scope Date of Consult: 10/17 Consultation requested by: Dr. Samson Pharmacy is consulted to initiate vancomycin IV/PO dosing therapy, order appropriate labs and adjust drug dose/frequency. - Subjective The patient is a 85 year old F admitted on 10/17/20 20:09. - Objective Height: 5 ft Weight: 101.8 kg Vital Signs (Past 12hrs): Vital Signs Temp Pulse Pulse Resp BP Pulse Ox 10/18/20 11:19 36.6 C 72 16 100/55 L 95 10/18/20 07:21 36.8 C 73 18 147/67 H 96 10/18/20 07:10 89 10/18/20 03:45 36.9 C 71 17 121/63 95 Lab Results (24hrs): Laboratory Tests (24 Hours) 10/18/20 10/18/20 10/18/20 06:56 06:56 06:56 WBC 9.00 Neut # (Auto) Creatinine 1.47 H Est Cr Clr Drug Dosing 29.0 Procalcitonin 0.57 H 10/17/20 10/17/20 18:10 18:10 WBC 9.29 Neut # (Auto) 5.44 Creatinine 1.69 H Est Cr Clr Drug Dosing Not Reportable Procalcitonin Micro Results: 10/17/20 18:20 Aerobic Blood Culture - Pending Blood Anaerobic Blood Culture - Pending 10/17/20 18:10 Aerobic Blood Culture - Pending Blood Anaerobic Blood Culture - Pending - Risk Factors for Resistance * Resident in a care home or extended-care facility - Assessment & Plan Assessment 85 year old F with PMH including A. Fib on anticoagulation, CAD, HTN, CKD, HLD, hypothyroidism presented to Ed with chronic cough, SOB with exertion, malaise. Patient resides in a care home and had COVID-19 with subsequent negative tests. CXR with a possible pneumonia. Patient is currently afebrile, normal WBC, requiring 2 L of Oxygen, SCr is trending downward 1.69 -->1.47. Blood cultures are currently pending, nasal MRSA swab was positive. Plan Vanco/cefepime/azithromycin for empiric treatment of pneumonia Vancomycin IV * Estimated PK Parameters: Yogesh 0.028 hr-1, t1/2 24.75 hr * Loading dose: 2000 mg (19 mg/kg) * Maintenance dose: 1250 mg IV (12 mg/kg) every 24 hours * Goal trough level 15-20 mcg/mL * Trough currently not ordered d/t changing renal function, reassess dosing in AM. * A less than traditional dose and has been selected due to likelihood of drug accumulation in obese patient/patient with h/o CKD. Pharmacy will continue to follow and will adjust dose/frequency as necessary. Thank you.
--- NOTE | 2020-10-18 13:22 | Electrocardiogram Report ---
Test Reason : Blood Pressure : / mmHG Vent. Rate : 065 BPM Atrial Rate : 220 BPM P-R Int : 000 ms QRS Dur : 100 ms QT Int : 386 ms P-R-T Axes : 000 042 044 degrees QTc Int : 401 ms Atrial flutter with variable A-V block with premature ventricular or aberrantly conducted complexes Abnormal ECG When compared with ECG of 28-OCT-2018 13:36, No significant change was found Confirmed by Sundeep Melara ([id number]) on 10/18/2020 1:21:54 PM Referred By: [facility] Confirmed By:Sundeep Melara
--- NOTE | 2020-10-18 16:16 | Hospitalist Progress Note ---
Date of Service October 18, 2020 Assessment & Plan (1) LLL pneumonia: Given chronic SNF placement will cover for gram negative pathogens with cefepime. Atypical coverage - zithromax. Patient tested + for MRSA - could have MRSA pneumonia - continue IV vanco. Daily Cr. Blood cx's neg to date. COVID noted to be negative. Details of previous COVID positivity uncertain - would need to contract med director at [facility] for details. (2) Metabolic encephalopathy: 2nd to pneumonia? supportive care. avoid benzos and sedatives. (3) Laryngitis: Steroids may help. Add robitussin 200mg q6h - this may also help. Laryngitis is typically viral in etiology (parainfluenza, other viral pathogens). (4) Bronchitis: mod-severe on exam. add solumedrol 40mg BID. add duonebs q6h. add robitussin. pulm toilet. (5) Morbid obesity with BMI of 40.0-44.9, adult: BMI 43.8 (6) CAD (coronary artery disease): Cont asa, statin, lasix, beta maria eugenia, imdur. no ACS at this time. (7) Hypothyroid: TSH wnl. Cont synthroid as is. (8) Chronic kidney disease, stage 3a: CrCl about 30. BMP in am. (9) Essential (primary) hypertension: Cont all home meds. Controlled. (10) Hyponatremia: h/o such. On NaCL supplementation - presumably for SIADH?? Na wnl today. Na also wnl since 2019. Will cont NaCL 1gm daily as this appears to be chronic med for her. (11) Anemia of chronic disease: baseline appears to be 8.5 to 9.5. 2nd to CKD? other? previous b12/folate/iron studies 2019 wnl. recheck iron studies am. (12) Hypercholesterolemia: Cont statin. (13) Atrial flutter: Patient in a.flutter on exam and by way of admission EKG. Also w/ prior h/o a.fib. Remains on BB. Uncertain why she is not on anticoagulation - will check EMR for details. Rates controlled. (14) DVT prophylaxis: given morbid obesity increase heparin to 5000 TID PT, OT evals requested speech eval appreciated Admission and Anticipated Discharge Date Admission Date: October 17, 2020 Subjective patient c/o ongoing cough, hoarse voice. she had COVID at [facility] by report but patient cannot tell me when nor give any details about such. she said "when they told me I tested + I wasn't sick." she was confused during the stay, stating her son had "visited her yesterday for the whole day." staff state that isn't true. no chest pain or abd pain. eating fair. seen by speech - no overt aspiration/dysphagia. pt denies h/o asthma or chronic lung disease. does not walk at [facility] - mainly uses wheel chair for locomotion. Review of Systems Constitutional: no fever Respiratory: + cough and + wheezing; no sputum production Cardiovascular: no chest pain Gastrointestinal: no abdominal pain Physical Exam Constitutional: + morbidly obese and + altered mental status; no acute distress ENMT: external ear and nose normal, oropharynx normal hoarse voice Respiratory: no respiratory distress Auscultation: + rales and + wheezes (Extensive b/l (expiratory phase)) Cardiovascular: Rate/Rhythm: regular rate and + irregularly irregular Heart Sounds: normal S1 and normal S2; no murmur Vessels: posterior tibial pulses present and dorsalis pedis pulses present; no JVD Extremities: no edema Gastrointestinal (Abdomen): normal bowel sounds, soft, nontender, no hepatosplenomegaly Psychiatric: Orientation: alert, oriented to person and oriented to place; + not oriented to time Results & Data Results & [facility] ([facility]) Vital Signs (Past 12 Hours) Vital Signs Temp Pulse Pulse Resp BP Pulse Ox 10/18/20 15:35 36.7 C 74 19 95 10/18/20 11:19 36.6 C 72 16 100/55 L 95 10/18/20 07:21 36.8 C 73 18 147/67 H 96 10/18/20 07:10 89 Laboratory Results Laboratory Results - last 24 hr 10/18/20 10/18/20 10/18/20 06:56 06:56 06:56 WBC 9.00 RBC 2.78 L Hgb 8.8 L Hct 27.2 L MCV 97.8 MCH 31.7 MCHC 32.4 RDW Std Deviation 55.2 H RDW Coeff of Taylor 15.3 H Plt Count 318 MPV 10.1 Sodium 140 Potassium 4.6 Chloride 110 H Carbon Dioxide 22 Anion Gap 7.0 BUN 44 H Creatinine 1.47 H Est Cr Clr Drug Dosing 29.0 Est GFR ( Amer) 36.8 Est GFR (Non-Af Amer) 31.8 BUN/Creatinine Ratio 29.9 H Glucose 127 H Osmolality 303 H Calcium 9.2 Procalcitonin Urine Osmolality Ur Random Creatinine Ur Random Sodium 10/18/20 10/18/20 10/18/20 06:56 Unknown Unknown WBC RBC Hgb Hct MCV MCH MCHC RDW Std Deviation RDW Coeff of Taylor Plt Count MPV Sodium Potassium Chloride Carbon Dioxide Anion Gap BUN Creatinine Est Cr Clr Drug Dosing Est GFR ( Amer) Est GFR (Non-Af Amer) BUN/Creatinine Ratio Glucose Osmolality Calcium Procalcitonin 0.57 H Urine Osmolality 545 Ur Random Creatinine 276.0 Ur Random Sodium < 5 PG Care Time/CCT Total # of Minutes Spent Total Time Spent with Patient: Total time spent is greater than 50% in coordination of care (as documented) at patient's floor/unit and/or counseling patient: Coding Level of Care Code 82903 Subseq Hosp Care Lvl 3 Diagnoses LLL pneumonia J18.9 Pneumonia type: due to unspecified organism Metabolic encephalopathy G93.41 Laryngitis J04.0 Bronchitis J40 Morbid obesity with BMI of 40.0-44.9, adult E66.01; Z68.41 CAD (coronary artery disease) I25.10 Coronary Disease-Associated Artery/Lesion type: ruby artery [place] vs. transplanted heart: ruby heart Associated angina: without angina Hypothyroid E03.9 Hypothyroidism type: acquired Chronic kidney disease, stage 3a N18.3 Essential (primary) hypertension I10 Hyponatremia E87.1 Anemia of chronic disease D63.8 Hypercholesterolemia E78.00 Atrial flutter I48.92 Atrial flutter type: unspecified DVT prophylaxis Z29.9 (1) LLL pneumonia Pneumonia type: due to unspecified organism Qualified Code(s): J18.9 - Pneumonia, unspecified organism (2) CAD (coronary artery disease) Coronary Disease-Associated Artery/Lesion type: ruby artery [place] vs. transplanted heart: ruby heart Associated angina: without angina Qualified Code(s): I25.10 - Atherosclerotic heart disease of ruby coronary artery without angina pectoris (3) Hypothyroid Hypothyroidism type: acquired Qualified Code(s): E03.9 - Hypothyroidism, unspecified (4) Atrial flutter Atrial flutter type: unspecified Qualified Code(s): I48.92 - Unspecified atrial flutter
[2020-10-18] MEDS: guaiFENesin SUGAR FREE 200 MG/10 ML UDC PO SCH ×2 (16:55→21:19)
[2020-10-18] MEDS: methylPREDNISolone 40 MG in SYRINGE 0 ML IV SCH (17:16)
[2020-10-18] MEDS: MELATONIN 3 MG TAB PO SCH (21:19)
[2020-10-18] MEDS: ATORVASTATIN 40 MG TAB PO SCH (21:19)
[2020-10-18] MEDS: DICLOFENAC SOD 1% GEL 100 GM TUBE EXT SCH (21:20)
[2020-10-18] MEDS: ACETAMINOPHEN 325 MG TAB PO PRN (21:47)
[2020-10-18] MEDS: ALBUT/IPRATROP 3MG/0.5MG NEB 3 ML VIAL NEB SCH ×2 (22:07)
--- NOTE | 2020-10-18 22:13 | Billing Data ---
Date of Service October 18, 2020 Coding Level of Care Code 77857 Initial Inpt Care Lvl 3
[2020-10-18] MEDS: ARTIFICIAL TEARS OP SCH (22:17)
[2020-10-18] MEDS: VANCOMYCIN HCL 1,250 MG in SODIUM CHLORIDE 0.9% 250 ML IV SCH (23:41)
[2020-10-19] MEDS: guaiFENesin SUGAR FREE 200 MG/10 ML UDC PO SCH ×4 (04:18→20:26)
[2020-10-19] MEDS: methylPREDNISolone 40 MG in SYRINGE 0 ML IV SCH ×2 (04:18→16:50)
[2020-10-19] MEDS: LEVOTHYROXINE SODIUM 175 MCG TABLET PO SCH (05:53)
[2020-10-19] MEDS: ALBUT/IPRATROP 3MG/0.5MG NEB 3 ML VIAL NEB SCH ×4 (07:03→19:22)
[2020-10-19 07:41] LABS: BUN Creatinine Ratio 41.9 (10-20); Calcium 8.3 mg/dl (8.5-10.1); Creatinine Clr Calc Pharmacy 32.2 ml/min; Est GFR (African American) 41.9; Est GFR (Non-African American) 36.2; Potassium 4.7 mmol/L (3.5-5.1)
[2020-10-19 07:47] LABS: Ferritin 539.3 ng/ml (8-388)
[2020-10-19] MEDS: HEPARIN SOD 5,000 UNIT/0.5 ML VIAL SQ SCH ×3 (08:38→23:37)
[2020-10-19] MEDS: BENZONATATE 100 MG CAPSULE PO SCH ×3 (08:40→20:25)
[2020-10-19] MEDS: SODIUM CHLORIDE 1 GM TABLET PO SCH (08:40)
[2020-10-19] MEDS: DOCUSATE SODIUM 100 MG CAP PO SCH ×2 (08:40→20:26)
[2020-10-19] MEDS: MAGNESIUM OXIDE 400 MG TAB PO SCH (08:41)
[2020-10-19] MEDS: ASPIRIN 81 MG ECTAB PO SCH (08:41)
[2020-10-19] MEDS: LABETALOL HCL 300 MG TAB PO SCH ×2 (08:41→20:26)
[2020-10-19] MEDS: amLODIPine BESYLATE 5 MG TAB PO SCH (08:42)
[2020-10-19] MEDS: ISOSORBIDE MONO EXTENDED REL 60 MG TABCR PO SCH (08:42)
[2020-10-19] MEDS: FUROSEMIDE 20 MG TAB PO SCH (08:42)
[2020-10-19] MEDS: LOSARTAN POTASSIUM 50 MG TAB PO SCH (08:42)
[2020-10-19] MEDS: traMADol HCL 50 MG TABLET PO SCH ×2 (08:46→20:28)
[2020-10-19] MEDS: CEFEPIME 2,000 MG in SYRINGE 0 ML IV SCH ×2 (08:47→20:27)
[2020-10-19] MEDS: AZITHROMYCIN 250 MG in DEXTROSE 5% 250 ML IV SCH (09:01)
[2020-10-19] MEDS: ARTIFICIAL TEARS OP SCH ×3 (09:03→20:28)
[2020-10-19] MEDS ORDERED: MICONAZOLE NITRATE POWDER 43 GM EXT PRN (18:25)
--- NOTE | 2020-10-19 20:10 | Hospitalist Progress Note ---
Date of Service October 19, 2020 Assessment & Plan (1) LLL pneumonia: IMPROVING. Day #3 of IV abx. Given chronic SNF placement covering for gram negative pathogens with cefepime. Atypical coverage - zithromax. Patient tested + for MRSA - could have MRSA pneumonia - continue IV vanco. Daily Cr. Blood cx's neg to date. COVID noted to be negative. Per daughter had COVID in July 2020 with minimal symptoms. Apparently patient refused COVID vaccine at [facility] recently. (2) Metabolic encephalopathy: 2nd to pneumonia/bronchitis. improving. supportive care. avoid benzos and sedatives. (3) Laryngitis: Steroids may help this. Cont robitussin 200mg q6h - this may also help. Laryngitis is typically viral in etiology (parainfluenza, other viral pathogens). (4) Bronchitis: Improving. Continue solumedrol but wean to 30mg BID. Continue duonebs q6h. Continue robitussin. pulm toilet. o2 weaned off today. (5) Morbid obesity with BMI of 40.0-44.9, adult: BMI 43.8 (6) CAD (coronary artery disease): Cont asa, statin, lasix, beta maria eugenia, imdur. no ACS at this time. (7) Hypothyroid: TSH wnl. Cont synthroid as is. (8) Chronic kidney disease, stage 3a: CrCl about 30. BMP in am for stability. (9) Essential (primary) hypertension: Cont all home meds. Controlled. (10) Hyponatremia: h/o such. On NaCL supplementation - presumably for SIADH?? Na again wnl today. Na also wnl since 2019. Will cont NaCL 1gm daily as this appears to be chronic med for her. (11) Anemia of chronic disease: baseline appears to be 8.5 to 9.5. 2nd to CKD? other? previous b12/folate/iron studies 2019 wnl. rechecked iron studies and they are normal. (12) Hypercholesterolemia: Cont statin. (13) Atrial flutter: Patient in a.flutter on exam and by way of admission EKG. Also w/ prior h/o a.fib. Remains on BB. Uncertain why she is not on anticoagulation. Rates controlled. (14) DVT prophylaxis: given morbid obesity - heparin 5000 TID despite CKD PT, OT evals but patient apparently fairly wheelchair dependent at [facility] speech eval appreciated - no dysphagia/aspiration daughter updated 10/19/20 by phone Admission and Anticipated Discharge Date Admission Date: October 17, 2020 Subjective patient feeling much better today. cough much improved. wheezing improved. eating well. still w/ hoarse voice. confused at times - I spoke with daughter by phone and she agrees mother is mildly confused (worse than baseline). tele a.fib/flutter - rates controlled. Review of Systems Constitutional: no anorexia Respiratory: no dyspnea Cardiovascular: no chest pain Gastrointestinal: no abdominal pain and no vomiting Physical Exam Constitutional: + morbidly obese and + altered mental status; no acute distress ENMT: external ear and nose normal, oropharynx normal Respiratory: no respiratory distress Auscultation: + rales (Left base) and + wheezes (b/l but improved today) Cardiovascular: Rate/Rhythm: regular rate and + irregularly irregular Heart Sounds: normal S1 and normal S2; no murmur Vessels: posterior tibial pulses present and dorsalis pedis pulses present; no JVD Extremities: no edema Gastrointestinal (Abdomen): normal bowel sounds, soft, nontender, no hepatosplenomegaly Psychiatric: Orientation: alert, oriented to person and oriented to place; + not oriented to time Results & Data Results & Data ([facility]) Vital Signs (Past 12 Hours) Vital Signs Temp Pulse Pulse Resp BP Pulse Ox 10/19/20 20:02 36.7 C 90 18 126/63 94 10/19/20 19:23 74 16 94 10/19/20 16:00 64 79 18 94 10/19/20 15:44 36.5 C 55 L 19 125/57 L 95 10/19/20 11:03 36.2 C L 53 L 16 103/64 95 10/19/20 11:02 67 18 95 Laboratory Results Laboratory Results - last 24 hr 10/19/20 06:20 Sodium 138 Potassium 4.7 Chloride 110 H Carbon Dioxide 22 Anion Gap 6.0 BUN 55 H Creatinine 1.32 H Est Cr Clr Drug Dosing 32.2 Est GFR ( Amer) 41.9 Est GFR (Non-Af Amer) 36.2 BUN/Creatinine Ratio 41.9 H Glucose 126 H Calcium 8.3 L Iron 50 Transferrin 110 L Transferrin % Sat 32 Ferritin 539.3 H PG Care Time/CCT Total # of Minutes Spent Total Time Spent with Patient: Total time spent is greater than 50% in coordination of care (as documented) at patient's floor/unit and/or counseling patient: Coding Level of Care Code 03303 Subseq Hosp Care Lvl 2 Diagnoses LLL pneumonia J18.9 Pneumonia type: due to unspecified organism Metabolic encephalopathy G93.41 Laryngitis J04.0 Bronchitis J40 Morbid obesity with BMI of 40.0-44.9, adult E66.01; Z68.41 CAD (coronary artery disease) I25.10 Associated angina: without angina Coronary Disease-Associated Artery/Lesion type: [place] artery [place] vs. transplanted heart: [place] heart Hypothyroid E03.9 Hypothyroidism type: acquired Chronic kidney disease, stage 3a N18.3 Essential (primary) hypertension I10 Hyponatremia E87.1 Anemia of chronic disease D63.8 Hypercholesterolemia E78.00 Atrial flutter I48.92 Atrial flutter type: unspecified DVT prophylaxis Z29.9 (1) CAD (coronary artery disease) Associated angina: without angina Coronary Disease-Associated Artery/Lesion type: [place] artery [place] vs. transplanted heart: [place] heart Qualified C ode(s): I25.10 - Atherosclerotic heart disease of [place] coronary artery without angina pectoris (2) Atrial flutter Atrial flutter type: unspecified Qualified Code(s): I48.92 - Unspecified atrial flutter (3) Hypothyroid Hypothyroidism type: acquired Qualified Code(s): E03.9 - Hypothyroidism, unspecified (4) LLL pneumonia Pneumonia type: due to unspecified organism Qualified Code(s): J18.9 - P neumonia, unspecified organism
[2020-10-19] MEDS: DICLOFENAC SOD 1% GEL 100 GM TUBE EXT SCH (20:26)
[2020-10-19] MEDS: ATORVASTATIN 40 MG TAB PO SCH (20:27)
[2020-10-19] MEDS: ACETAMINOPHEN 325 MG TAB PO PRN (20:28)
[2020-10-19] MEDS: MELATONIN 3 MG TAB PO SCH (20:28)
[2020-10-19] MEDS: VANCOMYCIN HCL 1,250 MG in SODIUM CHLORIDE 0.9% 250 ML IV SCH (23:36)
[2020-10-20] MEDS: guaiFENesin SUGAR FREE 200 MG/10 ML UDC PO SCH ×4 (04:25→20:22)
[2020-10-20] MEDS: LEVOTHYROXINE SODIUM 175 MCG TABLET PO SCH (05:42)
[2020-10-20] MEDS: methylPREDNISolone 30 MG in SYRINGE 0 ML IV SCH ×2 (05:42→16:57)
[2020-10-20 06:34] LABS: Hematocrit (blood only) 28.5 % (37-47); Hemoglobin 9.4 g/dL (12.0-16.0); Mean Corpuscular Hemoglobin 31.6 pg (25-34); Mean Platelet Volume 9.5 fL (7.4-10.4); Platelet Count 426 K/uL (130-400); RDW Coefficient of Variation 15.1 % (11.5-14.5); RDW Standard Deviation 53.5 fL (36.4-46.3); Red Blood Count 2.97 M/uL (4.2-5.4); White Blood Count 13.39 K/uL (4.8-10.8)
[2020-10-20 07:04] LABS: BUN Creatinine Ratio 43.6 (10-20); Calcium 8.8 mg/dl (8.5-10.1); Creatinine Clr Calc Pharmacy 32.8 ml/min; Est GFR (African American) 42.7; Est GFR (Non-African American) 36.9; Potassium 4.7 mmol/L (3.5-5.1)
[2020-10-20] MEDS: ALBUT/IPRATROP 3MG/0.5MG NEB 3 ML VIAL NEB SCH ×4 (07:21→19:10)
--- NOTE | 2020-10-20 10:15 | XRay Report ---
XR chest 1V portable HISTORY: 85 years-old Female pneumonia acute shortness of breath with pneumonia COMPARISON: Chest radiograph 10/17/2020 TECHNIQUE: Portable AP view of the chest FINDINGS: Cardiac silhouette is enlarged. Calcific plaque of the thoracic aorta. Chronic interstitial coarsenin g. No pneumothorax, or large pleural effusion. Cyst in airspace consolidation of the left lung base, stable to slightly improved. Linear opacities of the right midlung suggests atelectasis versus scarri ng. Degenerative changes of the shoulders and spine. Chronic fracture deformity of the proximal left humerus. IMPRESSION: 1. Persistent left lung base consolidation, stable to mildly improved suggestive of ongoing pneumonia . Continued follow-up recommended. 2. Cardiomegaly without overt pulmonary edema. ACT 112: Negative or not required by law. The above report was generated using voice recognition software. It may contain grammatical, syntax o r spelling errors. Electronically signed by: Braulio Hernandez M.D. 10/20/2020 10:14 AM
[2020-10-20] MEDS: BENZONATATE 100 MG CAPSULE PO SCH ×3 (11:09→20:19)
[2020-10-20] MEDS: CEFEPIME 2,000 MG in SYRINGE 0 ML IV SCH ×2 (11:09→20:22)
[2020-10-20] MEDS: ARTIFICIAL TEARS OP SCH ×3 (11:09→20:21)
[2020-10-20] MEDS: amLODIPine BESYLATE 5 MG TAB PO SCH (11:10)
[2020-10-20] MEDS: HEPARIN SOD 5,000 UNIT/0.5 ML VIAL SQ SCH ×2 (11:11→16:57)
[2020-10-20] MEDS: LOSARTAN POTASSIUM 50 MG TAB PO SCH (11:11)
[2020-10-20] MEDS: FUROSEMIDE 20 MG TAB PO SCH (11:12)
[2020-10-20] MEDS: AZITHROMYCIN 250 MG TAB PO SCH (11:12)
[2020-10-20] MEDS: DOCUSATE SODIUM 100 MG CAP PO SCH ×2 (11:12→20:20)
[2020-10-20] MEDS: SODIUM CHLORIDE 1 GM TABLET PO SCH (11:12)
[2020-10-20] MEDS: ASPIRIN 81 MG ECTAB PO SCH (11:13)
[2020-10-20] MEDS: LABETALOL HCL 300 MG TAB PO SCH ×2 (11:13→20:20)
[2020-10-20] MEDS: MAGNESIUM OXIDE 400 MG TAB PO SCH (11:13)
[2020-10-20] MEDS: ISOSORBIDE MONO EXTENDED REL 60 MG TABCR PO SCH (11:14)
[2020-10-20] MEDS: traMADol HCL 50 MG TABLET PO SCH ×2 (13:04→20:19)
--- NOTE | 2020-10-20 13:40 | Hospitalist Progress Note ---
Date of Service October 20, 2020 Assessment & Plan (1) LLL pneumonia: IMPROVING. Day #4 of IV abx. Repeat chest x-ray today. Given chronic SNF placement covering for gram negative pathogens with cefepime. Atypical coverage - zithromax. Patient tested + for MRSA - could have MRSA pneumonia - continue IV vanco. Daily Cr. Blood cx's neg to date. COVID noted to be negative. Per daughter had COVID in July 2020 with minimal symptoms. Apparently patient refused COVID vaccine at recently. (2) Metabolic encephalopathy: 2nd to pneumonia/bronchitis. He experiencing symptoms of acute hospital delirium. Supportive care provided with reassurance. avoid benzos and sedatives. (3) Laryngitis: Resolved. She is speaking clearly now with normal tone of voice (4) Bronchitis: Improving. Associated with pneumonia. Continue solumedrol but wean to 30mg BID. Continue duonebs q6h. Continue robitussin. pulm toilet. o2 weaned off (5) Morbid obesity with BMI of 40.0-44.9, adult: BMI 43.8 (6) CAD (coronary artery disease): Cont asa, statin, lasix, beta maria eugenia, imdur. no ACS at this time. (7) Hypothyroid: TSH wnl. Cont synthroid as is. (8) Chronic kidney disease, stage 3a: CrCl about 30. Creatinine has been stable. Serial lab studies (9) Essential (primary) hypertension: Cont all home meds. Controlled. (10) Hyponatremia: On NaCL supplementation - presumably for SIADH?? Na also wnl since 2019. Cont NaCL 1gm daily as this appears to be chronic med for her. (11) Anemia of chronic disease: baseline appears to be 8.5 to 9.5. 2nd to CKD previous b12/folate/iron studies 2019 wnl. rechecked iron studies are normal. (12) Hypercholesterolemia: Cont statin. (13) Atrial flutter: Patient in a.flutter on exam and by way of admission EKG. Also w/ prior h/o a.fib. Remains on BB. Uncertain why she is not on anticoagulation. Rates controlled. (14) DVT prophylaxis: given morbid obesity - heparin 5000 TID despite CKD PT, OT evals but patient wheelchair dependent at speech eval appreciated - no dysphagia/aspiration Disposition: Possible return to [facility] tomorrow, October 21 Admission and Anticipated Discharge Date Admission Date: October 17, 2020 Subjective Alert and oriented. She has experienced hospital delirium. She believes she was told not to eat and not to take any medications. I reassured her and told her otherwise. Repeat chest x-ray today ordered. Creatinine stable. She is now on room air. Possible discharge back to [facility] tomorrow on oral antibiotics and a prednisone tapering dose. Review of Systems Review of Systems: Constitutional-no fever or chills ENT-no blurred vision, no double vision, no epistaxis, no sore throat Respiratory- no wheezing, no shortness of breath. Nonproductive cough Cardiac-no palpitations, no chest pain, no syncope GI-no nausea, vomiting, diarrhea, melena, hematochezia -no urinary retention, no urinary incontinence, no dysuria, no hematuria Musculoskeletal-no joint pain, no muscle tenderness Skin-no bruising, no rashes, no pruritus Neuro-no isolated weakness, no paresthesia, no weakness Psych-no depression, no anxiety. Hospital induced delirium Physical Exam Physical Exam: General-alert and oriented x3, no fevers, no chills HEENT-head atraumatic and normocephalic, TMs intact bilaterally, pupils equal and reactive to light, extraocular muscles intact Neck-no lymphadenopathy or thyromegaly, trachea midline Chest-diminished breath sounds bilaterally. Midline rhonchi audible with forced cough. No expiratory wheezes. No inspiratory rales. Cardiac-regular rate and rhythm, normal S1 and S2, no murmurs Abdomen-normal bowel sounds, nontender, no hepatosplenomegaly Extremities-no cyanosis, clubbing, or edema Neuro-cranial nerves II through XII intact, motor and sensory function within normal limits, strength symmetrical 5/5, no focal deficits Psych-normal affect, normal mood Results & Data Results & Data ([facility]) Vital Signs (Past 12 Hours) Vital Signs Temp Pulse Pulse Resp BP Pulse Ox 10/20/20 12:17 36.5 C 90 18 115/86 95 10/20/20 11:37 84 18 95 10/20/20 07:46 88 10/20/20 07:43 36.8 C 88 16 153/78 H 93 10/20/20 07:21 88 18 93 10/20/20 03:35 36.6 C 97 H 18 136/75 95 Laboratory Results 10/20/20 05:54 10/20/20 05:54 PG Care Time/CCT Total # of Minutes Spent Total Time Spent with Patient: Total time spent is greater than 50% in coordination of care (as documented) at patient's floor/unit and/or counseling patient: Coding Level of Care Code 72211 Subseq Hosp Care Lvl 3 Diagnoses LLL pneumonia J18.9 Pneumonia type: due to unspecified organism Metabolic encephalopathy G93.41 Laryngitis J04.0 Bronchitis J40 Morbid obesity with BMI of 40.0-44.9, adult E66.01; Z68.41 CAD (coronary artery disease) I25.10 Coronary Disease-Associated Artery/Lesion type: [place] artery [place] vs. transplanted heart: [place] heart Associated angina: without angina Hypothyroid E03.9 Hypothyroidism type: acquired Chronic kidney disease, stage 3a N18.3 Essential (primary) hypertension I10 Hyponatremia E87.1 Anemia of chronic disease D63.8 Hypercholesterolemia E78.00 Atrial flutter I48.92 Atrial flutter type: unspecified DVT prophylaxis Z29.9 (1) LLL pneumonia Pneumonia type: due to unspecified organism Qualified Code(s): J18.9 - Pneumonia, unspecified organism (2) CAD (coronary artery disease) Coronary Disease-Associated Artery/Lesion type: [place] artery [place] vs. transplanted heart: [place] heart Associated angina: without angina Qualified Code(s): I25.10 - Atherosclerotic heart disease of [place] coronary artery without angina pectoris (3) Hypothyroid Hypothyroidism type: acquired Qualified Code(s): E03.9 - Hypothyroidism, unspecified (4) Atrial flutter Atrial flutter type: unspecified Qualified Code(s): I48.92 - Unspecified atrial flutter
[2020-10-20] MEDS: ACETAMINOPHEN 325 MG TAB PO PRN (20:19)
[2020-10-20] MEDS: MELATONIN 3 MG TAB PO SCH (20:19)
[2020-10-20] MEDS: DICLOFENAC SOD 1% GEL 100 GM TUBE EXT SCH (20:21)
[2020-10-20] MEDS: ATORVASTATIN 40 MG TAB PO SCH (20:21)
[2020-10-20] MEDS ORDERED: VANCOMYCIN TROUGH ONE (23:30)
[2020-10-21] MEDS: VANCOMYCIN HCL 1,250 MG in SODIUM CHLORIDE 0.9% 250 ML IV SCH (00:52)
[2020-10-21] MEDS: HEPARIN SOD 5,000 UNIT/0.5 ML VIAL SQ SCH ×2 (00:55→07:54)
[2020-10-21] MEDS: guaiFENesin SUGAR FREE 200 MG/10 ML UDC PO SCH ×2 (04:52→10:23)
[2020-10-21] MEDS: LEVOTHYROXINE SODIUM 175 MCG TABLET PO SCH (06:05)
[2020-10-21] MEDS: methylPREDNISolone 30 MG in SYRINGE 0 ML IV SCH (06:06)
[2020-10-21] MEDS: ALBUT/IPRATROP 3MG/0.5MG NEB 3 ML VIAL NEB SCH ×3 (07:28→15:19)
[2020-10-21 07:29] LABS: Hemoglobin 9.5 g/dL (12.0-16.0); Mean Corpuscular Hemoglobin 31.5 pg (25-34); Mean Corpuscular Hgb Conc 32.8 g/dL (32-36); Mean Platelet Volume 9.5 fL (7.4-10.4); Platelet Count 479 K/uL (130-400); RDW Coefficient of Variation 15.5 % (11.5-14.5); RDW Standard Deviation 54.5 fL (36.4-46.3); Red Blood Count 3.02 M/uL (4.2-5.4); White Blood Count 14.97 K/uL (4.8-10.8)
[2020-10-21] MEDS: BENZONATATE 100 MG CAPSULE PO SCH ×2 (07:54→14:07)
[2020-10-21] MEDS: ARTIFICIAL TEARS OP SCH ×2 (07:54→14:07)
[2020-10-21] MEDS: FUROSEMIDE 20 MG TAB PO SCH (07:55)
[2020-10-21] MEDS: AZITHROMYCIN 250 MG TAB PO SCH (07:55)
[2020-10-21] MEDS: MAGNESIUM OXIDE 400 MG TAB PO SCH (07:55)
[2020-10-21] MEDS: LOSARTAN POTASSIUM 50 MG TAB PO SCH (07:56)
[2020-10-21] MEDS: LABETALOL HCL 300 MG TAB PO SCH (07:56)
[2020-10-21] MEDS: ASPIRIN 81 MG ECTAB PO SCH (07:56)
[2020-10-21] MEDS: amLODIPine BESYLATE 5 MG TAB PO SCH (07:57)
[2020-10-21] MEDS: ISOSORBIDE MONO EXTENDED REL 60 MG TABCR PO SCH (07:57)
[2020-10-21] MEDS: DOCUSATE SODIUM 100 MG CAP PO SCH (07:57)
[2020-10-21 08:01] LABS: BUN Creatinine Ratio 42.7 (10-20); Calcium 9.1 mg/dl (8.5-10.1); Creatinine Clr Calc Pharmacy 36.5 ml/min; Est GFR (Non-African American) 42.3; Potassium 4.6 mmol/L (3.5-5.1)
[2020-10-21 08:05] LABS: Basophils # (auto) 0.02 K/uL (0-0.2); Basophils % (auto) 0.1 %; Eosinophils # (auto) 0.02 K/uL (0-0.5); Eosinophils % (auto) 0.1 %; Immature Granulocytes # (auto) 1.05 K/uL (0.00-0.02); Lymphocytes # (auto) 1.46 K/uL (1.2-3.4); Lymphocytes % (auto) 9.8 %; Monocytes # (auto) 1.94 K/uL (0.11-0.59); Neutrophils # (auto) 10.48 K/uL (1.4-6.5)
[2020-10-21] MEDS: traMADol HCL 50 MG TABLET PO SCH (08:05)
[2020-10-21] MEDS: CEFEPIME 2,000 MG in SYRINGE 0 ML IV SCH (08:06)
[2020-10-21] MEDS: SODIUM CHLORIDE 1 GM TABLET PO SCH (10:23)
--- NOTE | 2020-10-21 11:18 | Discharge Summary ---
Date of Service October 21, 2020 Admission HPI Per Admitting Provider 85-year-old female past medical history significant for A. fib on chronic anticoagulation, CAD s/p PCI, HTN, CKD, HLD, hypothyroidism, osteoarthritis and knee pain presented to ER for complaints of several months of chronic dry cough that has been worsening over the last week or so, with associated malaise, hoarse voice, SOB with exertion, and decreased appetite. No measured fevers, no diarrhea or constipation, no abdominal pain, nausea, or vomiting. Was diagnosed with COVID 19 at [facility] (where she resides) several months ago, and since that time has had two negative COVID 19 tests. Son is also present and provides some history, states that she was previously on Coumadin and was transitioned to Xarelto by her PCP, did subsequently have a fall and developed an epidermal hematoma and Xarelto was held. At some point patient was started on Eliquis, which per son she is still on, though medication not listed in patient's home medications on chart. Patient does not have a smoking history, and does not have asthma or COPD. ED course included CXR which showed focal consolidation consistent with pneumonia, JUNIOR with elevated BUN, no leukocytosis, COVID 19 and influenza negative. At time of my interview patient feels comfortable though has a frequent cough especially with talking and deep breaths on exam. Denies current SOB, chest pain, GI complaints, complaints. Principal Diagnosis LLL pneumonia Discharge Exam Constitutional + obese and comfortable Eyes PERRL, conjunctivae normal, anicteric sclerae ENMT external ear and nose normal, oropharynx normal Neck trachea midline, no thyromegaly Respiratory normal respiratory effort, lungs clear to auscultation Cardiovascular RRR, no murmur, no edema Gastrointestinal (Abdomen) normal bowel sounds, soft, nontender, no hepatosplenomegaly Musculoskeletal no cyanosis or clubbing, extremities motor strength 5/5 Skin no rashes, warm and dry Neurologic CN's II-XI intact bilaterally Psychiatric A+Ox3, euthymic affect Discharge Data Allergies Allergy/AdvReac Type Severity Reaction Status Date / Time doxycycline Allergy Intermediate RASH Verified 10/17/20 18:13 ANA LUISA Inhibitors Allergy Unknown INTOLERANT Verified 10/17/20 18:13 lisinopril Allergy Unknown INTOLERANT Verified 10/17/20 18:13 sulfamethoxazole AdvReac Unknown Verified 10/17/20 18:13 [From Bactrim] trimethoprim [From Bactrim] AdvReac Unknown Verified 10/17/20 18:13 Sulfa (Sulfonamide AdvReac Verified 10/17/20 18:13 Antibiotics) Consultations 10/17/20 19:20 ED Decision to Admit Stat Hospital Course (1) LLL pneumonia: IMPROVING. Day #5 of IV abx. Repeat chest x-ray 2/3 looked better. Discharge on [employer]mn[employer] po. Given chronic SNF placement , covering for gram negative pathogens with cefepime. Atypical coverage - zithromax. Patient tested + for MRSA - could have MRSA pneumonia - treated with IV vanco. Daily Cr. Blood cx's neg to date. COVID noted to be negative. Per daughter had COVID in July 2020 with minimal symptoms. Apparently patient refused COVID vaccine at [facility] recently. (2) Metabolic encephalopathy: 2nd to pneumonia/bronchitis. She had symptoms of acute hospital delirium. Supportive care provided with reassurance. Resolved avoid benzos and sedatives. (3) Laryngitis: Resolved. She is speaking clearly now with normal tone of voice (4) Bronchitis: Resolved. Associated with pneumonia. Solumedrol switched to prednisone taper at discharge. Continue duonebs q6h while hospitalized. Continue robitussin. pulm toilet. o2 weaned off (5) Morbid obesity with BMI of 40.0-44.9, adult: BMI 43.8 (6) CAD (coronary artery disease): Cont asa, statin, lasix, beta maria eugenia, imdur. no ACS at this time. (7) Hypothyroid: TSH wnl. Cont synthroid as is. (8) Chronic kidney disease, stage 3a: CrCl about 30. Creatinine has been stable. Serial lab studies (9) Essential (primary) hypertension: Cont all home meds. Controlled. (10) Hyponatremia: On NaCL supplementation - presumably for SIADH?? Na also wnl since 2019. Cont NaCL 1gm daily as this appears to be chronic med for her. (11) Anemia of chronic disease: baseline appears to be 8.5 to 9.5. 2nd to CKD previous b12/folate/iron studies 2019 wnl. rechecked iron studies are normal. (12) Hypercholesterolemia: Cont statin. (13) Atrial flutter: Patient in a.flutter on exam and by way of admission EKG. Also w/ prior h/o a.fib. Remains on BB. Uncertain why she is not on anticoagulation. Rates controlled. (14) DVT prophylaxis: given morbid obesity - heparin 5000 TID despite CKD PT, OT evals but patient wheelchair dependent at [facility] speech eval appreciated - no dysphagia/aspiration Disposition: return to [facility] todayOctober 21 Total Time Total Time Spent Total Time Spent (In Minutes): 35 minutes Total Time Includes: Examination of the Patient, Discharge Planning and Medication Reconciliation Discharge Plan Discharge Items Reason For Visit: COMMUNITY ACQUIRED PNEUMONIA Follow-up/Referrals: [place] [Primary Care Provider] - Medications and DC Order Prescriptions: No Action (DME) OneTouch Ultra Blue Test Strip strip See Dose Instructions .ROUTE .MEDSUPPLY Qty: 10 RF: 0 amlodipine 10 mg tablet 10 mg PO DAILY RF: 0 calcium carbonate-vitamin D3 500 mg(1,250mg) -200 unit tablet 1 tab PO BID RF: 0 melatonin 3 mg tablet 3 mg PO HS RF: 0 tramadol 50 mg tablet 50 mg PO BID RF: 0 bisacodyl [Dulcolax (bisacodyl)] 10 mg suppository 10 mg ID DAILY PRN (Reason: constipation) RF: 0 labetalol 200 mg tablet 300 mg PO BID RF: 0 Metamucil 3.4 gram/5.4 gram powder 1 tsp PO 2XWK RF: 0 magnesium hydroxide [Milk of Magnesia] 400 mg/5 mL suspension 30 ml PO PRN RF: 0 levothyroxine 175 mcg capsule 175 mcg PO DAILY RF: 0 magnesium oxide 400 mg magnesium tablet 400 mg PO DAILY RF: 0 atorvastatin 80 mg tablet 80 mg PO QPM RF: 0 cyanocobalamin (vitamin B-12) 1,000 mcg Tablet 1,000 mcg PO QAM RF: 0 aspirin [Aspirin Low Dose] 81 mg Tablet,Delayed Release (Dr/Ec) 81 mg PO QAM RF: 0 isosorbide mononitrate 60 mg tablet extended release 24 hr 120 mg PO QAM RF: 0 nitroglycerin [Nitrostat] 0.4 mg Tablet, Sublingual 0.4 mg Sublingual UD PRN (Reason: Chest Pain) RF: 0 furosemide 20 mg tablet 20 mg PO QAM RF: 0 losartan 100 mg tablet 100 mg PO QAM RF: 0 diclofenac sodium 1 % gel 4 gm topical HS RF: 0 ferrous sulfate 325 mg (65 mg iron) tablet 325 mg PO Q OTHER DAY RF: 0 multivitamin with minerals [Multiple Vitamin-Minerals] Tablet 1 tab PO QAM RF: 0 sodium chloride 1 gram Tablet 1 g PO DAILY Qty: 30 RF: 0 acetaminophen [Pain Reliever (acetaminophen)] 500 mg Tablet 1,000 mg PO Q8H Qty: 90 RF: 0 docusate sodium 100 mg Capsule 100 mg PO BID Qty: 60 RF: 0 clonidine HCl 0.1 mg tablet 0.1 mg PO BID PRN (Reason: Hypertension) RF: 0 carboxymethylcellulose sodium 1 % Drops 2 drp OPHTHALMIC (EYE) TID RF: 0 Admission Data Admit Date/Time: 10/17/20 20:09 Attending Provider: Royce De Jesus Admit Provider: Lana Samson Primary Care Provider: Toma Ocampo Other Providers: Paul Falk Other Interventions: Discharge Summary Assessment (RN) Last Done: 10/21/20 11:00 Coding Level of Care Code D/C Day Management >30 mins Diagnoses LLL pneumonia J18.9 Pneumonia type: due to unspecified organism Metabolic encephalopathy G93.41 Laryngitis J04.0 Bronchitis J40 Morbid obesity with BMI of 40.0-44.9, adult E66.01; Z68.41 CAD (coronary artery disease) I25.10 Coronary Disease-Associated Artery/Lesion type: [place] artery [place] vs. transplanted heart: [place] heart Associated angina: without angina Hypothyroid E03.9 Hypothyroidism type: acquired Chronic kidney disease, stage 3a N18.3 Essential (primary) hypertension I10 Hyponatremia E87.1 Anemia of chronic disease D63.8 Hypercholesterolemia E78.00 Atrial flutter I48.92 Atrial flutter type: unspecified DVT prophylaxis Z29.9
--- NOTE | 2020-10-21 11:23 | Pharmacy Report ---
Pharmacy Abx Dose Short Note - Date of Service October 21, 2020 - Assessment & Plan Assessment 85 year old F receiving Vancomycin + Cefepime for treatment of possible pneumonia * Day #5 of antimicrobial therapy * Admitted on 10/17 from [facility] with cough, SOB w/ exertion and malaise * Cultures are negative. Patient is afebrile. Renal fxn is improving, SCr down to 1.16 today. Currently on room air. WBCs continue to increase (9k--13.4k--15k) which is likely due to steroids. * Vancomycin is for possible MRSA pneumonia given positive MRSA swab. Cefepime being used to cover for Pseudomonas risk given recent hospitalization and resides at long-term. Azithromycin course completed this AM to cover for atypical pathogens. * Patient possibly being discharged this afternoon. Plan Vancomycin * Trough level of 19.6 mcg/mL is therapeutic * Continue dose of 1250 mg IV every 24 hours * Goal trough level: 15 to 20 mcg/mL * No trough ordered at this time Cefepime (pharmacy not consulted) * 2 g IV every 12 hours * Remains appropriate per renal function and indication Pharmacy will continue to follow and will adjust dose/frequency as necessary. Thank you.
== END 2020-10-21 15:58 | DRG 193 ==
LOC: ED 18:00 → SUATTDRO 20:09 → 2W 20:09